=== PATIENT | female | born 1930 | race African-American/Black ===

== ENCOUNTER 2018-02-24 12:23 | Observation (INO) ==
--- NOTE | 2018-02-24 13:24 | ED ---
HPI General Chief Complaint: Recheck/Abnormal Lab/Rx Stated Complaint: Physent/Medical clearance Time Seen by Provider: 02/24/18 13:21 History of Present Illness HPI narrative: The patient is an 87-year-old female with a history of CKD stage IV, diabetes, and hypertension presenting to the emergency department for the evaluation of abnormal labs. The patient reports that for the past 2-3 months she has been feeling more fatigued than normal and has had somewhat of a decreased appetite. She denies losing any blood in her stool or any dark and tarry stools. The patient reports that her PCP did some lab work and cause her to tell her that her hemoglobin was in the 6-7 range and her calcium was elevated in the 11 range. The patient reports that she otherwise feels fine with no nausea, vomiting, diarrhea, fever, chills, chest pain, shortness of breath, or increased peripheral edema. Related Data Home Medications Medication Instructions Recorded Confirmed amlodipine 10 mg PO DAILY 02/24/18 02/24/18 clonidine HCl 0.1 mg PO BID 02/24/18 02/24/18 glimepiride 1 mg PO QAM 02/24/18 02/24/18 hydralazine 25 mg PO BID 02/24/18 02/24/18 levothyroxine 150 mcg PO DAILY 02/24/18 02/24/18 potassium chloride 20 meq PO DAILY 02/24/18 02/24/18 Allergies Allergy/AdvReac Type Severity Reaction Status Date / Time hydrochlorothiazide Allergy Anxiety Verified 02/24/18 13:11 naproxen [From Naprosyn] Allergy Anemia Verified 02/24/18 13:11 rivaroxaban [From Xarelto] Allergy Anxiety Verified 02/24/18 13:11 [facility] Medical History Medical History Anemia (Acute) Breast cancer, right breast (Acute) Diabetes (Acute) Hypercalcemia (Acute) Hyperlipemia (Acute) Hypertension (Acute) Hypokalemia (Acute) Hypothyroidism (Acute) PVD (peripheral vascular disease) (Acute) Stage 4 chronic kidney disease (Acute) Social History Social History Substance History: No History of Abuse Second Hand Smoke Exposure: No Smoking Status: Light tobacco smoker Tobacco Type: Smokeless Tobacco How Often Do You Have a Drink Containing Alcohol: Monthly or less Recent Travel in [facility] within the Last 8 Weeks: No Recent Out of Country Travel within the Last 8 Weeks: No Immunization History Tetanus Immunization: <5 Years Hx Influenza Vaccine This Season: Yes Course Initial Documented Vital Signs Temperature 98.4 F 02/24/18 12:38 Pulse Rate 77 02/24/18 12:38 Respiratory Rate 18 02/24/18 12:38 Blood Pressure 183/79 H 02/24/18 12:38 Pulse Oximetry 98 02/24/18 12:38 Last Documented Vital Signs Temperature 98.4 F 02/24/18 12:38 Pulse Rate 66 02/24/18 16:02 Respiratory Rate 17 02/24/18 14:29 Blood Pressure 171/75 H 02/24/18 16:02 Pulse Oximetry 96 02/24/18 14:29 Medical Decision Making MDM Narrative Medical decision making narrative: Patient is an 87-year-old female sent in by her primary doctor for evaluation of abnormal labs. Patient is well-appearing, she is hypertensive on arrival. Patient did not take her blood pressure medications prior to coming to the emergency department. She has no physical complaints at this time. Labs imaging ordered and pending. Labs reviewed hemoglobin 7.8/23.2, cysts lower than prior values that we have from 2014. BUN and creatinine elevated at 32/2.65, this is new renal insufficiency again when compared to prior results of 2014. Calcium level is elevated as well. Patient will be admitted for these reasons. Patient is agreeable to stay. Patient's blood pressure has trended down after medication. Family at bedside. Admit orders placed. Patient was discussed with my attending physician prior to admission. Lab Data Lab results reviewed: Yes I reviewed the patient's lab results. Result diagrams: 02/24/18 13:37 02/24/18 13:37 Lab Results 02/24/18 02/24/18 02/24/18 Range/Units 13:37 13:37 13:37 WBC 4.3 (4.0-11.0) th/mm3 RBC 2.50 L (4.00-5.30) mil/mm3 Hgb 7.8 L (11.6-15.3) gm/dL Hct 23.2 L (35.0-46.0) % MCV 92.5 (80.0-100.0) fL MCH 31.1 (27.0-34.0) pg MCHC 33.6 (32.0-36.0) % RDW 16.8 (11.6-17.2) % Plt Count 278 (150-450) th/mm3 MPV 7.5 (7.0-11.0) fL Neut % (Auto) 63.9 (16.0-70.0) % Lymph % (Auto) 22.0 (9.0-44.0) % [place] % (Auto) 12.6 H (0.0-8.0) % Eos % (Auto) 0.7 (0.0-4.0) % Baso % (Auto) 0.8 (0.0-2.0) % Neut # (Auto) 2.7 (1.8-7.7) th/mm3 Lymph # (Auto) 0.9 L (1.0-4.8) th/mm3 [place] # (Auto) 0.5 (0.0-0.9) th/mm3 Eos # (Auto) 0.0 (0.0-0.4) th/mm3 Baso # (Auto) 0.0 (0.0-0.2) th/mm3 WBC Differential . Differential Comment Auto diff final PT (9.8-11.6) sec INR Ratio APTT (24.3-30.1) sec Sodium 142 (136-145) meq/L Potassium 3.9 (3.5-5.1) meq/L Chloride 107 (98-107) meq/L Carbon Dioxide 28.2 (21.0-32.0) meq/L Anion Gap 7 (5-15) meq/L BUN 32 H (7-18) mg/dL Creatinine 2.65 H (0.50-1.00) mg/dL Estimated GFR 21 L (>89) mL/min Random Glucose 79 (74-106) mg/dL Calcium 11.1 H (8.5-10.1) mg/dL Magnesium 2.1 (1.5-2.5) mg/dL Total Bilirubin 0.2 (0.2-1.0) mg/dL AST 24 (15-37) U/L ALT 22 (10-53) U/L Alkaline Phosphatase 109 (45-117) U/L Total Protein 8.0 (6.4-8.2) g/dL Albumin 3.8 (3.4-5.0) g/dL Blood Type O Positive Antibody Screen Negative 02/24/18 Range/Units 13:37 WBC (4.0-11.0) th/mm3 RBC (4.00-5.30) mil/mm3 Hgb (11.6-15.3) gm/dL Hct (35.0-46.0) % MCV (80.0-100.0) fL MCH (27.0-34.0) pg MCHC (32.0-36.0) % RDW (11.6-17.2) % Plt Count (150-450) th/mm3 MPV (7.0-11.0) fL Neut % (Auto) (16.0-70.0) % Lymph % (Auto) (9.0-44.0) % [place] % (Auto) (0.0-8.0) % Eos % (Auto) (0.0-4.0) % Baso % (Auto) (0.0-2.0) % Neut # (Auto) (1.8-7.7) th/mm3 Lymph # (Auto) (1.0-4.8) th/mm3 [place] # (Auto) (0.0-0.9) th/mm3 Eos # (Auto) (0.0-0.4) th/mm3 Baso # (Auto) (0.0-0.2) th/mm3 WBC Differential Differential Comment PT 10.4 (9.8-11.6) sec INR 1.0 Ratio APTT 23.7 L (24.3-30.1) sec Sodium (136-145) meq/L Potassium (3.5-5.1) meq/L Chloride (98-107) meq/L Carbon Dioxide (21.0-32.0) meq/L Anion Gap (5-15) meq/L BUN (7-18) mg/dL Creatinine (0.50-1.00) mg/dL Estimated GFR (>89) mL/min Random Glucose (74-106) mg/dL Calcium (8.5-10.1) mg/dL Magnesium (1.5-2.5) mg/dL Total Bilirubin (0.2-1.0) mg/dL AST (15-37) U/L ALT (10-53) U/L Alkaline Phosphatase (45-117) U/L Total Protein (6.4-8.2) g/dL Albumin (3.4-5.0) g/dL Blood Type Antibody Screen Imaging Data Radiologist's impression: Chest X-Ray 02/24/18 13:30 CONCLUSION: No acute intrathoracic disease. Reviewed radiology report Discharge Plan Discharge Disposition Patient Disposition: 30 Still Patient Discharge Condition Condition: Stable Discharge Details Diagnosis: Acute renal failure (ARF), Hypertension, Hypercalcemia Physicians Team ED Provider: Hayden Hernandez ED Midlevel Provider: Sheryl Garay Primary Care Provider: Negro Gonzalez Attending Provider: Amos Odom Rxs /Orders / Referrals /Forms Prescriptions: No Action clonidine HCl 0.1 mg Tablet 0.1 mg PO BID RF: 0 hydralazine 25 mg Tablet 25 mg PO BID RF: 0 glimepiride 1 mg Tablet 1 mg PO QAM RF: 0 amlodipine 10 mg Tablet 10 mg PO DAILY RF: 0 levothyroxine 150 mcg Tablet 150 mcg PO DAILY RF: 0 potassium chloride 20 mEq Tablet Extended Release 20 meq PO DAILY RF: 0 Discharge Interventions Interventions: Vital Signs Last Done: 02/24/18 16:02 Status ED Status: Admitted Observation Patient
[2018-02-24 14:03] LABS: Baso % (Auto) 0.8 % (0.0-2.0); Eos % (Auto) 0.7 % (0.0-4.0); Hematocrit 23.2 % (35.0-46.0); Hemoglobin 7.8 gm/dL (11.6-15.3); Lymph # (Auto) 0.9 th/mm3 (1.0-4.8); Mean Corpuscular HGB Conc 33.6 % (32.0-36.0); Mean Corpuscular Hemoglobin 31.1 pg (27.0-34.0); Mean Corpuscular Volume 92.5 fL (80.0-100.0); Mean Platelet Volume 7.5 fL (7.0-11.0); Mono # (Auto) 0.5 th/mm3 (0.0-0.9); Mono % (Auto) 12.6 % (0.0-8.0); Neut # (Auto) 2.7 th/mm3 (1.8-7.7); Neut % (Auto) 63.9 % (16.0-70.0); Platelet Count 278 th/mm3 (150-450); Red Cell Distribution Width 16.8 % (11.6-17.2); White Blood Count 4.3 th/mm3 (4.0-11.0)
--- NOTE | 2018-02-24 14:09 | XR ---
EXAM DATE: 02/24/2018 2:07 PM EDT AGE/SEX: 87 years / Female INDICATIONS: Shortness of breath. CLINICAL DATA: This is the patient's initial encounter. Patient reports that signs and symptoms have been present for 1 day and indicates a pain score of 0/10. MEDICAL/SURGICAL HISTORY: None. None. COMPARISON: No prior exams available for comparison. FINDINGS: A single AP view of the chest demonstrates the lungs to be symmetrically aerated without evidence of mass, infiltrate or effusion. The heart size is mildly enlarged.. Osseous structures are intact. T here are surgical clips in the right axilla. CONCLUSION: No acute intrathoracic disease. Electronically signed by: Jerome Sutton MD 02/24/2018 2:08 PM EDT
[2018-02-24 14:13] LABS: Activated Partial Thrombo Time 23.7 sec (24.3-30.1); Prothrombin Time 10.4 sec (9.8-11.6)
[2018-02-24 14:35] LABS: Alanine Aminotransferase 22 U/L (10-53); Albumin 3.8 g/dL (3.4-5.0); Anion Gap 7 meq/L (5-15); Aspartate Aminotransferase 24 U/L (15-37); Blood Urea Nitrogen 32 mg/dL (7-18); Calcium 11.1 mg/dL (8.5-10.1); Carbon Dioxide 28.2 meq/L (21.0-32.0); Chloride 107 meq/L (98-107); Glomerular Filtration Rate 21 mL/min (>89); Glucose,Random 79 mg/dL (74-106); Magnesium 2.1 mg/dL (1.5-2.5); Potassium 3.9 meq/L (3.5-5.1); Sodium 142 meq/L (136-145)
[2018-02-24 14:37] LABS: Alkaline Phosphatase 109 U/L (45-117)
[2018-02-24] MEDS ORDERED: hydrALAZINE HCl Inj 20 MG/ML Vial IV.PUSH ONE (15:20)
[2018-02-24] MEDS: amLODIPine 10 MG Tablet PO ONE ×2 (15:58→15:59)
[2018-02-24] MEDS ORDERED: Acetaminophen 325 MG Tablet PO PRN (15:59)
[2018-02-24] MEDS ORDERED: Bisacodyl 10 MG Supp RECTAL PRN (15:59)
[2018-02-24] MEDS ORDERED: Morphine Inj 4 MG/ML Vial IV.PUSH PRN ×2 (16:05)
[2018-02-24] MEDS ORDERED: Naloxone Inj 0.4 MG/ML Vial IV.PUSH PRN (16:05)
[2018-02-24] MEDS ORDERED: Dextrose 50% in Water 50 ML Vial IV.PUSH PRN (16:58)
[2018-02-24] MEDS: Insulin NovoLOG Aspart Correctional Sugar Inj SQ SCH (17:28)
--- NOTE | 2018-02-24 17:53 | P.HPIM ---
History of Present Illness Service: [facility] Primary Care Physician: Negro CAZARES MD Chief Complaint: ABNORMAL LABS History of Present Illness: Patient is an 87-year-old -[place] female with a known history of chronic kidney disease stage IV, as well as diabetes and hypertension who presents to the emergency department after being seen in her primary care's office and referred here for abnormal labs. Patient reports that over the past couple months she has been having more fatigue than normal. Has had somewhat decreased appetite. She also denies any blood loss of any type in her stool denies any dark stool denies any tarry stool. Patient states that her primary care physician Dr. Shiva Yates did blood work and told her to come to the hospital because her hemoglobin was in the 6-7 range. Patient denies any real other issues other than fatigue. She denies any nausea she denies any diarrhea she denies any fever she denies any chills she denies any chest pain she denies any shortness of breath or any increased chest pain patient does have chronic bilateral lower extremity edema. Review of Systems All other systems reviewed negative except as stated in HPI PMFSH - History History Provided By: Patient - Medical History Medical History: Medical History (Last Reviewed 02/24/18 @ 17:18 by Christin Washington RN) Anemia Breast cancer, right breast Diabetes Hypercalcemia Hyperlipemia Hypertension Hypokalemia Hypothyroidism PVD (peripheral vascular disease) Stage 4 chronic kidney disease - Family History Family History: Family History (Last Updated 02/24/18 @ 17:45 by Amos Odom DO) Other Hypertension - Tobacco History Second Hand Smoke Exposure: No Tobacco Use In Past 30 Days: Yes Smoking Status: Light tobacco smoker Tobacco Type: Smokeless Tobacco - Alcohol History How Often Do You Have a Drink Containing Alcohol: Monthly or less - Substance Use History Substance History: No History of Abuse - Travel History History of Recent Travel: No Recent Travel in the [place] Within the Last 8 Weeks: No Recent Travel Out of the Country Within the Last 8 Weeks: No - Immunization History Tetanus Immunization: <5 Years Hx Influenza Vaccine This Season: Yes Medications and Allergies Active Medications: Active Medications Acetaminophen (Tylenol) 650 mg PO Q4H PRN PRN Reason: Temp > 100.4 Hydrocodone Bitart/Acetaminophen ([place] 5/325) 1 tab PO Q4H PRN PRN Reason: PAIN SCALE 3 TO 5 Hydrocodone Bitart/Acetaminophen ([place] 7.5/325) 1 tab PO Q4H PRN PRN Reason: PAIN SCALE 6 TO 10 Al Hydroxide/Mg Hydroxide (Milk Of Magnesia Liq) 30 ml PO Q12H PRN PRN Reason: Mild Constipation Amlodipine Besylate (Norvasc) 10 mg PO DAILY [facility] Bisacodyl (Dulcolax Supp) 10 mg RECTAL DAILY PRN PRN Reason: SEVERE CONSITIPATION Clonidine HCl (Catapres) 0.1 mg PO BID [facility] Dextrose (D50w Vial) 50 ml IV.PUSH UNSCH PRN PRN Reason: PER HYPOGLYCEMIA PROTOCOL Glucagon (Glucagon Inj) 1 mg OTHER PRN PRN PRN Reason: for Hypoglycemia Protocol Hydralazine HCl (Apresoline) 25 mg PO BID [facility] Insulin Aspart (Novolog Insulin Correctional Sugar Inj) 0 unit SQ ACHS [facility]; Protocol Last Admin: 02/24/18 17:28 Dose: Not Given Lactulose (Lactulose Liq) 30 ml PO DAILY PRN PRN Reason: SEVERE CONSITIPATION Levothyroxine Sodium (Synthroid) 150 mcg PO DAILY@0600 [facility] Morphine Sulfate (Morphine Inj) 2 mg IV.PUSH Q3H PRN PRN Reason: PAIN 3-5; IF UABLE TO TAKE PO Morphine Sulfate (Morphine Inj) 4 mg IV.PUSH Q3H PRN PRN Reason: PAIN 6-10;IF UNABLE TO TAKE PO Naloxone HCl (Narcan Inj) 0.4 mg IV.PUSH UNSCH PRN PRN Reason: SEE LABEL COMMENTS Ondansetron HCl (Zofran Inj) 4 mg IV.PUSH Q6H PRN PRN Reason: NAUSEA OR VOMITING Potassium Chloride (K-Dur) 20 meq PO DAILY [facility] Senna/Docusate Sodium (Anne-Colace) 1 tab PO BID [facility] Sennosides (Senokot) 17.2 mg PO Q12H PRN PRN Reason: Moderate Constipation Allergies Allergy/AdvReac Type Severity Reaction Status Date / Time hydrochlorothiazide Allergy Anxiety Verified 02/24/18 13:11 naproxen [From Naprosyn] Allergy Anemia Verified 02/24/18 13:11 rivaroxaban [From Xarelto] Allergy Anxiety Verified 02/24/18 13:11 Home Medications Medication Instructions Recorded Confirmed Type amlodipine 10 mg PO DAILY 02/24/18 02/24/18 History clonidine HCl 0.1 mg PO BID 02/24/18 02/24/18 History glimepiride 1 mg PO QAM 02/24/18 02/24/18 History hydralazine 25 mg PO BID 02/24/18 02/24/18 History levothyroxine 150 mcg PO DAILY 02/24/18 02/24/18 History potassium chloride 20 meq PO DAILY 02/24/18 02/24/18 History Exam Vital signs: Vital Signs 02/24/18 12:38 02/24/18 13:18 02/24/18 14:29 Temperature 98.4 F Pulse Rate 77 75 74 Respiratory Rate 18 14 17 Blood Pressure 183/79 H 201/98 H 214/94 H Pulse Oximetry 98 95 96 02/24/18 16:02 02/24/18 17:26 Temperature Pulse Rate 66 78 Respiratory Rate 16 Blood Pressure 171/75 H 157/74 H Pulse Oximetry 97 Intake & Output 02/23/18 02/24/18 02/24/18 18:59 06:59 18:59 Weight 71.214 kg Narrative: GENERAL: Awake alert and oriented 3 talkative and cooperative appears younger than stated age SKIN: Warm and dry. HEAD: Atraumatic. Normocephalic. EYES: Pupils equal and round. No scleral icterus. No injection or drainage. EOMI ENT: No nasal bleeding or discharge. Mucous membranes pink and moist. Tongue is midline NECK: Trachea midline. No JVD. Supple CARDIOVASCULAR: Regular rate and rhythm. S1-S2 no S3 or S4 RESPIRATORY: No accessory muscle use. Clear to auscultation. Breath sounds equal bilaterally. GASTROINTESTINAL: Abdomen soft, non-tender, nondistended. Hepatic and splenic margins not palpable. MUSCULOSKELETAL: Extremities without clubbing, cyanosis, +2-3 bilateral lower extremity chronic edema. No obvious deformities. NEUROLOGICAL: Awake and alert. No obvious cranial nerve deficits. Motor grossly within normal limits. Five out of 5 muscle strength in the arms and legs. Normal speech. PSYCHIATRIC: Appropriate mood and affect; insight and judgment normal. Results - Labs CBC & Chem 7: 02/24/18 13:37 02/24/18 13:37 Labs: Short CBC 02/24/18 Range/Units 13:37 WBC 4.3 (4.0-11.0) th/mm3 Hgb 7.8 L (11.6-15.3) gm/dL Hct 23.2 L (35.0-46.0) % Plt Count 278 (150-450) th/mm3 BMP 02/24/18 13:37 Sodium 142 Potassium 3.9 Chloride 107 Carbon Dioxide 28.2 BUN 32 H Creatinine 2.65 H Calcium 11.1 H Liver Function 02/24/18 Range/Units 13:37 Total Bilirubin 0.2 (0.2-1.0) mg/dL AST 24 (15-37) U/L ALT 22 (10-53) U/L Alkaline Phosphatase 109 (45-117) U/L Albumin 3.8 (3.4-5.0) g/dL - Imaging Impressions Chest X-Ray 02/24/18 13:30 CONCLUSION: No acute intrathoracic disease. Caprini VTE Risk Assessment Caprini VTE Risk Assessment: No/Low Risk (score <= 1) Caprini Risk Assessment Model: Point Value = 1 Point Value = 2 Point Value = 3 Point Value = 5 Age 41-60 Minor surgery BMI > 25 kg/m2 Swollen legs Varicose veins or History of unexplained or recurrent spontaneous Oral contraceptives or hormone replacement Sepsis (< 1 month) Serious lung disease, including pneumonia (< 1 month) Abnormal pulmonary function Acute myocardial infarction Congestive heart failure (< 1 month) History of inflammatory bowel disease Medical patient at bed rest Age 61-74 Arthroscopic surgery Major open surgery (> 45 min) Laparoscopic surgery (> 45 min) Malignancy Confined to bed (> 72 hours) Immobilizing plaster cast Central venous access Age >= 75 History of VTE Family history of VTE Factor V Leiden Prothrombin [id number] Lupus anticoagulant Anticardiolipin antibodies Elevated serum homocysteine Heparin-induced thrombocytopenia Other congenital or acquired thrombophilia Stroke (< 1 month) Elective arthroplasty Hip, pelvis, or leg fracture Acute spinal cord injury (< 1 month) Prophylaxis Regimen: Total Risk Factor Score Risk Level Prophylaxis Regimen 0-1 Low Early ambulation 2 Moderate Order ONE of the following: *Sequential Compression Device (SCD) *Heparin 5000 units SQ BID 3-4 Higher Order ONE of the following medications: *Heparin 5000 units SQ TID *Enoxaparin/Lovenox 40 mg SQ daily (WT < 150 kg, CrCl > 30 mL/min) *Enoxaparin/Lovenox 30 mg SQ daily (WT < 150 kg, CrCl > 10-29 mL/min) *Enoxaparin/Lovenox 30 mg SQ BID (WT < 150 kg, CrCl > 30 mL/min) AND/OR *Sequential Compression Device (SCD) 5 or more Highest Order ONE of the following medications: *Heparin 5000 units SQ TID (Preferred with Epidurals) *Enoxaparin/Lovenox 40 mg SQ daily (WT < 150 kg, CrCl > 30 mL/min) *Enoxaparin/Lovenox 30 mg SQ daily (WT < 150 kg, CrCl > 10-29 mL/min) *Enoxaparin/Lovenox 30 mg SQ BID (WT < 150 kg, CrCl > 30 mL/min) AND *Sequential Compression Device (SCD) Assessment and Plan - Plan Anemia chronic currently only 7.8 we will recheck labs in the morning if hemoglobin is less than 7.0 may consider transfusion Hyperlipidemia. Currently not on any medications for elevated cholesterol Hypothyroidism resume her levothyroxine 150 MCG's p.o. daily Hypertensive heart disease resume clonidine and amlodipine Chronic kidney disease monitor labs Hyperparathyroidism With elevated calcium will monitor. 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 We will get a.m. labs We will monitor her and hopefully can be discharged tomorrow or transfuse tomorrow and discharged if labs are stable Code Status: Full code Discussed Condition With: RN and patient and emergency room and family Discharge Planning: We will monitor overnight we will get a.m. labs and depending on what labs are she may be transfused and discharged or just discharged to home
--- NOTE | 2018-02-24 18:10 | US ---
EXAM DATE: 02/24/2018 5:56 PM EDT AGE/SEX: 87 years / Female INDICATIONS: Elevated labs. CLINICAL DATA: This is the patient's initial encounter. Patient reports that signs and symptoms have been present for 1 day and indicates a pain score of 0/10. MEDICAL/SURGICAL HISTORY: Anemia. Hypertension. Hypothyroidism. Breast cancer. Hyperlipidemi a. Hypokalemia. PVD. Stage 4 chronic kidney disease. . COMPARISON: No prior exams available for comparison. MEASUREMENTS: Right Kidney:__10.5 x 4.9 x 4.4 cm Left Kidney:__10.7 x 4.4 x 4.3 cm FINDINGS: Right Kidney: Increased echotexture. No mass or hydronephrosis. Left Kidney: Increased echotexture. No mass or hydronephrosis. Bladder: Within normal limits given the degree of distension. Other: None. CONCLUSION: 1. Echogenic kidneys characteristic of medical renal disease. No hydronephrosis. Electronically signed by: Tanvir Corbett MD 02/24/2018 6:09 PM EDT
[2018-02-24 18:47] LABS: Bilirubin,Urine Negative (Negative); Clarity,Urine Clear (Clear); Color,Urine Straw (Yellw/Straw); Glucose,Urine (UA) Negative (Negative); Leukocyte Esterase,Urine Negative (Negative); Nitrite,Urine Negative (Negative); Specific Gravity,Urine 1.005 (1.002-1.035); Squamous Epithelial Cell,Urine 1 /hpf (0-5)
[2018-02-25] MEDS: hydrALAZINE 25 MG Tablet PO SCH ×2 (01:18→09:14)
[2018-02-25] MEDS: Insulin NovoLOG Aspart Correctional Sugar Inj SQ SCH ×3 (01:18→13:43)
[2018-02-25] MEDS: Senna/Docusate Sodium 8.6/50 MG Tablet PO SCH ×2 (01:19→09:14)
[2018-02-25 05:01] LABS: Baso % (Auto) 1.1 % (0.0-2.0); Eos % (Auto) 0.8 % (0.0-4.0); Hematocrit 22.6 % (35.0-46.0); Hemoglobin 7.6 gm/dL (11.6-15.3); Lymph % (Auto) 27.8 % (9.0-44.0); Mean Corpuscular HGB Conc 33.5 % (32.0-36.0); Mean Corpuscular Hemoglobin 30.8 pg (27.0-34.0); Mean Corpuscular Volume 91.9 fL (80.0-100.0); Mean Platelet Volume 7.2 fL (7.0-11.0); Mono # (Auto) 0.4 th/mm3 (0.0-0.9); Mono % (Auto) 11.3 % (0.0-8.0); Neut # (Auto) 2.2 th/mm3 (1.8-7.7); Platelet Count 269 th/mm3 (150-450); Red Blood Count 2.46 mil/mm3 (4.00-5.30); White Blood Count 3.7 th/mm3 (4.0-11.0)
[2018-02-25 05:26] LABS: INR 1.1 Ratio; Prothrombin Time 10.7 sec (9.8-11.6)
[2018-02-25 05:27] LABS: Albumin 3.3 g/dL (3.4-5.0); Anion Gap 7 meq/L (5-15); Aspartate Aminotransferase 17 U/L (15-37); Blood Urea Nitrogen 30 mg/dL (7-18); Calcium 10.6 mg/dL (8.5-10.1); Carbon Dioxide 28.6 meq/L (21.0-32.0); Chloride 107 meq/L (98-107); Glomerular Filtration Rate 22 mL/min (>89); Glucose,Random 105 mg/dL (74-106); Potassium 3.6 meq/L (3.5-5.1); Sodium 143 meq/L (136-145)
[2018-02-25 05:29] LABS: Alanine Aminotransferase 19 U/L (10-53)
[2018-02-25 05:31] LABS: Alkaline Phosphatase 114 U/L (45-117); Total Protein 7.4 g/dL (6.4-8.2)
[2018-02-25] MEDS ORDERED: Levothyroxine 150 MCG Tablet PO SCH (06:00)
[2018-02-25 07:50] VITALS: RESP 16
--- NOTE | 2018-02-25 08:50 | ECG ---
Date Performed: 02/24/2018 Time Performed: 15:58:08 PTAGE: 87 years EKG: Sinus rhythm WITH FREQUENT SUPRAVENTRICULAR PREMATURE COMPLEXES LEFT AXIS DEVIATION SEPTAL MYOCARDIAL INFARCTION ABNORMAL ECG NO PREVIOUS TRACING DOCTOR: Tripp Oleary Interpretating Date/Time 02/25/2018 08:49:01
[2018-02-25] MEDS ORDERED: amLODIPine 10 MG Tablet PO SCH (09:00)
[2018-02-25 11:03] LABS: % Iron Saturation 18.2 % (20-50); Iron 42 mcg/dL (50-170); Total Iron Binding Capacity 231 mcg/dL (250-450)
--- NOTE | 2018-02-25 11:12 | P.PN ---
Subjective Interval history: Follow-up visit CKD, DM, HTN. Patient seen and examined today. Daughter Noemy at the bedside. Patient says she is doing well. States she was ambulating in the hallway without any dizziness, headaches, chest pain, palpitations. States she was not short of breath. Denies pain and discomfort. Denies fevers, chills , n/v/d. Denies hematuria, dysuria. Denies hematochezia, hematemesis. Physical Exam Vital signs: Vital Signs 02/24/18 12:38 02/24/18 13:18 02/24/18 14:29 Temperature 98.4 F Pulse Rate 77 75 74 Respiratory Rate 18 14 17 Blood Pressure 183/79 H 201/98 H 214/94 H Pulse Oximetry 98 95 96 02/24/18 16:02 02/24/18 17:26 02/24/18 18:19 Temperature 98.2 F Pulse Rate 66 78 83 Respiratory Rate 16 14 Blood Pressure 171/75 H 157/74 H 176/78 H Pulse Oximetry 97 97 02/24/18 20:00 02/24/18 23:50 02/25/18 01:54 Temperature 97.7 F 98.2 F Pulse Rate 56 L 66 Respiratory Rate 18 16 14 Blood Pressure 155/70 H 134/65 Pulse Oximetry 98 95 02/25/18 03:45 02/25/18 07:48 02/25/18 08:48 Temperature 98.9 F 98.9 F Pulse Rate 69 62 Respiratory Rate 18 16 Blood Pressure 136/63 134/77 Pulse Oximetry 95 97 96 Intake & Output 02/24/18 02/25/18 02/25/18 18:59 06:59 18:59 Weight 71.214 kg Narrative: GENERAL: This is a well-nourished, well-developed patient, in no apparent distress. SKIN: Warm and dry. HEENT: Normocephalic. Pupils equal round and reactive. Nose without bleeding. Airway patent. NECK: Trachea midline. Supple. CARDIOVASCULAR: Regular rate and rhythm without murmurs, gallops, or rubs. RESPIRATORY: Clear to auscultation. Breath sounds equal bilaterally. No wheezes , rales, or rhonchi. GASTROINTESTINAL: Abdomen soft, non-tender, nondistended. Bowel Sounds normoactive x4. MUSCULOSKELETAL: Extremities without clubbing, cyanosis. Bilateral lower extremity edema +1. NEUROLOGICAL: Awake and alert. Oriented to time, place, person. No focal neuro deficit. Moves all extremities. Normal speech. Results - Labs CBC & Chem 7: 02/25/18 03:46 02/25/18 03:46 Laboratory Results - last 24 hr 02/24/18 02/24/18 02/24/18 13:37 13:37 13:37 WBC 4.3 RBC 2.50 L Hgb 7.8 L Hct 23.2 L MCV 92.5 MCH 31.1 MCHC 33.6 RDW 16.8 Plt Count 278 MPV 7.5 Neut % (Auto) 63.9 Lymph % (Auto) 22.0 Delta % (Auto) 12.6 H Eos % (Auto) 0.7 Baso % (Auto) 0.8 Neut # (Auto) 2.7 Lymph # (Auto) 0.9 L Delta # (Auto) 0.5 Eos # (Auto) 0.0 Baso # (Auto) 0.0 WBC Differential . Differential Comment Auto diff final PT INR APTT Sodium 142 Potassium 3.9 Chloride 107 Carbon Dioxide 28.2 Anion Gap 7 BUN 32 H Creatinine 2.65 H Estimated GFR 21 L POC Glucose Random Glucose 79 Calcium 11.1 H Magnesium 2.1 Iron TIBC % Saturation Total Bilirubin 0.2 AST 24 ALT 22 Alkaline Phosphatase 109 Total Protein 8.0 Albumin 3.8 Urine Color Urine Clarity Urine pH Ur Specific Willard Urine Protein Urine Glucose (UA) Urine Ketones Urine Occult Blood Urine Nitrate Urine Bilirubin Urine Urobilinogen Ur Leukocyte Esterase Urine RBC Urine WBC Ur Squamous Epith Cells Micro UA Comment Urine Culture Comments Blood Type O Positive Antibody Screen Negative 02/24/18 02/24/18 02/24/18 13:37 17:19 18:30 WBC RBC Hgb Hct MCV MCH MCHC RDW Plt Count MPV Neut % (Auto) Lymph % (Auto) Delta % (Auto) Eos % (Auto) Baso % (Auto) Neut # (Auto) Lymph # (Auto) Delta # (Auto) Eos # (Auto) Baso # (Auto) WBC Differential Differential Comment PT 10.4 INR 1.0 APTT 23.7 L Sodium Potassium Chloride Carbon Dioxide Anion Gap BUN Creatinine Estimated GFR POC Glucose 75 Random Glucose Calcium Magnesium Iron TIBC % Saturation Total Bilirubin AST ALT Alkaline Phosphatase Total Protein Albumin Urine Color Straw Urine Clarity Clear Urine pH 7.0 Ur Specific Willard 1.005 Urine Protein 30 H Urine Glucose (UA) Negative Urine Ketones Negative Urine Occult Blood Negative Urine Nitrate Negative Urine Bilirubin Negative Urine Urobilinogen Less than 2 Ur Leukocyte Esterase Negative Urine RBC Less than 1 Urine WBC 2 Ur Squamous Epith Cells 1 Micro UA Comment Culture not ind Urine Culture Comments Culture not ind Blood Type Antibody Screen 02/24/18 02/25/18 02/25/18 22:33 03:46 03:46 WBC 3.7 L RBC 2.46 L Hgb 7.6 L Hct 22.6 L MCV 91.9 MCH 30.8 MCHC 33.5 RDW 17.0 Plt Count 269 MPV 7.2 Neut % (Auto) 59.0 Lymph % (Auto) 27.8 Delta % (Auto) 11.3 H Eos % (Auto) 0.8 Baso % (Auto) 1.1 Neut # (Auto) 2.2 Lymph # (Auto) 1.0 Delta # (Auto) 0.4 Eos # (Auto) 0.0 Baso # (Auto) 0.0 WBC Differential . Differential Comment Auto diff final PT 10.7 INR 1.1 APTT Sodium Potassium Chloride Carbon Dioxide Anion Gap BUN Creatinine Estimated GFR POC Glucose 127 H Random Glucose Calcium Magnesium Iron TIBC % Saturation Total Bilirubin AST ALT Alkaline Phosphatase Total Protein Albumin Urine Color Urine Clarity Urine pH Ur Specific Willard Urine Protein Urine Glucose (UA) Urine Ketones Urine Occult Blood Urine Nitrate Urine Bilirubin Urine Urobilinogen Ur Leukocyte Esterase Urine RBC Urine WBC Ur Squamous Epith Cells Micro UA Comment Urine Culture Comments Blood Type Antibody Screen 02/25/18 02/25/18 02/25/18 03:46 07:27 10:28 WBC RBC Hgb Hct MCV MCH MCHC RDW Plt Count MPV Neut % (Auto) Lymph % (Auto) Delta % (Auto) Eos % (Auto) Baso % (Auto) Neut # (Auto) Lymph # (Auto) Delta # (Auto) Eos # (Auto) Baso # (Auto) WBC Differential Differential Comment PT INR APTT Sodium 143 Potassium 3.6 Chloride 107 Carbon Dioxide 28.6 Anion Gap 7 BUN 30 H Creatinine 2.54 H Estimated GFR 22 L POC Glucose 89 Random Glucose 105 Calcium 10.6 H Magnesium Iron 42 L TIBC 231 L % Saturation 18.2 L Total Bilirubin 0.2 AST 17 ALT 19 Alkaline Phosphatase 114 Total Protein 7.4 D Albumin 3.3 L Urine Color Urine Clarity Urine pH Ur Specific Willard Urine Protein Urine Glucose (UA) Urine Ketones Urine Occult Blood Urine Nitrate Urine Bilirubin Urine Urobilinogen Ur Leukocyte Esterase Urine RBC Urine WBC Ur Squamous Epith Cells Micro UA Comment Urine Culture Comments Blood Type Antibody Screen - Imaging Impressions Abdomen/Bladder Ultrasound 02/24/18 00:00 CONCLUSION: 1. Echogenic kidneys characteristic of medical renal disease. No hydronephrosis. Chest X-Ray 02/24/18 13:30 CONCLUSION: No acute intrathoracic disease. Assessment and Plan - Assessment (1) Acute renal failure (ARF) Code(s): N17.9 - Acute kidney failure, unspecified Status: Acute (2) Hypertension Code(s): I10 - Essential (primary) hypertension Status: Acute (3) Hypercalcemia Code(s): E83.52 - Hypercalcemia Status: Acute (4) Anemia Code(s): D64.9 - Anemia, unspecified Status: Acute - Plan Patient is an 87-year-old -Greek female with a known history of chronic kidney disease stage IV, as well as diabetes and hypertension who presents to the emergency department after being seen in her primary care's office and referred here for abnormal labs. Anemia, possibly of chronic disease -On admission 7.8 --> 7. 6, possibly hemodilution -Check iron panel, ferritin, B12, folate -Low iron panel, start iron supplementation -Continue to monitor and outpatient. Patient is asymptomatic. Hold off on blood transfusion for now -Denies hematochezia, hematemesis, hematuria Acute kidney injury, on chronic kidney disease stage IV -Ultrasound of the kidneys and bladder showed echogenic kidneys characteristic of medical renal disease. No hydronephrosis. -Nephrology consulted appreciate recommendation. Patient is not being followed by nephrology and outpatient. Continue to avoid nephrotoxins for now. -Avoid NSAIDs, aminoglycosides, IV contrast. -Nephrology okay to [place] home follow-up and outpatient within 2 weeks. HTN HLD -Resume home medications DM 2, with nephropathy -Continue home medications for now. Not on insulin. Hyperparathyroidism -Elevated calcium initially 11.1 -->10.6 DVT prop early ambulation Discharge patient to home Condition on discharge: Improved Diabetic Diet as tolerated Ad Chio activity Rx written: As per [place] Plan Follow-up with primary care physician, Dr. Rodriguez Code Status: Full Code Discussed Condition With: Patient, daughter, Dr. Boone. Discharge Planning: Plan to [place] home today. (1) Acute renal failure (ARF) Qualifiers: Acute renal failure type: unspecified Qualified Code(s): N17.9 - Acute kidney failure, unspecified (2) Hypertension Qualifiers: Hypertension type: unspecified Qualified Code(s): I10 - Essential (primary) hypertension
[2018-02-25 11:29] LABS: Ferritin 288 ng/mL (8-252); Vitamin B12 1994 pg/mL (193-986)
[2018-02-25] MEDS ORDERED: Iron Sucrose Inj 100 MG in Sodium Chlor 0.9% Inj 100 ML IV.SIG SCH (13:24)
--- NOTE | 2018-02-25 13:28 | P.CONNP ---
<Cat Donahue - Last Filed: 02/25/18 15:23> History of Present Illness Service: Nephrology Consult date: 02/25/18 Requesting Physician: Amos Odom Reason for Consult: Acute kidney injury Primary Care Provider: Negro Gonzalez Chief Complaint: ABNORMAL LABS History of Present Illness: Patient is an 87-year-old female with a history of CKD, diabetes, and hypertension for over 40 years. Presented to the emergency department for the evaluation of abnormal labs per primary care provider. Hemoglobin was found to be 7.8 and today at 7.6. Iron study done showing iron deficiency. Calcium also elevated at 11.1 and today improved at 10.6. Reports that she has been told about her hypercalcemia for over a year and primary care provider has changed her medication. She has had fatigue, weakness, and poor appetite over past month. Nausea and vomiting over last couple of days. Denies any blood or dark tarry stools. Nephrology is consulted for acute kidney injury with a creatinine of 2.65 on day of consult which has improved today to 2.54. Patient is not followed by [facility] [employer] outpatient and does not know her baseline kidney function. Renal ultrasound with echogenic kidneys characteristic of medical renal disease. No hydronephrosis. PMFSH - History History Provided By: Patient - Medical History Medical History: Medical History (Last Reviewed 02/25/18 @ 08:43 by Mandi Paez) Anemia Breast cancer, right breast Diabetes Hypercalcemia Hyperlipemia Hypertension Hypokalemia Hypothyroidism PVD (peripheral vascular disease) Stage 4 chronic kidney disease - Family History Family History: Family History (Last Updated 02/24/18 @ 17:45 by Amos Odom DO) Other Hypertension - Tobacco History Second Hand Smoke Exposure: No Tobacco Use In Past 30 Days: Yes Smoking Status: Light tobacco smoker Tobacco Type: Smokeless Tobacco - Alcohol History How Often Do You Have a Drink Containing Alcohol: Monthly or less - Substance Use History Substance History: No History of Abuse - Travel History History of Recent Travel: No Recent Travel in the [place] Within the Last 8 Weeks: No Recent Travel Out of the Country Within the Last 8 Weeks: No - Immunization History Tetanus Immunization: <5 Years Hx Influenza Vaccine This Season: Yes Medications and Allergies Allergies Allergy/AdvReac Type Severity Reaction Status Date / Time hydrochlorothiazide Allergy Anxiety Verified 02/24/18 13:11 naproxen [From Naprosyn] Allergy Anemia Verified 02/24/18 13:11 rivaroxaban [From Xarelto] Allergy Anxiety Verified 02/24/18 13:11 Home Medications Medication Instructions Recorded Confirmed Type amlodipine 10 mg PO DAILY 02/24/18 02/24/18 History clonidine HCl 0.1 mg PO BID 02/24/18 02/24/18 History glimepiride 1 mg PO QAM 02/24/18 02/24/18 History hydralazine 25 mg PO BID 02/24/18 02/24/18 History levothyroxine 150 mcg PO DAILY 02/24/18 02/24/18 History potassium chloride 20 meq PO DAILY 02/24/18 02/24/18 History Active Medications: Active Medications Acetaminophen (Tylenol) 650 mg PO Q4H PRN PRN Reason: Temp > 100.4 Hydrocodone Bitart/Acetaminophen (Leroy 5/325) 1 tab PO Q4H PRN PRN Reason: PAIN SCALE 3 TO 5 Hydrocodone Bitart/Acetaminophen (Leroy 7.5/325) 1 tab PO Q4H PRN PRN Reason: PAIN SCALE 6 TO 10 Al Hydroxide/Mg Hydroxide (Milk Of Magnesia Liq) 30 ml PO Q12H PRN PRN Reason: Mild Constipation Amlodipine Besylate (Norvasc) 10 mg PO DAILY [facility] Last Admin: 02/25/18 09:14 Dose: 10 mg Bisacodyl (Dulcolax Supp) 10 mg RECTAL DAILY PRN PRN Reason: SEVERE CONSITIPATION Clonidine HCl (Catapres) 0.1 mg PO BID [facility] Last Admin: 02/25/18 09:15 Dose: 0.1 mg Clonidine HCl (Catapres) 0.1 mg PO Q6H PRN PRN Reason: SEE LABEL COMMENTS Dextrose (D50w Vial) 50 ml IV.PUSH UNSCH PRN PRN Reason: PER HYPOGLYCEMIA PROTOCOL Glucagon (Glucagon Inj) 1 mg OTHER PRN PRN PRN Reason: for Hypoglycemia Protocol Hydralazine HCl (Apresoline) 25 mg PO BID [facility] Last Admin: 02/25/18 09:14 Dose: 25 mg Insulin Aspart (Novolog Insulin [employer]al Sugar Inj) 0 unit SQ ACHS [facility]; Protocol Last Admin: 02/25/18 09:16 Dose: Not Given Lactulose (Lactulose Liq) 30 ml PO DAILY PRN PRN Reason: SEVERE CONSITIPATION Levothyroxine Sodium (Synthroid) 150 mcg PO DAILY@0600 [facility] Last Admin: 02/25/18 06:19 Dose: 150 mcg Morphine Sulfate (Morphine Inj) 2 mg IV.PUSH Q3H PRN PRN Reason: PAIN 3-5; IF UABLE TO TAKE PO Morphine Sulfate (Morphine Inj) 4 mg IV.PUSH Q3H PRN PRN Reason: PAIN 6-10;IF UNABLE TO TAKE PO Naloxone HCl (Narcan Inj) 0.4 mg IV.PUSH UNSCH PRN PRN Reason: SEE LABEL COMMENTS Ondansetron HCl (Zofran Inj) 4 mg IV.PUSH Q6H PRN PRN Reason: NAUSEA OR VOMITING Potassium Chloride (K-Dur) 20 meq PO DAILY [facility] Last Admin: 02/25/18 09:14 Dose: 20 meq Senna/Docusate Sodium (Anne-Colace) 1 tab PO BID [facility] Last Admin: 02/25/18 09:14 Dose: 1 tab Sennosides (Senokot) 17.2 mg PO Q12H PRN PRN Reason: Moderate Constipation Exam Vital signs: Vital Signs 02/24/18 13:18 02/24/18 14:29 02/24/18 16:02 Temperature Pulse Rate 75 74 66 Respiratory Rate 14 17 Blood Pressure 201/98 H 214/94 H 171/75 H Pulse Oximetry 95 96 02/24/18 17:26 02/24/18 18:19 02/24/18 20:00 Temperature 98.2 F 97.7 F Pulse Rate 78 83 56 L Respiratory Rate 16 14 18 Blood Pressure 157/74 H 176/78 H 155/70 H Pulse Oximetry 97 97 98 02/24/18 23:50 02/25/18 01:54 02/25/18 03:45 Temperature 98.2 F 98.9 F Pulse Rate 66 69 Respiratory Rate 16 14 18 Blood Pressure 134/65 136/63 Pulse Oximetry 95 95 02/25/18 07:48 02/25/18 08:48 02/25/18 11:58 Temperature 98.9 F 97.8 F Pulse Rate 62 59 L Respiratory Rate 16 16 Blood Pressure 134/77 128/59 L Pulse Oximetry 97 96 97 Intake & Output 02/24/18 02/25/18 02/25/18 18:59 06:59 18:59 Weight 71.214 kg Results - Lab Results 02/25/18 03:46 02/25/18 03:46 Most recent lab results Calcium 10.6 mg/dL (8.5-10.1) H 02/25/18 03:46 Magnesium 2.1 mg/dL (1.5-2.5) 02/24/18 13:37 - Image Kidney/bladder ultrasound: report reviewed Assessment and Plan - Assessment (1) Acute renal failure (ARF) Code(s): N17.9 - Acute kidney failure, unspecified Status: Acute Plan: Acute kidney injury with a creatinine of 2.65 on day of consult which has improved today to 2.54. Unsure of patient baseline creatinine. Possible prerenal vs ATN from poor intake and intravascular volume depletion. Renal ultrasound with echogenic kidneys characteristic of medical renal disease. No hydronephrosis. Urine with mild proteinuria. Monitor I+O Fluids are encouraged. Avoid nephrotoxins including NSAIDS, aminoglycosides, and IV contrast Will monitor urinary output and BMP Creatinine is improving and from a nephrology stand point can be discharged but will need to be follow up outpatient within 2 weeks. (2) Hypertension Code(s): I10 - Essential (primary) hypertension Status: Acute Plan: Blood pressure is well controlled (3) Hypercalcemia Code(s): E83.52 - Hypercalcemia Status: Acute Plan: Calcium level elevated at 11.1 and decreased to 10.6 Will order PTH and Vitamin d level in AM. Low calcium diet. (4) Anemia Code(s): D64.9 - Anemia, unspecified Status: Acute Plan: HGB at 7.3, iron sat at 18.2 with ferritin of 288, Venofer ordered. <Nallely Rodriguez - Last Filed: 02/26/18 09:19> History of Present Illness Primary Care Provider: Negro Gonzalez [facility] - Medical History Medical History: Medical History (Last Reviewed 02/25/18 @ 08:43 by Mandi Paez) Anemia Breast cancer, right breast Diabetes Hypercalcemia Hyperlipemia Hypertension Hypokalemia Hypothyroidism PVD (peripheral vascular disease) Stage 4 chronic kidney disease - Family History Family History: Family History (Last Updated 02/24/18 @ 17:45 by Amos Odom DO) Other Hypertension Exam Vital signs: Vital Signs 02/25/18 11:58 02/25/18 16:00 Temperature 97.8 F 98.0 F Pulse Rate 59 L 79 Respiratory Rate 16 16 Blood Pressure 128/59 L 180/73 H Pulse Oximetry 97 98 Intake & Output 02/25/18 02/26/18 02/26/18 18:59 06:59 18:59 Intake Total 480 / 480 Output Total 200 / 200 Balance 280 / 280 Intake: Oral 480 / 480 Output: Urine 200 / 200 Other: # Voids 2 Results - Lab Results 02/25/18 03:46 02/25/18 03:46 Most recent lab results Calcium 10.6 mg/dL (8.5-10.1) H 02/25/18 03:46 Magnesium 2.1 mg/dL (1.5-2.5) 02/24/18 13:37 Assessment and Plan - Assessment (1) Acute renal failure (ARF) Code(s): N17.9 - Acute kidney failure, unspecified Status: Acute (2) Hypertension Code(s): I10 - Essential (primary) hypertension Status: Acute (3) Hypercalcemia Code(s): E83.52 - Hypercalcemia Status: Acute (4) Anemia Code(s): D64.9 - Anemia, unspecified Status: Acute - Attending Attestation Patient seen and examined, agree with above. Has echogenic kidneys and mild proteinuria. Creatinine is stable. Most likely has advance chronic stage 4 kidney disease. For D/C, I can follow as out patient in 2 weeks. <Cat Donahue - Last Filed: 02/25/18 15:23> (1) Acute renal failure (ARF) Qualifiers: Acute renal failure type: unspecified Qualified Code(s): N17.9 - Acute kidney failure, unspecified (2) Hypertension Qualifiers: Hypertension type: unspecified Qualified Code(s): I10 - Essential (primary) hypertension <Nallely Rodriguez - Last Filed: 02/26/18 09:19> (1) Acute renal failure (ARF) Qualifiers: Acute renal failure type: unspecified Qualified Code(s): N17.9 - Acute kidney failure, unspecified (2) Hypertension Qualifiers: Hypertension type: unspecified Qualified Code(s): I10 - Essential (primary) hypertension
[2018-02-25 15:41] LABS: Creatinine,Urine Random 135 mg/dL (27-300)
[2018-02-25] MEDS ORDERED: Ferrous Sulfate 325 MG Tablet PO SCH (16:15)
[2018-03-01 18:01] VITALS: BP 180/73; PULSE 79; TEMP 98; O2SAT 98
== END 2018-02-25 17:27 | disposition home or self-care (01) ==
LOC: NEDA 12:23 → NEPC 12:23 → NEPHCDU 12:23
PROVIDERS: ADMIT Hospitalist; ATTEND Hospitalist

== ENCOUNTER 2018-05-17 12:40 | Observation (INO) ==
--- NOTE | 2018-05-17 14:22 | ED ---
HPI General Chief complaint: Recheck/Abnormal Lab/Rx Stated complaint: Blood Transfusion/Doctor Sent Time Seen by Provider: 05/17/18 14:08 History of Present Illness HPI narrative: This is an 87-year-old female with history of chronic kidney disease, diabetes, hypertension, anemia of chronic disease who presents after being sent by her senior design engineer Dr. Rodriguez for evaluation of abnormal lab work. The patient had lab work performed last week which revealed a hemoglobin of 6.5. She saw him yesterday and was told to come to the ER for transfusion. She reports that she has had chronic fatigue for months. She denies any acute symptomology. She denies any chest pain, shortness of breath, abdominal pain, nausea or vomiting. She denies any black or tarry stools or hematochezia. She is not on any blood thinning medications. Symptoms are moderate, duration months, no alleviating factors. She has no other complaints at this time. Related Data Home Medications Medication Instructions Recorded Confirmed amlodipine 10 mg PO DAILY 02/24/18 02/24/18 clonidine HCl 0.1 mg PO BID 02/24/18 02/24/18 glimepiride 1 mg PO QAM 02/24/18 02/24/18 hydralazine 25 mg PO BID 02/24/18 02/24/18 levothyroxine 150 mcg PO DAILY 02/24/18 02/24/18 potassium chloride 20 meq PO DAILY 02/24/18 02/24/18 Previous Rx's Medication Instructions Recorded ferrous sulfate [FeroSul] 325 mg PO DAILY #30 tab 02/25/18 Allergies Allergy/AdvReac Type Severity Reaction Status Date / Time hydrochlorothiazide Allergy Anxiety Verified 05/17/18 13:44 naproxen [From Naprosyn] Allergy Anemia Verified 05/17/18 13:44 rivaroxaban [From Xarelto] Allergy Anxiety Verified 05/17/18 13:44 Review of Systems ROS: all other systems reviewed are negative [facility] Medical History Medical History Anemia (Acute) Breast cancer, right breast (Acute) Diabetes (Acute) H/O: hysterectomy (Acute) Hypercalcemia (Acute) Hyperlipemia (Acute) Hypertension (Acute) Hypokalemia (Acute) Hypothyroidism (Acute) PVD (peripheral vascular disease) (Acute) Stage 4 chronic kidney disease (Acute) Family History Family History Other Hypertension Social History Social History Substance History: No History of Abuse Second Hand Smoke Exposure: No Smoking Status: Never smoker Tobacco Type: Smokeless Tobacco How Often Do You Have a Drink Containing Alcohol: Never Hx Recent Travel: No Recent Travel in [facility] within the Last 8 Weeks: No Recent Out of Country Travel within the Last 8 Weeks: No Immunization History Tetanus Immunization: Unsure Exam Narrative Exam Narrative: GENERAL: Pleasant well-developed well-nourished female no acute distress SKIN: Warm and dry. HEAD: Atraumatic. Normocephalic. EYES: Pupils equal and round. No scleral icterus. No injection or drainage. ENT: No nasal bleeding or discharge. Mucous membranes pink and moist. NECK: Trachea midline. No JVD. CARDIOVASCULAR: Regular rate and rhythm. No murmur appreciated. RESPIRATORY: No accessory muscle use. Clear to auscultation. Breath sounds equal bilaterally. GASTROINTESTINAL: Abdomen soft, non-tender, nondistended. Hepatic and splenic margins not palpable. Rectal examination reveals brown heme-negative stool. MUSCULOSKELETAL: No obvious deformities. No clubbing. No cyanosis. No edema. NEUROLOGICAL: Awake and alert. No obvious cranial nerve deficits. Motor grossly within normal limits. Normal speech. Procedures Hemaprompt Stool Procedural Steps Taken: specimen placed in appropriate test area, developer placed on specimen and control areas and controls appropriately positive and negative Hemaprompt Stool Result: negative Course Initial Documented Vital Signs Temperature 97.8 F 05/17/18 13:41 Pulse Rate 61 05/17/18 13:41 Respiratory Rate 15 05/17/18 13:41 Blood Pressure 138/60 05/17/18 13:41 Pulse Oximetry 100 05/17/18 13:41 Last Documented Vital Signs Temperature 97.8 F 05/17/18 13:41 Pulse Rate 71 05/17/18 16:28 Respiratory Rate 20 05/17/18 16:28 Blood Pressure 175/79 H 05/17/18 16:28 Pulse Oximetry 99 05/17/18 16:28 Medical Decision Making [facility] Narrative Medical decision making narrative: 87-year-old female who was sent here by her senior design engineer for evaluation of low hemoglobin. Her hemoglobin today is 6.7. She has a history of chronic anemia, this appears to be worsening. She has no evidence of GI bleed on examination. She has no acute symptoms, she does report chronic fatigue. 2 units packed red blood cells have been ordered. The patient will be admitted for observation. Discussed with Dr. Jones who is agreeable. Medical Screen Exam Complete: Yes Emergency Medical Condition: Yes Differential Diagnosis Differential Diagnosis: Anemia of chronic disease, acute anemia, GI bleed Lab Data Result diagrams: 05/17/18 15:15 05/17/18 15:15 Lab Results 05/17/18 05/17/18 05/17/18 Range/Units 15:15 15:15 15:15 WBC 4.3 (4.0-11.0) th/mm3 RBC 2.00 L (4.00-5.30) mil/mm3 Hgb 6.7 L* (11.6-15.3) gm/dL Hct 18.6 L* (35.0-46.0) % MCV 93.1 (80.0-100.0) fL MCH 33.4 (27.0-34.0) pg MCHC 35.9 (32.0-36.0) % RDW 14.8 (11.6-17.2) % Plt Count 259 (150-450) th/mm3 MPV 6.9 L (7.0-11.0) fL Neut % (Auto) 70.5 H (16.0-70.0) % Lymph % (Auto) 18.1 (9.0-44.0) % [place] % (Auto) 10.5 H (0.0-8.0) % Eos % (Auto) 0.4 (0.0-4.0) % Baso % (Auto) 0.5 (0.0-2.0) % Neut # (Auto) 3.1 (1.8-7.7) th/mm3 Lymph # (Auto) 0.8 L (1.0-4.8) th/mm3 [place] # (Auto) 0.5 (0.0-0.9) th/mm3 Eos # (Auto) 0.0 (0.0-0.4) th/mm3 Baso # (Auto) 0.0 (0.0-0.2) th/mm3 WBC Differential . Differential Comment Auto diff final PT 10.7 (9.8-11.6) sec INR 1.1 Ratio APTT 24.3 (24.3-30.1) sec Blood Type O Positive MTS Gel Crossmatch 05/17/18 Range/Units 15:15 WBC (4.0-11.0) th/mm3 RBC (4.00-5.30) mil/mm3 Hgb (11.6-15.3) gm/dL Hct (35.0-46.0) % MCV (80.0-100.0) fL MCH (27.0-34.0) pg MCHC (32.0-36.0) % RDW (11.6-17.2) % Plt Count (150-450) th/mm3 MPV (7.0-11.0) fL Neut % (Auto) (16.0-70.0) % Lymph % (Auto) (9.0-44.0) % [place] % (Auto) (0.0-8.0) % Eos % (Auto) (0.0-4.0) % Baso % (Auto) (0.0-2.0) % Neut # (Auto) (1.8-7.7) th/mm3 Lymph # (Auto) (1.0-4.8) th/mm3 [place] # (Auto) (0.0-0.9) th/mm3 Eos # (Auto) (0.0-0.4) th/mm3 Baso # (Auto) (0.0-0.2) th/mm3 WBC Differential Differential Comment PT (9.8-11.6) sec INR Ratio APTT (24.3-30.1) sec Blood Type MTS Gel Crossmatch See Detail Discharge Plan Discharge Disposition Patient Disposition: 30 Still Patient Discharge Condition Condition: Stable Discharge Details Diagnosis: Anemia Physicians Team ED Provider: Vonda Angel ED Midlevel Provider: Josias Briones Primary Care Provider: UNKNOWN, Rxs /Orders / Referrals /Forms Prescriptions: No Action clonidine HCl 0.1 mg Tablet 0.1 mg PO BID RF: 0 hydralazine 25 mg Tablet 25 mg PO BID RF: 0 glimepiride 1 mg Tablet 1 mg PO QAM RF: 0 amlodipine 10 mg Tablet 10 mg PO DAILY RF: 0 levothyroxine 150 mcg Tablet 150 mcg PO DAILY RF: 0 potassium chloride 20 mEq Tablet Extended Release 20 meq PO DAILY RF: 0 ferrous sulfate [FeroSul] 325 mg (65 mg iron) Tablet 325 mg PO DAILY Qty: 30 RF: 0 Status ED Status: With Doctor
[2018-05-17 15:37] LABS: Baso % (Auto) 0.5 % (0.0-2.0); Eos % (Auto) 0.4 % (0.0-4.0); Lymph # (Auto) 0.8 th/mm3 (1.0-4.8); Lymph % (Auto) 18.1 % (9.0-44.0); Mean Corpuscular HGB Conc 35.9 % (32.0-36.0); Mean Corpuscular Hemoglobin 33.4 pg (27.0-34.0); Mean Corpuscular Volume 93.1 fL (80.0-100.0); Mean Platelet Volume 6.9 fL (7.0-11.0); Mono # (Auto) 0.5 th/mm3 (0.0-0.9); Mono % (Auto) 10.5 % (0.0-8.0); Neut # (Auto) 3.1 th/mm3 (1.8-7.7); Neut % (Auto) 70.5 % (16.0-70.0); Platelet Count 259 th/mm3 (150-450); Red Cell Distribution Width 14.8 % (11.6-17.2); White Blood Count 4.3 th/mm3 (4.0-11.0)
[2018-05-17 15:44] LABS: Hematocrit 18.6 % (35.0-46.0); Hemoglobin 6.7 gm/dL (11.6-15.3)
[2018-05-17 15:47] LABS: Activated Partial Thrombo Time 24.3 sec (24.3-30.1); INR 1.1 Ratio; Prothrombin Time 10.7 sec (9.8-11.6)
[2018-05-17 16:05] LABS: Alanine Aminotransferase 15 U/L (10-53); Albumin 3.7 g/dL (3.4-5.0); Alkaline Phosphatase 100 U/L (45-117); Anion Gap 10 meq/L (5-15); Aspartate Aminotransferase 18 U/L (15-37); Blood Urea Nitrogen 41 mg/dL (7-18); Calcium 11.1 mg/dL (8.5-10.1); Carbon Dioxide 28.2 meq/L (21.0-32.0); Chloride 96 meq/L (98-107); Glomerular Filtration Rate 18 mL/min (>89); Glucose,Random 71 mg/dL (74-106); Magnesium 1.9 mg/dL (1.5-2.5); Sodium 134 meq/L (136-145); Total Protein 7.7 g/dL (6.4-8.2)
[2018-05-17] MEDS ORDERED: Sodium Chlor 0.9% Inj 250 ML IV.SIG SCH (17:00)
[2018-05-17 17:02] LABS: Potassium 2.9 meq/L (3.5-5.1)
--- NOTE | 2018-05-17 18:27 | P.HPIM ---
History of Present Illness Primary Care Physician: UNKNOWN History of Present Illness: Ms. Schilling is an 87-year-old female. She has a past history of chronic disease including history of breast cancer and chronic kidney disease. She has had blood transfusions in the past related to anemia of chronic disease. As an outpatient she visited her physician and was told she has a hemoglobin between 6 and 7. She comes in the hospital today and her hemoglobin level 6.7. Testing of stool was negative for blood. Etiology for this is chronic and no GI workup is needed. Additional findings tonight are hypokalemia (this would contradict lysis as a cause) and uncontrolled hypertension. No complaints of chest pain. No complaints of pain. - Diagnosis (1) Anemia Review of Systems Constitutional: No fevers, no chills no night sweats, fatigue, weakness Eyes: No eye pain, no blurry vision, no loss of vision ENT: No sore throat, no ear pain, no rhinorrhea Cardiovascular: No chest pain, no tachycardia, no palpitations, no shortness of breath, no syncope Respiratory: No wheezing, no cough, no shortness of breath Gastrointestinal: No abdominal pain, no black tarry stools, no bright red blood per rectum, no vomiting, no diarrhea Musculoskeletal: No joint pain, no muscle cramps, no stiffness Integumentary: No rash, no ulcers, no drainage Neurologic: No sensory loss, no loss of motor function, no dizziness Psychiatric: No behavioral changes, no hallucinations, no suicidal ideations PMF - History History Provided By: Patient, Family Member - Medical History Medical History: Medical History (Last Updated 05/17/18 @ 14:11 by Crow Chase RN) Anemia Breast cancer, right breast Diabetes H/O: hysterectomy Hypercalcemia Hyperlipemia Hypertension Hypokalemia Hypothyroidism PVD (peripheral vascular disease) Stage 4 chronic kidney disease - Family History Family History: Family History (Last Updated 02/24/18 @ 17:45 by Amos Odom DO) Other Hypertension - Tobacco History Second Hand Smoke Exposure: No Smoking Status: Never smoker Tobacco Type: Smokeless Tobacco - Alcohol History How Often Do You Have a Drink Containing Alcohol: Never - Substance Use History Substance History: No History of Abuse - Travel History History of Recent Travel: No Recent Travel in the [place] Within the Last 8 Weeks: No Recent Travel Out of the Country Within the Last 8 Weeks: No - Immunization History Tetanus Immunization: Unsure Medications and Allergies Active Medications: Active Medications Al Hydroxide/Mg Hydroxide (Milk Of Selene Clark) 30 ml PO Q12H PRN PRN Reason: Mild Constipation Sodium Chloride (Ns Inj) 250 mls @ 15 mls/hr IV.SIG ONCE SPARKLE Stop: 05/18/18 09:39 Ondansetron HCl (Zofran Inj) 4 mg IV.PUSH Q6H PRN PRN Reason: NAUSEA OR VOMITING Sodium Chloride (Ns Flush) 2 ml IV.FLUSH PRN PRN PRN Reason: FLUSH AFTER USING IV ACCESS Allergies Allergy/AdvReac Type Severity Reaction Status Date / Time hydrochlorothiazide Allergy Anxiety Verified 05/17/18 13:44 naproxen [From Naprosyn] Allergy Anemia Verified 05/17/18 13:44 rivaroxaban [From Xarelto] Allergy Anxiety Verified 05/17/18 13:44 Home Medications Medication Instructions Recorded Confirmed Type amlodipine 10 mg PO DAILY 02/24/18 05/17/18 History clonidine HCl 0.1 mg PO BID 02/24/18 05/17/18 History glimepiride 1 mg PO QAM 02/24/18 05/17/18 History hydralazine 25 mg PO BID 02/24/18 05/17/18 History levothyroxine 150 mcg PO DAILY 02/24/18 05/17/18 History potassium chloride 20 meq PO DAILY 02/24/18 05/17/18 History Exam Vital signs: Vital Signs 05/17/18 13:41 05/17/18 14:13 05/17/18 16:28 Temperature 97.8 F Pulse Rate 61 70 71 Respiratory Rate 15 20 20 Blood Pressure 138/60 188/79 H 175/79 H Pulse Oximetry 100 100 99 05/17/18 17:37 Temperature Pulse Rate 75 Respiratory Rate 20 Blood Pressure 183/83 H Pulse Oximetry 99 Intake & Output 05/16/18 05/17/18 05/17/18 18:59 06:59 18:59 Weight 68.946 kg Narrative: GENERAL: NAD, A&Ox3 HEAD: Normocephalic. NECK: Supple, trachea midline. No lymphadenopathy. EYES: No scleral icterus. No injection or drainage. CARDIOVASCULAR: Regular rate and rhythm without murmurs, gallops, or rubs. RESPIRATORY: Breath sounds equal bilaterally. No accessory muscle use. GASTROINTESTINAL: Abdomen soft, non-tender, nondistended. MUSCULOSKELETAL: No cyanosis, or edema. SKIN: Warm and dry. NEURO: No focal neurological deficits. Results - Labs CBC & Chem 7: 05/17/18 15:15 05/17/18 15:15 Labs: Short CBC 05/17/18 Range/Units 15:15 WBC 4.3 (4.0-11.0) th/mm3 Hgb 6.7 L* (11.6-15.3) gm/dL Hct 18.6 L* (35.0-46.0) % Plt Count 259 (150-450) th/mm3 BMP 05/17/18 15:15 Sodium 134 L Potassium 2.9 L* Chloride 96 L Carbon Dioxide 28.2 BUN 41 H Creatinine 3.03 H Calcium 11.1 H Liver Function 05/17/18 Range/Units 15:15 Total Bilirubin 0.3 (0.2-1.0) mg/dL AST 18 (15-37) U/L ALT 15 (10-53) U/L Alkaline Phosphatase 100 (45-117) U/L Albumin 3.7 (3.4-5.0) g/dL Caprini VTE Risk Assessment Caprini VTE Risk Assessment: No/Low Risk (score <= 1) Caprini Risk Assessment Model: Point Value = 1 Point Value = 2 Point Value = 3 Point Value = 5 Age 41-60 Minor surgery BMI > 25 kg/m2 Swollen legs Varicose veins or History of unexplained or recurrent spontaneous Oral contraceptives or hormone replacement Sepsis (< 1 month) Serious lung disease, including pneumonia (< 1 month) Abnormal pulmonary function Acute myocardial infarction Congestive heart failure (< 1 month) History of inflammatory bowel disease Medical patient at bed rest Age 61-74 Arthroscopic surgery Major open surgery (> 45 min) Laparoscopic surgery (> 45 min) Malignancy Confined to bed (> 72 hours) Immobilizing plaster cast Central venous access Age >= 75 History of VTE Family history of VTE Factor V Leiden Prothrombin [id number] Lupus anticoagulant Anticardiolipin antibodies Elevated serum homocysteine Heparin-induced thrombocytopenia Other congenital or acquired thrombophilia Stroke (< 1 month) Elective arthroplasty Hip, pelvis, or leg fracture Acute spinal cord injury (< 1 month) Prophylaxis Regimen: Total Risk Factor Score Risk Level Prophylaxis Regimen 0-1 Low Early ambulation 2 Moderate Order ONE of the following: *Sequential Compression Device (SCD) *Heparin 5000 units SQ BID 3-4 Higher Order ONE of the following medications: *Heparin 5000 units SQ TID *Enoxaparin/Lovenox 40 mg SQ daily (WT < 150 kg, CrCl > 30 mL/min) *Enoxaparin/Lovenox 30 mg SQ daily (WT < 150 kg, CrCl > 10-29 mL/min) *Enoxaparin/Lovenox 30 mg SQ BID (WT < 150 kg, CrCl > 30 mL/min) AND/OR *Sequential Compression Device (SCD) 5 or more Highest Order ONE of the following medications: *Heparin 5000 units SQ TID (Preferred with Epidurals) *Enoxaparin/Lovenox 40 mg SQ daily (WT < 150 kg, CrCl > 30 mL/min) *Enoxaparin/Lovenox 30 mg SQ daily (WT < 150 kg, CrCl > 10-29 mL/min) *Enoxaparin/Lovenox 30 mg SQ BID (WT < 150 kg, CrCl > 30 mL/min) AND *Sequential Compression Device (SCD) Assessment and Plan - Assessment (1) Anemia Code(s): D64.9 - Anemia, unspecified Status: Acute - Plan 87-year-old female admitted secondary to severe anemia Severe anemia Related to chronic disease Transfuse 2 units packed red blood cells Recheck hemoglobin in a.m. Hypokalemia Replace Monitor potassium levels Recheck in a.m. Uncontrolled hypertension Continue baseline treatments Add additional clonidine as needed Diabetes mellitus type 2 Follow blood sugars Insulin sliding scale Diabetic diet Hyperlipidemia Continue present treatment Follow as an outpatient Hypertension Continue baseline treatment Follow blood pressures Adjust treatments as needed History of breast cancer, right breast Hypothyroidism PVD (peripheral vascular disease) Stage 4 chronic kidney disease No change to baseline treatments DVT Prophylaxis SCDs Discharge Planning Possible DC in AM if Hgb improved, Potassium normalizes, and BP stabilized.
[2018-05-17] MEDS ORDERED: Dextrose 50% in Water 50 ML Vial IV.PUSH PRN (18:30)
[2018-05-17] MEDS: hydrALAZINE 25 MG Tablet PO SCH (20:26)
[2018-05-17] MEDS: Insulin NovoLOG Aspart Correctional Sugar Inj SQ SCH (23:19)
[2018-05-18] MEDS ORDERED: Levothyroxine 150 MCG Tablet PO SCH (06:00)
[2018-05-18 08:01] LABS: Baso % (Auto) 0.7 % (0.0-2.0); Eos % (Auto) 0.6 % (0.0-4.0); Hematocrit 25.8 % (35.0-46.0); Lymph # (Auto) 0.6 th/mm3 (1.0-4.8); Lymph % (Auto) 14.3 % (9.0-44.0); Mean Corpuscular HGB Conc 34.9 % (32.0-36.0); Mean Corpuscular Hemoglobin 30.7 pg (27.0-34.0); Mean Platelet Volume 7.1 fL (7.0-11.0); Mono # (Auto) 0.5 th/mm3 (0.0-0.9); Mono % (Auto) 10.6 % (0.0-8.0); Neut # (Auto) 3.3 th/mm3 (1.8-7.7); Neut % (Auto) 73.8 % (16.0-70.0); Platelet Count 265 th/mm3 (150-450); Red Blood Count 2.94 mil/mm3 (4.00-5.30); Red Cell Distribution Width 17.5 % (11.6-17.2); White Blood Count 4.5 th/mm3 (4.0-11.0)
[2018-05-18 08:25] LABS: Albumin 3.2 g/dL (3.4-5.0); Anion Gap 9 meq/L (5-15); Aspartate Aminotransferase 17 U/L (15-37); Blood Urea Nitrogen 38 mg/dL (7-18); Calcium 11.2 mg/dL (8.5-10.1); Chloride 103 meq/L (98-107); Glomerular Filtration Rate 19 mL/min (>89); Glucose,Random 69 mg/dL (74-106); Potassium 3.4 meq/L (3.5-5.1); Sodium 139 meq/L (136-145)
[2018-05-18 08:26] LABS: Alanine Aminotransferase 13 U/L (10-53)
[2018-05-18 08:28] LABS: Alkaline Phosphatase 96 U/L (45-117); Total Protein 7.1 g/dL (6.4-8.2)
[2018-05-18] MEDS ORDERED: Ferrous Sulfate 325 MG Tablet PO SCH (09:00)
[2018-05-18] MEDS ORDERED: amLODIPine 10 MG Tablet PO SCH (09:00)
[2018-05-18] MEDS: Insulin NovoLOG Aspart Correctional Sugar Inj SQ SCH (09:15)
[2018-05-18] MEDS: hydrALAZINE 25 MG Tablet PO SCH (09:17)
--- NOTE | 2018-05-18 10:08 | P.PN ---
Subjective Interval history: no events overnight Asymptomatic HGB improved after transfusion. Physical Exam Vital signs: Vital Signs 05/17/18 13:41 05/17/18 14:13 05/17/18 16:28 Temperature 97.8 F Pulse Rate 61 70 71 Respiratory Rate 15 20 20 Blood Pressure 138/60 188/79 H 175/79 H Pulse Oximetry 100 100 99 05/17/18 17:37 05/17/18 18:56 05/17/18 19:19 Temperature 98.6 F 98.1 F Pulse Rate 75 79 83 Respiratory Rate 20 20 18 Blood Pressure 183/83 H 175/80 H 160/75 H Pulse Oximetry 99 97 96 05/17/18 20:00 05/17/18 23:31 05/17/18 23:48 Temperature 98.4 F 98.9 F 98.8 F Pulse Rate 90 86 74 Respiratory Rate 15 17 18 Blood Pressure 174/80 H 157/67 H 162/74 H Pulse Oximetry 96 96 100 05/18/18 00:00 05/18/18 04:00 05/18/18 08:07 Temperature 99.0 F 98.6 F 98.6 F Pulse Rate 71 75 75 Respiratory Rate 15 17 18 Blood Pressure 150/69 H 158/70 H 154/69 H Pulse Oximetry 98 96 97 Intake & Output 05/17/18 05/18/18 05/18/18 18:59 06:59 18:59 Intake Total 800 / 800 Balance 800 / 800 Weight 72.91 kg Intake: Intake (Blood Product) Amt 800 / 800 Rbc As-3 Leukoreduced Unit 400 / 400 [id number] Rbc As-3 Leukoreduced Unit 400 / 400 [id number] Other: # Voids 6 Weight On Admission 160 kg Narrative: GENERAL: Elderly female, appears in NAD. CARDIOVASCULAR: Regular rate and rhythm without murmurs, gallops, or rubs. RESPIRATORY: Breath sounds equal bilaterally. No accessory muscle use. GASTROINTESTINAL: Abdomen soft, non-tender, nondistended. MUSCULOSKELETAL: No cyanosis, or edema. NEURO: No focal neurological deficits. Results - Labs CBC & Chem 7: 05/18/18 06:30 05/18/18 06:30 Laboratory Results - last 24 hr 05/17/18 05/17/18 05/17/18 15:15 15:15 15:15 WBC 4.3 RBC 2.00 L Hgb 6.7 L* Hct 18.6 L* MCV 93.1 MCH 33.4 MCHC 35.9 RDW 14.8 Plt Count 259 MPV 6.9 L Neut % (Auto) 70.5 H Lymph % (Auto) 18.1 [place] % (Auto) 10.5 H Eos % (Auto) 0.4 Baso % (Auto) 0.5 Neut # (Auto) 3.1 Lymph # (Auto) 0.8 L [place] # (Auto) 0.5 Eos # (Auto) 0.0 Baso # (Auto) 0.0 WBC Differential . Differential Comment Auto diff final PT 10.7 INR 1.1 APTT 24.3 Sodium Potassium Chloride Carbon Dioxide Anion Gap BUN Creatinine Estimated GFR POC Glucose Random Glucose Calcium Magnesium Total Bilirubin AST ALT Alkaline Phosphatase Total Protein Albumin Blood Type O Positive Antibody Screen Negative MTS Gel Crossmatch 05/17/18 05/17/18 05/17/18 15:15 15:15 18:50 WBC RBC Hgb Hct MCV MCH MCHC RDW Plt Count MPV Neut % (Auto) Lymph % (Auto) [place] % (Auto) Eos % (Auto) Baso % (Auto) Neut # (Auto) Lymph # (Auto) [place] # (Auto) Eos # (Auto) Baso # (Auto) WBC Differential Differential Comment PT INR APTT Sodium 134 L Potassium 2.9 L* Chloride 96 L Carbon Dioxide 28.2 Anion Gap 10 BUN 41 H Creatinine 3.03 H Estimated GFR 18 L POC Glucose 91 Random Glucose 71 L Calcium 11.1 H Magnesium 1.9 Total Bilirubin 0.3 AST 18 ALT 15 Alkaline Phosphatase 100 Total Protein 7.7 Albumin 3.7 Blood Type Antibody Screen MTS Gel Crossmatch See Detail 05/17/18 05/18/18 05/18/18 22:50 06:30 06:30 WBC 4.5 RBC 2.94 L Hgb 9.0 L D Hct 25.8 L MCV 88.0 D MCH 30.7 MCHC 34.9 RDW 17.5 H D Plt Count 265 MPV 7.1 Neut % (Auto) 73.8 H Lymph % (Auto) 14.3 [place] % (Auto) 10.6 H Eos % (Auto) 0.6 Baso % (Auto) 0.7 Neut # (Auto) 3.3 Lymph # (Auto) 0.6 L [place] # (Auto) 0.5 Eos # (Auto) 0.0 Baso # (Auto) 0.0 WBC Differential . Differential Comment Auto diff final PT INR APTT Sodium 139 Potassium 3.4 L Chloride 103 Carbon Dioxide 27.0 Anion Gap 9 BUN 38 H Creatinine 2.81 H Estimated GFR 19 L POC Glucose 131 H Random Glucose 69 L Calcium 11.2 H Magnesium Total Bilirubin 0.8 AST 17 ALT 13 Alkaline Phosphatase 96 Total Protein 7.1 D Albumin 3.2 L Blood Type Antibody Screen MTS Gel Crossmatch 05/18/18 05/18/18 09:11 09:26 WBC RBC Hgb Hct MCV MCH MCHC RDW Plt Count MPV Neut % (Auto) Lymph % (Auto) [place] % (Auto) Eos % (Auto) Baso % (Auto) Neut # (Auto) Lymph # (Auto) [place] # (Auto) Eos # (Auto) Baso # (Auto) WBC Differential Differential Comment PT INR APTT Sodium Potassium Chloride Carbon Dioxide Anion Gap BUN Creatinine Estimated GFR POC Glucose 67 L 70 Random Glucose Calcium Magnesium Total Bilirubin AST ALT Alkaline Phosphatase Total Protein Albumin Blood Type Antibody Screen MTS Gel Crossmatch Assessment and Plan - Assessment (1) Anemia Code(s): D64.9 - Anemia, unspecified Status: Acute - Plan 87-year-old female admitted secondary to severe anemia Severe anemia Related to chronic disease Transfuse 2 units packed red blood cells Monitor hemoglobin and transfuse if HGB < 7 or if patient is symptomatic Hypokalemia Replace Monitor potassium levels Recheck in a.m. Uncontrolled hypertension Continue baseline treatments Add additional clonidine as needed Diabetes mellitus type 2 Follow blood sugars Insulin sliding scale Diabetic diet Hyperlipidemia Continue present treatment Follow as an outpatient Hypertension Continue baseline treatment Follow blood pressures Adjust treatments as needed History of breast cancer, right breast Hypothyroidism PVD (peripheral vascular disease) Stage 4 chronic kidney disease No change to baseline treatments DVT Prophylaxis SCDs Discharge Planning HGB improved and stable DC home in stable condition to follow up as OP with PCP and consultants Activity ad james as kimmy Meds per med reconciliations Diet healthy heart and diabetic diet
--- NOTE | 2018-05-18 10:14 | P.DCO ---
- Diagnosis (1) Acute renal failure (ARF) Status: Acute (2) Hypertension Status: Acute (3) Hypercalcemia Status: Acute (4) Anemia Status: Acute - Physical Therapy Order: Evaluate and treat - Home Health Nursing Order: Medical education, Signs/symptoms of disease process, Diabetic education , Nursing assessment with vital signs - Case Management Consult Yes - Certification I have seen patient Yeimy Schilling on 05/18/18. My clinical findings support the need for the requested home health care services because: Limited mobility due to disease progression, Patient has SOB, Deconditioned with increased weakness I certify that my clinical findings support that this patient is homebound because: Post-op weakness, Impaired cognitive ability/safety (1) Acute renal failure (ARF) Qualifiers: Acute renal failure type: unspecified Qualified Code(s): N17.9 - Acute kidney failure, unspecified (2) Hypertension Qualifiers: Hypertension type: unspecified Qualified Code(s): I10 - Essential (primary) hypertension
== END 2018-05-18 13:13 | disposition home health service (06) ==
LOC: NEPE 12:40 → NEDA 12:40 → NEPFCDU 18:19
PROVIDERS: ADMIT Hospitalist; ATTEND Hospitalist
DX: E78.5 Hyperlipidemia, unspecified; Z85.3 Personal history of malignant neoplasm of breast; C50.911 Malignant neoplasm of unspecified site of right female breast; Z88.6 Allergy status to analgesic agent; E11.22 Type 2 diabetes mellitus with diabetic chronic kidney disease; N17.9 Acute kidney failure, unspecified; F41.9 Anxiety disorder, unspecified; Z82.49 Family history of ischemic heart disease and other diseases of the circulatory system; E83.52 Hypercalcemia; Z90.710 Acquired absence of both cervix and uterus; I12.9 Hypertensive chronic kidney disease with stage 1 through stage 4 chronic kidney disease, or unspecified chronic kidney disease; E03.9 Hypothyroidism, unspecified; E87.6 Hypokalemia; N18.4 Chronic kidney disease, stage 4 (severe)

== ENCOUNTER 2018-05-28 03:28 | Observation (INO) ==
[2018-05-28] MEDS ORDERED: Morphine Inj 4 MG/ML Vial IV.PUSH ONE (05:08)
--- NOTE | 2018-05-28 06:48 | CT ---
EXAM DATE: 05/28/2018 6:39 AM EDT AGE/SEX: 87 years / Female INDICATIONS: Left sided abdominal pain, left flank pain. CLINICAL DATA: This is the patient's initial encounter. Patient reports that signs and symptoms have been present for 1 day and indicates a pain score of 10/10. MEDICAL/SURGICAL HISTORY: Carcinoma, breast. Diabetes. Hypertension. Stage 4 kidney disease. Hysterectomy. RADIATION DOSE: 6.64 CTDI (mGy) COMPARISON: [facility], CT ABDOMEN AND PELVIS W AND W/O CONTRAST, 06/19/2014. . TECHNIQUE: Multiple contiguous axial images were obtained through the abdomen. Images were obtained using multiple row detector helical technique. Using automated exposure control and adjustment of the mA and/or kV according to patient size, radiation dose was kept as low as reasonably achievable to o btain optimal diagnostic quality images. DICOM format image data is available electronically for rev iew and comparison. FINDINGS: Lower Lungs: The visualized lower lungs are clear. Cardiac enlargement. Mild pericardial effusion. Liver: The liver has a homogeneous density without space-occupying lesion. There is no dilation of th e biliary tree. Spleen: Homogeneous density without enlargement. Pancreas: Unremarkable without mass or calcification. Kidneys: Normal in size and shape. No evidence of mass or hydronephrosis. Adrenal Glands: Prominence of the right adrenal gland worrisome for underlying mass. Aorta: Atherosclerotic changes and dense intimal calcification involving aorta and branch vessels. No evidence of aneurysm. IVC filter in good position. Bowel/Mesentery: Colonic diverticulosis. Mild inflammatory change adjacent to portions of the descen ding colon likely reflecting diverticulitis. No evidence of extraluminal gas or fluid. No abnormal di latation of bowel. Abdominal Wall: Small fat-containing upper abdominal midline hernias. Retroperitoneum: No evidence of adenopathy in the retrocrural, para-aortic, or deep pelvic regions. Bladder: Contours are smooth. Reproductive Organs: Uterus surgically absent. No evidence of pelvic mass or free fluid. Inguinal: The inguinal region is unremarkable without evidence of adenopathy. Bony Structures: Permeative lytic changes involving multiple bony elements, primarily of the spine c onsistent with metastatic disease or myeloma CONCLUSION: 1. Mild descending colon diverticulitis. 2. Bony neoplastic disease 3. Right adrenal mass. Electronically signed by: Binu Barnes MD 05/28/2018 6:47 AM EDT
[2018-05-28 07:05] LABS: Baso % (Auto) 0.5 % (0.0-2.0); Eos % (Auto) 0.1 % (0.0-4.0); Hematocrit 26.7 % (35.0-46.0); Hemoglobin 9.1 gm/dL (11.6-15.3); Lymph # (Auto) 0.6 th/mm3 (1.0-4.8); Lymph % (Auto) 12.1 % (9.0-44.0); Mean Corpuscular HGB Conc 34.2 % (32.0-36.0); Mean Corpuscular Hemoglobin 31.3 pg (27.0-34.0); Mean Corpuscular Volume 91.7 fL (80.0-100.0); Mean Platelet Volume 6.5 fL (7.0-11.0); Mono # (Auto) 0.4 th/mm3 (0.0-0.9); Mono % (Auto) 7.9 % (0.0-8.0); Neut % (Auto) 79.4 % (16.0-70.0); Platelet Count 249 th/mm3 (150-450); Red Blood Count 2.91 mil/mm3 (4.00-5.30); Red Cell Distribution Width 16.4 % (11.6-17.2); White Blood Count 5.1 th/mm3 (4.0-11.0)
--- NOTE | 2018-05-28 07:05 | ED ---
HPI General Chief Complaint: Back Pain/Injury Stated Complaint: Back Pain Time Seen by Provider: 05/28/18 04:58 Source: patient and family Mode of arrival: EMS Limitations: no limitations History of Present Illness HPI Narrative: 87-year-old female came to the emergency room with history of severe back pain that started when she is tried to get up from a chair. Her daughter is here who is giving further history. As per her the patient has been having back pain for 1 week. She did go to see her primary care who put her on Flexeril. Patient has been taking the Flexeril for past 2 days without much relief. Patient says that usually she can ambulate without much help in her apartment. When she goes outside she takes a walker with her. However lately she has been having difficulty doing much ambulation. Since last night she has not been able to move much at all. No history of fall. Patient has history of breast cancer in the past. She does not recall her oncologist name. When the pain initially started it was on the left SI joint area but currently the pain has traveled all along her spine and going down her legs as well. MD Complaint: Reports back pain Onset (ago): day(s) Duration: Reports progressively worsening Location: Reports thoracic spine and sacrum Severity: severe Relieving factors: immobilization Exacerbating factors: movement Related Data Home Medications Medication Instructions Recorded Confirmed amlodipine 10 mg PO DAILY 02/24/18 05/28/18 clonidine HCl 0.1 mg PO BID 02/24/18 05/28/18 glimepiride 1 mg PO QAM 02/24/18 05/28/18 hydralazine 25 mg PO BID 02/24/18 05/28/18 levothyroxine 150 mcg PO DAILY 02/24/18 05/28/18 potassium chloride 20 meq PO DAILY 02/24/18 05/28/18 Previous Rx's Medication Instructions Recorded ferrous sulfate [FeroSul] 325 mg PO DAILY #30 tab 02/25/18 Allergies Allergy/AdvReac Type Severity Reaction Status Date / Time hydrochlorothiazide Allergy Anxiety Verified 05/28/18 09:57 naproxen [From Naprosyn] Allergy Anemia Verified 05/28/18 09:57 rivaroxaban [From Xarelto] Allergy Anxiety Verified 05/28/18 09:57 Review of Systems ROS: all other systems reviewed are negative [facility] Medical History Medical History Anemia (Acute) Breast cancer, right breast (Acute) Diabetes (Acute) H/O: hysterectomy (Acute) Hypercalcemia (Acute) Hyperlipemia (Acute) Hypertension (Acute) Hypokalemia (Acute) Hypothyroidism (Acute) PVD (peripheral vascular disease) (Acute) Stage 4 chronic kidney disease (Acute) Family History Family History Other Hypertension Social History Social History Substance History: No History of Abuse Second Hand Smoke Exposure: No Smoking Status: Never smoker Tobacco Type: Smokeless Tobacco How Often Do You Have a Drink Containing Alcohol: Never Hx Recent Travel: No Immunization History Tetanus Immunization: >5 Years Exam Narrative Exam Narrative: GENERAL: Awake, alert, elderly, moderate distress SKIN: Focused skin assessment warm/dry. HEAD: Atraumatic. Normocephalic. EYES: Pupils equal and round. No scleral icterus. No injection or drainage. ENT: No nasal bleeding or discharge. Mucous membranes pink and moist. NECK: Trachea midline. No JVD. CARDIOVASCULAR: Regular rate and rhythm. No murmur appreciated. RESPIRATORY: No accessory muscle use. Clear to auscultation. Breath sounds equal bilaterally. GASTROINTESTINAL: Abdomen soft, non-tender, nondistended. Hepatic and splenic margins not palpable. MUSCULOSKELETAL: No obvious deformities. No clubbing. No cyanosis. No edema. Decreased range of motion at the hip joint secondary to the pain left worse than right NEUROLOGICAL: Awake and alert. No obvious cranial nerve deficits. Motor grossly within normal limits. Normal speech. PSYCHIATRIC: Appropriate mood and affect; insight and judgment normal. Course Initial Documented Vital Signs Pulse Rate 84 05/28/18 03:31 Respiratory Rate 18 05/28/18 03:31 Blood Pressure 181/84 H 05/28/18 03:31 Pulse Oximetry 98 05/28/18 03:31 Last Documented Vital Signs Temperature 99.9 F H 05/30/18 04:08 Pulse Rate 70 05/30/18 04:08 Respiratory Rate 18 05/30/18 04:08 Blood Pressure 135/59 L 05/30/18 04:08 Pulse Oximetry 94 L 05/30/18 04:08 Medical Decision Making MDM Narrative Medical decision making narrative: 7:24 AM patient was medicated with morphine for her pain. CT abdomen and pelvis was ordered to see the extent of the disease. Given her history of breast cancer my suspicion was high for metastatic bony disease. The radiologist read shows multiple bony metastases. Awaiting blood test result. Case has been signed over to the oncoming ER physician. Case is signed out to me at 7:30 AM, please see previous history from Dr. Figueroa for further information. CAT scan is showing obvious metastases to multiple spots including adrenal glands, spine, and there is some mild diverticulitis. Her renal function tests are elevated. At this point, this appears to be a new issue and my plan would be to admit her for further evaluation. Case is discussed with Dr. Kitchen for admission. Medical Screen Exam Complete: Yes Emergency Medical Condition: Yes Lab Data Result diagrams: 05/28/18 06:58 05/29/18 06:56 Lab Results 05/28/18 05/28/18 05/28/18 Range/Units 06:58 06:58 11:20 WBC 5.1 (4.0-11.0) th/mm3 RBC 2.91 L (4.00-5.30) mil/mm3 Hgb 9.1 L (11.6-15.3) gm/dL Hct 26.7 L (35.0-46.0) % MCV 91.7 (80.0-100.0) fL MCH 31.3 (27.0-34.0) pg MCHC 34.2 (32.0-36.0) % RDW 16.4 (11.6-17.2) % Plt Count 249 (150-450) th/mm3 MPV 6.5 L (7.0-11.0) fL Neut % (Auto) 79.4 H (16.0-70.0) % Lymph % (Auto) 12.1 (9.0-44.0) % Bent % (Auto) 7.9 (0.0-8.0) % Eos % (Auto) 0.1 (0.0-4.0) % Baso % (Auto) 0.5 (0.0-2.0) % Neut # (Auto) 4.0 (1.8-7.7) th/mm3 Lymph # (Auto) 0.6 L (1.0-4.8) th/mm3 Bent # (Auto) 0.4 (0.0-0.9) th/mm3 Eos # (Auto) 0.0 (0.0-0.4) th/mm3 Baso # (Auto) 0.0 (0.0-0.2) th/mm3 WBC Differential . Differential Comment Auto diff final PT (9.8-11.6) sec INR Ratio APTT (23.4-31.7) sec Sodium 134 L (136-145) meq/L Potassium 3.9 (3.5-5.1) meq/L Chloride 100 (98-107) meq/L Carbon Dioxide 24.1 (21.0-32.0) meq/L Anion Gap 10 (5-15) meq/L BUN 43 H (7-18) mg/dL Creatinine 3.87 H (0.50-1.00) mg/dL Estimated GFR 13 L (>89) mL/min POC Glucose 81 (68-110) mg/dl Random Glucose 89 (74-106) mg/dL Calcium 11.6 H* (8.5-10.1) mg/dL Prot Corrected Calcium 11.2 H (8.5-10.1) mg/dL Total Bilirubin 0.4 (0.2-1.0) mg/dL AST 18 (15-37) U/L ALT 15 (10-53) U/L Alkaline Phosphatase 109 (45-117) U/L Lactate Dehydrogenase (84-246) U/L Total Protein 7.8 (6.4-8.2) g/dL Total Protein (PEP) (6.4-8.2) gm/dL Albumin 3.6 (3.4-5.0) g/dL Urine Color (Yellw/Straw) Urine Clarity (Clear) Urine pH (5.0-8.5) Ur Specific Banner (1.002-1.035) Urine Protein (Neg-Trace) mg/dL Urine Glucose (UA) (Negative) mg/dL Urine Ketones (Negative) mg/dL Urine Occult Blood (Negative) Urine Nitrate (Negative) Urine Bilirubin (Negative) Urine Urobilinogen (Less than 2) mg/dL Ur Leukocyte Esterase (Negative) Urine WBC (0-5) /hpf Ur Squamous Epith Cells (0-5) /hpf Urine Mucus (Occasional) /lpf Micro UA Comment Ur Microscopic Review Urine Culture Comments IgG (650-1610) mg/dL IgA (96-532) mg/dL IgM (39-238) mg/dL Marty/Lambda Ratio (1.57-3.93) Marty Light Chain Anal (170-370) mg/dL Lambda Light Chain Anal (90-210) mg/dL 05/28/18 05/28/18 05/29/18 Range/Units 16:42 20:39 04:47 WBC (4.0-11.0) th/mm3 RBC (4.00-5.30) mil/mm3 Hgb (11.6-15.3) gm/dL Hct (35.0-46.0) % MCV (80.0-100.0) fL MCH (27.0-34.0) pg MCHC (32.0-36.0) % RDW (11.6-17.2) % Plt Count (150-450) th/mm3 MPV (7.0-11.0) fL Neut % (Auto) (16.0-70.0) % Lymph % (Auto) (9.0-44.0) % Bent % (Auto) (0.0-8.0) % Eos % (Auto) (0.0-4.0) % Baso % (Auto) (0.0-2.0) % Neut # (Auto) (1.8-7.7) th/mm3 Lymph # (Auto) (1.0-4.8) th/mm3 Bent # (Auto) (0.0-0.9) th/mm3 Eos # (Auto) (0.0-0.4) th/mm3 Baso # (Auto) (0.0-0.2) th/mm3 WBC Differential Differential Comment PT (9.8-11.6) sec INR Ratio APTT (23.4-31.7) sec Sodium (136-145) meq/L Potassium (3.5-5.1) meq/L Chloride (98-107) meq/L Carbon Dioxide (21.0-32.0) meq/L Anion Gap (5-15) meq/L BUN (7-18) mg/dL Creatinine (0.50-1.00) mg/dL Estimated GFR (>89) mL/min POC Glucose 76 81 85 (68-110) mg/dl Random Glucose (74-106) mg/dL Calcium (8.5-10.1) mg/dL Prot Corrected Calcium (8.5-10.1) mg/dL Total Bilirubin (0.2-1.0) mg/dL AST (15-37) U/L ALT (10-53) U/L Alkaline Phosphatase (45-117) U/L Lactate Dehydrogenase (84-246) U/L Total Protein (6.4-8.2) g/dL Total Protein (PEP) (6.4-8.2) gm/dL Albumin (3.4-5.0) g/dL Urine Color (Yellw/Straw) Urine Clarity (Clear) Urine pH (5.0-8.5) Ur Specific Banner (1.002-1.035) Urine Protein (Neg-Trace) mg/dL Urine Glucose (UA) (Negative) mg/dL Urine Ketones (Negative) mg/dL Urine Occult Blood (Negative) Urine Nitrate (Negative) Urine Bilirubin (Negative) Urine Urobilinogen (Less than 2) mg/dL Ur Leukocyte Esterase (Negative) Urine WBC (0-5) /hpf Ur Squamous Epith Cells (0-5) /hpf Urine Mucus (Occasional) /lpf Micro UA Comment Ur Microscopic Review Urine Culture Comments IgG (650-1610) mg/dL IgA (96-532) mg/dL IgM (39-238) mg/dL Marty/Lambda Ratio (1.57-3.93) Marty Light Chain Anal (170-370) mg/dL Lambda Light Chain Anal (90-210) mg/dL 05/29/18 05/29/18 05/29/18 Range/Units 06:56 07:06 07:59 WBC (4.0-11.0) th/mm3 RBC (4.00-5.30) mil/mm3 Hgb (11.6-15.3) gm/dL Hct (35.0-46.0) % MCV (80.0-100.0) fL MCH (27.0-34.0) pg MCHC (32.0-36.0) % RDW (11.6-17.2) % Plt Count (150-450) th/mm3 MPV (7.0-11.0) fL Neut % (Auto) (16.0-70.0) % Lymph % (Auto) (9.0-44.0) % Bent % (Auto) (0.0-8.0) % Eos % (Auto) (0.0-4.0) % Baso % (Auto) (0.0-2.0) % Neut # (Auto) (1.8-7.7) th/mm3 Lymph # (Auto) (1.0-4.8) th/mm3 Bent # (Auto) (0.0-0.9) th/mm3 Eos # (Auto) (0.0-0.4) th/mm3 Baso # (Auto) (0.0-0.2) th/mm3 WBC Differential Differential Comment PT 10.7 (9.8-11.6) sec INR 1.1 Ratio APTT 26.1 (23.4-31.7) sec Sodium 138 (136-145) meq/L Potassium 4.5 (3.5-5.1) meq/L Chloride 103 (98-107) meq/L Carbon Dioxide 27.0 (21.0-32.0) meq/L Anion Gap 8 (5-15) meq/L BUN 40 H (7-18) mg/dL Creatinine 3.71 H (0.50-1.00) mg/dL Estimated GFR 14 L (>89) mL/min POC Glucose 76 (68-110) mg/dl Random Glucose 68 L (74-106) mg/dL Calcium 11.0 H (8.5-10.1) mg/dL Prot Corrected Calcium (8.5-10.1) mg/dL Total Bilirubin 0.2 (0.2-1.0) mg/dL AST 15 (15-37) U/L ALT 10 (10-53) U/L Alkaline Phosphatase 87 (45-117) U/L Lactate Dehydrogenase 161 (84-246) U/L Total Protein 6.7 D (6.4-8.2) g/dL Total Protein (PEP) 6.7 (6.4-8.2) gm/dL Albumin 3.0 L D (3.4-5.0) g/dL Urine Color (Yellw/Straw) Urine Clarity (Clear) Urine pH (5.0-8.5) Ur Specific Banner (1.002-1.035) Urine Protein (Neg-Trace) mg/dL Urine Glucose (UA) (Negative) mg/dL Urine Ketones (Negative) mg/dL Urine Occult Blood (Negative) Urine Nitrate (Negative) Urine Bilirubin (Negative) Urine Urobilinogen (Less than 2) mg/dL Ur Leukocyte Esterase (Negative) Urine WBC (0-5) /hpf Ur Squamous Epith Cells (0-5) /hpf Urine Mucus (Occasional) /lpf Micro UA Comment Ur Microscopic Review Urine Culture Comments IgG 906 (650-1610) mg/dL IgA 90 L (96-532) mg/dL IgM Less than 8 L (39-238) mg/dL Marty/Lambda Ratio 6.92 H (1.57-3.93) Marty Light Chain Anal 498 H (170-370) mg/dL Lambda Light Chain Anal 72 L (90-210) mg/dL 05/29/18 05/29/18 05/29/18 Range/Units 11:05 11:30 16:59 WBC (4.0-11.0) th/mm3 RBC (4.00-5.30) mil/mm3 Hgb (11.6-15.3) gm/dL Hct (35.0-46.0) % MCV (80.0-100.0) fL MCH (27.0-34.0) pg MCHC (32.0-36.0) % RDW (11.6-17.2) % Plt Count (150-450) th/mm3 MPV (7.0-11.0) fL Neut % (Auto) (16.0-70.0) % Lymph % (Auto) (9.0-44.0) % Bent % (Auto) (0.0-8.0) % Eos % (Auto) (0.0-4.0) % Baso % (Auto) (0.0-2.0) % Neut # (Auto) (1.8-7.7) th/mm3 Lymph # (Auto) (1.0-4.8) th/mm3 Bent # (Auto) (0.0-0.9) th/mm3 Eos # (Auto) (0.0-0.4) th/mm3 Baso # (Auto) (0.0-0.2) th/mm3 WBC Differential Differential Comment PT (9.8-11.6) sec INR Ratio APTT (23.4-31.7) sec Sodium (136-145) meq/L Potassium (3.5-5.1) meq/L Chloride (98-107) meq/L Carbon Dioxide (21.0-32.0) meq/L Anion Gap (5-15) meq/L BUN (7-18) mg/dL Creatinine (0.50-1.00) mg/dL Estimated GFR (>89) mL/min POC Glucose 93 86 (68-110) mg/dl Random Glucose (74-106) mg/dL Calcium (8.5-10.1) mg/dL Prot Corrected Calcium (8.5-10.1) mg/dL Total Bilirubin (0.2-1.0) mg/dL AST (15-37) U/L ALT (10-53) U/L Alkaline Phosphatase (45-117) U/L Lactate Dehydrogenase (84-246) U/L Total Protein (6.4-8.2) g/dL Total Protein (PEP) (6.4-8.2) gm/dL Albumin (3.4-5.0) g/dL Urine Color Straw (Yellw/Straw) Urine Clarity Clear (Clear) Urine pH 6.0 (5.0-8.5) Ur Specific Banner 1.009 (1.002-1.035) Urine Protein 30 H (Neg-Trace) mg/dL Urine Glucose (UA) Negative (Negative) mg/dL Urine Ketones Negative (Negative) mg/dL Urine Occult Blood Negative (Negative) Urine Nitrate Negative (Negative) Urine Bilirubin Negative (Negative) Urine Urobilinogen Less than 2 (Less than 2) mg/dL Ur Leukocyte Esterase Negative (Negative) Urine WBC 2 (0-5) /hpf Ur Squamous Epith Cells 1 (0-5) /hpf Urine Mucus Few H (Occasional) /lpf Micro UA Comment Culture not ind Ur Microscopic Review Not Reportable Urine Culture Comments Culture not ind IgG (650-1610) mg/dL IgA (96-532) mg/dL IgM (39-238) mg/dL Marty/Lambda Ratio (1.57-3.93) Marty Light Chain Anal (170-370) mg/dL Lambda Light Chain Anal (90-210) mg/dL 05/29/18 05/30/18 Range/Units 22:31 04:13 WBC (4.0-11.0) th/mm3 RBC (4.00-5.30) mil/mm3 Hgb (11.6-15.3) gm/dL Hct (35.0-46.0) % MCV (80.0-100.0) fL MCH (27.0-34.0) pg MCHC (32.0-36.0) % RDW (11.6-17.2) % Plt Count (150-450) th/mm3 MPV (7.0-11.0) fL Neut % (Auto) (16.0-70.0) % Lymph % (Auto) (9.0-44.0) % Bent % (Auto) (0.0-8.0) % Eos % (Auto) (0.0-4.0) % Baso % (Auto) (0.0-2.0) % Neut # (Auto) (1.8-7.7) th/mm3 Lymph # (Auto) (1.0-4.8) th/mm3 Bent # (Auto) (0.0-0.9) th/mm3 Eos # (Auto) (0.0-0.4) th/mm3 Baso # (Auto) (0.0-0.2) th/mm3 WBC Differential Differential Comment PT (9.8-11.6) sec INR Ratio APTT (23.4-31.7) sec Sodium (136-145) meq/L Potassium (3.5-5.1) meq/L Chloride (98-107) meq/L Carbon Dioxide (21.0-32.0) meq/L Anion Gap (5-15) meq/L BUN (7-18) mg/dL Creatinine (0.50-1.00) mg/dL Estimated GFR (>89) mL/min POC Glucose 90 70 (68-110) mg/dl Random Glucose (74-106) mg/dL Calcium (8.5-10.1) mg/dL Prot Corrected Calcium (8.5-10.1) mg/dL Total Bilirubin (0.2-1.0) mg/dL AST (15-37) U/L ALT (10-53) U/L Alkaline Phosphatase (45-117) U/L Lactate Dehydrogenase (84-246) U/L Total Protein (6.4-8.2) g/dL Total Protein (PEP) (6.4-8.2) gm/dL Albumin (3.4-5.0) g/dL Urine Color (Yellw/Straw) Urine Clarity (Clear) Urine pH (5.0-8.5) Ur Specific Banner (1.002-1.035) Urine Protein (Neg-Trace) mg/dL Urine Glucose (UA) (Negative) mg/dL Urine Ketones (Negative) mg/dL Urine Occult Blood (Negative) Urine Nitrate (Negative) Urine Bilirubin (Negative) Urine Urobilinogen (Less than 2) mg/dL Ur Leukocyte Esterase (Negative) Urine WBC (0-5) /hpf Ur Squamous Epith Cells (0-5) /hpf Urine Mucus (Occasional) /lpf Micro UA Comment Ur Microscopic Review Urine Culture Comments IgG (650-1610) mg/dL IgA (96-532) mg/dL IgM (39-238) mg/dL Marty/Lambda Ratio (1.57-3.93) Marty Light Chain Anal (170-370) mg/dL Lambda Light Chain Anal (90-210) mg/dL Imaging Data Radiologist's impression: Abdomen/Pelvis CT 05/28/18 05:08 CONCLUSION: 1. Mild descending colon diverticulitis. 2. Bony neoplastic disease 3. Right adrenal mass. Chest X-Ray 05/29/18 00:00 CONCLUSION: Cardiomegaly and symmetric bilateral pleural-parenchymal opacities Discharge Plan Discharge Disposition Patient Disposition: 30 Still Patient Discharge Condition Condition: Stable Discharge Details Anticipated Discharge Date: 05/28/18 Diagnosis: Metastatic cancer to spine Physicians Team ED Provider: Cedrick Figueroa Primary Care Provider: UNKNOWN, Attending Provider: Ethel Bran Other Providers: Brianna Rm ; Viral Stratton ; Nallely Rodriguez Status ED Status: Left Department Discharge Information Discharge Date/Time: 05/28/18 09:50
[2018-05-28 07:22] LABS: Albumin 3.6 g/dL (3.4-5.0); Calcium 11.6 mg/dL (8.5-10.1); Carbon Dioxide 24.1 meq/L (21.0-32.0); Potassium 3.9 meq/L (3.5-5.1); Total Protein 7.8 g/dL (6.4-8.2)
[2018-05-28] MEDS ORDERED: Bisacodyl 10 MG Supp RECTAL PRN ×2 (08:14→08:15)
--- NOTE | 2018-05-28 08:14 | P.HP ---
History of Present Illness Primary Care Physician: UNKNOWN Chief Complaint: Low back pain History of Present Illness: This is a pleasant 87 y/o Female recently discharged from this facility, this readmission secondary to Low back pain 'probable secondary to Lumbar metastatic disease, she has chronic disease including history of breast cancer and chronic kidney disease. She has had blood transfusions in the past related to anemia of chronic disease. recent Hemoglobin 6.7, she has also Hypertension, she came to Emergency room with history of severe back pain that started when she tried to get up from a chair. Her daughter is here who is giving further history. As per her the patient has been having back pain for 1 week. She did go to see her primary care who put her on Flexeril. Patient has been taking the Flexeril for past 2 days without much relief. Patient says that usually she can ambulate without much help in her apartment. When she goes outside she takes a walker with her. the pain has traveled all along her spine and going down her legs as well. has Diabetes Mellitus II, Hypothyroidism, Hyperlipidemia, PAD, CKD IV, Hypokalemia and Hypercalcemia. CT abdomen and pelvis was ordered to see the extent of the disease. Given her history of breast cancer my suspicion was high for metastatic bony disease. The radiologist read shows multiple bony metastases. also has Adrenal gland and spine metastatic disease. Hemoglobin 9.1, Creatinine 3.87, Calcium 11.6. She is been evaluated in ER her daughter Miss Noemy Hayden. Inpatient Certification: I certify that the inpatient services were ordered in accordance with Medicare regulations governing the order. This includes certification that hospital inpatient services are reasonable and necessary and in the case of services not specified as inpatient-only under 42 CFR 419.22(n), that they are appropriately provided as inpatient services in accordance to with the 2-midnight benchmark under 43 CFR 412.3(e) Review of Systems All other systems reviewed negative except as stated in HPI PMFSH - History History Provided By: Patient - Medical History Medical History: Medical History (Last Reviewed 05/28/18 @ 07:23 by Cedrick Figueroa MD) Anemia Breast cancer, right breast Diabetes H/O: hysterectomy Hypercalcemia Hyperlipemia Hypertension Hypokalemia Hypothyroidism PVD (peripheral vascular disease) Stage 4 chronic kidney disease - Family History Family History: Family History (Last Reviewed 05/28/18 @ 07:23 by Cedrick Figueroa MD) Other Hypertension - Tobacco History Second Hand Smoke Exposure: No Tobacco Use In Past 30 Days: No Smoking Status: Never smoker Tobacco Type: Smokeless Tobacco - Alcohol History How Often Do You Have a Drink Containing Alcohol: Never - Substance Use History Substance History: No History of Abuse - Travel History History of Recent Travel: No - Immunization History Tetanus Immunization: >5 Years Medications and Allergies Allergies Allergy/AdvReac Type Severity Reaction Status Date / Time hydrochlorothiazide Allergy Anxiety Verified 05/28/18 09:57 naproxen [From Naprosyn] Allergy Anemia Verified 05/28/18 09:57 rivaroxaban [From Xarelto] Allergy Anxiety Verified 05/28/18 09:57 Home Medications Medication Instructions Recorded Confirmed Type amlodipine 10 mg PO DAILY 02/24/18 05/28/18 History clonidine HCl 0.1 mg PO BID 02/24/18 05/28/18 History glimepiride 1 mg PO QAM 02/24/18 05/28/18 History hydralazine 25 mg PO BID 02/24/18 05/28/18 History levothyroxine 150 mcg PO DAILY 02/24/18 05/28/18 History potassium chloride 20 meq PO DAILY 02/24/18 05/28/18 History Exam Vital signs: Vital Signs 05/28/18 03:31 05/28/18 03:42 05/28/18 06:37 Pulse Rate 84 87 Respiratory Rate 18 20 20 Blood Pressure 181/84 H 181/87 H Pulse Oximetry 98 98 Intake & Output 05/27/18 05/28/18 05/28/18 18:59 06:59 18:59 Weight 72.121 kg Narrative: GENERAL: Awake, alert, elderly, moderate distress SKIN: Focused skin assessment warm/dry. HEAD: Atraumatic. Normocephalic. EYES: Pupils equal and round. No scleral icterus. No injection or drainage. ENT: No nasal bleeding or discharge. Mucous membranes pink and moist. NECK: Trachea midline. No JVD. CARDIOVASCULAR: Regular rate and rhythm. No murmur appreciated. RESPIRATORY: No accessory muscle use. Clear to auscultation. Breath sounds equal bilaterally. GASTROINTESTINAL: Abdomen soft, non-tender, nondistended. Hepatic and splenic margins not palpable. MUSCULOSKELETAL: No obvious deformities. No clubbing. No cyanosis. No edema. Decreased range of motion at the hip joint secondary to the pain left worse than right NEUROLOGICAL: Awake and alert. No obvious cranial nerve deficits. Motor grossly within normal limits. Normal speech. PSYCHIATRIC: Appropriate mood and affect; insight and judgment normal. Results - Labs CBC & Chem 7: 05/28/18 06:58 05/28/18 06:58 Labs: Laboratory Results - last 24 hr 05/28/18 05/28/18 06:58 06:58 WBC 5.1 RBC 2.91 L Hgb 9.1 L Hct 26.7 L MCV 91.7 MCH 31.3 MCHC 34.2 RDW 16.4 Plt Count 249 MPV 6.5 L Neut % (Auto) 79.4 H Lymph % (Auto) 12.1 Kerr % (Auto) 7.9 Eos % (Auto) 0.1 Baso % (Auto) 0.5 Neut # (Auto) 4.0 Lymph # (Auto) 0.6 L Kerr # (Auto) 0.4 Eos # (Auto) 0.0 Baso # (Auto) 0.0 WBC Differential . Differential Comment Auto diff final Sodium 134 L Potassium 3.9 Chloride 100 Carbon Dioxide 24.1 Anion Gap 10 BUN 43 H Creatinine 3.87 H Estimated GFR 13 L Random Glucose 89 Calcium 11.6 H* Prot Corrected Calcium 11.2 H Total Bilirubin 0.4 AST 18 ALT 15 Alkaline Phosphatase 109 Total Protein 7.8 Albumin 3.6 - Imaging Abdomen/Pelvis CT 05/28/18 05:08 CONCLUSION: 1. Mild descending colon diverticulitis. 2. Bony neoplastic disease 3. Right adrenal mass. Caprini VTE Risk Assessment Caprini VTE Risk Assessment: Moderate/High Risk (score >= 2) Caprini Risk Assessment Model: Point Value = 1 Point Value = 2 Point Value = 3 Point Value = 5 Age 41-60 Minor surgery BMI > 25 kg/m2 Swollen legs Varicose veins or History of unexplained or recurrent spontaneous Oral contraceptives or hormone replacement Sepsis (< 1 month) Serious lung disease, including pneumonia (< 1 month) Abnormal pulmonary function Acute myocardial infarction Congestive heart failure (< 1 month) History of inflammatory bowel disease Medical patient at bed rest Age 61-74 Arthroscopic surgery Major open surgery (> 45 min) Laparoscopic surgery (> 45 min) Malignancy Confined to bed (> 72 hours) Immobilizing plaster cast Central venous access Age >= 75 History of VTE Family history of VTE Factor V Leiden Prothrombin [id number] Lupus anticoagulant Anticardiolipin antibodies Elevated serum homocysteine Heparin-induced thrombocytopenia Other congenital or acquired thrombophilia Stroke (< 1 month) Elective arthroplasty Hip, pelvis, or leg fracture Acute spinal cord injury (< 1 month) Prophylaxis Regimen: Total Risk Factor Score Risk Level Prophylaxis Regimen 0-1 Low Early ambulation 2 Moderate Order ONE of the following: *Sequential Compression Device (SCD) *Heparin 5000 units SQ BID 3-4 Higher Order ONE of the following medications: *Heparin 5000 units SQ TID *Enoxaparin/Lovenox 40 mg SQ daily (WT < 150 kg, CrCl > 30 mL/min) *Enoxaparin/Lovenox 30 mg SQ daily (WT < 150 kg, CrCl > 10-29 mL/min) *Enoxaparin/Lovenox 30 mg SQ BID (WT < 150 kg, CrCl > 30 mL/min) AND/OR *Sequential Compression Device (SCD) 5 or more Highest Order ONE of the following medications: *Heparin 5000 units SQ TID (Preferred with Epidurals) *Enoxaparin/Lovenox 40 mg SQ daily (WT < 150 kg, CrCl > 30 mL/min) *Enoxaparin/Lovenox 30 mg SQ daily (WT < 150 kg, CrCl > 10-29 mL/min) *Enoxaparin/Lovenox 30 mg SQ BID (WT < 150 kg, CrCl > 30 mL/min) AND *Sequential Compression Device (SCD) Assessment and Plan - Plan 87-year-old female admitted secondary to severe anemia 1. Intractable Low back pain in a patient with history of breast cancer, status post CT abdomen and Pelvis, suspected bony metastatic disease, asked for digital publishing specialist for evaluation. Doctor Cory Spaulding saw the patient this year, has also Right Adrenal Mass. at this time no low back pain, giving Flexeril, Diazepam , and continue NSAIDs not able to be given due to CKD IV. will give low dose Narcotics with Acetaminophen 2. Mild descending Colon Diverticulitis will give management with antibiotics. 3. Anemia with recent admission and blood transfusion 4. Hypokalemia continue Potassium by mouth 5. Hypertension uncontrolled re started Home medicines 6. Dm II on hold home medicines and continue sliding scale 7. CKD IV avoid nephrotoxics. 8. Hypothyroidism continue Hormonal replacement 9. PAD by history DVT Prophylaxis SCDs Code Status: Full code. Discussed Condition With: Patient and her Daughter in the room . ER physician Discharge Planning: Once cleared by specialist.
[2018-05-28] MEDS ORDERED: Acetaminophen 325 MG Tablet PO PRN (08:15)
[2018-05-28] MEDS: Levothyroxine 150 MCG Tablet PO SCH (11:23)
[2018-05-28] MEDS: diazePAM 5 MG Tablet PO SCH (11:23)
[2018-05-28] MEDS: Ferrous Sulfate 325 MG Tablet PO SCH (11:24)
[2018-05-28] MEDS: hydrALAZINE 25 MG Tablet PO SCH ×2 (11:24→20:46)
[2018-05-28] MEDS: amLODIPine 10 MG Tablet PO SCH (11:24)
[2018-05-28] MEDS: Insulin NovoLOG Aspart Correctional Sugar Inj SQ SCH ×3 (15:03→20:41)
--- NOTE | 2018-05-28 20:30 | MB ---
cc: Brianna Rm MD, Guillermo MD DATE: 05/28/2018 REFERRING PHYSICIAN: Raymond Kitchen MD CHIEF COMPLAINT: Dr. Kitchen requests a consultation for Ms. Schilling with hypercalcemia and history of metastatic breast cancer with new concerning lesion in the right adrenal gland and bony metastatic disease. HISTORY OF PRESENT ILLNESS: Ms. Schilling is an 87-year-old woman with multiple medical problems. She has a history of hyperlipidemia, hypertension, diabetes, hypothyroidism, peripheral vascular disease. She has a history of breast cancer diagnosed in the . She has had definitive surgery, adjuvant systemic chemotherapy. She remembers very little since the breast cancer was a long ago. She was following up with her oncologist once yearly. It appears that she was followed at [facility] with Dr. Taylor and Irma CAI. She has had no evidence of recurrence from her breast cancer. She has stage IV chronic kidney disease under the care of Dr. Rodriguez. She is uncertain about discussion for dialysis. It seems most likely etiology of her kidney failure is from her hypertension and diabetes. She came into the emergency room, brought in by her daughter for severe back pain. She was trying to get up and had worsening back pain. She finds it difficult to even transfer to a commode at the side of the bed. She denies any falls or local trauma. She denies any significant relief from muscle relaxant. Imaging study in the emergency room include CT scan of the abdomen and pelvis that showed a mild descending colon diverticulitis, bony metastatic disease with multiple bony lesions, and a right adrenal gland mass. Hematology/Oncology is consulted for history of breast cancer and the concerning findings on CT scan. Additional labs shows a BUN of 43, creatinine 3.87, calcium is 11.6, hemoglobin is 9.1. Ms. Schilling finds it difficult to remember things. She cannot remember events. She was quite sleepy, but arousable and cooperative at the time of the consultation. PAST MEDICAL HISTORY: Right breast cancer, diabetes, hyperlipidemia, anemia, chronic renal insufficiency, hypothyroidism, peripheral vascular disease. PAST SURGICAL HISTORY: Hysterectomy, right breast lumpectomy. FAMILY HISTORY: Significant for family history of hypertension. SOCIAL HISTORY: She is a never smoker. Denies any alcohol or illicit drug use. ALLERGIES: 1. HYDROCHLOROTHIAZIDE. 2. NAPROXEN. 3. RIVAROXABAN. CURRENT MEDICATIONS: 1. Tylenol. 2. Milk of magnesia. 3. Norvasc. 4. Dulcolax. 5. Catapres. 6. Flexeril. 7. Valium. 8. Ferrous sulfate. 9. Hydralazine. 10. Lactated Ringer's 11. Synthroid. 12. Zofran. 13. Percocet. 14. K-Dur. 15. Senokot. PHYSICAL EXAMINATION: VITAL SIGNS: Temperature 97.8, heart rate 65, respiratory rate 16, blood pressure 153/71, saturation 93%. GENERAL: Ms. Schilling is a well-developed, elderly woman. She has dark circles beneath both eyes. Her pupils are round, reactive to light and accommodation. Oropharynx is dry. NECK: Supple. LUNGS: Clear to auscultation. CARDIOVASCULAR: Reveals normal rate and rhythm. ABDOMEN: Soft and nontender. EXTREMITIES: Lower extremity with edema bilaterally. LABORATORY DATA: As described above. ASSESSMENT AND PLAN: Ms. Schilling is an 87-year-old woman with multiple medical problems. She presents with back pain and was found to have bony metastatic disease and possible diverticular disease and a right adrenal gland mass. She has a history of breast cancer from . It seems unlikely to be metastatic disease from that. More concerning is her anemia and associated renal insufficiency and hypercalcemia. We discussed laboratory evaluation. She is agreeable to a workup to determine etiology of the above. In the differential include multiple myeloma. We will obtain a serum protein electrophoresis, quantitative immunoglobulin. She will ultimately need a biopsy. May be easiest to do bone marrow biopsy to evaluate for multiple myeloma. Carcinoma is considered in light of the adrenal gland mass. I have no records from her previous history of breast cancer or records from Dr. Rodriguez's evaluation as the etiology of her renal failure. I agree with IV fluid hydration support. I anticipate that the calcium would decrease with hydration. We can try a small dose of bisphosphonate to treat the hypercalcemia. Further recommendation depending on the results of pathology. Her questions were answered to her satisfaction. Pain regimen will be optimized to treat acute symptoms that brought her into the hospital. MD JUICE Torres/carolina/ava , 06:35 PM , 06:48 PM ENRIQUETA
[2018-05-29] MEDS: diazePAM 5 MG Tablet PO SCH ×3 (00:38→22:24)
[2018-05-29] MEDS: Insulin NovoLOG Aspart Correctional Sugar Inj SQ SCH ×5 (04:57→22:32)
[2018-05-29] MEDS: Levothyroxine 150 MCG Tablet PO SCH (05:00)
[2018-05-29] MEDS: hydrALAZINE 25 MG Tablet PO SCH (08:07)
[2018-05-29] MEDS: amLODIPine 10 MG Tablet PO SCH (08:07)
[2018-05-29] MEDS: Ferrous Sulfate 325 MG Tablet PO SCH (08:08)
[2018-05-29 09:28] LABS: Activated Partial Thrombo Time 26.1 sec (23.4-31.7); INR 1.1 Ratio; Prothrombin Time 10.7 sec (9.8-11.6)
[2018-05-29 09:48] LABS: Alanine Aminotransferase 10 U/L (10-53); Alkaline Phosphatase 87 U/L (45-117); Anion Gap 8 meq/L (5-15); Aspartate Aminotransferase 15 U/L (15-37); Blood Urea Nitrogen 40 mg/dL (7-18); Chloride 103 meq/L (98-107); Glomerular Filtration Rate 14 mL/min (>89); Glucose,Random 68 mg/dL (74-106); Lactate Dehydrogenase 161 U/L (84-246); Potassium 4.5 meq/L (3.5-5.1); Sodium 138 meq/L (136-145); Total Protein 6.7 g/dL (6.4-8.2)
[2018-05-29 11:01] LABS: Immunoglobulin A 90 mg/dL (96-532); Immunoglobulin G 906 mg/dL (650-1610); Kappa Lambda Ratio 6.92 (1.57-3.93); Lambda Light Chain 72 mg/dL (90-210)
[2018-05-29 12:00] LABS: Bilirubin,Urine Negative (Negative); Clarity,Urine Clear (Clear); Color,Urine Straw (Yellw/Straw); Glucose,Urine (UA) Negative (Negative); Leukocyte Esterase,Urine Negative (Negative); Mucus,Urine Few /lpf (Occasional); Nitrite,Urine Negative (Negative); Specific Gravity,Urine 1.009 (1.002-1.035); Squamous Epithelial Cell,Urine 1 /hpf (0-5)
--- NOTE | 2018-05-29 12:16 | P.PNONC ---
Subjective Interval history: Afebrile Patient resting in bed asleep Daughter at bedside Reports her back pain is "okay right now" No acute complaints Objective Vital Signs/Intake & Output: Vital Signs 05/28/18 14:33 05/28/18 16:35 05/28/18 20:00 Temperature 97.8 F 98.3 F Pulse Rate 65 70 Respiratory Rate 16 16 16 Blood Pressure 153/71 H 165/71 H Pulse Oximetry 93 L 93 L 05/29/18 00:00 05/29/18 04:00 05/29/18 08:00 Temperature 97.8 F 98 F 98.5 F Pulse Rate 50 L 55 L 56 L Respiratory Rate 14 16 16 Blood Pressure 151/70 H 152/74 H 155/74 H Pulse Oximetry 93 L 95 92 L 05/29/18 11:19 05/29/18 12:03 Temperature 98.3 F Pulse Rate 54 L 55 L Respiratory Rate 16 Blood Pressure 162/71 H Pulse Oximetry 94 L Intake & Output 05/28/18 05/29/18 05/29/18 19:59 06:59 18:59 Intake Total Balance Weight Intake: IV LR 1000 mL Inj 1,000 ML @ 100 mls/hr IV.CONT .Q10H SPARKLE Rx#: [id number] Oral Other: # Voids Date of Last Bowel Movement Result Diagrams: 05/28/18 06:58 05/29/18 06:56 Laboratory Results: Laboratory Results - last 24 hr 05/28/18 05/28/18 05/29/18 16:42 20:39 04:47 PT INR APTT Sodium Potassium Chloride Carbon Dioxide Anion Gap BUN Creatinine Estimated GFR POC Glucose 76 81 85 Random Glucose Calcium Total Bilirubin AST ALT Alkaline Phosphatase Lactate Dehydrogenase Total Protein Total Protein (PEP) Albumin Urine Color Urine Clarity Urine pH Ur Specific [place] Urine Protein Urine Glucose (UA) Urine Ketones Urine Occult Blood Urine Nitrate Urine Bilirubin Urine Urobilinogen Ur Leukocyte Esterase Urine WBC Ur Squamous Epith Cells Urine Mucus Micro UA Comment Ur Microscopic Review Urine Culture Comments IgG IgA IgM [place]/Lambda Ratio [place] Light Chain Anal Lambda Light Chain Anal 05/29/18 05/29/18 05/29/18 06:56 07:06 07:59 PT 10.7 INR 1.1 APTT 26.1 Sodium 138 Potassium 4.5 Chloride 103 Carbon Dioxide 27.0 Anion Gap 8 BUN 40 H Creatinine 3.71 H Estimated GFR 14 L POC Glucose 76 Random Glucose 68 L Calcium 11.0 H Total Bilirubin 0.2 AST 15 ALT 10 Alkaline Phosphatase 87 Lactate Dehydrogenase 161 Total Protein 6.7 D Total Protein (PEP) 6.7 Albumin 3.0 L D Urine Color Urine Clarity Urine pH Ur Specific [place] Urine Protein Urine Glucose (UA) Urine Ketones Urine Occult Blood Urine Nitrate Urine Bilirubin Urine Urobilinogen Ur Leukocyte Esterase Urine WBC Ur Squamous Epith Cells Urine Mucus Micro UA Comment Ur Microscopic Review Urine Culture Comments IgG 906 IgA 90 L IgM Less than 8 L [place]/Lambda Ratio 6.92 H [place] Light Chain Anal 498 H Lambda Light Chain Anal 72 L 05/29/18 05/29/18 11:05 11:30 PT INR APTT Sodium Potassium Chloride Carbon Dioxide Anion Gap BUN Creatinine Estimated GFR POC Glucose 93 Random Glucose Calcium Total Bilirubin AST ALT Alkaline Phosphatase Lactate Dehydrogenase Total Protein Total Protein (PEP) Albumin Urine Color Straw Urine Clarity Clear Urine pH 6.0 Ur Specific [place] 1.009 Urine Protein 30 H Urine Glucose (UA) Negative Urine Ketones Negative Urine Occult Blood Negative Urine Nitrate Negative Urine Bilirubin Negative Urine Urobilinogen Less than 2 Ur Leukocyte Esterase Negative Urine WBC 2 Ur Squamous Epith Cells 1 Urine Mucus Few H Micro UA Comment Culture not ind Ur Microscopic Review Not Reportable Urine Culture Comments Culture not ind IgG IgA IgM [place]/Lambda Ratio [place] Light Chain Anal Lambda Light Chain Anal Medications: Active Medications Generic Name Dose Route Start Last Admin Trade Name Spq PRN Reason Stop Dose Admin Amlodipine Besylate 10 mg 05/28/18 10:00 05/29/18 08:07 Norvasc PO 10 mg DAILY SPARKLE Administration Clonidine HCl 0.1 mg 05/28/18 10:00 05/29/18 08:07 Catapres PO 0.1 mg BID SPARKLE Administration Cyclobenzaprine HCl 5 mg 05/28/18 14:00 05/29/18 05:00 Flexeril PO 5 mg Q8HR SPARKLE Administration Diazepam 5 mg 05/28/18 10:00 05/29/18 08:07 Valium PO 5 mg Q12HR SPARKLE Administration Ferrous Sulfate 325 mg 05/28/18 10:00 05/29/18 08:08 Ferosul PO 325 mg DAILY SPARKLE Administration Hydralazine HCl 25 mg 05/28/18 10:00 05/29/18 08:07 Apresoline PO 25 mg BID SPARKLE Administration Lactated Ringer's 1,000 mls @ 100 mls/hr 05/28/18 08:30 05/29/18 05:04 Lr 1000 Ml Inj IV.CONT 100 mls/hr .Q10H SPARKLE Administration Insulin Aspart 0 unit 05/28/18 12:00 05/29/18 11:09 Novolog Insulin Correctional Sugar Inj SQ Not Given 08,12,17,21,03 [facility] Protocol Levothyroxine Sodium 150 mcg 05/28/18 09:00 05/29/18 05:00 Synthroid PO 150 mcg DAILY@0600 SPARKLE Administration Oxycodone/Acetaminophen 1 tab 05/28/18 11:00 05/29/18 11:10 Percocet 5/325 Mg PO 1 tab Q4H PRN Administration PAIN SCALE 1 TO 5 Potassium Chloride 20 meq 05/28/18 10:00 05/29/18 08:07 K-Dur PO 20 meq DAILY SPARKLE Administration Objective Remarks: GENERAL: Elderly female resting in bed asleep on approach. She wakens easily to verbal stimuli. SKIN: Warm and dry. HEAD: Normocephalic. EYES: No scleral icterus. No injection or drainage. NECK: Supple, trachea midline. CARDIOVASCULAR: Regular rate and rhythm without murmurs. RESPIRATORY: Clear anteriorly. GASTROINTESTINAL: Abdomen soft, non-tender, nondistended. EXTREMITIES: No cyanosis MUSCULOSKELETAL: Adequate muscle tone. NEUROLOGICAL: Sleepy but awakens to voice. Follows commands. Assessment/Plan - Plan 87-year-old female with a remote history of breast cancer diagnosed in the . She had definitive surgery, adjuvant systemic chemotherapy. She has had no evidence of recurrence since that time. She presented to the emergency room with complaints of severe back pain that she has had for [address] shows permeative lytic changes involving multiple bony elements, primarily of the spine consistent with metastatic disease or myeloma. She also has other indicators of possible myeloma including hypercalcemia, renal dysfunction and anemia. 1. Unlikely that patient is having a recurrence of her breast cancer. She has the typical CRAB characteristics of myeloma. Bone marrow biopsy will be completed in the morning. 2. Continue supportive care for back pain. 3. Continue IV fluids for hypercalcemia. No need for biphosphonate therapy at present. - Attending Statement The exam, history, and the medical decision-making described in the above note were completed with the assistance of the mid-level provider. I reviewed and agree with the findings presented. I attest that I had a [id number] encounter with the patient on the same day, and personally performed and documented my assessment and findings in the medical record. Lengthy discussion with daughter and from the patient regarding diagnosis contemplated. In summary she is found to have anemia, renal insufficiency, hypercalcemia with bone lesions. Her presentation is pain. We discussed the bone marrow biopsy evaluation to rule out a plasma cell disorder. We also are in hope of determining a diagnosis if not related to a plasma cell disorder. If negative a directed biopsy would be necessary. Serum protein electrophoresis and quantitative immunoglobulin and light chain analysis have been requested. Recommend continued support. Hydration continue. Hypercalcemia improving. Defer bisphosphonate therapy since renal function have not improved. Further recommendations depending on the results of the biopsy. Pain medication is offered for pain.
--- NOTE | 2018-05-29 14:31 | P.DIET ---
Nutritional Evaluation Type of nutrition evaluation: initial Nutrition screening: Weight Loss > 10 lbs Subjective Subjective Comments: Poor appetite reported. Ate 25% of breakfast and 50% of lunch today. Objective - Diagnosis Multiple metastasis, severe back pain - Objective Body Mass Index: 23.4 % IBW: 109 (IBW = 145#) Body Weight Used for Calculations: Actual (72 kg) Energy Needs - Lower Range (kCal/kg): 28 Energy Needs - Upper Range (kCal/kg): 32 Lower Limit kCal/kg (kCals): 2,016 Upper Limit kCal/kg (kCals): 2,304 Lower Limit Protein Factor (Grams per Kg): 1.0 Upper Limit Protein Factor (Grams per Kg): 1.5 Lower Protein Needs (Protein): 72 Upper Protein Needs (Protein): 108 Fluid Factor (ml/kg): 32 Estimated Fluid Needs (ml): 2,304 Dietitian Reviewed in Medical Record: Current diet, Curent medications, Intake & Output, Labs, Medical history Diet Order: Regular Objective Comments: Hx includes metastatic breast CA Assessment Assessment: Pt is at high nutrition risk 2' to dx, weight loss, poor po intake and poor appetite. Will send Ensure Enlive on trays and monitor acceptance. Each 8 oz serving provides 350 kcals and [address] following. Recommendations: 1. Continue regular diet 2. Ensure Enlive tid Dietitian to Monitor: Lab values, Supplement acceptance, Intake & Output, Diet tolerance, Weight change, PO Intake, Medical course
[2018-05-29] MEDS ORDERED: hydrALAZINE 25 MG Tablet PO SCH (20:36)
--- NOTE | 2018-05-29 20:47 | P.PNIM ---
Subjective Interval history: Patient complains of lower back pain and bilateral hip pain. She says that she tries to stay still to avoid the pain. Physical Exam Vital signs: Vital Signs 05/29/18 00:00 05/29/18 04:00 05/29/18 08:00 Temperature 97.8 F 98 F 98.5 F Pulse Rate 50 L 55 L 56 L Respiratory Rate 14 16 16 Blood Pressure 151/70 H 152/74 H 155/74 H Pulse Oximetry 93 L 95 92 L 05/29/18 11:19 05/29/18 12:03 05/29/18 16:00 Temperature 98.3 F 98.2 F Pulse Rate 54 L 55 L 56 L Respiratory Rate 16 16 Blood Pressure 162/71 H 131/67 Pulse Oximetry 94 L 90 L 05/29/18 16:02 05/29/18 19:20 05/29/18 19:40 Temperature 99.5 F Pulse Rate 62 73 Respiratory Rate 18 Blood Pressure 176/71 H 184/83 H Pulse Oximetry 88 L 92 L Intake & Output 05/29/18 05/29/18 05/30/18 06:59 18:59 06:59 Intake Total 1720 / 1720 Output Total 100 / 100 Balance 1620 / 1620 Weight Intake: IV 1000 / 1000 LR 1000 mL Inj 1,000 ML @ 100 1000 / 1000 mls/hr IV.CONT .Q10H [facility] Rx#: [id number] Oral 720 / 720 Output: Urine 100 / 100 Other: # Voids 1 Date of Last Bowel Movement 05/27/18 05/27/18 Narrative: General patient complains of lower back pain and bilateral hip pain. She says when she stays still the pain is better tolerated. HEENT extraocular movements are intact, clear oropharyngeal mucosa, no JVD Cardiovascular S1-S2 audible, RRR, no murmurs rubs or gallops Respiratory clear to auscultation bilaterally Abdomen soft, nontender, nondistended, normal bowel sounds Extremities no edema, 2+ distal pulses Neuro patient can move all 4 extremities and sensation is intact bilaterally. Results - Labs CBC & Chem 7: 05/28/18 06:58 05/29/18 06:56 Laboratory Results - last 24 hr 05/29/18 05/29/18 05/29/18 04:47 06:56 07:06 PT 10.7 INR 1.1 APTT 26.1 Sodium 138 Potassium 4.5 Chloride 103 Carbon Dioxide 27.0 Anion Gap 8 BUN 40 H Creatinine 3.71 H Estimated GFR 14 L POC Glucose 85 Random Glucose 68 L Calcium 11.0 H Total Bilirubin 0.2 AST 15 ALT 10 Alkaline Phosphatase 87 Lactate Dehydrogenase 161 Total Protein 6.7 D Total Protein (PEP) 6.7 Albumin 3.0 L D Urine Color Urine Clarity Urine pH Ur Specific [place] Urine Protein Urine Glucose (UA) Urine Ketones Urine Occult Blood Urine Nitrate Urine Bilirubin Urine Urobilinogen Ur Leukocyte Esterase Urine WBC Ur Squamous Epith Cells Urine Mucus Micro UA Comment Ur Microscopic Review Urine Culture Comments IgG 906 IgA 90 L IgM Less than 8 L [place]/Lambda Ratio 6.92 H [place] Light Chain Anal 498 H Lambda Light Chain Anal 72 L 05/29/18 05/29/18 05/29/18 07:59 11:05 11:30 PT INR APTT Sodium Potassium Chloride Carbon Dioxide Anion Gap BUN Creatinine Estimated GFR POC Glucose 76 93 Random Glucose Calcium Total Bilirubin AST ALT Alkaline Phosphatase Lactate Dehydrogenase Total Protein Total Protein (PEP) Albumin Urine Color Straw Urine Clarity Clear Urine pH 6.0 Ur Specific [place] 1.009 Urine Protein 30 H Urine Glucose (UA) Negative Urine Ketones Negative Urine Occult Blood Negative Urine Nitrate Negative Urine Bilirubin Negative Urine Urobilinogen Less than 2 Ur Leukocyte Esterase Negative Urine WBC 2 Ur Squamous Epith Cells 1 Urine Mucus Few H Micro UA Comment Culture not ind Ur Microscopic Review Not Reportable Urine Culture Comments Culture not ind IgG IgA IgM [place]/Lambda Ratio [place] Light Chain Anal Lambda Light Chain Anal 05/29/18 16:59 PT INR APTT Sodium Potassium Chloride Carbon Dioxide Anion Gap BUN Creatinine Estimated GFR POC Glucose 86 Random Glucose Calcium Total Bilirubin AST ALT Alkaline Phosphatase Lactate Dehydrogenase Total Protein Total Protein (PEP) Albumin Urine Color Urine Clarity Urine pH Ur Specific [place] Urine Protein Urine Glucose (UA) Urine Ketones Urine Occult Blood Urine Nitrate Urine Bilirubin Urine Urobilinogen Ur Leukocyte Esterase Urine WBC Ur Squamous Epith Cells Urine Mucus Micro UA Comment Ur Microscopic Review Urine Culture Comments IgG IgA IgM [place]/Lambda Ratio [place] Light Chain Anal Lambda Light Chain Anal Assessment and Plan - Plan This patient is an 87-year-old female with a diagnosis of hypertension, hypothyroidism, peripheral vascular disease, stage IV chronic kidney disease, history of right-sided breast cancer, diabetes mellitus type 2, dyslipidemia. The patient presented to our emergency department with complaints of severe back pain. 1. Intractable lower back pain likely metastatic disease from breast cancer. Patient CT scan of the abdomen pelvis shows a right adrenal mass as well as bony neoplastic disease possibly metastatic disease. Heme oncology is following the patient and thinks that this is unlikely metastatic disease from breast cancer that the patient had in the . Multiple myeloma workup was started given the patient's anemia, hypercalcemia, and kidney disease. Patient will likely need a bone marrow biopsy. We will follow with recommendations from heme oncology. 2. TIFFANY on CKD stage IV. In February of this year the patient's serum creatinine was around 2.6. Currently 3.7 as of today. Patient started on normal saline. We will follow-up a.m. labs. Nephrology consulted, I would appreciate their recommendations. 3. Hypertension Patient is hypertensive. Continue amlodipine. Hydralazine dose will be increased to 50 mg p.o. 3 times daily. We will continue monitor the patient blood pressure and adjust her blood pressure medications as needed. 4. Diabetes mellitus type 2 No significant elevation the patient's blood sugars. We will continue monitor her blood sugars and adjust her medications as needed. 5. Hypothyroidism Continue Synthroid. Heparin started for DVT prophylaxis.
[2018-05-29] MEDS ORDERED: Morphine Sulfate Inj 2 MG/ML Vial IV.PUSH PRN (20:58)
[2018-05-29] MEDS: Sod Chloride 0.9% Inj 1,000 ML IV.CONT SCH (21:06)
[2018-05-29] MEDS ORDERED: Morphine Inj 4 MG/ML Vial IV.PUSH PRN (21:15)
[2018-05-29] MEDS: hydrALAZINE 50 MG Tablet PO SCH (22:24)
[2018-05-29] MEDS: Heparin - SQ 10,000 UNITS/ML Vial SQ SCH (22:24)
--- NOTE | 2018-05-30 00:02 | XR ---
EXAM DATE: 05/29/2018 11:58 PM EST AGE/SEX: 87 years / Female INDICATIONS: Fever. CLINICAL DATA: This is the patient's subsequent encounter. Patient reports that signs and symptoms h ave been present for 2 days and indicates a pain score of 0/10. MEDICAL/SURGICAL HISTORY: Hypertension. Diabetes mellitus type II. Carcinoma, breast. Anemia . Stage IV kidney disease. Hysterectomy. COMPARISON: [facility] [place] 1V SINGLE AP, 02/24/2018. . FINDINGS: Cardiac silhouette is enlarged. There is vascular congestion and diffuse pleural-parenchymal opacity present bilaterally most suggestive of edema. CONCLUSION: Cardiomegaly and symmetric bilateral pleural-parenchymal opacities Electronically signed by: Binu Barnes MD 05/30/2018 12:01 AM EST
[2018-05-30] MEDS: Piperacil/Tazo 2.25 GM Premix 50 ML IV.SIG SCH ×5 (00:15→23:29)
[2018-05-30] MEDS: Insulin NovoLOG Aspart Correctional Sugar Inj SQ SCH ×5 (04:19→22:28)
[2018-05-30] MEDS: Levothyroxine 150 MCG Tablet PO SCH (05:56)
[2018-05-30] MEDS: Sod Chloride 0.9% Inj 1,000 ML IV.CONT SCH ×2 (06:00→21:43)
[2018-05-30] MEDS: Heparin - SQ 10,000 UNITS/ML Vial SQ SCH ×2 (08:00→21:46)
[2018-05-30] MEDS ORDERED: Dextrose 5%/NaCl 0.9% Inj 1,000 ML IV.CONT SCH (08:45)
[2018-05-30] MEDS: amLODIPine 10 MG Tablet PO SCH (08:50)
[2018-05-30 09:34] LABS: Baso % (Auto) 0.6 % (0.0-2.0); Hematocrit 25.1 % (35.0-46.0); Hemoglobin 8.7 gm/dL (11.6-15.3); Lymph # (Auto) 0.5 th/mm3 (1.0-4.8); Lymph % (Auto) 11.1 % (9.0-44.0); Mean Corpuscular HGB Conc 34.6 % (32.0-36.0); Mean Corpuscular Hemoglobin 31.8 pg (27.0-34.0); Mean Platelet Volume 6.7 fL (7.0-11.0); Mono # (Auto) 0.3 th/mm3 (0.0-0.9); Mono % (Auto) 7.5 % (0.0-8.0); Neut # (Auto) 3.6 th/mm3 (1.8-7.7); Neut % (Auto) 79.8 % (16.0-70.0); Platelet Count 214 th/mm3 (150-450); Red Blood Count 2.73 mil/mm3 (4.00-5.30); Red Cell Distribution Width 16.3 % (11.6-17.2); White Blood Count 4.5 th/mm3 (4.0-11.0)
[2018-05-30 09:54] LABS: Calcium 10.6 mg/dL (8.5-10.1); Carbon Dioxide 27.3 meq/L (21.0-32.0); Magnesium 2.1 mg/dL (1.5-2.5); Potassium 4.6 meq/L (3.5-5.1)
[2018-05-30] MEDS ORDERED: Dextrose 50% in Water 50 ML Vial IV.PUSH PRN (10:00)
[2018-05-30] MEDS ORDERED: fentaNYL Citrate Inj 250 MCG/5 ML Ampul ONE (10:09)
--- NOTE | 2018-05-30 10:16 | P.CONNP ---
<ShylacholoCat terry - Last Filed: 05/30/18 15:16> History of Present Illness Service: Nephrology Consult date: 05/30/18 Requesting Physician: Ethel Bran Reason for Consult: Acute kidney injury on chronic kidney disease. Primary Care Provider: UNKNOWN Chief Complaint: Low back pain History of Present Illness: Patient is a 87 year old female with past medical history of diabetes, hypertension, arthritis, hypothyroidism, Hx of breast cancer, hyperlipidemia, chronic anemia, and chronic kidney disease. Presented to the emergency room with severe back pain. Has had recent admission for anemia with HGB of 6.7 and received blood transfusions. CT abdomen and pelvis showed, bony neoplastic disease, and right adrenal mass. Hematology has been consulted and bone marrow biopsy today. Nephrology is consulted for acute on chronic kidney disease. Creatinine 3.71 which has improved since admission of 3.87, and potassium level of 4.6, calcium level of 10.6 from 11.7 on admission. Patient is sleepy this morning and with plans for biopsy. Denies any shortness of breath, chest pain, nausea, or vomiting. Has had poor appetite. PMFSH - History History Provided By: Patient - Medical History Medical History: Medical History (Last Reviewed 05/28/18 @ 15:09 by Prakash Llamas) Anemia Breast cancer, right breast Diabetes H/O: hysterectomy Hypercalcemia Hyperlipemia Hypertension Hypokalemia Hypothyroidism PVD (peripheral vascular disease) Stage 4 chronic kidney disease - Family History Family History: Family History (Last Reviewed 05/28/18 @ 07:23 by Cedrick Figueroa MD) Other Hypertension - Tobacco History Second Hand Smoke Exposure: No Tobacco Use In Past 30 Days: No Smoking Status: Never smoker Tobacco Type: Smokeless Tobacco - Alcohol History How Often Do You Have a Drink Containing Alcohol: Never - Substance Use History Substance History: No History of Abuse - Travel History History of Recent Travel: No - Immunization History Tetanus Immunization: >5 Years Hx Influenza Vaccine This Season: No Medications and Allergies Allergies Allergy/AdvReac Type Severity Reaction Status Date / Time hydrochlorothiazide Allergy Anxiety Verified 05/28/18 09:57 naproxen [From Naprosyn] Allergy Anemia Verified 05/28/18 09:57 rivaroxaban [From Xarelto] Allergy Anxiety Verified 05/28/18 09:57 Home Medications Medication Instructions Recorded Confirmed Type amlodipine 10 mg PO DAILY 02/24/18 05/28/18 History clonidine HCl 0.1 mg PO BID 02/24/18 05/28/18 History glimepiride 1 mg PO QAM 02/24/18 05/28/18 History hydralazine 25 mg PO BID 02/24/18 05/28/18 History levothyroxine 150 mcg PO DAILY 02/24/18 05/28/18 History potassium chloride 20 meq PO DAILY 02/24/18 05/28/18 History Active Medications: Active Medications Acetaminophen (Tylenol) 650 mg PO Q4H PRN PRN Reason: Temp > 100.4 Last Admin: 05/29/18 22:42 Dose: 650 mg Al Hydroxide/Mg Hydroxide (Milk Of Magnesia Liq) 30 ml PO Q12H PRN PRN Reason: Mild Constipation Last Admin: 05/29/18 19:47 Dose: 30 ml Amlodipine Besylate (Norvasc) 10 mg PO DAILY [facility] Last Admin: 05/30/18 08:50 Dose: 10 mg Bisacodyl (Dulcolax Supp) 10 mg RECTAL DAILY PRN PRN Reason: SEVERE CONSITIPATION Clonidine HCl (Catapres) 0.1 mg PO BID [facility] Last Admin: 05/30/18 08:50 Dose: 0.1 mg Cyclobenzaprine HCl (Flexeril) 5 mg PO Q8HR [facility] Last Admin: 05/30/18 05:56 Dose: 5 mg Dextrose (D50w Vial) 50 ml IV.PUSH UNSCH PRN PRN Reason: PER HYPOGLYCEMIA PROTOCOL Diazepam (Valium) 5 mg PO Q12HR [facility] Last Admin: 05/29/18 22:24 Dose: Not Given Ferrous Sulfate (Ferosul) 325 mg PO DAILY [facility] Last Admin: 05/29/18 08:08 Dose: 325 mg Glucagon (Glucagon Inj) 1 mg OTHER UNSCH PRN PRN Reason: SEE LABEL COMMENTS Heparin Sodium (Porcine) (Heparin Inj) 5,000 units SQ Q12HR [facility] Last Admin: 05/30/18 08:00 Dose: Not Given Hydralazine HCl (Apresoline) 50 mg PO TID [facility] Last Admin: 05/29/18 22:24 Dose: 50 mg Sodium Chloride (Ns Inj) 1,000 mls @ 100 mls/hr IV.CONT .Q10H [facility] Last Admin: 05/30/18 06:00 Dose: 100 mls/hr Piperacillin/Tazobactam/Dextrose (Zosyn 2.25 Gm Premix) 50 mls @ 100 mls/hr IV.SIG Q6H [facility] Last Infusion: 05/30/18 07:28 Dose: Infused Dextrose/Sodium Chloride (D5w/Normal Saline Inj) 1,000 mls @ 84 mls/hr IV.CONT .[id number] [facility] Stop: 05/30/18 18:00 Last Admin: 05/30/18 08:50 Dose: 84 mls/hr Insulin Aspart (Novolog Insulin Correctional Sugar Inj) 0 unit SQ 08,12,17,21, 03 [facility]; Protocol Last Admin: 05/30/18 08:43 Dose: Not Given Lactulose (Lactulose Liq) 30 ml PO DAILY PRN PRN Reason: SEVERE CONSITIPATION Levothyroxine Sodium (Synthroid) 150 mcg PO DAILY@0600 [facility] Last Admin: 05/30/18 05:56 Dose: 150 mcg Miscellaneous (Pill Splitter) 1 each OTHER UNSCH PRN PRN Reason: SEE LABEL COMMENTS Morphine Sulfate (Morphine Inj) 2 mg IV.PUSH Q4H PRN PRN Reason: BREAKTHROUGH PAIN Last Admin: 05/29/18 22:39 Dose: 2 mg Ondansetron HCl (Zofran Inj) 4 mg IV.PUSH Q6H PRN PRN Reason: NAUSEA OR VOMITING Oxycodone/Acetaminophen (Percocet 5/325 Mg) 1 tab PO Q4H PRN PRN Reason: PAIN SCALE 1 TO 10 Last Admin: 05/29/18 19:47 Dose: 1 tab Potassium Chloride (K-Dur) 20 meq PO DAILY [facility] Last Admin: 05/29/18 08:07 Dose: 20 meq Sennosides (Senokot) 17.2 mg PO Q12H PRN PRN Reason: Moderate Constipation Exam Vital signs: Vital Signs 05/29/18 11:19 05/29/18 12:03 05/29/18 16:00 Temperature 98.3 F 98.2 F Pulse Rate 54 L 55 L 56 L Respiratory Rate 16 16 Blood Pressure 162/71 H 131/67 Pulse Oximetry 94 L 90 L 05/29/18 16:02 05/29/18 19:20 05/29/18 19:40 Temperature 99.5 F Pulse Rate 62 73 Respiratory Rate 18 Blood Pressure 176/71 H 184/83 H Pulse Oximetry 88 L 92 L 05/29/18 20:03 05/29/18 22:17 05/29/18 23:36 Temperature 101 F H Pulse Rate 77 57 L 64 Respiratory Rate 16 Blood Pressure 135/59 L Pulse Oximetry 95 05/30/18 00:00 05/30/18 04:08 05/30/18 04:09 Temperature 100.7 F H 99.9 F H Pulse Rate 63 70 62 Respiratory Rate 16 18 Blood Pressure 135/59 L Pulse Oximetry 92 L 94 L Intake & Output 05/29/18 05/30/18 05/30/18 18:59 06:59 18:59 Intake Total 1720 / 1720 2054 / 2054 55 / 55 Output Total 100 / 100 600 / 600 Balance 1620 / 1620 1455 / 1455 55 / 55 Weight 70 kg Intake: IV 1000 / 1000 2054 55 / 55 LR 1000 mL Inj 1,000 ML @ 100 1000 / 1000 1000 / 1000 mls/hr IV.CONT .Q10H [facility] Rx#: [id number] NS Inj 1,000 ML @ 100 mls/hr IV 1000 / 1000 .CONT .Q10H [facility] Rx#:[id number] Zosyn 2.25 GM Premix 50 ML @ 55 / 55 55 / 55 100 mls/hr IV.SIG Q6H [facility] Rx#: [id number] Oral 720 / 720 Output: Urine 100 / 100 600 / 600 Other: # Voids 1 Date of Last Bowel Movement 05/27/18 05/27/18 Narrative: GENERAL: Sleepy, responds to questions appropriately. Generalized weakness. SKIN: Warm and dry. NECK: Supple, trachea midline. No JVD or lymphadenopathy. CARDIOVASCULAR: Regular rate and rhythm without murmurs, gallops, or rubs. RESPIRATORY: Breath sounds equal bilaterally. No accessory muscle use. GASTROINTESTINAL: Abdomen soft, non-tender, nondistended. MUSCULOSKELETAL: No cyanosis, or edema. Results - Lab Results 05/30/18 09:08 05/30/18 09:08 Most recent lab results Calcium 10.6 mg/dL (8.5-10.1) H 05/30/18 09:08 Magnesium 2.1 mg/dL (1.5-2.5) 05/30/18 09:08 Assessment and Plan - Assessment (1) Acute renal failure (ARF) Code(s): N17.9 - Acute kidney failure, unspecified Status: Acute Plan: Acute kidney injury with a Creatinine 3.71 which has improved since admission of 3.87 on admission. Seen in office on 05/16 creatinine was on 3.13, calcium 11.8, and HGB at 6.5. Patient was sent to emergency room. Some acute worsening could be related to poor intake but also from multiple myeloma. Has chronic kidney disease with baseline creatinine of 2.5, GFR of 22 ml/min SPEP done on on 05/11 normal except faint band in gamma region, serum immunofixation ordered but not completed. Recommend to continue IVF's Maintain strict I+O, avoid nephrotoxins SPEP pending Bone marrow biopsy done today Will follow urinary output and BMP (2) Hypertension Code(s): I10 - Essential (primary) hypertension Status: Acute Plan: Well controlled, on amlodipine. (3) Hypercalcemia Code(s): E83.52 - Hypercalcemia Status: Acute Plan: Calcium level improving with IV fluids. (4) Anemia Code(s): D64.9 - Anemia, unspecified Status: Acute Plan: HGB at 8.7., will monitor. On iron replacement. (5) Multiple myeloma and immunoproliferative neoplasms Code(s): C90.00 - Multiple myeloma not having achieved remission; C88.9 - Malignant immunoproliferative disease, unspecified Status: Acute Plan: Possible myeloma, bone marrow biopsy today. <Nallely Rodriguez - Last Filed: 06/02/18 21:41> History of Present Illness Primary Care Provider: UNKNOWN [facility] - Medical History Medical History: Medical History (Last Reviewed 05/28/18 @ 15:09 by Prakash Llamas) Anemia Breast cancer, right breast Diabetes H/O: hysterectomy Hypercalcemia Hyperlipemia Hypertension Hypokalemia Hypothyroidism PVD (peripheral vascular disease) Stage 4 chronic kidney disease - Family History Family History: Family History (Last Reviewed 05/28/18 @ 07:23 by Cedrick Figueroa MD) Other Hypertension Medications and Allergies Active Medications: Active Medications Acetaminophen (Tylenol) 650 mg PO Q4H PRN PRN Reason: Temp > 100.4 Last Admin: 05/29/18 22:42 Dose: 650 mg Al Hydroxide/Mg Hydroxide (Milk Of Magnesia Liq) 30 ml PO Q12H PRN PRN Reason: Mild Constipation Last Admin: 05/29/18 19:47 Dose: 30 ml Amlodipine Besylate (Norvasc) 10 mg PO DAILY [facility] Last Admin: 06/02/18 10:27 Dose: Not Given Bisacodyl (Dulcolax Supp) 10 mg RECTAL DAILY PRN PRN Reason: SEVERE CONSITIPATION Clonidine HCl (Catapres) 0.1 mg PO BID [facility] Last Admin: 06/02/18 21:28 Dose: 0.1 mg Cyclobenzaprine HCl (Flexeril) 5 mg PO Q8HR [facility] Last Admin: 06/02/18 21:28 Dose: 5 mg Dexamethasone Sodium Phosphate (Decadron Inj) 20 mg IV.PUSH DAILY [facility] Stop: 06/04/18 09:01 Last Admin: 06/02/18 07:59 Dose: 20 mg Dextrose (D50w Vial) 50 ml IV.PUSH UNSCH PRN PRN Reason: PER HYPOGLYCEMIA PROTOCOL Last Admin: 05/30/18 10:59 Dose: 50 ml Diazepam (Valium) 5 mg PO Q12HR PRN PRN Reason: ANXIETY Ferrous Sulfate (Ferosul) 325 mg PO DAILY [facility] Last Admin: 06/02/18 08:00 Dose: 325 mg Glucagon (Glucagon Inj) 1 mg OTHER UNSCH PRN PRN Reason: SEE LABEL COMMENTS Heparin Sodium (Porcine) (Heparin Inj) 5,000 units SQ Q12HR [facility] Last Admin: 06/02/18 21:29 Dose: 5,000 units Hydralazine HCl (Apresoline) 75 mg PO TID [facility] Last Admin: 06/02/18 17:12 Dose: 75 mg Sodium Chloride (Ns Inj) 1,000 mls @ 200 mls/hr IV.CONT .Q5H [facility] Last Admin: 06/02/18 15:43 Dose: 125 mls/hr Insulin Aspart (Novolog Insulin Correctional Sugar Inj) 0 unit SQ 08,12,17,21, 03 [facility]; Protocol Last Admin: 06/02/18 21:30 Dose: Not Given Lactulose (Lactulose Liq) 30 ml PO DAILY PRN PRN Reason: SEVERE CONSITIPATION Last Admin: 05/30/18 22:39 Dose: 30 ml Levothyroxine Sodium (Synthroid) 150 mcg PO DAILY@0600 [facility] Last Admin: 06/02/18 05:34 Dose: 150 mcg Miscellaneous (Pill Splitter) 1 each OTHER UNSCH PRN PRN Reason: SEE LABEL COMMENTS Ondansetron HCl (Zofran Inj) 4 mg IV.PUSH Q6H PRN PRN Reason: NAUSEA OR VOMITING Oxycodone/Acetaminophen (Percocet 5/325 Mg) 1 tab PO Q4H PRN PRN Reason: PAIN SCALE 1 TO 10 Last Admin: 05/29/18 19:47 Dose: 1 tab Pantoprazole Sodium (Protonix Inj) 40 mg IV.PUSH Q24H [facility] Last Admin: 06/02/18 07:59 Dose: 40 mg Potassium Chloride (K-Dur) 20 meq PO DAILY [facility] Last Admin: 06/02/18 08:00 Dose: 20 meq Sennosides (Senokot) 17.2 mg PO Q12H PRN PRN Reason: Moderate Constipation Exam Vital signs: Vital Signs 06/02/18 00:03 06/02/18 00:34 06/02/18 05:33 Temperature 97.6 F 98.3 F Pulse Rate 49 L 84 77 Respiratory Rate 15 18 Blood Pressure 147/76 H 159/72 H Pulse Oximetry 99 96 06/02/18 07:55 06/02/18 11:00 06/02/18 15:00 Temperature 97.3 F L 97.7 F 97.7 F Pulse Rate 59 L 56 L 68 Respiratory Rate 16 14 16 Blood Pressure 152/65 H 161/72 H 161/87 H Pulse Oximetry 97 97 93 L Intake & Output 06/02/18 06/02/18 06/03/18 06:59 18:59 06:59 Intake Total 2570 / 2570 2840 / 2840 Output Total 600 / 600 500 / 500 Balance 1970 / 1969 2340 / 2340 Weight 70 kg Intake: IV 2570 / 2570 2100 / 2100 NS Inj 1,000 ML @ 200 mls/hr IV 1000 / 1000 1999 / 1999 .CONT .Q5H [facility] Rx#:[id number] Aredia Inj 60 MG In NS Inj 500 520 / 520 ML @ 100 mls/hr IV.SIG ONCE ONE Rx#:[id number] Zosyn 2.25 GM Premix 50 ML @ 50 / 50 100 / 100 100 mls/hr IV.SIG Q6H [facility] Rx#: [id number] Oral 740 / 740 Output: Urine 600 / 600 500 / 500 Other: # Voids 1 Date of Last Bowel Movement 06/01/18 06/02/18 # Bowel Movements 1 Results - Lab Results 06/01/18 04:45 06/02/18 06:52 Most recent lab results Calcium 11.8 mg/dL (8.5-10.1) H* 06/02/18 06:52 Phosphorus 3.9 mg/dL (2.5-4.9) 05/31/18 07:24 Magnesium 2.3 mg/dL (1.5-2.5) 06/02/18 06:52 Assessment and Plan - Assessment (1) Acute renal failure (ARF) Code(s): N17.9 - Acute kidney failure, unspecified Status: Acute Plan: Patient seen and examined, agree with above. Patient with chronic kidney disease and develop now TIFFANY. CT abd. noted, check urine Na. Continue gentle hydration. (2) Hypertension Code(s): I10 - Essential (primary) hypertension Status: Acute (3) Hypercalcemia Code(s): E83.52 - Hypercalcemia Status: Acute (4) Anemia Code(s): D64.9 - Anemia, unspecified Status: Acute (5) Multiple myeloma and immunoproliferative neoplasms Code(s): C90.00 - Multiple myeloma not having achieved remission; C88.9 - Malignant immunoproliferative disease, unspecified Status: Acute <Cat Donahue - Last Filed: 05/30/18 15:16> (1) Acute renal failure (ARF) Qualifiers: Acute renal failure type: unspecified Qualified Code(s): N17.9 - Acute kidney failure, unspecified (2) Hypertension Qualifiers: Hypertension type: unspecified Qualified Code(s): I10 - Essential (primary) hypertension <Nallely Rodriguez - Last Filed: 06/02/18 21:41> (1) Acute renal failure (ARF) Qualifiers: Acute renal failure type: unspecified Qualified Code(s): N17.9 - Acute kidney failure, unspecified (2) Hypertension Qualifiers: Hypertension type: unspecified Qualified Code(s): I10 - Essential (primary) hypertension
--- NOTE | 2018-05-30 11:31 | P.RAD ---
Post Procedure Progress Note - Pre Procedure Diagnosis (1) Multiple myeloma and immunoproliferative neoplasms - Post Procedure Diagnosis (1) Multiple myeloma and immunoproliferative neoplasms - Procedure Information Procedure Date: 05/30/18 Supervising Radiologist: Tariq Greco MD Estimated blood loss (mL): 0 Anesthesia: Local, Conscious Sedation - Plan of Activity Patient to Unit: [facility] Patient Condition: Poor Additional Comments: Bone marrow biopsy of the let iliac wing completed. Samples sent to pathology. Full report to follow. See PACS Report for procedural detail/treatment.
[2018-05-30] MEDS: hydrALAZINE 50 MG Tablet PO SCH ×3 (12:01→18:57)
[2018-05-30] MEDS: diazePAM 5 MG Tablet PO SCH ×2 (12:02→21:43)
[2018-05-30 13:53] LABS: Iron Stain Bone Marrow Done
--- NOTE | 2018-05-30 14:13 | CT ---
EXAM DATE: 05/30/2018 11:43 AM EST AGE/SEX: 87 years / Female INDICATIONS: Neoplasm. CLINICAL DATA: This is the patient's initial encounter. Patient reports that signs and symptoms have been present for 1 day and indicates a pain score of 0/10. MEDICAL/SURGICAL HISTORY: Carcinoma, breast. Anemia. Diabetes. Hysterectomy. COMPARISON: No prior exams available for comparison. BIOPSY SITE: Left bone marrow MEDICATION(S): 2mg midazolam (Versed) IV 100mcg fentanyl (Sublimaze) IV DEVICE(S): 11 gauge Bone marrow biopsy needle One core specimen(s) sent to the laboratory for pathologic evaluation. . . PROCEDURE: CT guided Left bone marrow biopsy Conscious sedation with continuous EKG and oximetry monitoring. EKG and oximetry remained stable throughout the procedure. Prior to the procedure informed consent was obtained. Any appropriate prior imaging studies were rev iewed. Using automated exposure control and adjustment of the mA and/or kV according to patient size , radiation dose was kept as low as reasonably achievable to obtain optimal diagnostic quality images . DICOM format image data is available electronically for review and comparison. The site was prepped in a sterile fashion. Full sterile technique was used, including cap, mask, juan rile gloves and gown and a large sterile sheet. Hand hygiene and 2% chlorhexidine and/or betadine/al cohol prep was utilized per protocol for cutaneous antisepsis. The skin and subcutaneous tissues wer e infiltrated with local anesthetic solution. With CT guidance the previously identified target was localized. Biopsy was performed using the presc ribed needle as above. Following biopsy marrow aspiration was performed with repeat puncture. [place]qua te hemostasis was obtained with compression at the puncture site. Follow-up CT scan reveals no hemorrhage. Conscious sedation was performed with the prescribed dosages and duration as above in the presence of an independent trained radiology nurse to assist in the monitoring of the patient. EKG and oximetry remained stable throughout the procedure. The patient tolerated the procedure well and there were no complications. The patient was sent to Radiology Outpatient Unit in stable condition. CONCLUSION: 1. Uncomplicated CT guided bone marrow aspirate. 2. Uncomplicated CT guided bone marrow biopsy. Electronically signed by: Tariq Greco MD 05/30/2018 2:12 PM EST
--- NOTE | 2018-05-30 17:11 | P.PNIM ---
Subjective Interval history: Patient complains of lower back pain. Says she feels weak and is trying to stay still. Physical Exam Vital signs: Vital Signs 05/29/18 19:20 05/29/18 19:40 05/29/18 20:03 Temperature 99.5 F Pulse Rate 73 77 Respiratory Rate 18 Blood Pressure 176/71 H 184/83 H Pulse Oximetry 88 L 92 L 05/29/18 22:17 05/29/18 23:36 05/30/18 00:00 Temperature 101 F H 100.7 F H Pulse Rate 57 L 64 63 Respiratory Rate 16 16 Blood Pressure 135/59 L Pulse Oximetry 95 92 L 05/30/18 04:08 05/30/18 04:09 05/30/18 08:00 Temperature 99.9 F H Pulse Rate 70 62 62 Respiratory Rate 18 Blood Pressure 135/59 L Pulse Oximetry 94 L 05/30/18 08:16 05/30/18 11:50 05/30/18 12:05 Temperature 98.7 F 98.0 F Pulse Rate 61 95 H 84 Respiratory Rate 16 18 18 Blood Pressure 140/69 166/81 H 164/71 H Pulse Oximetry 93 L 92 L 05/30/18 12:35 05/30/18 12:43 05/30/18 16:00 Temperature 98.5 F Pulse Rate 78 63 66 Respiratory Rate 20 16 Blood Pressure 124/59 L 152/73 H Pulse Oximetry 96 90 L Intake & Output 05/29/18 05/30/18 05/30/18 18:59 06:59 18:59 Intake Total 1720 / 1720 2054 55 / 55 Output Total 100 / 100 600 / 600 Balance 1620 / 1620 1455 / 1455 55 / 55 Weight 70 kg Intake: IV 1000 / 1000 2054 55 / 55 LR 1000 mL Inj 1,000 ML @ 100 1000 / 1000 1000 / 1000 mls/hr IV.CONT .Q10H [facility] Rx#: [id number] NS Inj 1,000 ML @ 100 mls/hr IV 1000 / 1000 .CONT .Q10H [facility] Rx#:[id number] Zosyn 2.25 GM Premix 50 ML @ 55 / 55 55 / 55 100 mls/hr IV.SIG Q6H [facility] Rx#: [id number] Oral 720 / 720 Output: Urine 100 / 100 600 / 600 Other: # Voids 1 Date of Last Bowel Movement 05/27/18 05/27/18 Narrative: General patient complains of lower back pain and bilateral hip pain. She says the pain medication is helping. HEENT extraocular movements are intact, clear oropharyngeal mucosa, no JVD Cardiovascular S1-S2 audible, RRR, no murmurs rubs or gallops Respiratory clear to auscultation bilaterally Abdomen soft, nontender, nondistended, normal bowel sounds Extremities no edema, 2+ distal pulses Neuro patient can move all 4 extremities and sensation is intact bilaterally. Results - Labs CBC & Chem 7: 05/30/18 09:08 05/30/18 09:08 Laboratory Results - last 24 hr 05/29/18 05/30/18 05/30/18 22:31 04:13 08:24 WBC RBC Hgb Hct MCV MCH MCHC RDW Plt Count MPV Neut % (Auto) Lymph % (Auto) [place] % (Auto) Eos % (Auto) Baso % (Auto) Neut # (Auto) Lymph # (Auto) [place] # (Auto) Eos # (Auto) Baso # (Auto) WBC Differential Differential Comment Sodium Potassium Chloride Carbon Dioxide Anion Gap BUN Creatinine Estimated GFR POC Glucose 90 70 63 L Random Glucose Calcium Magnesium 05/30/18 05/30/18 05/30/18 09:08 09:08 10:04 WBC 4.5 RBC 2.73 L Hgb 8.7 L Hct 25.1 L MCV 92.0 MCH 31.8 MCHC 34.6 RDW 16.3 Plt Count 214 MPV 6.7 L Neut % (Auto) 79.8 H Lymph % (Auto) 11.1 [place] % (Auto) 7.5 Eos % (Auto) 1.0 Baso % (Auto) 0.6 Neut # (Auto) 3.6 Lymph # (Auto) 0.5 L [place] # (Auto) 0.3 Eos # (Auto) 0.0 Baso # (Auto) 0.0 WBC Differential . Differential Comment Auto diff final Sodium 137 Potassium 4.6 Chloride 103 Carbon Dioxide 27.3 Anion Gap 7 BUN 37 H Creatinine 3.70 H Estimated GFR 14 L POC Glucose 76 Random Glucose 62 L Calcium 10.6 H Magnesium 2.1 05/30/18 05/30/18 05/30/18 10:36 11:27 12:38 WBC RBC Hgb Hct MCV MCH MCHC RDW Plt Count MPV Neut % (Auto) Lymph % (Auto) [place] % (Auto) Eos % (Auto) Baso % (Auto) Neut # (Auto) Lymph # (Auto) [place] # (Auto) Eos # (Auto) Baso # (Auto) WBC Differential Differential Comment Sodium Potassium Chloride Carbon Dioxide Anion Gap BUN Creatinine Estimated GFR POC Glucose 68 150 H 117 H Random Glucose Calcium Magnesium - Imaging Impressions Chest X-Ray 05/29/18 00:00 CONCLUSION: Cardiomegaly and symmetric bilateral pleural-parenchymal opacities Bone Marrow Biopsy w/ CT 05/30/18 08:00 CONCLUSION: 1. Uncomplicated CT guided bone marrow aspirate. 2. Uncomplicated CT guided bone marrow biopsy. Assessment and Plan - Plan This patient is an 87-year-old female with a diagnosis of hypertension, hypothyroidism, peripheral vascular disease, stage IV chronic kidney disease, history of right-sided breast cancer, diabetes mellitus type 2, dyslipidemia. The patient presented to our emergency department with complaints of severe back pain. 1. Intractable lower back pain likely metastatic disease from breast cancer. Patient CT scan of the abdomen pelvis shows a right adrenal mass as well as bony neoplastic disease possibly metastatic disease. Heme oncology following Multiple myeloma workup was started given the patient's anemia, hypercalcemia, and kidney disease. Patient underwent bone marrow biopsy today. Results will be followed up. We will follow with recommendations from heme oncology. 2. TIFFANY on CKD stage IV. In February of this year the patient's serum creatinine was around 2.6. Still around 3.7 today no significant change from yesterday. Patient started on normal saline, nephrology following and recommends continuing IV fluids for now. We will follow-up a.m. labs. 3. Hypertension Patient is hypertensive. Continue amlodipine. Hydralazine dose was increased to 50 mg p.o. 3 times daily. If needed we will continue to increase her blood pressure medication. 4. Diabetes mellitus type 2 No significant elevation the patient's blood sugars. We will continue monitor her blood sugars and adjust her medications as needed. 5. Hypothyroidism Continue Synthroid. Heparin started for DVT prophylaxis.
[2018-05-30] MEDS: Ferrous Sulfate 325 MG Tablet PO SCH (17:37)
[2018-05-30 22:58] LABS: Sodium,Urine Random 109 meq/L
[2018-05-30 23:06] LABS: Creatinine,Urine Random 34 mg/dL (27-300)
[2018-05-31] MEDS: Sod Chloride 0.9% Inj 1,000 ML IV.CONT SCH ×2 (04:13→13:28)
[2018-05-31] MEDS: Insulin NovoLOG Aspart Correctional Sugar Inj SQ SCH ×5 (04:13→21:43)
[2018-05-31] MEDS: Piperacil/Tazo 2.25 GM Premix 50 ML IV.SIG SCH ×4 (05:41→23:51)
[2018-05-31] MEDS: Levothyroxine 150 MCG Tablet PO SCH (05:43)
[2018-05-31] MEDS: Ferrous Sulfate 325 MG Tablet PO SCH (08:37)
[2018-05-31] MEDS: Heparin - SQ 10,000 UNITS/ML Vial SQ SCH ×2 (08:37→21:43)
[2018-05-31] MEDS: amLODIPine 10 MG Tablet PO SCH (08:37)
[2018-05-31] MEDS: diazePAM 5 MG Tablet PO SCH ×2 (08:37→21:43)
[2018-05-31] MEDS: hydrALAZINE 50 MG Tablet PO SCH ×3 (08:37→17:11)
[2018-05-31 09:02] LABS: Baso % (Auto) 0.5 % (0.0-2.0); Eos % (Auto) 0.8 % (0.0-4.0); Hematocrit 24.2 % (35.0-46.0); Hemoglobin 8.2 gm/dL (11.6-15.3); Lymph # (Auto) 0.5 th/mm3 (1.0-4.8); Lymph % (Auto) 12.7 % (9.0-44.0); Mean Corpuscular HGB Conc 33.9 % (32.0-36.0); Mean Corpuscular Hemoglobin 31.6 pg (27.0-34.0); Mean Corpuscular Volume 93.2 fL (80.0-100.0); Mean Platelet Volume 6.9 fL (7.0-11.0); Mono # (Auto) 0.4 th/mm3 (0.0-0.9); Mono % (Auto) 9.6 % (0.0-8.0); Neut # (Auto) 2.9 th/mm3 (1.8-7.7); Neut % (Auto) 76.4 % (16.0-70.0); Platelet Count 199 th/mm3 (150-450); Red Cell Distribution Width 16.3 % (11.6-17.2); White Blood Count 3.8 th/mm3 (4.0-11.0)
[2018-05-31 09:30] LABS: Albumin 2.5 g/dL (3.4-5.0); Calcium 10.9 mg/dL (8.5-10.1); Carbon Dioxide 25.3 meq/L (21.0-32.0); Phosphorus 3.9 mg/dL (2.5-4.9); Potassium 4.7 meq/L (3.5-5.1)
--- NOTE | 2018-05-31 09:34 | P.PNNP ---
Subjective Interval history: Resting with family at bedside. Reports some mild shortness of breath, no nausea, vomiting, or diarrhea. <Cat Donahue - Last Filed: 05/31/18 09:35> Physical Exam Vital signs: Vital Signs 05/30/18 11:50 05/30/18 12:05 05/30/18 12:35 Temperature 98.0 F Pulse Rate 95 H 84 78 Respiratory Rate 18 18 20 Blood Pressure 166/81 H 164/71 H 124/59 L Pulse Oximetry 92 L 96 05/30/18 12:43 05/30/18 16:00 05/30/18 17:35 Temperature 98.5 F 98.1 F Pulse Rate 63 66 65 Respiratory Rate 16 16 Blood Pressure 152/73 H 160/76 H Pulse Oximetry 90 L 97 05/30/18 19:41 05/30/18 20:04 05/30/18 23:26 Temperature 98.7 F 98.8 F Pulse Rate 57 L 60 83 Respiratory Rate 18 18 Blood Pressure 153/66 H 157/72 H Pulse Oximetry 97 97 05/31/18 00:00 05/31/18 03:20 05/31/18 04:00 Temperature 98 F Pulse Rate 69 75 72 Respiratory Rate 18 16 Blood Pressure 159/75 H Pulse Oximetry 96 05/31/18 07:00 05/31/18 07:36 Temperature 97.7 F Pulse Rate 64 65 Respiratory Rate 18 Blood Pressure 145/71 H Pulse Oximetry 96 Intake & Output 05/30/18 05/31/18 05/31/18 18:59 06:59 18:59 Intake Total 550 / 550 1210 / 1210 1000 / 1000 Output Total 500 / 500 1450 / 1450 Balance 50 / 50 -240 / -240 1000 / 1000 Weight 70.3 kg Intake: IV 430 / 430 1010 / 1010 1000 / 1000 D5W/Normal Saline Inj 1,000 ML 900 / 900 @ 84 mls/hr IV.CONT .[id number] [facility] Rx#:[id number] NS Inj 1,000 ML @ 100 mls/hr IV 275 / 275 1000 / 1000 .CONT .Q10H [facility] Rx#:[id number] Zosyn 2.25 GM Premix 50 ML @ 155 / 155 110 / 110 100 mls/hr IV.SIG Q6H [facility] Rx#: [id number] Oral 120 / 120 200 / 200 Output: Urine 500 / 500 1450 / 1450 Other: # Urine Diapers 1 Date of Last Bowel Movement 05/27/18 05/27/18 05/31/18 # Bowel Movements 0 Narrative: GENERAL: Sleepy, responds to questions appropriately. Generalized weakness. SKIN: Warm and dry. NECK: Supple, trachea midline. No JVD or lymphadenopathy. CARDIOVASCULAR: Regular rate and rhythm without murmurs, gallops, or rubs. RESPIRATORY: Breath sounds diminished bilaterally. No accessory muscle use. GASTROINTESTINAL: Abdomen soft, non-tender, nondistended. MUSCULOSKELETAL: No cyanosis, or edema. <Cat Donahue - Last Filed: 05/31/18 09:35> Vital signs: Vital Signs 06/02/18 00:03 06/02/18 00:34 06/02/18 05:33 Temperature 97.6 F 98.3 F Pulse Rate 49 L 84 77 Respiratory Rate 15 18 Blood Pressure 147/76 H 159/72 H Pulse Oximetry 99 96 06/02/18 07:55 06/02/18 11:00 06/02/18 15:00 Temperature 97.3 F L 97.7 F 97.7 F Pulse Rate 59 L 56 L 68 Respiratory Rate 16 14 16 Blood Pressure 152/65 H 161/72 H 161/87 H Pulse Oximetry 97 97 93 L Intake & Output 06/02/18 06/02/18 06/03/18 06:59 18:59 06:59 Intake Total 2570 / 2570 2840 / 2840 Output Total 600 / 600 500 / 500 Balance 1969 / 1969 2340 / 2340 Weight 70 kg Intake: IV 2570 / 2570 2100 / 2100 NS Inj 1,000 ML @ 200 mls/hr IV 1000 / 1000 1999 / 1999 .CONT .Q5H [facility] Rx#:[id number] Aredia Inj 60 MG In NS Inj 500 520 / 520 ML @ 100 mls/hr IV.SIG ONCE ONE Rx#:[id number] Zosyn 2.25 GM Premix 50 ML @ 50 / 50 100 / 100 100 mls/hr IV.SIG Q6H [facility] Rx#: [id number] Oral 740 / 740 Output: Urine 600 / 600 500 / 500 Other: # Voids 1 Date of Last Bowel Movement 06/01/18 06/02/18 # Bowel Movements 1 <Cory Rodriguez Q - Last Filed: 06/02/18 21:43> Assessment and Plan - Assessment (1) Acute renal failure (ARF) Code(s): N17.9 - Acute kidney failure, unspecified Status: Acute Qualifiers: Acute renal failure type: unspecified Qualified Code(s): N17.9 - Acute kidney failure, unspecified Plan: Acute kidney injury with a Creatinine 3.71 which has improved since admission of 3.87 on admission. Seen in office on 05/16 creatinine was on 3.13, calcium 11.8, and HGB at 6.5. Patient was sent to emergency room. Some acute worsening could be related to poor intake but also from multiple myeloma. Has chronic kidney disease with baseline creatinine of 2.5, GFR of 22 ml/min Creatinine at 3.7 with good urinary output Recommend to continue IVF's, rate decreased as patient is feeling mild shortness of breath. Oral fluids encouraged. Maintain strict I+O and avoid nephrotoxins. Will follow urinary output and BMP. bone marrow biopsy results are pending. (2) Hypertension Code(s): I10 - Essential (primary) hypertension Status: Acute Qualifiers: Hypertension type: unspecified Qualified Code(s): I10 - Essential (primary ) hypertension Plan: SBP in 150's, on amlodipine. Continue to monitor (3) Hypercalcemia Code(s): E83.52 - Hypercalcemia Status: Acute Plan: Continue IVF's (4) Anemia Code(s): D64.9 - Anemia, unspecified Status: Acute Plan: HGB at 8.2, will monitor. On iron replacement. (5) Multiple myeloma and immunoproliferative neoplasms Code(s): C90.00 - Multiple myeloma not having achieved remission; C88.9 - Malignant immunoproliferative disease, unspecified Status: Acute Plan: Possible myeloma, bone marrow biopsy results pending. <Cat Donahue - Last Filed: 05/31/18 09:35> - Assessment (1) Acute renal failure (ARF) Code(s): N17.9 - Acute kidney failure, unspecified Status: Acute Qualifiers: Acute renal failure type: unspecified Qualified Code(s): N17.9 - Acute kidney failure, unspecified Plan: Patient seen and examined, agree with above. Patient with chronic kidney disease and develop TIFFANY. Urine Na. is high, possibly has ATN. Creatinine increase slightly. Continue gentle hydration, non oliguric. Follow the urine out put and BMP. (2) Hypertension Code(s): I10 - Essential (primary) hypertension Status: Acute Qualifiers: Hypertension type: unspecified Qualified Code(s): I10 - Essential (primary ) hypertension (3) Hypercalcemia Code(s): E83.52 - Hypercalcemia Status: Acute (4) Anemia Code(s): D64.9 - Anemia, unspecified Status: Acute (5) Multiple myeloma and immunoproliferative neoplasms Code(s): C90.00 - Multiple myeloma not having achieved remission; C88.9 - Malignant immunoproliferative disease, unspecified Status: Acute <Nallely Rodriguez - Last Filed: 06/02/18 21:43>
--- NOTE | 2018-05-31 10:05 | P.PNONC ---
Subjective Interval history: Patient sleeping on approach, awakens to verbal stimuli. Her daughters at the bedside, she reports she ate her breakfast this a.m. She reports that the patient has pain with movement, relieved with pain medications. Objective Vital Signs/Intake & Output: Vital Signs 05/30/18 11:50 05/30/18 12:05 05/30/18 12:35 Temperature 98.0 F Pulse Rate 95 H 84 78 Respiratory Rate 18 18 20 Blood Pressure 166/81 H 164/71 H 124/59 L Pulse Oximetry 92 L 96 05/30/18 12:43 05/30/18 16:00 05/30/18 17:35 Temperature 98.5 F 98.1 F Pulse Rate 63 66 65 Respiratory Rate 16 16 Blood Pressure 152/73 H 160/76 H Pulse Oximetry 90 L 97 05/30/18 19:41 05/30/18 20:04 05/30/18 23:26 Temperature 98.7 F 98.8 F Pulse Rate 57 L 60 83 Respiratory Rate 18 18 Blood Pressure 153/66 H 157/72 H Pulse Oximetry 97 97 05/31/18 00:00 05/31/18 03:20 05/31/18 04:00 Temperature 98 F Pulse Rate 69 75 72 Respiratory Rate 18 16 Blood Pressure 159/75 H Pulse Oximetry 96 05/31/18 07:00 05/31/18 07:36 Temperature 97.7 F Pulse Rate 64 65 Respiratory Rate 18 Blood Pressure 145/71 H Pulse Oximetry 96 Intake & Output 05/30/18 05/31/18 05/31/18 18:59 06:59 18:59 Intake Total 550 / 550 1210 / 1210 1000 / 1000 Output Total 500 / 500 1450 / 1450 Balance 50 / 50 -240 / -240 1000 / 1000 Weight 70.3 kg Intake: IV 430 / 430 1010 / 1010 1000 / 1000 D5W/Normal Saline Inj 1,000 ML 900 / 900 @ 84 mls/hr IV.CONT .[id number] [facility] Rx#:[id number] NS Inj 1,000 ML @ 100 mls/hr IV 275 / 275 1000 / 1000 .CONT .Q10H [facility] Rx#:[id number] Zosyn 2.25 GM Premix 50 ML @ 155 / 155 110 / 110 100 mls/hr IV.SIG Q6H [facility] Rx#: [id number] Oral 120 / 120 200 / 200 Output: Urine 500 / 500 1450 / 1450 Other: # Urine Diapers 1 Date of Last Bowel Movement 05/27/18 05/27/18 05/31/18 # Bowel Movements 0 Result Diagrams: 05/31/18 07:24 05/31/18 07:24 Laboratory Results: Laboratory Results - last 24 hr 05/30/18 05/30/18 05/30/18 10:04 10:36 11:27 WBC RBC Hgb Hct MCV MCH MCHC RDW Plt Count MPV Neut % (Auto) Lymph % (Auto) [place] % (Auto) Eos % (Auto) Baso % (Auto) Neut # (Auto) Lymph # (Auto) [place] # (Auto) Eos # (Auto) Baso # (Auto) WBC Differential Differential Comment Sodium Potassium Chloride Carbon Dioxide Anion Gap BUN Creatinine Estimated GFR POC Glucose 76 68 150 H Random Glucose Calcium Phosphorus Magnesium Albumin Urine Osmolality Ur Random Creatinine Ur Random Sodium 05/30/18 05/30/18 05/30/18 12:38 17:27 21:55 WBC RBC Hgb Hct MCV MCH MCHC RDW Plt Count MPV Neut % (Auto) Lymph % (Auto) [place] % (Auto) Eos % (Auto) Baso % (Auto) Neut # (Auto) Lymph # (Auto) [place] # (Auto) Eos # (Auto) Baso # (Auto) WBC Differential Differential Comment Sodium Potassium Chloride Carbon Dioxide Anion Gap BUN Creatinine Estimated GFR POC Glucose 117 H 114 H Random Glucose Calcium Phosphorus Magnesium Albumin Urine Osmolality Ur Random Creatinine 34 Ur Random Sodium 109 05/30/18 05/30/18 05/31/18 21:55 22:05 03:27 WBC RBC Hgb Hct MCV MCH MCHC RDW Plt Count MPV Neut % (Auto) Lymph % (Auto) [place] % (Auto) Eos % (Auto) Baso % (Auto) Neut # (Auto) Lymph # (Auto) [place] # (Auto) Eos # (Auto) Baso # (Auto) WBC Differential Differential Comment Sodium Potassium Chloride Carbon Dioxide Anion Gap BUN Creatinine Estimated GFR POC Glucose 105 77 Random Glucose Calcium Phosphorus Magnesium Albumin Urine Osmolality 330 Ur Random Creatinine Ur Random Sodium 05/31/18 05/31/18 05/31/18 07:24 07:24 07:39 WBC 3.8 L RBC 2.60 L Hgb 8.2 L Hct 24.2 L MCV 93.2 MCH 31.6 MCHC 33.9 RDW 16.3 Plt Count 199 MPV 6.9 L Neut % (Auto) 76.4 H Lymph % (Auto) 12.7 [place] % (Auto) 9.6 H Eos % (Auto) 0.8 Baso % (Auto) 0.5 Neut # (Auto) 2.9 Lymph # (Auto) 0.5 L [place] # (Auto) 0.4 Eos # (Auto) 0.0 Baso # (Auto) 0.0 WBC Differential . Differential Comment Auto diff final Sodium 140 Potassium 4.7 Chloride 105 Carbon Dioxide 25.3 Anion Gap 10 BUN 38 H Creatinine 3.79 H Estimated GFR 14 L POC Glucose 77 Random Glucose 68 L Calcium 10.9 H Phosphorus 3.9 Magnesium 2.0 Albumin 2.5 L Urine Osmolality Ur Random Creatinine Ur Random Sodium Imaging Studies: Impressions Bone Marrow Biopsy w/ CT 05/30/18 08:00 CONCLUSION: 1. Uncomplicated CT guided bone marrow aspirate. 2. Uncomplicated CT guided bone marrow biopsy. Medications: Active Medications Generic Name Dose Route Start Last Admin Trade Name Freq PRN Reason Stop Dose Admin Acetaminophen 650 mg 05/28/18 08:15 05/29/18 22:42 Tylenol PO 650 mg Q4H PRN Administration Temp > 100.4 Al Hydroxide/Mg Hydroxide 30 ml 05/28/18 08:14 05/29/18 19:47 Milk Of Magnesia Liq PO 30 ml Q12H PRN Administration Mild Constipation Amlodipine Besylate 10 mg 05/28/18 10:00 05/31/18 08:37 Norvasc PO 10 mg DAILY [facility] Administration Clonidine HCl 0.1 mg 05/28/18 10:00 05/31/18 08:37 Catapres PO 0.1 mg BID [facility] Administration Cyclobenzaprine HCl 5 mg 05/28/18 14:00 05/31/18 05:43 Flexeril PO 5 mg Q8HR [facility] Administration Dextrose 50 ml 05/30/18 10:00 05/30/18 10:59 D50w Vial IV.PUSH 50 ml UNSCH PRN Administration PER HYPOGLYCEMIA PROTOCOL Diazepam 5 mg 05/28/18 10:00 05/31/18 08:37 Valium PO 5 mg Q12HR [facility] Administration Ferrous Sulfate 325 mg 05/28/18 10:00 05/31/18 08:37 Ferosul PO 325 mg DAILY [facility] Administration Heparin Sodium (Porcine) 5,000 units 05/29/18 21:00 05/31/18 08:37 Heparin Inj SQ 5,000 units Q12HR [facility] Administration Hydralazine HCl 50 mg 05/29/18 21:00 05/31/18 08:37 Apresoline PO 50 mg TID [facility] Administration Sodium Chloride 1,000 mls @ 50 mls/hr 05/29/18 21:00 05/31/18 09:15 Ns Inj IV.CONT Infused .Q20H [facility] Infusion Piperacillin/Tazobactam/Dextrose 50 mls @ 100 mls/hr 05/30/18 00:00 05/31/18 06:28 Zosyn 2.25 Gm Premix IV.SIG Infused Q6H [facility] Infusion Insulin Aspart 0 unit 05/28/18 12:00 05/31/18 08:13 Novolog Insulin Correctional Sugar Inj SQ Not Given ,,,, [facility] Protocol Lactulose 30 ml 05/28/18 08:14 05/30/18 22:39 Lactulose Liq PO 30 ml DAILY PRN Administration SEVERE CONSITIPATION Levothyroxine Sodium 150 mcg 05/28/18 09:00 05/31/18 05:43 Synthroid PO 150 mcg DAILY@0600 [facility] Administration Morphine Sulfate 2 mg 05/29/18 21:15 05/29/18 22:39 Morphine Inj IV.PUSH 2 mg Q4H PRN Administration BREAKTHROUGH PAIN Oxycodone/Acetaminophen 1 tab 05/28/18 11:00 05/29/18 19:47 Percocet 5/325 Mg PO 1 tab Q4H PRN Administration PAIN SCALE 1 TO 10 Potassium Chloride 20 meq 05/28/18 10:00 05/31/18 08:37 K-Dur PO 20 meq DAILY [facility] Administration Objective Remarks: GENERAL: Elderly female patient, appears to be sleeping. She wakens easily to verbal stimuli. SKIN: Warm and dry. HEAD: Normocephalic. EYES: No scleral icterus. No injection or drainage. NECK: Supple, trachea midline. CARDIOVASCULAR: Regular rate and rhythm without murmurs. RESPIRATORY: Clear anteriorly, equal bilaterally. Nonlabored at rest. GASTROINTESTINAL: Abdomen soft, non-tender, nondistended. EXTREMITIES: No cyanosis or edema. MUSCULOSKELETAL: Adequate muscle tone. NEUROLOGICAL: Sleepy but awakens to voice. Assessment/Plan - Plan 87-year-old female with a remote history of breast cancer diagnosed in the . She had definitive surgery, adjuvant systemic chemotherapy. She has had no evidence of recurrence since that time. She presented to the emergency room with complaints of severe back pain that she has had for [address] shows permeative lytic changes involving multiple bony elements, primarily of the spine consistent with metastatic disease or myeloma. She also has other indicators of possible myeloma including hypercalcemia, renal dysfunction and anemia. 1. Bone marrow biopsy pending, findings to date concerning for multiple myeloma. 2. Continue supportive care for back pain. 3. Continue IV fluids for hypercalcemia. No need for biphosphonate therapy at present. - Attending Statement The exam, history, and the medical decision-making described in the above note were completed with the assistance of the mid-level provider. I reviewed and agree with the findings presented. I attest that I had a [id number] encounter with the patient on the same day, and personally performed and documented my assessment and findings in the medical record. Still in pain. Taking as needed pain medication but has some side effects including confusion. Bone marrow biopsy results are not available yet. Serum protein electrophoresis still pending. Review of previous electronic medical records show that she transferred her care to Dr. Cory Spaulding. She was being followed once yearly in oncology clinic after her mammogram. Case was discussed with Dr. Spaulding. I will follow her from here on with new diagnosis. Answered daughter and patient's questions.
--- NOTE | 2018-05-31 18:39 | P.PNIM ---
Subjective Interval history: Patient still has complaints of lower back pain. She does feel much better than her first day of admission. Pain is well tolerated with pain medications. Patient appears more alert and awake today. Physical Exam Vital signs: Vital Signs 05/30/18 19:41 05/30/18 20:04 05/30/18 23:26 Temperature 98.7 F 98.8 F Pulse Rate 57 L 60 83 Respiratory Rate 18 18 Blood Pressure 153/66 H 157/72 H Pulse Oximetry 97 97 05/31/18 00:00 05/31/18 03:20 05/31/18 04:00 Temperature 98 F Pulse Rate 69 75 72 Respiratory Rate 18 16 Blood Pressure 159/75 H Pulse Oximetry 96 05/31/18 07:00 05/31/18 07:36 05/31/18 11:00 Temperature 97.7 F Pulse Rate 64 65 61 Respiratory Rate 18 Blood Pressure 145/71 H Pulse Oximetry 96 05/31/18 12:04 05/31/18 15:00 05/31/18 15:30 Temperature 97.5 F L 97.7 F Pulse Rate 57 L 55 L 79 Respiratory Rate 20 Blood Pressure 139/59 L 141/65 H Pulse Oximetry 99 94 L Intake & Output 05/30/18 05/31/18 05/31/18 18:59 06:59 18:59 Intake Total 550 / 550 1210 / 1210 1100 / 1100 Output Total 500 / 500 1450 / 1450 200 / 200 Balance 50 / 50 -240 / -240 900 / 900 Weight 70.3 kg Intake: IV 430 / 430 1010 / 1010 1100 / 1100 D5W/Normal Saline Inj 1,000 ML 900 / 900 @ 84 mls/hr IV.CONT .[id number] [facility] Rx#:[id number] NS Inj 1,000 ML @ 100 mls/hr IV 275 / 275 1000 / 1000 .CONT .Q10H [facility] Rx#:[id number] Zosyn 2.25 GM Premix 50 ML @ 155 / 155 110 / 110 100 / 100 100 mls/hr IV.SIG Q6H [facility] Rx#: [id number] Oral 120 / 120 200 / 200 Output: Urine 500 / 500 1450 / 1450 200 / 200 Other: # Urine Diapers 1 Date of Last Bowel Movement 05/27/18 05/27/18 05/31/18 # Bowel Movements 0 Narrative: General patient complains of lower back pain and bilateral hip pain. Pain medication makes the pain tolerable. HEENT extraocular movements are intact, clear oropharyngeal mucosa, no JVD Cardiovascular S1-S2 audible, RRR, no murmurs rubs or gallops Respiratory clear to auscultation bilaterally Abdomen soft, nontender, nondistended, normal bowel sounds Extremities no edema, 2+ distal pulses Neuro patient can move all 4 extremities and sensation is intact bilaterally. Results - Labs CBC & Chem 7: 05/31/18 07:24 05/31/18 07:24 Laboratory Results - last 24 hr 05/30/18 05/30/18 05/30/18 21:55 21:55 22:05 WBC RBC Hgb Hct MCV MCH MCHC RDW Plt Count MPV Neut % (Auto) Lymph % (Auto) [place] % (Auto) Eos % (Auto) Baso % (Auto) Neut # (Auto) Lymph # (Auto) [place] # (Auto) Eos # (Auto) Baso # (Auto) WBC Differential Differential Comment Sodium Potassium Chloride Carbon Dioxide Anion Gap BUN Creatinine Estimated GFR POC Glucose 105 Random Glucose Calcium Phosphorus Magnesium Albumin Urine Osmolality 330 Ur Random Creatinine 34 Ur Random Sodium 109 05/31/18 05/31/18 05/31/18 03:27 07:24 07:24 WBC 3.8 L RBC 2.60 L Hgb 8.2 L Hct 24.2 L MCV 93.2 MCH 31.6 MCHC 33.9 RDW 16.3 Plt Count 199 MPV 6.9 L Neut % (Auto) 76.4 H Lymph % (Auto) 12.7 [place] % (Auto) 9.6 H Eos % (Auto) 0.8 Baso % (Auto) 0.5 Neut # (Auto) 2.9 Lymph # (Auto) 0.5 L [place] # (Auto) 0.4 Eos # (Auto) 0.0 Baso # (Auto) 0.0 WBC Differential . Differential Comment Auto diff final Sodium 140 Potassium 4.7 Chloride 105 Carbon Dioxide 25.3 Anion Gap 10 BUN 38 H Creatinine 3.79 H Estimated GFR 14 L POC Glucose 77 Random Glucose 68 L Calcium 10.9 H Phosphorus 3.9 Magnesium 2.0 Albumin 2.5 L Urine Osmolality Ur Random Creatinine Ur Random Sodium 05/31/18 05/31/18 05/31/18 07:39 12:06 16:38 WBC RBC Hgb Hct MCV MCH MCHC RDW Plt Count MPV Neut % (Auto) Lymph % (Auto) [place] % (Auto) Eos % (Auto) Baso % (Auto) Neut # (Auto) Lymph # (Auto) [place] # (Auto) Eos # (Auto) Baso # (Auto) WBC Differential Differential Comment Sodium Potassium Chloride Carbon Dioxide Anion Gap BUN Creatinine Estimated GFR POC Glucose 77 93 83 Random Glucose Calcium Phosphorus Magnesium Albumin Urine Osmolality Ur Random Creatinine Ur Random Sodium Microbiology 05/29/18 23:55 Blood - Peripheral Aerobic Blood Culture - Preliminary No growth in 1 day 05/29/18 23:55 Blood - Peripheral Anaerobic Blood Culture - Preliminary No growth in 1 day 05/29/18 23:50 Blood - Peripheral Aerobic Blood Culture - Preliminary No growth in 1 day 05/29/18 23:50 Blood - Peripheral Anaerobic Blood Culture - Preliminary No growth in 1 day Assessment and Plan - Plan This patient is an 87-year-old female with a diagnosis of hypertension, hypothyroidism, peripheral vascular disease, stage IV chronic kidney disease, history of right-sided breast cancer, diabetes mellitus type 2, dyslipidemia. The patient presented to our emergency department with complaints of severe back pain. 1. Intractable lower back pain likely metastatic disease from breast cancer. Patient CT scan of the abdomen pelvis shows a right adrenal mass as well as bony neoplastic disease possibly metastatic disease. Heme oncology following Multiple myeloma workup was started given the patient's anemia, hypercalcemia, and kidney disease. Patient underwent bone marrow biopsy yesterday. Results are pending. Continuing with workup for multiple myeloma as well. Will follow with heme oncology for the recommendations. 2. TIFFANY on CKD stage IV. No significant change in the patient's serum creatinine. Previously in February 2016 her serum creatinine was around 2.6. Continue IV fluids. We will follow-up a.m. labs. 3. Hypertension Patient is hypertensive. Continue amlodipine. Hydralazine dose was increased to 50 mg p.o. 3 times daily. Currently blood pressure is in the high 130s. We will continue to monitor and adjust the medications as needed. 4. Diabetes mellitus type 2 No significant elevation the patient's blood sugars. We will continue monitor her blood sugars and adjust her medications as needed. 5. Hypothyroidism Continue Synthroid. Heparin started for DVT prophylaxis.
[2018-06-01] MEDS: Insulin NovoLOG Aspart Correctional Sugar Inj SQ SCH ×5 (04:05→21:45)
[2018-06-01] MEDS: Piperacil/Tazo 2.25 GM Premix 50 ML IV.SIG SCH ×3 (05:05→18:25)
[2018-06-01] MEDS: Levothyroxine 150 MCG Tablet PO SCH (05:06)
[2018-06-01 05:09] LABS: Baso % (Auto) 0.9 % (0.0-2.0); Eos # (Auto) 0.1 th/mm3 (0.0-0.4); Eos % (Auto) 1.5 % (0.0-4.0); Hematocrit 26.5 % (35.0-46.0); Hemoglobin 8.9 gm/dL (11.6-15.3); Lymph # (Auto) 0.5 th/mm3 (1.0-4.8); Lymph % (Auto) 12.9 % (9.0-44.0); Mean Corpuscular HGB Conc 33.7 % (32.0-36.0); Mean Corpuscular Hemoglobin 31.1 pg (27.0-34.0); Mean Corpuscular Volume 92.2 fL (80.0-100.0); Mean Platelet Volume 6.9 fL (7.0-11.0); Mono # (Auto) 0.3 th/mm3 (0.0-0.9); Mono % (Auto) 8.8 % (0.0-8.0); Neut # (Auto) 2.9 th/mm3 (1.8-7.7); Neut % (Auto) 75.9 % (16.0-70.0); Platelet Count 215 th/mm3 (150-450); Red Blood Count 2.87 mil/mm3 (4.00-5.30); Red Cell Distribution Width 16.7 % (11.6-17.2); White Blood Count 3.8 th/mm3 (4.0-11.0)
[2018-06-01] MEDS: Sod Chloride 0.9% Inj 1,000 ML IV.CONT SCH ×3 (05:10→21:46)
[2018-06-01 05:38] LABS: Calcium 11.3 mg/dL (8.5-10.1); Carbon Dioxide 24.9 meq/L (21.0-32.0); Magnesium 2.1 mg/dL (1.5-2.5); Potassium 4.7 meq/L (3.5-5.1)
[2018-06-01] MEDS ORDERED: diazePAM 5 MG Tablet PO PRN (08:16)
--- NOTE | 2018-06-01 08:39 | P.PNONC ---
Subjective Interval history: Complains that she is too sleepy. She feels all right this morning. She has not been on Valium before. It may be contributing to her sleepiness in addition to the pain medicine. We discussed the plasma cell neoplasm diagnosed in the bone marrow. Objective Vital Signs/Intake & Output: Vital Signs 05/31/18 11:00 05/31/18 12:04 05/31/18 15:00 Temperature 97.5 F L Pulse Rate 61 57 L 55 L Respiratory Rate 20 Blood Pressure 139/59 L Pulse Oximetry 99 05/31/18 15:30 05/31/18 19:59 05/31/18 20:05 Temperature 97.7 F 97.9 F Pulse Rate 79 87 70 Respiratory Rate 16 Blood Pressure 141/65 H 166/77 H Pulse Oximetry 94 L 97 05/31/18 23:52 06/01/18 00:27 06/01/18 04:04 Temperature 97.9 F Pulse Rate 59 L 50 L 53 L Respiratory Rate 16 Blood Pressure 153/72 H Pulse Oximetry 100 06/01/18 04:50 Temperature 97.7 F Pulse Rate 57 L Respiratory Rate 16 Blood Pressure 143/73 H Pulse Oximetry 97 Intake & Output 05/31/18 06/01/18 06/01/18 18:59 06:59 18:59 Intake Total 2700 / 2700 510 / 510 Output Total 700 / 700 550 / 550 Balance 1999 / 1999 -40 / -40 Weight 70 kg Intake: IV 1700 / 1700 510 / 510 NS Inj 1,000 ML @ 50 mls/hr IV. 1600 / 1600 400 / 400 CONT .Q20H [facility] Rx#:[id number] Zosyn 2.25 GM Premix 50 ML @ 100 / 100 110 / 110 100 mls/hr IV.SIG Q6H [facility] Rx#: [id number] Oral 1000 / 1000 Output: Urine 700 / 700 550 / 550 Other: # Voids 1 # Incontinent Voids 2 Date of Last Bowel Movement 05/31/18 05/31/18 # Bowel Movements 2 Result Diagrams: 06/01/18 04:45 06/01/18 04:45 Laboratory Results: Laboratory Results - last 24 hr 05/30/18 05/31/18 05/31/18 11:15 07:24 07:24 WBC 3.8 L RBC 2.60 L Hgb 8.2 L Hct 24.2 L MCV 93.2 MCH 31.6 MCHC 33.9 RDW 16.3 Plt Count 199 MPV 6.9 L Neut % (Auto) 76.4 H Lymph % (Auto) 12.7 [place] % (Auto) 9.6 H Eos % (Auto) 0.8 Baso % (Auto) 0.5 Neut # (Auto) 2.9 Lymph # (Auto) 0.5 L [place] # (Auto) 0.4 Eos # (Auto) 0.0 Baso # (Auto) 0.0 WBC Differential . Differential Comment Auto diff final Sodium 140 Potassium 4.7 Chloride 105 Carbon Dioxide 25.3 Anion Gap 10 BUN 38 H Creatinine 3.79 H Estimated GFR 14 L POC Glucose Random Glucose 68 L Calcium 10.9 H Phosphorus 3.9 Magnesium 2.0 Albumin 2.5 L Marrow Immunophenotype 05/31/18 05/31/18 05/31/18 12:06 16:38 21:39 WBC RBC Hgb Hct MCV MCH MCHC RDW Plt Count MPV Neut % (Auto) Lymph % (Auto) [place] % (Auto) Eos % (Auto) Baso % (Auto) Neut # (Auto) Lymph # (Auto) [place] # (Auto) Eos # (Auto) Baso # (Auto) WBC Differential Differential Comment Sodium Potassium Chloride Carbon Dioxide Anion Gap BUN Creatinine Estimated GFR POC Glucose 93 83 87 Random Glucose Calcium Phosphorus Magnesium Albumin Marrow Immunophenotype 06/01/18 06/01/18 06/01/18 03:59 04:45 04:45 WBC 3.8 L RBC 2.87 L Hgb 8.9 L Hct 26.5 L MCV 92.2 MCH 31.1 MCHC 33.7 RDW 16.7 Plt Count 215 MPV 6.9 L Neut % (Auto) 75.9 H Lymph % (Auto) 12.9 [place] % (Auto) 8.8 H Eos % (Auto) 1.5 Baso % (Auto) 0.9 Neut # (Auto) 2.9 Lymph # (Auto) 0.5 L [place] # (Auto) 0.3 Eos # (Auto) 0.1 Baso # (Auto) 0.0 WBC Differential . Differential Comment Auto diff final Sodium 140 Potassium 4.7 Chloride 106 Carbon Dioxide 24.9 Anion Gap 9 BUN 36 H Creatinine 4.11 H Estimated GFR 12 L POC Glucose 70 Random Glucose 63 L Calcium 11.3 H Phosphorus Magnesium 2.1 Albumin Marrow Immunophenotype Culture Results: Microbiology 05/29/18 23:55 Aerobic Blood Culture - Preliminary Blood - Peripheral No growth in 1 day Anaerobic Blood Culture - Preliminary No growth in 1 day 05/29/18 23:50 Aerobic Blood Culture - Preliminary Blood - Peripheral No growth in 1 day Anaerobic Blood Culture - Preliminary No growth in 1 day Medications: Active Medications Generic Name Dose Route Start Last Admin Trade Name Freq PRN Reason Stop Dose Admin Acetaminophen 650 mg 05/28/18 08:15 05/29/18 22:42 Tylenol PO 650 mg Q4H PRN Administration Temp > 100.4 Al Hydroxide/Mg Hydroxide 30 ml 05/28/18 08:14 05/29/18 19:47 Milk Of Magnesia Liq PO 30 ml Q12H PRN Administration Mild Constipation Amlodipine Besylate 10 mg 05/28/18 10:00 05/31/18 08:37 Norvasc PO 10 mg DAILY [facility] Administration Clonidine HCl 0.1 mg 05/28/18 10:00 05/31/18 21:42 Catapres PO 0.1 mg BID [facility] Administration Cyclobenzaprine HCl 5 mg 05/28/18 14:00 06/01/18 05:06 Flexeril PO 5 mg Q8HR [facility] Administration Dextrose 50 ml 05/30/18 10:00 05/30/18 10:59 D50w Vial IV.PUSH 50 ml UNSCH PRN Administration PER HYPOGLYCEMIA PROTOCOL Ferrous Sulfate 325 mg 05/28/18 10:00 05/31/18 08:37 Ferosul PO 325 mg DAILY [facility] Administration Heparin Sodium (Porcine) 5,000 units 05/29/18 21:00 05/31/18 21:43 Heparin Inj SQ 5,000 units Q12HR [facility] Administration Hydralazine HCl 50 mg 05/29/18 21:00 05/31/18 17:11 Apresoline PO 50 mg TID [facility] Administration Piperacillin/Tazobactam/Dextrose 50 mls @ 100 mls/hr 05/30/18 00:00 06/01/18 05:53 Zosyn 2.25 Gm Premix IV.SIG Infused Q6H [facility] Infusion Insulin Aspart 0 unit 05/28/18 12:00 06/01/18 04:05 Novolog Insulin Correctional Sugar Inj SQ Not Given ,,,,03 [facility] Protocol Lactulose 30 ml 05/28/18 08:14 05/30/18 22:39 Lactulose Liq PO 30 ml DAILY PRN Administration SEVERE CONSITIPATION Levothyroxine Sodium 150 mcg 05/28/18 09:00 06/01/18 05:06 Synthroid PO 150 mcg DAILY@0600 [facility] Administration Morphine Sulfate 2 mg 05/29/18 21:15 05/29/18 22:39 Morphine Inj IV.PUSH 2 mg Q4H PRN Administration BREAKTHROUGH PAIN Oxycodone/Acetaminophen 1 tab 05/28/18 11:00 05/29/18 19:47 Percocet 5/325 Mg PO 1 tab Q4H PRN Administration PAIN SCALE 1 TO 10 Potassium Chloride 20 meq 05/28/18 10:00 05/31/18 08:37 K-Dur PO 20 meq DAILY [facility] Administration Objective Remarks: GENERAL: Elderly woman, arousable but sleepy well-developed patient. SKIN: Warm and dry. HEAD: Normocephalic. EYES: No scleral icterus. No injection or drainage. NECK: Supple, trachea midline. No JVD or lymphadenopathy. LYMPHATIC: No adenopathy. CARDIOVASCULAR: Regular rate and rhythm without murmurs. RESPIRATORY: Breath sounds equal bilaterally. No accessory muscle use. GASTROINTESTINAL: Abdomen soft, non-tender, nondistended. EXTREMITIES: No cyanosis, or edema. MUSCULOSKELETAL: Decreased muscle tone. NEUROLOGICAL: No obvious focal deficit. Awake, alert, and oriented x3. PSYCHIATRIC: Appropriate mood and affect; insight and judgment normal. Assessment/Plan - Plan 87-year-old female with a remote history of breast cancer diagnosed in the . She had definitive surgery, adjuvant systemic chemotherapy. She has had no evidence of recurrence since that time. She presented to the emergency room with complaints of severe back pain that she has had for [address] shows permeative lytic changes involving multiple bony elements, primarily of the spine consistent with metastatic disease or myeloma. She also has other indicators of possible myeloma including hypercalcemia, renal dysfunction and anemia. 1. Bone marrow biopsy pending, show plasma cell neoplasm. This is consistent with multiple myeloma. Discussed the findings with patient and the family member nearby. Daughter is not at bedside. Plan to start dexamethasone pulse 20 mg IV daily x4. Plan to discuss with the family their goals of therapy in light of the new diagnosis of a plasma cell dyscrasia. [facility] treatment for multiple myeloma is triple combination therapy with Revlimid, dexamethasone, Velcade. Furthermore she needs to complete staging evaluation which would be a CT PET scan on an outpatient basis. For palliation of symptoms Decadron is started now. 2. Continue supportive care for back pain. Continue pain medication. Hold the Valium as she is extremely sleepy. Cyclobenzaprine is available for as needed muscle spasm. 3. Increase IV fluids for hypercalcemia. Noted increasing creatinine with fluids at 50 mL's per hour. Temporarily increase the IV fluid hydration 200 cc/ h the next 12 hours. Anticipate starting pamidronate after hydration. This is an effort to preserve the kidney and treat the hypercalcemia. 4. Physical therapy assessment. Patient is deconditioned over the last several days dealing with her pain. She may be appropriate for rehab.
[2018-06-01] MEDS: Heparin - SQ 10,000 UNITS/ML Vial SQ SCH ×2 (09:18→21:25)
[2018-06-01] MEDS: hydrALAZINE 50 MG Tablet PO SCH ×4 (09:18→18:24)
[2018-06-01] MEDS: Ferrous Sulfate 325 MG Tablet PO SCH (09:18)
[2018-06-01] MEDS: amLODIPine 10 MG Tablet PO SCH (09:18)
[2018-06-01] MEDS: Pantoprazole Inj 40 MG Vial IV.PUSH SCH (09:31)
[2018-06-01] MEDS: Dexamethasone Inj 20 MG/5 ML Vial IV.PUSH SCH (09:31)
--- NOTE | 2018-06-01 10:17 | P.PNNP ---
Subjective Interval history: Reports some mild shortness of breath. No nausea, vomiting, or diarrhea. Creatinine has increased to 4.11 today. Continues to have good urinary output. <Cat Donahue - Last Filed: 06/01/18 10:08> Physical Exam Vital signs: Vital Signs 05/31/18 11:00 05/31/18 12:04 05/31/18 15:00 Temperature 97.5 F L Pulse Rate 61 57 L 55 L Respiratory Rate 20 Blood Pressure 139/59 L Pulse Oximetry 99 05/31/18 15:30 05/31/18 19:59 05/31/18 20:05 Temperature 97.7 F 97.9 F Pulse Rate 79 87 70 Respiratory Rate 16 Blood Pressure 141/65 H 166/77 H Pulse Oximetry 94 L 97 05/31/18 23:52 06/01/18 00:27 06/01/18 04:04 Temperature 97.9 F Pulse Rate 59 L 50 L 53 L Respiratory Rate 16 Blood Pressure 153/72 H Pulse Oximetry 100 06/01/18 04:50 Temperature 97.7 F Pulse Rate 57 L Respiratory Rate 16 Blood Pressure 143/73 H Pulse Oximetry 97 Intake & Output 05/31/18 06/01/18 06/01/18 18:59 06:59 18:59 Intake Total 2700 / 2700 510 / 510 Output Total 700 / 700 550 / 550 Balance 1999 / 1999 -40 / -40 Weight 70 kg Intake: IV 1700 / 1700 510 / 510 NS Inj 1,000 ML @ 50 mls/hr IV. 1600 / 1600 400 / 400 CONT .Q20H [facility] Rx#:[id number] Zosyn 2.25 GM Premix 50 ML @ 100 / 100 110 / 110 100 mls/hr IV.SIG Q6H [facility] Rx#: [id number] Oral 1000 / 1000 Output: Urine 700 / 700 550 / 550 Other: # Voids 1 # Incontinent Voids 2 Date of Last Bowel Movement 05/31/18 05/31/18 # Bowel Movements 2 Narrative: GENERAL: Alert and oriented. Generalized weakness. SKIN: Warm and dry. NECK: Supple, trachea midline. No JVD or lymphadenopathy. CARDIOVASCULAR: Regular rate and rhythm without murmurs, gallops, or rubs. RESPIRATORY: Breath sounds diminished bilaterally. No accessory muscle use. GASTROINTESTINAL: Abdomen soft, non-tender, nondistended. MUSCULOSKELETAL: No cyanosis, or edema. <Cat Donahue - Last Filed: 06/01/18 10:08> Vital signs: Vital Signs 06/02/18 00:03 06/02/18 00:34 06/02/18 05:33 Temperature 97.6 F 98.3 F Pulse Rate 49 L 84 77 Respiratory Rate 15 18 Blood Pressure 147/76 H 159/72 H Pulse Oximetry 99 96 06/02/18 07:55 06/02/18 11:00 06/02/18 15:00 Temperature 97.3 F L 97.7 F 97.7 F Pulse Rate 59 L 56 L 68 Respiratory Rate 16 14 16 Blood Pressure 152/65 H 161/72 H 161/87 H Pulse Oximetry 97 97 93 L Intake & Output 06/02/18 06/02/18 06/03/18 06:59 18:59 06:59 Intake Total 2570 / 2570 2840 / 2840 Output Total 600 / 600 500 / 500 Balance 1969 / 1969 2340 / 2340 Weight 70 kg Intake: IV 2570 / 2570 2100 / 2100 NS Inj 1,000 ML @ 200 mls/hr IV 1000 / 1000 1999 / 1999 .CONT .Q5H [facility] Rx#:[id number] Aredia Inj 60 MG In NS Inj 500 520 / 520 ML @ 100 mls/hr IV.SIG ONCE ONE Rx#:[id number] Zosyn 2.25 GM Premix 50 ML @ 50 / 50 100 / 100 100 mls/hr IV.SIG Q6H [facility] Rx#: [id number] Oral 740 / 740 Output: Urine 600 / 600 500 / 500 Other: # Voids 1 Date of Last Bowel Movement 06/01/18 06/02/18 # Bowel Movements 1 <Nallely Rodriguez - Last Filed: 06/02/18 21:59> Assessment and Plan - Assessment (1) Acute renal failure (ARF) Code(s): N17.9 - Acute kidney failure, unspecified Status: Acute Qualifiers: Acute renal failure type: unspecified Qualified Code(s): N17.9 - Acute kidney failure, unspecified Plan: Acute kidney injury with a Creatinine 3.71 which has improved since admission of 3.87 on admission on day of consult Seen in office on 05/16 creatinine was on 3.13, calcium 11.8, and HGB at 6.5. Patient was sent to emergency room. Some acute worsening could be related to multiple myeloma. Has chronic kidney disease with baseline creatinine of 2.5, GFR of 22 ml/min Creatinine increased at 4.11, continues to have adequate urinary output. Recommend to continue IVF's, increased rate. Oral fluids encouraged. Maintain strict I+O and avoid nephrotoxins. Will follow urinary output and BMP. Per hematology, Bone marrow biopsy show plasma cell neoplasm. This is consistent with multiple myeloma. Pamidronate given for hypercalcemia. Started on dexamethasone. (2) Hypertension Code(s): I10 - Essential (primary) hypertension Status: Acute Qualifiers: Hypertension type: unspecified Qualified Code(s): I10 - Essential (primary ) hypertension Plan: SBP in 150's, on amlodipine. Continue to monitor (3) Hypercalcemia Code(s): E83.52 - Hypercalcemia Status: Acute Plan: Continue IVF's (4) Anemia Code(s): D64.9 - Anemia, unspecified Status: Acute Plan: HGB at 8.9, will monitor. On iron replacement. (5) Multiple myeloma and immunoproliferative neoplasms Code(s): C90.00 - Multiple myeloma not having achieved remission; C88.9 - Malignant immunoproliferative disease, unspecified Status: Acute Plan: Possible myeloma, bone marrow biopsy results pending. <Cat Donahue - Last Filed: 06/01/18 10:08> - Assessment (1) Acute renal failure (ARF) Code(s): N17.9 - Acute kidney failure, unspecified Status: Acute Qualifiers: Acute renal failure type: unspecified Qualified Code(s): N17.9 - Acute kidney failure, unspecified Plan: Patient seen and examined, agree with above. Creatinine increase to 4.1. Non oliguric, Calcium increase , continue gentle hydration. (2) Hypertension Code(s): I10 - Essential (primary) hypertension Status: Acute Qualifiers: Hypertension type: unspecified Qualified Code(s): I10 - Essential (primary ) hypertension (3) Hypercalcemia Code(s): E83.52 - Hypercalcemia Status: Acute (4) Anemia Code(s): D64.9 - Anemia, unspecified Status: Acute (5) Multiple myeloma and immunoproliferative neoplasms Code(s): C90.00 - Multiple myeloma not having achieved remission; C88.9 - Malignant immunoproliferative disease, unspecified Status: Acute <Nallely Rodriguez - Last Filed: 06/02/18 21:59>
--- NOTE | 2018-06-01 13:22 | P.PNIM ---
Subjective Interval history: Patient complains of some lower back pain that is tolerable with pain medications. She does not have other complaints today. Physical Exam Vital signs: Vital Signs 05/31/18 15:00 05/31/18 15:30 05/31/18 19:59 Temperature 97.7 F Pulse Rate 55 L 79 87 Respiratory Rate Blood Pressure 141/65 H Pulse Oximetry 94 L 05/31/18 20:05 05/31/18 23:52 06/01/18 00:27 Temperature 97.9 F 97.9 F Pulse Rate 70 59 L 50 L Respiratory Rate 16 16 Blood Pressure 166/77 H 153/72 H Pulse Oximetry 97 100 06/01/18 04:04 06/01/18 04:50 06/01/18 08:00 Temperature 97.7 F 98.2 F Pulse Rate 53 L 57 L 59 L Respiratory Rate 16 18 Blood Pressure 143/73 H 154/71 H Pulse Oximetry 97 97 Intake & Output 05/31/18 06/01/18 06/01/18 18:59 06:59 18:59 Intake Total 2700 / 2700 510 / 510 Output Total 700 / 700 550 / 550 Balance 1999 / 1999 -40 / -40 Weight 70 kg Intake: IV 1700 / 1700 510 / 510 NS Inj 1,000 ML @ 50 mls/hr IV. 1600 / 1600 400 / 400 CONT .Q20H [facility] Rx#:[id number] Zosyn 2.25 GM Premix 50 ML @ 100 / 100 110 / 110 100 mls/hr IV.SIG Q6H [facility] Rx#: [id number] Oral 1000 / 1000 Output: Urine 700 / 700 550 / 550 Other: # Voids 1 # Incontinent Voids 2 Date of Last Bowel Movement 05/31/18 05/31/18 06/01/18 # Bowel Movements 2 Narrative: General patient complains of lower back pain and bilateral hip pain. HEENT extraocular movements are intact, clear oropharyngeal mucosa, no JVD Cardiovascular S1-S2 audible, RRR, no murmurs rubs or gallops Respiratory clear to auscultation bilaterally Abdomen soft, nontender, nondistended, normal bowel sounds Extremities no edema, 2+ distal pulses Neuro patient can move all 4 extremities and sensation is intact bilaterally. Results - Labs CBC & Chem 7: 06/01/18 04:45 06/01/18 04:45 Laboratory Results - last 24 hr 05/30/18 05/31/18 05/31/18 11:15 16:38 21:39 WBC RBC Hgb Hct MCV MCH MCHC RDW Plt Count MPV Neut % (Auto) Lymph % (Auto) [place] % (Auto) Eos % (Auto) Baso % (Auto) Neut # (Auto) Lymph # (Auto) [place] # (Auto) Eos # (Auto) Baso # (Auto) WBC Differential Differential Comment Sodium Potassium Chloride Carbon Dioxide Anion Gap BUN Creatinine Estimated GFR POC Glucose 83 87 Random Glucose Calcium Magnesium Marrow Immunophenotype 06/01/18 06/01/18 06/01/18 03:59 04:45 04:45 WBC 3.8 L RBC 2.87 L Hgb 8.9 L Hct 26.5 L MCV 92.2 MCH 31.1 MCHC 33.7 RDW 16.7 Plt Count 215 MPV 6.9 L Neut % (Auto) 75.9 H Lymph % (Auto) 12.9 [place] % (Auto) 8.8 H Eos % (Auto) 1.5 Baso % (Auto) 0.9 Neut # (Auto) 2.9 Lymph # (Auto) 0.5 L [place] # (Auto) 0.3 Eos # (Auto) 0.1 Baso # (Auto) 0.0 WBC Differential . Differential Comment Auto diff final Sodium 140 Potassium 4.7 Chloride 106 Carbon Dioxide 24.9 Anion Gap 9 BUN 36 H Creatinine 4.11 H Estimated GFR 12 L POC Glucose 70 Random Glucose 63 L Calcium 11.3 H Magnesium 2.1 Marrow Immunophenotype 06/01/18 06/01/18 06/01/18 09:06 09:28 11:48 WBC RBC Hgb Hct MCV MCH MCHC RDW Plt Count MPV Neut % (Auto) Lymph % (Auto) [place] % (Auto) Eos % (Auto) Baso % (Auto) Neut # (Auto) Lymph # (Auto) [place] # (Auto) Eos # (Auto) Baso # (Auto) WBC Differential Differential Comment Sodium Potassium Chloride Carbon Dioxide Anion Gap BUN Creatinine Estimated GFR POC Glucose 65 L 77 91 Random Glucose Calcium Magnesium Marrow Immunophenotype Microbiology 05/29/18 23:55 Blood - Peripheral Aerobic Blood Culture - Preliminary No growth in 2 days 05/29/18 23:55 Blood - Peripheral Anaerobic Blood Culture - Preliminary No growth in 2 days 05/29/18 23:50 Blood - Peripheral Aerobic Blood Culture - Preliminary No growth in 2 days 05/29/18 23:50 Blood - Peripheral Anaerobic Blood Culture - Preliminary No growth in 2 days Assessment and Plan - Plan This patient is an 87-year-old female with a diagnosis of hypertension, hypothyroidism, peripheral vascular disease, stage IV chronic kidney disease, history of right-sided breast cancer, diabetes mellitus type 2, dyslipidemia. The patient presented to our emergency department with complaints of severe back pain. 1. 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 Hypercalcemia Patient had a bone marrow biopsy, findings are consistent with multiple myeloma. Started on dexamethasone. Discussion about the treatment was discussed with the patient's family by heme oncology. I appreciate the recommendations from heme oncology. Continue IV fluid hydration for hypercalcemia. 2. TIFFANY on CKD stage IV. Patient serum creatinine did increase to 4.1 today. Continue IV fluids, IV fluid rate increased. Follow-up a.m. labs. 3. Hypertension Patient is hypertensive. Continue amlodipine. Hydralazine dose was increased to 75 mg p.o. 3 times daily. Currently systolic blood pressure is in the 150s. We will continue to monitor and adjust the medications as needed. 4. Diabetes mellitus type 2 No significant elevation the patient's blood sugars. We will continue monitor her blood sugars and adjust her medications as needed. Monitor for hypoglycemia. 5. Hypothyroidism Continue Synthroid. Heparin started for DVT prophylaxis.
[2018-06-01] MEDS ORDERED: Pamidronate Inj 60 MG in Sodium Chlor 0.9% Inj 500 ML IV.SIG ONE (18:00)
[2018-06-02] MEDS: Piperacil/Tazo 2.25 GM Premix 50 ML IV.SIG SCH ×3 (00:32→12:18)
[2018-06-02] MEDS: Levothyroxine 150 MCG Tablet PO SCH (05:34)
[2018-06-02] MEDS: Insulin NovoLOG Aspart Correctional Sugar Inj SQ SCH ×5 (05:44→21:30)
[2018-06-02] MEDS: Sod Chloride 0.9% Inj 1,000 ML IV.CONT SCH ×5 (05:45→23:45)
[2018-06-02] MEDS: Dexamethasone Inj 20 MG/5 ML Vial IV.PUSH SCH (07:59)
[2018-06-02] MEDS: Pantoprazole Inj 40 MG Vial IV.PUSH SCH (07:59)
[2018-06-02] MEDS: Heparin - SQ 10,000 UNITS/ML Vial SQ SCH ×2 (07:59→21:29)
[2018-06-02] MEDS: Ferrous Sulfate 325 MG Tablet PO SCH (08:00)
[2018-06-02] MEDS: hydrALAZINE 50 MG Tablet PO SCH ×3 (08:01→17:12)
[2018-06-02 08:13] LABS: Calcium 11.8 mg/dL (8.5-10.1); Carbon Dioxide 21.9 meq/L (21.0-32.0); Magnesium 2.3 mg/dL (1.5-2.5); Potassium 4.5 meq/L (3.5-5.1)
[2018-06-02 08:41] LABS: Total Protein 6.4 g/dL (6.4-8.2)
[2018-06-02 08:55] LABS: Calcium-Albumin Corrected 12.4 mg/dL (8.5-10.1)
[2018-06-02] MEDS: amLODIPine 10 MG Tablet PO SCH (10:27)
--- NOTE | 2018-06-02 10:56 | P.PNONC ---
Subjective Interval history: Patient sleeping on approach, her daughter is at the bedside. Patient awakens momentarily to voice. Her daughter reports she has been sleeping a lot, she is relating it to the pain medication. She reports that physical therapy came yesterday however the patient had too much pain to participate. She is hopeful the steroids will help with the pain so that she will not have to take the narcotic pain medication. She reports she ate some breakfast this a.m. Objective Vital Signs/Intake & Output: Vital Signs 06/01/18 12:00 06/01/18 15:20 06/01/18 18:45 Temperature 98.1 F 97.6 F Pulse Rate 59 L 84 88 Respiratory Rate 16 19 Blood Pressure 158/71 H 156/82 H Pulse Oximetry 96 97 06/01/18 20:06 06/01/18 21:21 06/02/18 00:03 Temperature 97.7 F Pulse Rate 92 H 70 49 L Respiratory Rate Blood Pressure 145/87 H Pulse Oximetry 99 06/02/18 00:34 06/02/18 05:33 06/02/18 07:55 Temperature 97.6 F 98.3 F 97.3 F L Pulse Rate 84 77 59 L Respiratory Rate 15 18 16 Blood Pressure 147/76 H 159/72 H 152/65 H Pulse Oximetry 99 96 97 Intake & Output 06/01/18 06/02/18 06/02/18 18:59 06:59 18:59 Intake Total 1200 / 1200 2570 / 2570 1050 / 1050 Output Total 1100 / 1100 600 / 600 Balance 100 / 100 1969 / 1969 1050 / 1050 Weight 70 kg Intake: IV 100 / 100 2570 / 2570 1050 / 1050 NS Inj 1,000 ML @ 200 mls/hr IV 1000 / 1000 1000 / 1000 .CONT .Q5H [facility] Rx#:[id number] Aredia Inj 60 MG In NS Inj 500 520 / 520 ML @ 100 mls/hr IV.SIG ONCE ONE Rx#:[id number] Zosyn 2.25 GM Premix 50 ML @ 100 / 100 50 / 50 50 / 50 100 mls/hr IV.SIG Q6H [facility] Rx#: [id number] Oral 1100 / 1100 Output: Urine 1100 / 1100 600 / 600 Other: # Voids 1 1 Date of Last Bowel Movement 06/01/18 06/01/18 # Bowel Movements 1 1 Result Diagrams: 06/01/18 04:45 06/02/18 06:52 Laboratory Results: Laboratory Results - last 24 hr 05/29/18 06/01/18 06/01/18 06:56 11:48 18:36 Sodium Potassium Chloride Carbon Dioxide Anion Gap BUN Creatinine Estimated GFR POC Glucose 91 165 H Random Glucose Calcium Prot Corrected Calcium Magnesium Total Protein Albumin (PEP) 3.60 Albumin/Globulin Ratio 1.16 L Jxgwn-0-Zwszrswzi 0.30 H Gczzn-5-Qgzgtpdgn 1.01 H Beta Globulins 0.94 Gamma Globulins 0.84 JAROD Interpretation 06/01/18 06/02/18 06/02/18 21:32 05:42 06:52 Sodium 139 Potassium 4.5 Chloride 106 Carbon Dioxide 21.9 Anion Gap 11 BUN 43 H Creatinine 4.10 H Estimated GFR 13 L POC Glucose 172 H 133 H Random Glucose 122 H Calcium 11.8 H* Prot Corrected Calcium 12.4 H* Magnesium 2.3 Total Protein 6.4 Albumin (PEP) Albumin/Globulin Ratio Mrbgf-4-Qpmjjagrc Iwloa-1-Ylsgrqljp Beta Globulins Gamma Globulins JAROD Interpretation Culture Results: Microbiology 05/29/18 23:55 Aerobic Blood Culture - Preliminary Blood - Peripheral No growth in 2 days Anaerobic Blood Culture - Preliminary No growth in 2 days 05/29/18 23:50 Aerobic Blood Culture - Preliminary Blood - Peripheral No growth in 2 days Anaerobic Blood Culture - Preliminary No growth in 2 days Medications: Active Medications Generic Name Dose Route Start Last Admin Trade Name Freq PRN Reason Stop Dose Admin Acetaminophen 650 mg 05/28/18 08:15 05/29/18 22:42 Tylenol PO 650 mg Q4H PRN Administration Temp > 100.4 Al Hydroxide/Mg Hydroxide 30 ml 05/28/18 08:14 05/29/18 19:47 Milk Of Magnesia Liq PO 30 ml Q12H PRN Administration Mild Constipation Amlodipine Besylate 10 mg 05/28/18 10:00 06/02/18 10:27 Norvasc PO Not Given DAILY [facility] Clonidine HCl 0.1 mg 05/28/18 10:00 06/02/18 08:02 Catapres PO 0.1 mg BID [facility] Administration Cyclobenzaprine HCl 5 mg 05/28/18 14:00 06/02/18 05:34 Flexeril PO 5 mg Q8HR [facility] Administration Dexamethasone Sodium Phosphate 20 mg 06/01/18 09:00 06/02/18 07:59 Decadron Inj IV.PUSH 06/04/18 09:01 20 mg DAILY [facility] Administration Dextrose 50 ml 05/30/18 10:00 05/30/18 10:59 D50w Vial IV.PUSH 50 ml UNSCH PRN Administration PER HYPOGLYCEMIA PROTOCOL Ferrous Sulfate 325 mg 05/28/18 10:00 06/02/18 08:00 Ferosul PO 325 mg DAILY [facility] Administration Heparin Sodium (Porcine) 5,000 units 05/29/18 21:00 06/02/18 07:59 Heparin Inj SQ 5,000 units Q12HR [facility] Administration Hydralazine HCl 75 mg 06/01/18 14:00 06/02/18 08:01 Apresoline PO 75 mg TID [facility] Administration Piperacillin/Tazobactam/Dextrose 50 mls @ 100 mls/hr 05/30/18 00:00 06/02/18 10:27 Zosyn 2.25 Gm Premix IV.SIG Infused Q6H [facility] Infusion Sodium Chloride 1,000 mls @ 200 mls/hr 06/01/18 13:15 06/02/18 08:18 Ns Inj IV.CONT 125 mls/hr .Q5H [facility] Administration Insulin Aspart 0 unit 05/28/18 12:00 06/02/18 10:25 Novolog Insulin Correctional Sugar Inj SQ Not Given ,,, [facility] Protocol Lactulose 30 ml 05/28/18 08:14 05/30/18 22:39 Lactulose Liq PO 30 ml DAILY PRN Administration SEVERE [employer]IPATION Levothyroxine Sodium 150 mcg 05/28/18 09:00 06/02/18 05:34 Synthroid PO 150 mcg DAILY@0600 [facility] Administration Morphine Sulfate 2 mg 05/29/18 21:15 05/29/18 22:39 Morphine Inj IV.PUSH 2 mg Q4H PRN Administration BREAKTHROUGH PAIN Oxycodone/Acetaminophen 1 tab 05/28/18 11:00 05/29/18 19:47 Percocet 5/325 Mg PO 1 tab Q4H PRN Administration PAIN SCALE 1 TO 10 Pantoprazole Sodium 40 mg 06/01/18 09:00 06/02/18 07:59 Protonix Inj IV.PUSH 40 mg Q24H [facility] Administration Potassium Chloride 20 meq 05/28/18 10:00 06/02/18 08:00 K-Dur PO 20 meq DAILY [facility] Administration Objective Remarks: GENERAL: Elderly female patient, appears to be sleeping comfortably. She awakens for a brief moment. SKIN: Warm and dry. HEAD: Normocephalic. EYES: No scleral icterus. No injection or drainage. NECK: Supple, trachea midline. CARDIOVASCULAR: Regular rate and rhythm without murmurs. RESPIRATORY: Clear anteriorly, equal bilaterally. Nonlabored at rest. GASTROINTESTINAL: Abdomen soft, non-tender, nondistended. EXTREMITIES: No cyanosis or edema. MUSCULOSKELETAL: Decreased muscle tone. NEUROLOGICAL: Lethargic, awakens briefly. Assessment/Plan - Plan 87-year-old female with a remote history of breast cancer diagnosed in the . She had definitive surgery, adjuvant systemic chemotherapy. She has had no evidence of recurrence since that time. She presented to the emergency room with complaints of severe back pain that she has had for [address] shows permeative lytic changes involving multiple bony elements, primarily of the spine consistent with metastatic disease or myeloma. She also has other indicators of possible myeloma including hypercalcemia, renal dysfunction and anemia. 1. Multiple myeloma, continue dexamethasone pulse 20mg IV x's 4. Mason treatment for multiple myeloma is triple combination therapy with Revlimid, dexamethasone, Velcade. Furthermore she needs to complete staging evaluation which would be a CT PET scan on an outpatient basis. For palliation of symptoms Decadron is started now. 2. Back pain, continue supportive care. Monitor closely for oversedation. Ideally the steroids will decrease bone pain and she will not need sedated of pain medications. 3. Hypercalcemia, continue IV fluids for hydration. Patient received pamidronate last night after IV hydration. This is an effort to preserve the kidney and treat the hypercalcemia. 4. Patient will need physical therapy and likely rehab upon discharge. - Attending Statement The exam, history, and the medical decision-making described in the above note were completed with the assistance of the mid-level provider. I reviewed and agree with the findings presented. I attest that I had a [id number] encounter with the patient on the same day, and personally performed and documented my assessment and findings in the medical record. Wide awake and alert in AM, participating in discussion about her care, eating breakfast. Discussed risk and benefits of dexamethasone. Continue IVF hydration, so far no change in creatinine, pamidronate tolerated well. Refer to CM to discuss options for SNF vs Rehab. Physical therapy consulted. More awake after holding Valium. Continue pain meds prn.
--- NOTE | 2018-06-02 11:27 | P.PNNP ---
Subjective Interval history: Patient sleeping, awakens but falls back to sleep. Reports that pain is improving. Mild shortness of breath and poor appetite. <RowanCat - Last Filed: 06/02/18 11:16> Physical Exam Vital signs: Vital Signs 06/01/18 12:00 06/01/18 15:20 06/01/18 18:45 Temperature 98.1 F 97.6 F Pulse Rate 59 L 84 88 Respiratory Rate 16 19 Blood Pressure 158/71 H 156/82 H Pulse Oximetry 96 97 06/01/18 20:06 06/01/18 21:21 06/02/18 00:03 Temperature 97.7 F Pulse Rate 92 H 70 49 L Respiratory Rate Blood Pressure 145/87 H Pulse Oximetry 99 06/02/18 00:34 06/02/18 05:33 06/02/18 07:55 Temperature 97.6 F 98.3 F 97.3 F L Pulse Rate 84 77 59 L Respiratory Rate 15 18 16 Blood Pressure 147/76 H 159/72 H 152/65 H Pulse Oximetry 99 96 97 Intake & Output 06/01/18 06/02/18 06/02/18 18:59 06:59 18:59 Intake Total 1200 / 1200 2570 / 2570 1050 / 1050 Output Total 1100 / 1100 600 / 600 Balance 100 / 100 1969 / 1969 1050 / 1050 Weight 70 kg Intake: IV 100 / 100 2570 / 2570 1050 / 1050 NS Inj 1,000 ML @ 200 mls/hr IV 1000 / 1000 1000 / 1000 .CONT .Q5H [facility] Rx#:[id number] Aredia Inj 60 MG In NS Inj 500 520 / 520 ML @ 100 mls/hr IV.SIG ONCE ONE Rx#:[id number] Zosyn 2.25 GM Premix 50 ML @ 100 / 100 50 / 50 50 / 50 100 mls/hr IV.SIG Q6H [facility] Rx#: [id number] Oral 1100 / 1100 Output: Urine 1100 / 1100 600 / 600 Other: # Voids 1 1 Date of Last Bowel Movement 06/01/18 06/01/18 # Bowel Movements 1 1 Narrative: GENERAL: Lethargic. Generalized weakness. SKIN: Warm and dry. NECK: Supple, trachea midline. No JVD. CARDIOVASCULAR: Regular rate and rhythm without murmurs, gallops, or rubs. RESPIRATORY: Breath sounds diminished bilaterally. No accessory muscle use. GASTROINTESTINAL: Abdomen soft, non-tender, nondistended. MUSCULOSKELETAL: No cyanosis, mild lower extremity edema. <Cat Donahue - Last Filed: 06/02/18 11:16> Vital signs: Vital Signs 06/02/18 19:00 06/02/18 20:00 06/03/18 00:00 Temperature 97.6 F 98.4 F Pulse Rate 71 63 46 L Respiratory Rate 18 16 Blood Pressure 161/68 H 155/74 H Pulse Oximetry 97 98 06/03/18 04:00 06/03/18 07:33 06/03/18 08:00 Temperature 98 F 98.8 F Pulse Rate 72 61 53 L Respiratory Rate 16 14 Blood Pressure 152/72 H 152/73 H Pulse Oximetry 96 94 L 06/03/18 12:00 Temperature 98.8 F Pulse Rate 64 Respiratory Rate 18 Blood Pressure 160/70 H Pulse Oximetry 97 Intake & Output 06/02/18 06/03/18 06/03/18 18:59 06:59 18:59 Intake Total 2840 / 2840 2869 / 2869 1371 / 1371 Output Total 500 / 500 1500 / 1500 Balance 2340 / 2340 1369 / 1369 1371 / 1371 Weight 70.1 kg Intake: IV 2100 / 2100 2629 / 2629 1371 / 1371 NS Inj 1,000 ML @ 200 mls/hr IV 1999 / 1999 2629 / 2629 1371 / 1371 .CONT .Q5H [facility] Rx#:[id number] Zosyn 2.25 GM Premix 50 ML @ 100 / 100 100 mls/hr IV.SIG Q6H [facility] Rx#: [id number] Oral 740 / 740 240 / 240 Output: Urine 500 / 500 1500 / 1500 Other: Date of Last Bowel Movement 06/02/18 06/02/18 06/01/18 # Bowel Movements 0 <Nallely Rodriguez - Last Filed: 06/03/18 16:48> Assessment and Plan - Assessment (1) Acute renal failure (ARF) Code(s): N17.9 - Acute kidney failure, unspecified Status: Acute Qualifiers: Acute renal failure type: unspecified Qualified Code(s): N17.9 - Acute kidney failure, unspecified Plan: Acute kidney injury Seen in office on 05/16 creatinine was on 3.13, calcium 11.8, and HGB at 6.5. Patient was sent to emergency room. Some acute worsening related to multiple myeloma. Has chronic kidney disease with baseline creatinine of 2.5, GFR of 22 ml/min Per hematology, Bone marrow biopsy show plasma cell neoplasm. This is consistent with multiple myeloma Creatinine at 4.1, potassium level at 4.5, continues to have adequate urinary output 1.7L/24 hours. Recommend to continue IVF's. Oral fluids encouraged. Maintain strict I+O and avoid nephrotoxins. Hypercalcemia, on IVF and pamidronate given yesterday. Will follow urinary output and BMP. Dr. Rodriguez has discussed the possible need for hemodialysis in future with patient and daughter. (2) Hypertension Code(s): I10 - Essential (primary) hypertension Status: Acute Qualifiers: Hypertension type: unspecified Qualified Code(s): I10 - Essential (primary ) hypertension Plan: SBP in 150's, on amlodipine and clonidine BID. Continue to monitor (3) Hypercalcemia Code(s): E83.52 - Hypercalcemia Status: Acute Plan: Continue IVF's pamidronate given yesterday. (4) Anemia Code(s): D64.9 - Anemia, unspecified Status: Acute Plan: HGB stable On iron replacement. (5) Multiple myeloma and immunoproliferative neoplasms Code(s): C90.00 - Multiple myeloma not having achieved remission; C88.9 - Malignant immunoproliferative disease, unspecified Status: Acute Plan: Multiple myeloma, on dexamethasone. <Cat Donahue - Last Filed: 06/02/18 11:16> - Assessment (1) Acute renal failure (ARF) Code(s): N17.9 - Acute kidney failure, unspecified Status: Acute Qualifiers: Acute renal failure type: unspecified Qualified Code(s): N17.9 - Acute kidney failure, unspecified Plan: Patient seen and examine, agree with above. Creatinine increasing, non oliguric. Given Dexamethasone and Pamidronate for hypercalcemia. No urgent need for HD. D/W the daughter about possible HD if continue to get worse. (2) Hypertension Code(s): I10 - Essential (primary) hypertension Status: Acute Qualifiers: Hypertension type: unspecified Qualified Code(s): I10 - Essential (primary ) hypertension (3) Hypercalcemia Code(s): E83.52 - Hypercalcemia Status: Acute (4) Anemia Code(s): D64.9 - Anemia, unspecified Status: Acute (5) Multiple myeloma and immunoproliferative neoplasms Code(s): C90.00 - Multiple myeloma not having achieved remission; C88.9 - Malignant immunoproliferative disease, unspecified Status: Acute <Nallely Rodriguez - Last Filed: 06/03/18 16:48>
--- NOTE | 2018-06-02 13:13 | P.PN ---
Subjective Interval history: Nursing denies denies any acute deteriorations overnight. No reports of any worsening low back pain. Patient herself is sleeping, easily woken. Says her back pain is much improved since admission. Daughters at the bedside. Patient says she is making a good amount of urine. Physical Exam Vital signs: Vital Signs 06/01/18 15:20 06/01/18 18:45 06/01/18 20:06 Temperature 97.6 F Pulse Rate 84 88 92 H Respiratory Rate 19 Blood Pressure 156/82 H Pulse Oximetry 97 06/01/18 21:21 06/02/18 00:03 06/02/18 00:34 Temperature 97.7 F 97.6 F Pulse Rate 70 49 L 84 Respiratory Rate 15 Blood Pressure 145/87 H 147/76 H Pulse Oximetry 99 99 06/02/18 05:33 06/02/18 07:55 06/02/18 11:00 Temperature 98.3 F 97.3 F L 97.7 F Pulse Rate 77 59 L 56 L Respiratory Rate 18 16 14 Blood Pressure 159/72 H 152/65 H 161/72 H Pulse Oximetry 96 97 97 Intake & Output 06/01/18 06/02/18 06/02/18 18:59 06:59 18:59 Intake Total 1200 / 1200 2570 / 2570 1100 / 1100 Output Total 1100 / 1100 600 / 600 Balance 100 / 100 1970 / 1970 1100 / 1100 Weight 70 kg Intake: IV 100 / 100 2570 / 2570 1100 / 1100 NS Inj 1,000 ML @ 200 mls/hr IV 1000 / 1000 1000 / 1000 .CONT .Q5H [facility] Rx#:[id number] Aredia Inj 60 MG In NS Inj 500 520 / 520 ML @ 100 mls/hr IV.SIG ONCE ONE Rx#:[id number] Zosyn 2.25 GM Premix 50 ML @ 100 / 100 50 / 50 100 / 100 100 mls/hr IV.SIG Q6H [facility] Rx#: [id number] Oral 1100 / 1100 Output: Urine 1100 / 1100 600 / 600 Other: # Voids 1 1 Date of Last Bowel Movement 06/01/18 06/01/18 # Bowel Movements 1 1 Narrative: Sleeping, easily awoken Heart sounds regular rate and rhythm, no murmurs Clear lungs bilaterally, unlabored breathing No lower extremity edema Results - Labs CBC & Chem 7: 06/01/18 04:45 06/02/18 06:52 Laboratory Results - last 24 hr 05/29/18 06/01/18 06/01/18 06:56 18:36 21:32 Sodium Potassium Chloride Carbon Dioxide Anion Gap BUN Creatinine Estimated GFR POC Glucose 165 H 172 H Random Glucose Calcium Prot Corrected Calcium Magnesium Total Protein Albumin (PEP) 3.60 Albumin/Globulin Ratio 1.16 L Jszff-8-Ujahyncbp 0.30 H Dspjo-4-Fizyproqo 1.01 H Beta Globulins 0.94 Gamma Globulins 0.84 JAROD Interpretation 06/02/18 06/02/18 06/02/18 05:42 06:52 12:15 Sodium 139 Potassium 4.5 Chloride 106 Carbon Dioxide 21.9 Anion Gap 11 BUN 43 H Creatinine 4.10 H Estimated GFR 13 L POC Glucose 133 H 127 H Random Glucose 122 H Calcium 11.8 H* Prot Corrected Calcium 12.4 H* Magnesium 2.3 Total Protein 6.4 Albumin (PEP) Albumin/Globulin Ratio Yixbp-8-Wixesrryo Ptjij-1-Tiuocxcbs Beta Globulins Gamma Globulins JAROD Interpretation Microbiology 05/29/18 23:55 Blood - Peripheral Aerobic Blood Culture - Preliminary No growth in 3 days 05/29/18 23:55 Blood - Peripheral Anaerobic Blood Culture - Preliminary No growth in 3 days 05/29/18 23:50 Blood - Peripheral Aerobic Blood Culture - Preliminary No growth in 3 days 05/29/18 23:50 Blood - Peripheral Anaerobic Blood Culture - Preliminary No growth in 3 days Assessment and Plan - Plan This patient is an 87-year-old female with a diagnosis of hypertension, hypothyroidism, peripheral vascular disease, stage IV chronic kidney disease, history of right-sided breast cancer, diabetes mellitus type 2, dyslipidemia. The patient presented to our emergency department with complaints of severe back pain. Plasma cell neoplasm likely multiple myeloma hypercalcemia -Bone marrow biopsy confirming multiple myeloma Continue dexamethasone per oncology Continue IV hydration with bisphosphonate TIFFANY on CKD stage IV. -Worsening renal function, could be secondary to hypercalcemia/multiple myeloma -Nephrology following, may need dialysis, trend renal function Hypertension -Continue amlodipine, hydralazine, clonidine Diabetes mellitus type 2 -Accu-Cheks sliding scale insulin Hypothyroidism -Continue Synthroid. Heparin
[2018-06-03] MEDS: Sod Chloride 0.9% Inj 1,000 ML IV.CONT SCH ×5 (04:49→23:24)
[2018-06-03] MEDS: Insulin NovoLOG Aspart Correctional Sugar Inj SQ SCH ×5 (04:49→22:02)
[2018-06-03] MEDS: Levothyroxine 150 MCG Tablet PO SCH (06:19)
[2018-06-03] MEDS: Heparin - SQ 10,000 UNITS/ML Vial SQ SCH ×2 (07:59→21:55)
[2018-06-03] MEDS: Dexamethasone Inj 20 MG/5 ML Vial IV.PUSH SCH (07:59)
[2018-06-03] MEDS: Ferrous Sulfate 325 MG Tablet PO SCH (08:00)
[2018-06-03] MEDS: Pantoprazole Inj 40 MG Vial IV.PUSH SCH (08:00)
[2018-06-03] MEDS: amLODIPine 10 MG Tablet PO SCH (08:00)
[2018-06-03] MEDS: hydrALAZINE 50 MG Tablet PO SCH ×3 (08:00→17:16)
--- NOTE | 2018-06-03 10:46 | P.PNNP ---
Subjective Interval history: Resting, with family at bedside. Reports that she had and good night and that her appetite is improving. <Cat Donahue - Last Filed: 06/03/18 10:42> Physical Exam Vital signs: Vital Signs 06/02/18 11:00 06/02/18 15:00 06/02/18 19:00 Temperature 97.7 F 97.7 F 97.6 F Pulse Rate 56 L 68 71 Respiratory Rate 14 16 18 Blood Pressure 161/72 H 161/87 H 161/68 H Pulse Oximetry 97 93 L 97 06/02/18 20:00 06/03/18 00:00 06/03/18 04:00 Temperature 98.4 F 98 F Pulse Rate 63 46 L 72 Respiratory Rate 16 16 Blood Pressure 155/74 H 152/72 H Pulse Oximetry 98 96 06/03/18 07:33 Temperature 98.8 F Pulse Rate 61 Respiratory Rate 14 Blood Pressure 152/73 H Pulse Oximetry 94 L Intake & Output 06/02/18 06/03/18 06/03/18 18:59 06:59 18:59 Intake Total 2840 / 2840 2869 / 2869 371 / 371 Output Total 500 / 500 1500 / 1500 Balance 2340 / 2340 1369 / 1369 371 / 371 Weight 70.1 kg Intake: IV 2099 / 2100 2629 / 2629 371 / 371 NS Inj 1,000 ML @ 200 mls/hr IV 1999 / 1999 2629 / 2629 371 / 371 .CONT .Q5H [facility] Rx#:[id number] Zosyn 2.25 GM Premix 50 ML @ 100 / 100 100 mls/hr IV.SIG Q6H [facility] Rx#: [id number] Oral 740 / 740 240 / 240 Output: Urine 500 / 500 1500 / 1500 Other: Date of Last Bowel Movement 06/02/18 06/02/18 # Bowel Movements 0 Narrative: GENERAL: Sleeping but arouses easily. Generalized weakness. SKIN: Warm and dry. NECK: Supple, trachea midline. No JVD. CARDIOVASCULAR: Regular rate and rhythm without murmurs, gallops, or rubs. RESPIRATORY: Breath sounds diminished bilaterally. No accessory muscle use. GASTROINTESTINAL: Abdomen soft, non-tender, nondistended. MUSCULOSKELETAL: No cyanosis, no edema. <Cat Donahue - Last Filed: 06/03/18 10:42> Vital signs: Vital Signs 06/07/18 11:00 06/07/18 14:00 06/07/18 15:00 Temperature 98.7 F Pulse Rate 88 80 77 Respiratory Rate 16 Blood Pressure 145/68 H Pulse Oximetry 96 06/07/18 19:01 06/07/18 19:24 06/07/18 23:02 Temperature 98.5 F Pulse Rate 92 H 84 84 Respiratory Rate 17 Blood Pressure 145/72 H Pulse Oximetry 96 06/08/18 00:10 06/08/18 03:15 06/08/18 04:00 Temperature 98.1 F Pulse Rate 91 H 86 Respiratory Rate 16 18 Blood Pressure 145/78 H Pulse Oximetry 95 06/08/18 04:20 Temperature 98.1 F Pulse Rate 82 Respiratory Rate 18 Blood Pressure 147/72 H Pulse Oximetry 93 L Intake & Output 06/07/18 06/08/18 06/08/18 18:59 06:59 18:59 Intake Total 1495 / 1495 Output Total 1500 / 1500 1400 / 1400 Balance -5 / -5 -1400 / -1400 Weight 72.3 kg Intake: IV 775 / 775 Sodium Bicarbonate 8.4% Inj 75 775 / 775 MEQ In 1/2 Normal Saline Inj 1, 000 ML @ 75 mls/hr IV.CONT . [id number] [facility] Rx#:[id number] Oral 720 / 720 Output: Urine 1500 / 1500 1400 / 1400 Other: # Voids 2 Date of Last Bowel Movement 06/07/18 06/07/18 # Bowel Movements 1 <Cory Rodriguez Q - Last Filed: 06/08/18 10:33> Assessment and Plan - Assessment (1) Acute renal failure (ARF) Code(s): N17.9 - Acute kidney failure, unspecified Status: Acute Qualifiers: Acute renal failure type: unspecified Qualified Code(s): N17.9 - Acute kidney failure, unspecified Plan: Acute kidney injury Seen in office on 05/16 creatinine was on 3.13, calcium 11.8, and HGB at 6.5. Patient was sent to emergency room. Some acute worsening related to multiple myeloma. Has chronic kidney disease with baseline creatinine of 2.5, GFR of 22 ml/min Per hematology, Bone marrow biopsy show plasma cell neoplasm. This is consistent with multiple myeloma Recommend to continue IVF's. Oral fluids encouraged. Maintain strict I+O and avoid nephrotoxins. Will follow urinary output and BMP. Dr. Rodriguez has discussed the possible need for hemodialysis in future with patient and daughter. Labs pending today. Continues to have good urinary output. (2) Hypertension Code(s): I10 - Essential (primary) hypertension Status: Acute Qualifiers: Hypertension type: unspecified Qualified Code(s): I10 - Essential (primary ) hypertension Plan: SBP in 150's, on amlodipine, hydralazine, and clonidine BID. Continue to monitor (3) Hypercalcemia Code(s): E83.52 - Hypercalcemia Status: Acute Plan: Continue IVF's labs pending today (4) Anemia Code(s): D64.9 - Anemia, unspecified Status: Acute Plan: HGB stable On iron replacement. (5) Multiple myeloma and immunoproliferative neoplasms Code(s): C90.00 - Multiple myeloma not having achieved remission; C88.9 - Malignant immunoproliferative disease, unspecified Status: Acute Plan: Multiple myeloma, on dexamethasone. <Cat Donahue - Last Filed: 06/03/18 10:42> - Assessment (1) Acute renal failure (ARF) Code(s): N17.9 - Acute kidney failure, unspecified Status: Acute Qualifiers: Acute renal failure type: unspecified Qualified Code(s): N17.9 - Acute kidney failure, unspecified Plan: Patient seen and examined, agree with above. Patient is non oliguric, Creatinine still elevated, may need HD. D/W the daughter. (2) Hypertension Code(s): I10 - Essential (primary) hypertension Status: Acute Qualifiers: Hypertension type: unspecified Qualified Code(s): I10 - Essential (primary ) hypertension (3) Hypercalcemia Code(s): E83.52 - Hypercalcemia Status: Acute (4) Anemia Code(s): D64.9 - Anemia, unspecified Status: Acute (5) Multiple myeloma and immunoproliferative neoplasms Code(s): C90.00 - Multiple myeloma not having achieved remission; C88.9 - Malignant immunoproliferative disease, unspecified Status: Acute <Nallely Rodriguez - Last Filed: 06/08/18 10:33>
[2018-06-03 11:33] LABS: Eos % (Auto) 0.1 % (0.0-4.0); Hematocrit 24.6 % (35.0-46.0); Hemoglobin 8.3 gm/dL (11.6-15.3); Lymph # (Auto) 0.2 th/mm3 (1.0-4.8); Lymph % (Auto) 3.3 % (9.0-44.0); Mean Corpuscular HGB Conc 33.6 % (32.0-36.0); Mean Corpuscular Hemoglobin 31.2 pg (27.0-34.0); Mean Corpuscular Volume 92.9 fL (80.0-100.0); Mean Platelet Volume 6.8 fL (7.0-11.0); Mono # (Auto) 0.1 th/mm3 (0.0-0.9); Mono % (Auto) 2.3 % (0.0-8.0); Neut # (Auto) 6.2 th/mm3 (1.8-7.7); Neut % (Auto) 94.3 % (16.0-70.0); Platelet Count 217 th/mm3 (150-450); Red Blood Count 2.65 mil/mm3 (4.00-5.30); Red Cell Distribution Width 16.5 % (11.6-17.2); White Blood Count 6.6 th/mm3 (4.0-11.0)
[2018-06-03 12:07] LABS: Alanine Aminotransferase 36 U/L (10-53); Albumin 2.5 g/dL (3.4-5.0); Alkaline Phosphatase 73 U/L (45-117); Anion Gap 10 meq/L (5-15); Aspartate Aminotransferase 53 U/L (15-37); Blood Urea Nitrogen 51 mg/dL (7-18); Calcium 10.3 mg/dL (8.5-10.1); Carbon Dioxide 21.4 meq/L (21.0-32.0); Chloride 110 meq/L (98-107); Glomerular Filtration Rate 12 mL/min (>89); Glucose,Random 127 mg/dL (74-106); Potassium 4.2 meq/L (3.5-5.1); Sodium 141 meq/L (136-145); Total Protein 6.3 g/dL (6.4-8.2)
[2018-06-03 12:13] LABS: Phosphorus 4.1 mg/dL (2.5-4.9)
--- NOTE | 2018-06-03 16:33 | P.PN ---
Subjective Interval history: Nursing denies any acute deteriorations overnight. Patient says she still has back pain. Physical Exam Vital signs: Vital Signs 06/02/18 19:00 06/02/18 20:00 06/03/18 00:00 Temperature 97.6 F 98.4 F Pulse Rate 71 63 46 L Respiratory Rate 18 16 Blood Pressure 161/68 H 155/74 H Pulse Oximetry 97 98 06/03/18 04:00 06/03/18 07:33 Temperature 98 F 98.8 F Pulse Rate 72 61 Respiratory Rate 16 14 Blood Pressure 152/72 H 152/73 H Pulse Oximetry 96 94 L Intake & Output 06/02/18 06/03/18 06/03/18 18:59 06:59 18:59 Intake Total 2840 / 2840 2869 / 2869 1371 / 1371 Output Total 500 / 500 1500 / 1500 Balance 2340 / 2340 1369 / 1369 1371 / 1371 Weight 70.1 kg Intake: IV 2099 / 2099 2629 / 2629 1371 / 1371 NS Inj 1,000 ML @ 200 mls/hr IV 1999 / 1999 2629 / 2629 1371 / 1371 .CONT .Q5H [facility] Rx#:[id number] Zosyn 2.25 GM Premix 50 ML @ 100 / 100 100 mls/hr IV.SIG Q6H [facility] Rx#: [id number] Oral 740 / 740 240 / 240 Output: Urine 500 / 500 1500 / 1500 Other: Date of Last Bowel Movement 06/02/18 06/02/18 06/01/18 # Bowel Movements 0 Narrative: Heart sounds regular rate and rhythm, no murmurs Clear lungs bilaterally, unlabored breathing Resting in bed comfortably, sleeping, easily awoken, no acute distress Results - Labs CBC & Chem 7: 06/03/18 11:04 06/03/18 11:04 Laboratory Results - last 24 hr 06/02/18 06/02/18 06/03/18 16:44 20:49 03:54 WBC RBC Hgb Hct MCV MCH MCHC RDW Plt Count MPV Neut % (Auto) Lymph % (Auto) Long % (Auto) Eos % (Auto) Baso % (Auto) Neut # (Auto) Lymph # (Auto) Long # (Auto) Eos # (Auto) Baso # (Auto) WBC Differential Differential Comment Sodium Potassium Chloride Carbon Dioxide Anion Gap BUN Creatinine Estimated GFR POC Glucose 176 H 158 H 120 H Random Glucose Calcium Phosphorus Total Bilirubin AST ALT Alkaline Phosphatase Total Protein Albumin 06/03/18 06/03/18 06/03/18 11:04 11:04 11:04 WBC 6.6 RBC 2.65 L Hgb 8.3 L Hct 24.6 L MCV 92.9 MCH 31.2 MCHC 33.6 RDW 16.5 Plt Count 217 MPV 6.8 L Neut % (Auto) 94.3 H Lymph % (Auto) 3.3 L Long % (Auto) 2.3 Eos % (Auto) 0.1 Baso % (Auto) 0.0 Neut # (Auto) 6.2 Lymph # (Auto) 0.2 L Long # (Auto) 0.1 Eos # (Auto) 0.0 Baso # (Auto) 0.0 WBC Differential . Differential Comment Auto diff final Sodium 141 Cancelled Potassium 4.2 Cancelled Chloride 110 H Cancelled Carbon Dioxide 21.4 Cancelled Anion Gap 10 Cancelled BUN 51 H Cancelled Creatinine 4.14 H Cancelled Estimated GFR 12 L Cancelled POC Glucose Random Glucose 127 H Cancelled Calcium 10.3 H D Cancelled Phosphorus 4.1 Cancelled Total Bilirubin 0.2 AST 53 H ALT 36 Alkaline Phosphatase 73 Total Protein 6.3 L Albumin 2.5 L Cancelled 06/03/18 15:43 WBC RBC Hgb Hct MCV MCH MCHC RDW Plt Count MPV Neut % (Auto) Lymph % (Auto) Long % (Auto) Eos % (Auto) Baso % (Auto) Neut # (Auto) Lymph # (Auto) Long # (Auto) Eos # (Auto) Baso # (Auto) WBC Differential Differential Comment Sodium Potassium Chloride Carbon Dioxide Anion Gap BUN Creatinine Estimated GFR POC Glucose 185 H Random Glucose Calcium Phosphorus Total Bilirubin AST ALT Alkaline Phosphatase Total Protein Albumin Microbiology 05/29/18 23:55 Blood - Peripheral Aerobic Blood Culture - Preliminary No growth in 4 days 05/29/18 23:55 Blood - Peripheral Anaerobic Blood Culture - Preliminary No growth in 4 days 05/29/18 23:50 Blood - Peripheral Aerobic Blood Culture - Preliminary No growth in 4 days 05/29/18 23:50 Blood - Peripheral Anaerobic Blood Culture - Preliminary No growth in 4 days Assessment and Plan - Plan This patient is an 87-year-old female with a diagnosis of hypertension, hypothyroidism, peripheral vascular disease, stage IV chronic kidney disease, history of right-sided breast cancer, diabetes mellitus type 2, dyslipidemia. The patient presented to our emergency department with complaints of severe back pain. Plasma cell neoplasm likely multiple myeloma hypercalcemia -Bone marrow biopsy confirming multiple myeloma Continue dexamethasone per oncology Continue IV hydration with bisphosphonate TIFFANY on CKD stage IV. -Still worsening renal function, could be secondary to hypercalcemia/multiple myeloma -Nephrology following, may need dialysis, trend renal function Hypertension -Continue amlodipine, hydralazine, clonidine Diabetes mellitus type 2 -Accu-Cheks sliding scale insulin Hypothyroidism -Continue Synthroid. Heparin
--- NOTE | 2018-06-03 16:42 | P.DIET ---
Nutritional Evaluation Type of nutrition evaluation: initial Nutrition screening: Weight Loss > 10 lbs Subjective Subjective Comments: Poor appetite reported. Pt ate around 50-75% avrg for most meals. Objective - Diagnosis Multiple metastasis, severe back pain - Objective % IBW: 109 (IBW = 145#) Body Weight Used for Calculations: Actual (72 kg) Energy Needs - Lower Range (kCal/kg): 28 Energy Needs - Upper Range (kCal/kg): 32 Lower Limit kCal/kg (kCals): 2,016 Upper Limit kCal/kg (kCals): 2,304 Lower Limit Protein Factor (Grams per Kg): 1.0 Upper Limit Protein Factor (Grams per Kg): 1.5 Lower Protein Needs (Protein): 72 Upper Protein Needs (Protein): 108 Fluid Factor (ml/kg): 32 Estimated Fluid Needs (ml): 2,304 Dietitian Reviewed in Medical Record: Current diet, Curent medications, Intake & Output, Labs, Medical history Diet Order: Regular Objective Comments: Hx includes metastatic breast CA Assessment Assessment: Pt is at high nutrition risk 2' to dx, weight loss, poor po intake and poor appetite. Pt currently eating an avrg of 50-75% of most meals. Pt is consuming around 1/4 her Ensures. Encourage and monitor PO intake. RD following. Recommendations: 1. Continue regular diet 2. Ensure Enlive tid 3. Encourage and monitor PO intake Dietitian to Monitor: Lab values, Supplement acceptance, Intake & Output, Diet tolerance, Weight change, PO Intake, Medical course
--- NOTE | 2018-06-03 17:51 | P.PNONC ---
Subjective Interval history: Better appetite. Eating dinner with friend at bedside. Her speech is improved. She has some insight into her condition. She understands that multiple myeloma is bad. She gives praise to God for his goodness. Denies any pain at rest. Pain comes on quite severe when she tries to move. She is still unable to stand on her legs. Objective Vital Signs/Intake & Output: Vital Signs 06/02/18 19:00 06/02/18 20:00 06/03/18 00:00 Temperature 97.6 F 98.4 F Pulse Rate 71 63 46 L Respiratory Rate 18 16 Blood Pressure 161/68 H 155/74 H Pulse Oximetry 97 98 06/03/18 04:00 06/03/18 07:33 06/03/18 08:00 Temperature 98 F 98.8 F Pulse Rate 72 61 53 L Respiratory Rate 16 14 Blood Pressure 152/72 H 152/73 H Pulse Oximetry 96 94 L 06/03/18 12:00 06/03/18 16:00 Temperature 98.8 F Pulse Rate 64 70 Respiratory Rate 18 18 Blood Pressure 160/70 H 161/79 H Pulse Oximetry 97 99 Intake & Output 06/02/18 06/03/18 06/03/18 18:59 06:59 18:59 Intake Total 2840 / 2840 2869 / 2869 2231 / 2231 Output Total 500 / 500 1500 / 1500 300 / 300 Balance 2340 / 2340 1369 / 1369 1931 / 1931 Weight 70.1 kg Intake: IV 2099 / 2099 2629 / 2629 1371 / 1371 NS Inj 1,000 ML @ 200 mls/hr IV 1999 / 1999 262 / 2629 1371 / 1371 .CONT .Q5H [facility] Rx#:[id number] Zosyn 2.25 GM Premix 50 ML @ 100 / 100 100 mls/hr IV.SIG Q6H [facility] Rx#: [id number] Oral 740 / 740 240 / 240 860 / 860 Output: Urine 500 / 500 1500 / 1500 300 / 300 Other: # Urine Diapers 2 Date of Last Bowel Movement 06/02/18 06/02/18 06/02/18 # Bowel Movements 0 Result Diagrams: 06/03/18 11:04 06/03/18 11:04 Laboratory Results: Laboratory Results - last 24 hr 06/02/18 06/03/18 06/03/18 20:49 03:54 11:04 WBC 6.6 RBC 2.65 L Hgb 8.3 L Hct 24.6 L MCV 92.9 MCH 31.2 MCHC 33.6 RDW 16.5 Plt Count 217 MPV 6.8 L Neut % (Auto) 94.3 H Lymph % (Auto) 3.3 L [place] % (Auto) 2.3 Eos % (Auto) 0.1 Baso % (Auto) 0.0 Neut # (Auto) 6.2 Lymph # (Auto) 0.2 L [place] # (Auto) 0.1 Eos # (Auto) 0.0 Baso # (Auto) 0.0 WBC Differential . Differential Comment Auto diff final Sodium Potassium Chloride Carbon Dioxide Anion Gap BUN Creatinine Estimated GFR POC Glucose 158 H 120 H Random Glucose Calcium Phosphorus Total Bilirubin AST ALT Alkaline Phosphatase Total Protein Albumin 06/03/18 06/03/18 06/03/18 11:04 11:04 15:43 WBC RBC Hgb Hct MCV MCH MCHC RDW Plt Count MPV Neut % (Auto) Lymph % (Auto) [place] % (Auto) Eos % (Auto) Baso % (Auto) Neut # (Auto) Lymph # (Auto) [place] # (Auto) Eos # (Auto) Baso # (Auto) WBC Differential Differential Comment Sodium 141 Cancelled Potassium 4.2 Cancelled Chloride 110 H Cancelled Carbon Dioxide 21.4 Cancelled Anion Gap 10 Cancelled BUN 51 H Cancelled Creatinine 4.14 H Cancelled Estimated GFR 12 L Cancelled POC Glucose 185 H Random Glucose 127 H Cancelled Calcium 10.3 H D Cancelled Phosphorus 4.1 Cancelled Total Bilirubin 0.2 AST 53 H ALT 36 Alkaline Phosphatase 73 Total Protein 6.3 L Albumin 2.5 L Cancelled Culture Results: Microbiology 05/29/18 23:55 Aerobic Blood Culture - Preliminary Blood - Peripheral No growth in 4 days Anaerobic Blood Culture - Preliminary No growth in 4 days 05/29/18 23:50 Aerobic Blood Culture - Preliminary Blood - Peripheral No growth in 4 days Anaerobic Blood Culture - Preliminary No growth in 4 days Medications: Active Medications Generic Name Dose Route Start Last Admin Trade Name Freq PRN Reason Stop Dose Admin Acetaminophen 650 mg 05/28/18 08:15 05/29/18 22:42 Tylenol PO 650 mg Q4H PRN Administration Temp > 100.4 Al Hydroxide/Mg Hydroxide 30 ml 05/28/18 08:14 05/29/18 19:47 Milk Of Magnesia Liq PO 30 ml Q12H PRN Administration Mild Constipation Amlodipine Besylate 10 mg 05/28/18 10:00 06/03/18 08:00 Norvasc PO 10 mg DAILY [facility] Administration Clonidine HCl 0.1 mg 05/28/18 10:00 06/03/18 08:00 Catapres PO 0.1 mg BID [facility] Administration Cyclobenzaprine HCl 5 mg 05/28/18 14:00 06/03/18 13:35 Flexeril PO 5 mg Q8HR [facility] Administration Dexamethasone Sodium Phosphate 20 mg 06/01/18 09:00 06/03/18 07:59 Decadron Inj IV.PUSH 06/04/18 09:01 20 mg DAILY [facility] Administration Dextrose 50 ml 05/30/18 10:00 05/30/18 10:59 D50w Vial IV.PUSH 50 ml UNSCH PRN Administration PER HYPOGLYCEMIA PROTOCOL Ferrous Sulfate 325 mg 05/28/18 10:00 06/03/18 08:00 Ferosul PO 325 mg DAILY [facility] Administration Heparin Sodium (Porcine) 5,000 units 05/29/18 21:00 06/03/18 07:59 Heparin Inj SQ 5,000 units Q12HR [facility] Administration Hydralazine HCl 75 mg 06/01/18 14:00 06/03/18 17:16 Apresoline PO 75 mg TID [facility] Administration Sodium Chloride 1,000 mls @ 200 mls/hr 06/01/18 13:15 06/03/18 17:16 Ns Inj IV.CONT Not Given .Q5H [facility] Insulin Aspart 0 unit 05/28/18 12:00 06/03/18 16:05 Novolog Insulin Correctional Sugar Inj SQ Not Given ,,,,03 [facility] Protocol Lactulose 30 ml 05/28/18 08:14 05/30/18 22:39 Lactulose Liq PO 30 ml DAILY PRN Administration [employer] Levothyroxine Sodium 150 mcg 05/28/18 09:00 06/03/18 06:19 Synthroid PO 150 mcg DAILY@0600 [facility] Administration Oxycodone/Acetaminophen 1 tab 05/28/18 11:00 05/29/18 19:47 Percocet 5/325 Mg PO 1 tab Q4H PRN Administration PAIN SCALE 1 TO 10 Pantoprazole Sodium 40 mg 06/01/18 09:00 06/03/18 08:00 Protonix Inj IV.PUSH 40 mg Q24H [facility] Administration Potassium Chloride 20 meq 05/28/18 10:00 06/03/18 08:00 K-Dur PO Not Given DAILY [facility] Objective Remarks: GENERAL: Elderly female patient, awake and alert speaking with a strong voice. SKIN: Warm and dry. No rash. HEAD: Normocephalic. EYES: No scleral icterus. No injection or drainage. NECK: Supple, trachea midline. CARDIOVASCULAR: Regular rate and rhythm without murmurs. RESPIRATORY: Clear anteriorly, equal bilaterally. Nonlabored at rest. GASTROINTESTINAL: Abdomen soft, non-tender, nondistended. EXTREMITIES: No cyanosis or edema. MUSCULOSKELETAL: Decreased muscle tone. Assessment/Plan - Plan 87-year-old female with a remote history of breast cancer diagnosed in the . She had definitive surgery, adjuvant systemic chemotherapy. She has had no evidence of recurrence since that time. She presented to the emergency room with complaints of severe back pain that she has had for [address] shows permeative lytic changes involving multiple bony elements, primarily of the spine consistent with metastatic disease or myeloma. She also has other indicators of possible myeloma including hypercalcemia, renal dysfunction and anemia. 1. Multiple myeloma, continue dexamethasone pulse 20mg IV x's 4. Patient tolerating Decadron well. Clinically she is responding. She is more alert, awake, appetite is good, eating. We discussed her plan to continue Decadron pulse dose while she is in the hospital ultimately switching to double/triple combination depending on her response, with a proteosome inhibitor and an Imid. She received 1 dose of pamidronate as adjunctive therapy for her multiple myeloma. Hemoglobin is stable. Serum protein electrophoresis shows an IgG kappa multiple myeloma. Bone marrow biopsy showed 30% plasma cell involvement consistent with multiple myeloma. Cytogenetics still pending. Staging CT PET scan to be scheduled on an outpatient basis. 2. Back pain, continue supportive care. Taking as needed medication. Valium was discontinued. Valium was giving too much sedation. We discussed the risk and benefit of small dose of long-acting pain medication such as methadone 2.5 mg once daily. This may assist with her chronic pain particularly when she tries to move. 3. Hypercalcemia, continue IV fluids for hydration. Hypercalcemia improving. Renal insufficiency is not improving. She has other factors contributing to renal insufficiency such as the diabetes and hypertension. Nephrology on board. They are discussing with patient and her daughter the possibility of dialysis in the future. IV fluid hydration and monitoring of renal function continue. 4. Pending rehab evaluation and physical therapy.
[2018-06-03 19:51] LABS: Free Kappa/Lambda Light Chain 318.63 (0.26-1.65); Kappa Light Chain, Free 5384.9 mg/L (3.3-19.4); Lambda Light Chain, Free 16.9 mg/L (5.7-26.3)
[2018-06-04] MEDS: Levothyroxine 150 MCG Tablet PO SCH (05:13)
[2018-06-04] MEDS: Insulin NovoLOG Aspart Correctional Sugar Inj SQ SCH ×5 (05:14→22:42)
[2018-06-04] MEDS: Sod Chloride 0.9% Inj 1,000 ML IV.CONT SCH ×4 (05:14→18:26)
[2018-06-04 06:24] LABS: Albumin 2.5 g/dL (3.4-5.0); Calcium 9.4 mg/dL (8.5-10.1); Carbon Dioxide 19.3 meq/L (21.0-32.0); Phosphorus 3.7 mg/dL (2.5-4.9)
[2018-06-04] MEDS: Heparin - SQ 10,000 UNITS/ML Vial SQ SCH ×2 (09:30→22:35)
[2018-06-04] MEDS: Pantoprazole Inj 40 MG Vial IV.PUSH SCH (09:30)
[2018-06-04] MEDS: Ferrous Sulfate 325 MG Tablet PO SCH (09:30)
[2018-06-04] MEDS: Dexamethasone Inj 20 MG/5 ML Vial IV.PUSH SCH (09:30)
[2018-06-04] MEDS: amLODIPine 10 MG Tablet PO SCH (09:30)
[2018-06-04] MEDS: hydrALAZINE 50 MG Tablet PO SCH ×3 (09:30→17:30)
--- NOTE | 2018-06-04 10:46 | P.PNONC ---
Subjective Interval history: Patient awake and alert on approach. She reports that her pain has improved tremendously. She has been able to eat Objective Vital Signs/Intake & Output: Vital Signs 06/03/18 12:00 06/03/18 16:00 06/03/18 20:00 Temperature 98.8 F 97.4 F L Pulse Rate 64 70 84 Respiratory Rate 18 18 18 Blood Pressure 160/70 H 161/79 H 151/79 H Pulse Oximetry 97 99 97 06/04/18 00:00 06/04/18 03:05 06/04/18 04:00 Temperature 98.6 F 98.6 F Pulse Rate 71 75 69 Respiratory Rate 18 16 Blood Pressure 161/71 H 150/68 H Pulse Oximetry 96 98 Intake & Output 06/03/18 06/04/18 06/04/18 18:59 06:59 18:59 Intake Total 2231 / 2231 1371 / 1371 Output Total 300 / 300 200 / 200 Balance 1931 / 1931 1171 / 1171 Weight 60.5 kg Intake: IV 1371 / 1371 1371 / 1371 NS Inj 1,000 ML @ 200 mls/hr IV 1371 / 1371 1371 / 1371 .CONT .Q5H [facility] Rx#:[id number] Oral 860 / 860 Output: Urine 300 / 300 200 / 200 Other: # Urine Diapers 2 Date of Last Bowel Movement 06/02/18 # Bowel Movements 1 Result Diagrams: 06/03/18 11:04 06/04/18 04:19 Laboratory Results: Laboratory Results - last 24 hr 05/29/18 06/03/18 06/03/18 06:56 11:04 11:04 WBC 6.6 RBC 2.65 L Hgb 8.3 L Hct 24.6 L MCV 92.9 MCH 31.2 MCHC 33.6 RDW 16.5 Plt Count 217 MPV 6.8 L Neut % (Auto) 94.3 H Lymph % (Auto) 3.3 L Foard % (Auto) 2.3 Eos % (Auto) 0.1 Baso % (Auto) 0.0 Neut # (Auto) 6.2 Lymph # (Auto) 0.2 L Foard # (Auto) 0.1 Eos # (Auto) 0.0 Baso # (Auto) 0.0 WBC Differential . Differential Comment Auto diff final Sodium 141 Potassium 4.2 Chloride 110 H Carbon Dioxide 21.4 Anion Gap 10 BUN 51 H Creatinine 4.14 H Estimated GFR 12 L POC Glucose Random Glucose 127 H Calcium 10.3 H D Phosphorus 4.1 Total Bilirubin 0.2 AST 53 H ALT 36 Alkaline Phosphatase 73 Total Protein 6.3 L Albumin 2.5 L Free Clever Light Chains 5384.90 H Free Lambda Light Chain 16.90 Free Clever/Lambda Ratio 318.63 H 06/03/18 06/03/18 06/03/18 11:04 15:43 22:00 WBC RBC Hgb Hct MCV MCH MCHC RDW Plt Count MPV Neut % (Auto) Lymph % (Auto) Foard % (Auto) Eos % (Auto) Baso % (Auto) Neut # (Auto) Lymph # (Auto) Foard # (Auto) Eos # (Auto) Baso # (Auto) WBC Differential Differential Comment Sodium Cancelled Potassium Cancelled Chloride Cancelled Carbon Dioxide Cancelled Anion Gap Cancelled BUN Cancelled Creatinine Cancelled Estimated GFR Cancelled POC Glucose 185 H 151 H Random Glucose Cancelled Calcium Cancelled Phosphorus Cancelled Total Bilirubin AST ALT Alkaline Phosphatase Total Protein Albumin Cancelled Free Clever Light Chains Free Lambda Light Chain Free Clever/Lambda Ratio 06/04/18 06/04/18 06/04/18 04:19 05:10 08:21 WBC RBC Hgb Hct MCV MCH MCHC RDW Plt Count MPV Neut % (Auto) Lymph % (Auto) Foard % (Auto) Eos % (Auto) Baso % (Auto) Neut # (Auto) Lymph # (Auto) Foard # (Auto) Eos # (Auto) Baso # (Auto) WBC Differential Differential Comment Sodium 143 Potassium 4.0 Chloride 111 H Carbon Dioxide 19.3 L Anion Gap 13 BUN 57 H Creatinine 3.87 H Estimated GFR 13 L POC Glucose 125 H 109 Random Glucose 111 H Calcium 9.4 D Phosphorus 3.7 Total Bilirubin AST ALT Alkaline Phosphatase Total Protein Albumin 2.5 L Free Clever Light Chains Free Lambda Light Chain Free Clever/Lambda Ratio Culture Results: Microbiology 05/29/18 23:55 Aerobic Blood Culture - Preliminary Blood - Peripheral No growth in 4 days Anaerobic Blood Culture - Preliminary No growth in 4 days 05/29/18 23:50 Aerobic Blood Culture - Preliminary Blood - Peripheral No growth in 4 days Anaerobic Blood Culture - Preliminary No growth in 4 days Medications: Active Medications Generic Name Dose Route Start Last Admin Trade Name Freq PRN Reason Stop Dose Admin Acetaminophen 650 mg 05/28/18 08:15 05/29/18 22:42 Tylenol PO 650 mg Q4H PRN Administration Temp > 100.4 Al Hydroxide/Mg Hydroxide 30 ml 05/28/18 08:14 05/29/18 19:47 Milk Of Magnesia Liq PO 30 ml Q12H PRN Administration Mild Constipation Amlodipine Besylate 10 mg 05/28/18 10:00 06/03/18 08:00 Norvasc PO 10 mg DAILY [facility] Administration Clonidine HCl 0.1 mg 05/28/18 10:00 06/03/18 21:55 Catapres PO 0.1 mg BID [facility] Administration Cyclobenzaprine HCl 5 mg 05/28/18 14:00 06/04/18 05:13 Flexeril PO 5 mg Q8HR [facility] Administration Dextrose 50 ml 05/30/18 10:00 05/30/18 10:59 D50w Vial IV.PUSH 50 ml UNSCH PRN Administration PER HYPOGLYCEMIA PROTOCOL Ferrous Sulfate 325 mg 05/28/18 10:00 06/03/18 08:00 Ferosul PO 325 mg DAILY [facility] Administration Heparin Sodium (Porcine) 5,000 units 05/29/18 21:00 06/03/18 21:55 Heparin Inj SQ 5,000 units Q12HR [facility] Administration Hydralazine HCl 75 mg 06/01/18 14:00 06/03/18 17:16 Apresoline PO 75 mg TID [facility] Administration Sodium Chloride 1,000 mls @ 200 mls/hr 06/01/18 13:15 06/04/18 05:14 Ns Inj IV.CONT 125 mls/hr .Q5H [facility] Administration Insulin Aspart 0 unit 05/28/18 12:00 06/04/18 08:22 Novolog Insulin Correctional Sugar Inj SQ Not Given ,,,,03 [facility] Protocol Lactulose 30 ml 05/28/18 08:14 05/30/18 22:39 Lactulose Liq PO 30 ml DAILY PRN Administration SEVERE CONSITIPATION Levothyroxine Sodium 150 mcg 05/28/18 09:00 06/04/18 05:13 Synthroid PO 150 mcg DAILY@0600 [facility] Administration Oxycodone/Acetaminophen 1 tab 05/28/18 11:00 05/29/18 19:47 Percocet 5/325 Mg PO 1 tab Q4H PRN Administration PAIN SCALE 1 TO 10 Pantoprazole Sodium 40 mg 06/01/18 09:00 06/03/18 08:00 Protonix Inj IV.PUSH 40 mg Q24H [facility] Administration Potassium Chloride 20 meq 05/28/18 10:00 06/03/18 08:00 K-Dur PO Not Given DAILY [facility] Objective Remarks: GENERAL: Elderly female patient, awake and alert in no acute distress. SKIN: Warm and dry. No rash. HEAD: Normocephalic. EYES: No scleral icterus. No injection or drainage. NECK: Supple, trachea midline. CARDIOVASCULAR: Regular rate and rhythm without murmurs. RESPIRATORY: Clear anteriorly, equal bilaterally. Nonlabored at rest. GASTROINTESTINAL: Abdomen soft, non-tender, nondistended. EXTREMITIES: No cyanosis or edema. MUSCULOSKELETAL: Decreased muscle tone. Assessment/Plan - Plan 87-year-old female with a remote history of breast cancer diagnosed in the . She had definitive surgery, adjuvant systemic chemotherapy. She has had no evidence of recurrence since that time. She presented to the emergency room with complaints of severe back pain that she has had for [address] shows permeative lytic changes involving multiple bony elements, primarily of the spine consistent with metastatic disease or myeloma. She also has other indicators of possible myeloma including hypercalcemia, renal dysfunction and anemia. Recommendations: 1. Multiple myeloma, continue dexamethasone pulse 20mg IV x's 4. Patient tolerating Decadron well. Clinically she is responding. Cytogenetics still pending. Staging CT PET scan to be scheduled on an outpatient basis. 2. Back pain, continue supportive care. Subjectively improved since being on steroids. 3. Hypercalcemia, continue IV fluids for hydration. Hypercalcemia improving, renal insufficiency continues. Nephrology is following. 4. Pending rehab evaluation and physical therapy. - Attending Statement The exam, history, and the medical decision-making described in the above note were completed with the assistance of the mid-level provider. I reviewed and agree with the findings presented. I attest that I had a [id number] encounter with the patient on the same day, and personally performed and documented my assessment and findings in the medical record. Patient states that her back pain is better On Decadron for newly diagnosed multiple myeloma Further workup as an outpatient Patient is stable
--- NOTE | 2018-06-04 12:07 | P.PN ---
Subjective Interval history: Follow-up for multiple myeloma and acute kidney injury. Nursing denies any acute changes overnight. Patient herself says she feels better today. Daughters at the bedside. Physical Exam Vital signs: Vital Signs 06/03/18 16:00 06/03/18 20:00 06/04/18 00:00 Temperature 97.4 F L 98.6 F Pulse Rate 70 84 71 Respiratory Rate 18 18 18 Blood Pressure 161/79 H 151/79 H 161/71 H Pulse Oximetry 99 97 96 06/04/18 03:05 06/04/18 04:00 Temperature 98.6 F Pulse Rate 75 69 Respiratory Rate 16 Blood Pressure 150/68 H Pulse Oximetry 98 Intake & Output 06/03/18 06/04/18 06/04/18 18:59 06:59 18:59 Intake Total 2231 / 2231 1371 / 1371 1000 / 1000 Output Total 300 / 300 200 / 200 Balance 193 / 1931 1171 / 1171 1000 / 1000 Weight 60.5 kg Intake: IV 1371 / 1371 1371 / 1371 1000 / 1000 NS Inj 1,000 ML @ 200 mls/hr IV 1371 / 1371 1371 / 1371 1000 / 1000 .CONT .Q5H [facility] Rx#:[id number] Oral 860 / 860 Output: Urine 300 / 300 200 / 200 Other: # Urine Diapers 2 Date of Last Bowel Movement 06/02/18 # Bowel Movements 1 Narrative: Heart sounds regular rate rhythm, no murmurs Clear lungs bilaterally, unlabored breathing Awake and alert Lying in bed Abdomen soft, nondistended nontender Results - Labs CBC & Chem 7: 06/03/18 11:04 06/04/18 04:19 Laboratory Results - last 24 hr 05/29/18 06/03/18 06/03/18 06:56 11:04 11:04 Sodium 141 Cancelled Potassium 4.2 Cancelled Chloride 110 H Cancelled Carbon Dioxide 21.4 Cancelled Anion Gap 10 Cancelled BUN 51 H Cancelled Creatinine 4.14 H Cancelled Estimated GFR 12 L Cancelled POC Glucose Random Glucose 127 H Cancelled Calcium 10.3 H D Cancelled Phosphorus 4.1 Cancelled Total Bilirubin 0.2 AST 53 H ALT 36 Alkaline Phosphatase 73 Total Protein 6.3 L Albumin 2.5 L Cancelled Free [place] Light Chains 5384.90 H Free Lambda Light Chain 16.90 Free [place]/Lambda Ratio 318.63 H 06/03/18 06/03/18 06/04/18 15:43 22:00 04:19 Sodium 143 Potassium 4.0 Chloride 111 H Carbon Dioxide 19.3 L Anion Gap 13 BUN 57 H Creatinine 3.87 H Estimated GFR 13 L POC Glucose 185 H 151 H Random Glucose 111 H Calcium 9.4 D Phosphorus 3.7 Total Bilirubin AST ALT Alkaline Phosphatase Total Protein Albumin 2.5 L Free [place] Light Chains Free Lambda Light Chain Free [place]/Lambda Ratio 06/04/18 06/04/18 05:10 08:21 Sodium Potassium Chloride Carbon Dioxide Anion Gap BUN Creatinine Estimated GFR POC Glucose 125 H 109 Random Glucose Calcium Phosphorus Total Bilirubin AST ALT Alkaline Phosphatase Total Protein Albumin Free [place] Light Chains Free Lambda Light Chain Free [place]/Lambda Ratio Microbiology 05/29/18 23:55 Blood - Peripheral Aerobic Blood Culture - Final No growth in 5 days 05/29/18 23:55 Blood - Peripheral Anaerobic Blood Culture - Final No growth in 5 days 05/29/18 23:50 Blood - Peripheral Aerobic Blood Culture - Final No growth in 5 days 05/29/18 23:50 Blood - Peripheral Anaerobic Blood Culture - Final No growth in 5 days Assessment and Plan - Plan This patient is an 87-year-old female with a diagnosis of hypertension, hypothyroidism, peripheral vascular disease, stage IV chronic kidney disease, history of right-sided breast cancer, diabetes mellitus type 2, dyslipidemia. The patient presented to our emergency department with complaints of severe back pain. 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 -Likely secondary to hypercalcemia multiple myeloma, finally improving today, continue IV fluids and treat underlying multiple myeloma -Nephrology following, may need dialysis, trend renal function Hypertension -Continue amlodipine, hydralazine, clonidine Diabetes mellitus type 2 -Accu-Cheks sliding scale insulin Hypothyroidism -Continue Synthroid. Heparin
--- NOTE | 2018-06-04 13:52 | P.PNNP ---
Subjective Interval history: ongoing pains Physical Exam Vital signs: Vital Signs 06/03/18 16:00 06/03/18 20:00 06/04/18 00:00 Temperature 97.4 F L 98.6 F Pulse Rate 70 84 71 Respiratory Rate 18 18 18 Blood Pressure 161/79 H 151/79 H 161/71 H Pulse Oximetry 99 97 96 06/04/18 03:05 06/04/18 04:00 06/04/18 07:00 Temperature 98.6 F Pulse Rate 75 69 71 Respiratory Rate 16 Blood Pressure 150/68 H Pulse Oximetry 98 06/04/18 08:00 06/04/18 12:00 Temperature 98.0 F 98.1 F Pulse Rate 70 74 Respiratory Rate 16 16 Blood Pressure 153/77 H 155/73 H Pulse Oximetry 96 97 Intake & Output 06/03/18 06/04/18 06/04/18 18:59 06:59 18:59 Intake Total 2231 / 2231 1371 / 1371 1000 / 1000 Output Total 300 / 300 200 / 200 Balance 1931 / 1931 1171 / 1171 1000 / 1000 Weight 60.5 kg Intake: IV 1371 / 1371 1371 / 1371 1000 / 1000 NS Inj 1,000 ML @ 200 mls/hr IV 1371 / 1371 1371 / 1371 1000 / 1000 .CONT .Q5H [facility] Rx#:[id number] Oral 860 / 860 Output: Urine 300 / 300 200 / 200 Other: # Urine Diapers 2 Date of Last Bowel Movement 06/02/18 06/03/18 # Bowel Movements 1 - Constitutional no acute distress - Routine HEENT Exam Head: Present: normocephalic Eye: Present: EOMI ENT: Present: mucous membranes moist - Routine Neck Exam Present: supple - Routine Respiratory Exam Present: CTA bilaterally - Routine Cardiovascular Exam Present: RRR - Routine Abdominal Exam Present: soft - Routine Extremities Exam Present: edema - Routine Skin Exam Present: intact - Routine Neurological Exam Present: alert, oriented X3 - Detailed Neurological Exam: Coma Scale Eye Opening: Spontaneous - Routine Psychiatric Exam Present: normal affect Assessment and Plan - Assessment (1) Acute renal failure (ARF) Code(s): N17.9 - Acute kidney failure, unspecified Status: Acute Qualifiers: Acute renal failure type: unspecified Qualified Code(s): N17.9 - Acute kidney failure, unspecified Plan: Creatinine 5.3 -> 5.4 500cc UOP/24 hours No need for HD at this point, continue supportive care. On NS @ 125cc/hour Given Dexamethasone and Pamidronate for hypercalcemia. Calcium stable a 9.4 - follow labs Hc03 19 - if worsening, can add NaHCO3 to IVFs tomorrow, will follow (2) Hypertension Code(s): I10 - Essential (primary) hypertension Status: Acute Qualifiers: Hypertension type: unspecified Qualified Code(s): I10 - Essential (primary ) hypertension Plan: SBP in 150's, on amlodipine, hydralazine, and clonidine BID. Continue to monitor (3) Hypercalcemia Code(s): E83.52 - Hypercalcemia Status: Acute Plan: Continue IVF's stable (4) Anemia Code(s): D64.9 - Anemia, unspecified Status: Acute Plan: HGB stable On iron replacement. (5) Multiple myeloma and immunoproliferative neoplasms Code(s): C90.00 - Multiple myeloma not having achieved remission; C88.9 - Malignant immunoproliferative disease, unspecified Status: Acute Plan: Multiple myeloma, on dexamethasone.
[2018-06-05] MEDS: Sod Chloride 0.9% Inj 1,000 ML IV.CONT SCH ×2 (02:17→10:22)
[2018-06-05] MEDS: Insulin NovoLOG Aspart Correctional Sugar Inj SQ SCH ×5 (03:31→21:24)
[2018-06-05] MEDS: Levothyroxine 150 MCG Tablet PO SCH (06:06)
[2018-06-05] MEDS: Ferrous Sulfate 325 MG Tablet PO SCH (09:05)
[2018-06-05] MEDS: amLODIPine 10 MG Tablet PO SCH (09:06)
[2018-06-05] MEDS: Heparin - SQ 10,000 UNITS/ML Vial SQ SCH ×2 (09:06→20:58)
[2018-06-05] MEDS: Pantoprazole Inj 40 MG Vial IV.PUSH SCH (09:06)
[2018-06-05] MEDS: hydrALAZINE 50 MG Tablet PO SCH ×3 (09:07→19:05)
--- NOTE | 2018-06-05 09:20 | P.PNNP ---
Subjective Interval history: No acute complaints Physical Exam Vital signs: Vital Signs 06/04/18 12:00 06/04/18 15:00 06/04/18 16:00 Temperature 98.1 F 97.6 F Pulse Rate 68 69 84 Respiratory Rate 16 16 Blood Pressure 155/73 H 158/85 H Pulse Oximetry 97 98 06/04/18 19:00 06/04/18 20:00 06/04/18 23:00 Temperature 97.6 F Pulse Rate 58 L 82 69 Respiratory Rate 20 Blood Pressure 167/80 H Pulse Oximetry 97 06/05/18 00:00 06/05/18 03:00 06/05/18 03:48 Temperature Pulse Rate 74 82 72 Respiratory Rate 16 18 Blood Pressure 158/73 H 157/74 H Pulse Oximetry 95 97 Intake & Output 06/04/18 06/05/18 06/05/18 18:59 06:59 18:59 Intake Total 2960 / 2960 1240 / 1240 Output Total 800 / 800 550 / 550 Balance 2160 / 2160 690 / 690 Weight 73.5 kg Intake: IV 1999 / 1999 1000 / 1000 NS Inj 1,000 ML @ 200 mls/hr IV 1999 / 1999 1000 / 1000 .CONT .Q5H [facility] Rx#:[id number] Oral 960 / 960 240 / 240 Output: Urine 800 / 800 550 / 550 Other: # Voids 1 Date of Last Bowel Movement 06/03/18 06/04/18 # Bowel Movements 1 - Constitutional no acute distress - Routine HEENT Exam Head: Present: normocephalic Eye: Present: EOMI ENT: Present: mucous membranes moist - Routine Neck Exam Present: supple - Routine Respiratory Exam Present: CTA bilaterally - Routine Cardiovascular Exam Present: RRR - Routine Abdominal Exam Present: soft - Routine Extremities Exam Present: edema - Routine Skin Exam Present: intact - Routine Neurological Exam Present: alert, oriented X3 - Detailed Neurological Exam: Coma Scale Eye Opening: Spontaneous - Routine Psychiatric Exam Present: normal affect Assessment and Plan - Assessment (1) Acute renal failure (ARF) Code(s): N17.9 - Acute kidney failure, unspecified Status: Acute Qualifiers: Acute renal failure type: unspecified Qualified Code(s): N17.9 - Acute kidney failure, unspecified Plan: Creatinine 3.8 -> 3.6 today 1.3L UOP/24 hours No need for HD at this point, continue supportive care. On NS @ 125cc/hour - will change to 1/2 NS + 75 meq NaHCO3 @125cc/hour Hc03 17 Given Dexamethasone and Pamidronate for hypercalcemia. Calcium stable at 8.9 - follow labs Continue to follow labs (2) Hypertension Code(s): I10 - Essential (primary) hypertension Status: Acute Qualifiers: Hypertension type: unspecified Qualified Code(s): I10 - Essential (primary ) hypertension Plan: SBP in 150's, on amlodipine, hydralazine, and clonidine BID. Continue to monitor (3) Hypercalcemia Code(s): E83.52 - Hypercalcemia Status: Acute Plan: Continue IVF's stable (4) Anemia Code(s): D64.9 - Anemia, unspecified Status: Acute Plan: HGB stable On iron replacement. (5) Multiple myeloma and immunoproliferative neoplasms Code(s): C90.00 - Multiple myeloma not having achieved remission; C88.9 - Malignant immunoproliferative disease, unspecified Status: Acute Plan: Multiple myeloma, on dexamethasone.
--- NOTE | 2018-06-05 09:36 | P.PNONC ---
Subjective Interval history: Patient sitting up in bed, eating breakfast. She states she is feeling well. Her pain is currently controlled. Objective Vital Signs/Intake & Output: Vital Signs 06/04/18 12:00 06/04/18 15:00 06/04/18 16:00 Temperature 98.1 F 97.6 F Pulse Rate 68 69 84 Respiratory Rate 16 16 Blood Pressure 155/73 H 158/85 H Pulse Oximetry 97 98 06/04/18 19:00 06/04/18 20:00 06/04/18 23:00 Temperature 97.6 F Pulse Rate 58 L 82 69 Respiratory Rate 20 Blood Pressure 167/80 H Pulse Oximetry 97 06/05/18 00:00 06/05/18 03:00 06/05/18 03:48 Temperature Pulse Rate 74 82 72 Respiratory Rate 16 18 Blood Pressure 158/73 H 157/74 H Pulse Oximetry 95 97 Intake & Output 06/04/18 06/05/18 06/05/18 18:59 06:59 18:59 Intake Total 2960 / 2960 1240 / 1240 Output Total 800 / 800 550 / 550 Balance 2160 / 2160 690 / 690 Weight 73.5 kg Intake: IV 1999 / 1999 1000 / 1000 NS Inj 1,000 ML @ 200 mls/hr IV 1999 / 1999 1000 / 1000 .CONT .Q5H [facility] Rx#:[id number] Oral 960 / 960 240 / 240 Output: Urine 800 / 800 550 / 550 Other: # Voids 1 Date of Last Bowel Movement 06/03/18 06/04/18 # Bowel Movements 1 Result Diagrams: 06/05/18 11:11 06/05/18 09:31 Laboratory Results: Laboratory Results - last 24 hr 06/04/18 06/04/18 06/04/18 12:54 17:24 22:30 POC Glucose 129 H 133 H 133 H 06/05/18 06/05/18 03:27 08:53 POC Glucose 113 H 119 H Culture Results: Microbiology 05/29/18 23:55 Aerobic Blood Culture - Final Blood - Peripheral No growth in 5 days Anaerobic Blood Culture - Final No growth in 5 days 05/29/18 23:50 Aerobic Blood Culture - Final Blood - Peripheral No growth in 5 days Anaerobic Blood Culture - Final No growth in 5 days Medications: Active Medications Generic Name Dose Route Start Last Admin Trade Name Freq PRN Reason Stop Dose Admin Acetaminophen 650 mg 05/28/18 08:15 05/29/18 22:42 Tylenol PO 650 mg Q4H PRN Administration Temp > 100.4 Al Hydroxide/Mg Hydroxide 30 ml 05/28/18 08:14 05/29/18 19:47 Milk Of Magnesia Liq PO 30 ml Q12H PRN Administration Mild Constipation Amlodipine Besylate 10 mg 05/28/18 10:00 06/05/18 09:06 Norvasc PO 10 mg DAILY [facility] Administration Clonidine HCl 0.1 mg 05/28/18 10:00 06/05/18 09:07 Catapres PO 0.1 mg BID [facility] Administration Cyclobenzaprine HCl 5 mg 05/28/18 14:00 06/05/18 06:07 Flexeril PO 5 mg Q8HR [facility] Administration Dextrose 50 ml 05/30/18 10:00 05/30/18 10:59 D50w Vial IV.PUSH 50 ml UNSCH PRN Administration PER HYPOGLYCEMIA PROTOCOL Ferrous Sulfate 325 mg 05/28/18 10:00 06/05/18 09:05 Ferosul PO 325 mg DAILY [facility] Administration Heparin Sodium (Porcine) 5,000 units 05/29/18 21:00 06/05/18 09:06 Heparin Inj SQ 5,000 units Q12HR [facility] Administration Hydralazine HCl 75 mg 06/01/18 14:00 06/05/18 09:07 Apresoline PO 75 mg TID [facility] Administration Sodium Chloride 1,000 mls @ 200 mls/hr 06/01/18 13:15 06/05/18 02:17 Ns Inj IV.CONT 125 mls/hr .Q5H [facility] Administration Insulin Aspart 0 unit 05/28/18 12:00 06/05/18 09:07 Novolog Insulin Correctional Sugar Inj SQ Not Given 08,12,17,,03 [facility] Protocol Lactulose 30 ml 05/28/18 08:14 05/30/18 22:39 Lactulose Liq PO 30 ml DAILY PRN Administration SEVERE CONSITIPATION Levothyroxine Sodium 150 mcg 05/28/18 09:00 06/05/18 06:06 Synthroid PO 150 mcg DAILY@0600 [facility] Administration Oxycodone/Acetaminophen 1 tab 05/28/18 11:00 05/29/18 19:47 Percocet 5/325 Mg PO 1 tab Q4H PRN Administration PAIN SCALE 1 TO 10 Pantoprazole Sodium 40 mg 06/01/18 09:00 06/05/18 09:06 Protonix Inj IV.PUSH 40 mg Q24H [facility] Administration Potassium Chloride 20 meq 05/28/18 10:00 06/05/18 09:05 K-Dur PO 20 meq DAILY [facility] Administration Objective Remarks: GENERAL: Elderly female patient, awake and alert in no acute distress. SKIN: Warm and dry. No rash. HEAD: Normocephalic. EYES: No scleral icterus. No injection or drainage. NECK: Supple, trachea midline. CARDIOVASCULAR: +S1/S2 without murmurs. RESPIRATORY: Clear anteriorly, equal bilaterally. Nonlabored at rest. GASTROINTESTINAL: Abdomen soft, non-tender, nondistended. EXTREMITIES: No cyanosis or edema. MUSCULOSKELETAL: Decreased muscle tone. Assessment/Plan - Plan 87-year-old female with a remote history of breast cancer diagnosed in the . She had definitive surgery, adjuvant systemic chemotherapy. She has had no evidence of recurrence since that time. She presented to the emergency room with complaints of severe back pain that she has had for [address] shows permeative lytic changes involving multiple bony elements, primarily of the spine consistent with metastatic disease or myeloma. She also has other indicators of possible myeloma including hypercalcemia, renal dysfunction and anemia. Recommendations: 1. Multiple myeloma, s/p dexamethasone pulse 20mg IV x's 3. Cytogenetics still pending. Staging CT PET scan to be scheduled on an outpatient basis. 2. Back pain, improved. 3. Hypercalcemia, continue IV fluids for hydration. Labs pending today. Nephrology is following. 4. Patient's pain is currently controlled and she is awake and alert, she will likely be able to participate in physical therapy now that her pain has improved. - Attending Statement The exam, history, and the medical decision-making described in the above note were completed with the assistance of the mid-level provider. I reviewed and agree with the findings presented. I attest that I had a [id number] encounter with the patient on the same day, and personally performed and documented my assessment and findings in the medical record. Patient's back pain has improved She is more awake and alert Had 3 days of pulse Decadron for multiple myeloma Hypercalcemia has resolved Creatinine still remains high but improving Cytogenetics are pending Patient will have staging workup with PET scan as an outpatient Most likely she will be treated with Velcade, Cytoxan and Decadron. Dr. Rm will see her tomorrow morning
[2018-06-05 10:14] LABS: Albumin 2.9 g/dL (3.4-5.0); Anion Gap 12 meq/L (5-15); Aspartate Aminotransferase 47 U/L (15-37); Blood Urea Nitrogen 59 mg/dL (7-18); Calcium 8.9 mg/dL (8.5-10.1); Carbon Dioxide 17.1 meq/L (21.0-32.0); Chloride 113 meq/L (98-107); Glomerular Filtration Rate 14 mL/min (>89); Glucose,Random 120 mg/dL (74-106); Sodium 142 meq/L (136-145)
[2018-06-05 10:15] LABS: Alanine Aminotransferase 46 U/L (10-53)
[2018-06-05 10:17] LABS: Alkaline Phosphatase 84 U/L (45-117); Phosphorus 3.3 mg/dL (2.5-4.9); Total Protein 6.8 g/dL (6.4-8.2)
--- NOTE | 2018-06-05 10:40 | P.PN ---
Subjective Interval history: Nursing denies any acute changes overnight. Daughter says that physical therapy did work with the patient previously. Patient says she feels better than yesterday. Physical Exam Vital signs: Vital Signs 06/04/18 12:00 06/04/18 15:00 06/04/18 16:00 Temperature 98.1 F 97.6 F Pulse Rate 68 69 84 Respiratory Rate 16 16 Blood Pressure 155/73 H 158/85 H Pulse Oximetry 97 98 06/04/18 19:00 06/04/18 20:00 06/04/18 23:00 Temperature 97.6 F Pulse Rate 58 L 82 69 Respiratory Rate 20 Blood Pressure 167/80 H Pulse Oximetry 97 06/05/18 00:00 06/05/18 03:00 06/05/18 03:48 Temperature Pulse Rate 74 82 72 Respiratory Rate 16 18 Blood Pressure 158/73 H 157/74 H Pulse Oximetry 95 97 Intake & Output 06/04/18 06/05/18 06/05/18 18:59 06:59 18:59 Intake Total 2960 / 2960 1240 / 1240 1000 / 1000 Output Total 800 / 800 550 / 550 Balance 2160 / 2160 690 / 690 1000 / 1000 Weight 73.5 kg Intake: IV 2000 / 1999 1000 / 1000 1000 / 1000 NS Inj 1,000 ML @ 200 mls/hr IV 2000 / 2000 1000 / 1000 1000 / 1000 .CONT .Q5H [facility] Rx#:[id number] Oral 960 / 960 240 / 240 Output: Urine 800 / 800 550 / 550 Other: # Voids 1 Date of Last Bowel Movement 06/03/18 06/04/18 # Bowel Movements 1 Narrative: Heart sounds regular rate rhythm, no murmurs Clear lungs bilaterally, unlabored breathing Abdomen soft lying in bed, no acute distress, awake, alert Results - Labs CBC & Chem 7: 06/03/18 11:04 06/05/18 09:31 Laboratory Results - last 24 hr 06/04/18 06/04/18 06/04/18 12:54 17:24 22:30 Sodium Potassium Chloride Carbon Dioxide Anion Gap BUN Creatinine Estimated GFR POC Glucose 129 H 133 H 133 H Random Glucose Calcium Phosphorus Total Bilirubin AST ALT Alkaline Phosphatase Total Protein Albumin 06/05/18 06/05/18 06/05/18 03:27 08:53 09:31 Sodium 142 Potassium 4.0 Chloride 113 H Carbon Dioxide 17.1 L Anion Gap 12 BUN 59 H Creatinine 3.66 H Estimated GFR 14 L POC Glucose 113 H 119 H Random Glucose 120 H Calcium 8.9 Phosphorus 3.3 Total Bilirubin 0.2 AST 47 H ALT 46 Alkaline Phosphatase 84 Total Protein 6.8 Albumin 2.9 L Microbiology 05/29/18 23:55 Blood - Peripheral Aerobic Blood Culture - Final No growth in 5 days 05/29/18 23:55 Blood - Peripheral Anaerobic Blood Culture - Final No growth in 5 days 05/29/18 23:50 Blood - Peripheral Aerobic Blood Culture - Final No growth in 5 days 05/29/18 23:50 Blood - Peripheral Anaerobic Blood Culture - Final No growth in 5 days Assessment and Plan - Plan This patient is an 87-year-old female with a diagnosis of hypertension, hypothyroidism, peripheral vascular disease, stage IV chronic kidney disease, history of right-sided breast cancer, diabetes mellitus type 2, dyslipidemia. The patient presented to our emergency department with complaints of severe back pain. 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 -Likely secondary to hypercalcemia + multiple myeloma, -Showing sustained improvement, treat underlying issue, trend renal function -Nephrology following Hypertension -Continue amlodipine, hydralazine, clonidine Diabetes mellitus type 2 -Accu-Cheks sliding scale insulin Hypothyroidism -Continue Synthroid. Heparin Discharge Planning: pending nephrology clearance, ? SNF
[2018-06-05 11:50] LABS: Baso % (Auto) 0.1 % (0.0-2.0); Hematocrit 23.4 % (35.0-46.0); Hemoglobin 8.5 gm/dL (11.6-15.3); Lymph # (Auto) 0.4 th/mm3 (1.0-4.8); Lymph % (Auto) 5.9 % (9.0-44.0); Mean Corpuscular Hemoglobin 33.4 pg (27.0-34.0); Mean Corpuscular Volume 92.2 fL (80.0-100.0); Mono # (Auto) 0.4 th/mm3 (0.0-0.9); Mono % (Auto) 5.8 % (0.0-8.0); Neut # (Auto) 5.5 th/mm3 (1.8-7.7); Neut % (Auto) 88.2 % (16.0-70.0); Platelet Count 230 th/mm3 (150-450); Red Blood Count 2.54 mil/mm3 (4.00-5.30); Red Cell Distribution Width 16.6 % (11.6-17.2); White Blood Count 6.2 th/mm3 (4.0-11.0)
[2018-06-05 12:06] LABS: Mean Corpuscular HGB Conc 36.2 % (32.0-36.0)
[2018-06-05 12:37] LABS: Acanthocytes Occ; Burr Cells 1+; Ovalocytes 1+
[2018-06-05 12:38] LABS: Platelet Estimate Normal (Normal); Platelet Morphology Normal (Normal)
[2018-06-05] MEDS: Sodium Bicarbonate 8.4% Inj 75 MEQ in Sodium Chloride 0.45 % Inj 1,000 ML IV.CONT SCH (19:05)
[2018-06-06] MEDS: Sodium Bicarbonate 8.4% Inj 75 MEQ in Sodium Chloride 0.45 % Inj 1,000 ML IV.CONT SCH ×3 (03:10→15:00)
[2018-06-06] MEDS: Insulin NovoLOG Aspart Correctional Sugar Inj SQ SCH ×5 (03:17→21:02)
[2018-06-06] MEDS: Levothyroxine 150 MCG Tablet PO SCH (05:04)
[2018-06-06 07:38] LABS: Hematocrit 23.4 % (35.0-46.0); Hemoglobin 8.2 gm/dL (11.6-15.3); Mean Corpuscular Hemoglobin 31.6 pg (27.0-34.0); Mean Corpuscular Volume 90.3 fL (80.0-100.0); Mean Platelet Volume 6.8 fL (7.0-11.0); Platelet Count 228 th/mm3 (150-450); Red Cell Distribution Width 16.8 % (11.6-17.2); White Blood Count 5.3 th/mm3 (4.0-11.0)
[2018-06-06 08:05] LABS: Alanine Aminotransferase 36 U/L (10-53); Albumin 2.4 g/dL (3.4-5.0); Alkaline Phosphatase 75 U/L (45-117); Anion Gap 9 meq/L (5-15); Aspartate Aminotransferase 34 U/L (15-37); Blood Urea Nitrogen 54 mg/dL (7-18); Calcium 8.1 mg/dL (8.5-10.1); Chloride 115 meq/L (98-107); Glomerular Filtration Rate 17 mL/min (>89); Glucose,Random 73 mg/dL (74-106); Magnesium 1.8 mg/dL (1.5-2.5); Phosphorus 2.7 mg/dL (2.5-4.9); Potassium 3.8 meq/L (3.5-5.1); Sodium 144 meq/L (136-145); Total Protein 5.7 g/dL (6.4-8.2)
--- NOTE | 2018-06-06 09:31 | P.PNNP ---
Subjective Interval history: Doing well this morning. No shortness of breath, nausea, or vomiting. Creatinine improving at 3.21. <Cat Donahue - Last Filed: 06/06/18 09:38> Physical Exam Vital signs: Vital Signs 06/05/18 12:00 06/05/18 16:00 06/05/18 17:15 Temperature 97.7 F 97.4 F L Pulse Rate 75 72 74 Respiratory Rate 16 16 16 Blood Pressure 152/74 H 151/71 H Pulse Oximetry 96 96 06/05/18 20:13 06/05/18 20:55 06/06/18 00:02 Temperature 98.0 F 97.9 F Pulse Rate 74 83 85 Respiratory Rate 16 16 Blood Pressure 157/80 H 152/81 H Pulse Oximetry 98 98 06/06/18 04:00 06/06/18 04:02 06/06/18 08:23 Temperature 97.8 F 98.7 F Pulse Rate 85 76 95 H Respiratory Rate 16 Blood Pressure 161/75 H 163/84 H Pulse Oximetry 97 97 Intake & Output 06/05/18 06/06/18 06/06/18 18:59 06:59 18:59 Intake Total 1740 / 1740 1195 / 1195 Output Total 800 / 800 300 / 300 Balance 940 / 940 895 / 895 Weight 72.8 kg Intake: IV 1000 / 1000 1075 / 1075 NS Inj 1,000 ML @ 200 mls/hr IV 1000 / 1000 .CONT .Q5H [facility] Rx#:[id number] Sodium Bicarbonate 8.4% Inj 75 1075 / 1075 MEQ In 1/2 Normal Saline Inj 1, 000 ML @ 125 mls/hr IV.CONT . [id number] [facility] Rx#:[id number] Oral 740 / 740 120 / 120 Output: Urine 800 / 800 300 / 300 Other: # Incontinent Voids 2 Date of Last Bowel Movement 06/05/18 06/05/18 Narrative: GENERAL: Alert and oriented. SKIN: Warm and dry. NECK: Supple, trachea midline. No JVD. CARDIOVASCULAR: Regular rate and rhythm without murmurs, gallops, or rubs. RESPIRATORY: Breath sounds diminished bilaterally. No accessory muscle use. GASTROINTESTINAL: Abdomen soft, non-tender, nondistended. MUSCULOSKELETAL: No cyanosis, mild lower extremity edema. <Cat Donahue - Last Filed: 06/06/18 09:38> Vital signs: Vital Signs 06/07/18 11:00 06/07/18 14:00 06/07/18 15:00 Temperature 98.7 F Pulse Rate 88 80 77 Respiratory Rate 16 Blood Pressure 145/68 H Pulse Oximetry 96 06/07/18 19:01 06/07/18 19:24 06/07/18 23:02 Temperature 98.5 F Pulse Rate 92 H 84 84 Respiratory Rate 17 Blood Pressure 145/72 H Pulse Oximetry 96 06/08/18 00:10 06/08/18 03:15 06/08/18 04:00 Temperature 98.1 F Pulse Rate 91 H 86 Respiratory Rate 16 18 Blood Pressure 145/78 H Pulse Oximetry 95 06/08/18 04:20 Temperature 98.1 F Pulse Rate 82 Respiratory Rate 18 Blood Pressure 147/72 H Pulse Oximetry 93 L Intake & Output 06/07/18 06/08/18 06/08/18 18:59 06:59 18:59 Intake Total 1495 / 1495 Output Total 1500 / 1500 1400 / 1400 Balance -5 / -5 -1400 / -1400 Weight 72.3 kg Intake: IV 775 / 775 Sodium Bicarbonate 8.4% Inj 75 775 / 775 MEQ In 1/2 Normal Saline Inj 1, 000 ML @ 75 mls/hr IV.CONT . [id number] [facility] Rx#:[id number] Oral 720 / 720 Output: Urine 1500 / 1500 1400 / 1400 Other: # Voids 2 Date of Last Bowel Movement 06/07/18 06/07/18 # Bowel Movements 1 <Cory Rodriguez Q - Last Filed: 06/08/18 10:48> Assessment and Plan - Assessment (1) Acute renal failure (ARF) Code(s): N17.9 - Acute kidney failure, unspecified Status: Acute Qualifiers: Acute renal failure type: unspecified Qualified Code(s): N17.9 - Acute kidney failure, unspecified Plan: Creatinine continues to improve 3.8 -> 3.6 ->3.2 1.1L UOP/24 hours Maintain strict I+O and avoid nephrotoxins. Will follow urinary output and BMP. On 07/27 NS + 75 meq NaHCO3 @125cc/hour, rate decreased HCO3 improving at 20. (2) Hypertension Code(s): I10 - Essential (primary) hypertension Status: Acute Qualifiers: Hypertension type: unspecified Qualified Code(s): I10 - Essential (primary ) hypertension Plan: Hypertensive, on amlodipine, hydralazine, and clonidine BID. Hydralazine increased. Continue to monitor (3) Hypercalcemia Code(s): E83.52 - Hypercalcemia Status: Acute Plan: Resolved On IVF's stable (4) Anemia Code(s): D64.9 - Anemia, unspecified Status: Acute Plan: HGB stable On iron replacement. (5) Multiple myeloma and immunoproliferative neoplasms Code(s): C90.00 - Multiple myeloma not having achieved remission; C88.9 - Malignant immunoproliferative disease, unspecified Status: Acute Plan: Multiple myeloma, on dexamethasone. CT PET scan outpatient <Cat Donahue - Last Filed: 06/06/18 09:38> - Assessment (1) Acute renal failure (ARF) Code(s): N17.9 - Acute kidney failure, unspecified Status: Acute Qualifiers: Acute renal failure type: unspecified Qualified Code(s): N17.9 - Acute kidney failure, unspecified Plan: Patient seen and examined, agree with above. Creatinine is improving, encourage oreal intake. Calcium is better. (2) Hypertension Code(s): I10 - Essential (primary) hypertension Status: Acute Qualifiers: Hypertension type: unspecified Qualified Code(s): I10 - Essential (primary ) hypertension (3) Hypercalcemia Code(s): E83.52 - Hypercalcemia Status: Acute (4) Anemia Code(s): D64.9 - Anemia, unspecified Status: Acute (5) Multiple myeloma and immunoproliferative neoplasms Code(s): C90.00 - Multiple myeloma not having achieved remission; C88.9 - Malignant immunoproliferative disease, unspecified Status: Acute <Nallely Rodriguez - Last Filed: 06/08/18 10:48>
[2018-06-06] MEDS: Pantoprazole Inj 40 MG Vial IV.PUSH SCH (09:58)
[2018-06-06] MEDS: Ferrous Sulfate 325 MG Tablet PO SCH (09:59)
[2018-06-06] MEDS: amLODIPine 10 MG Tablet PO SCH (09:59)
[2018-06-06] MEDS: Heparin - SQ 10,000 UNITS/ML Vial SQ SCH ×2 (10:37→21:02)
[2018-06-06] MEDS: Sod Chloride 0.9% Inj 1,000 ML IV.CONT SCH (10:54)
[2018-06-06] MEDS: hydrALAZINE 50 MG Tablet PO SCH (10:56)
--- NOTE | 2018-06-06 13:29 | P.PNIM ---
Subjective Interval history: The patient was resting in bed comfortably. She said she was catching up on her sleep. She said she has been urinating. She has been eating a little bit. Discussed with nursing. Physical Exam Vital signs: Vital Signs 06/05/18 16:00 06/05/18 17:15 06/05/18 20:13 Temperature 97.4 F L Pulse Rate 72 74 74 Respiratory Rate 16 16 Blood Pressure 151/71 H Pulse Oximetry 96 06/05/18 20:55 06/06/18 00:02 06/06/18 04:00 Temperature 98.0 F 97.9 F 97.8 F Pulse Rate 83 85 85 Respiratory Rate 16 16 16 Blood Pressure 157/80 H 152/81 H 161/75 H Pulse Oximetry 98 98 97 06/06/18 04:02 06/06/18 07:00 06/06/18 08:23 Temperature 98.7 F Pulse Rate 76 82 95 H Respiratory Rate Blood Pressure 163/84 H Pulse Oximetry 97 06/06/18 11:00 Temperature Pulse Rate 81 Respiratory Rate Blood Pressure Pulse Oximetry Intake & Output 06/05/18 06/06/18 06/06/18 18:59 06:59 18:59 Intake Total 1740 / 1740 1195 / 1195 2075 / 2075 Output Total 800 / 800 300 / 300 Balance 940 / 940 895 / 895 2074 / 207 Weight 72.8 kg Intake: IV 1000 / 1000 1075 / 1075 207 / 2075 NS Inj 1,000 ML @ 200 mls/hr IV 1000 / 1000 .CONT .Q5H [facility] Rx#:[id number] Sodium Bicarbonate 8.4% Inj 75 1075 / 1075 1075 / 1075 MEQ In 1/2 Normal Saline Inj 1, 000 ML @ 75 mls/hr IV.CONT . [id number] [facility] Rx#:[id number] Oral 740 / 740 120 / 120 Output: Urine 800 / 800 300 / 300 Other: # Incontinent Voids 2 Date of Last Bowel Movement 06/05/18 06/05/18 Narrative: GENERAL: No distress. SKIN: Warm and dry. NECK: Supple, trachea midline. No JVD. CARDIOVASCULAR: Regular rate and rhythm without murmurs, gallops, or rubs. RESPIRATORY: Breath sounds diminished bilaterally. No accessory muscle use. GASTROINTESTINAL: Abdomen soft, non-tender, nondistended. MUSCULOSKELETAL: No cyanosis, mild lower extremity edema. NEURO: No gross deficits. Results - Labs CBC & Chem 7: 06/06/18 07:08 06/06/18 07:08 Laboratory Results - last 24 hr 05/30/18 06/05/18 06/05/18 11:15 13:20 17:10 WBC RBC Hgb Hct MCV MCH MCHC RDW Plt Count MPV Sodium Potassium Chloride Carbon Dioxide Anion Gap BUN Creatinine Estimated GFR POC Glucose 100 88 Random Glucose Calcium Phosphorus Magnesium Total Bilirubin AST ALT Alkaline Phosphatase Total Protein Albumin Plaasma Cell Dyscrasia 06/05/18 06/06/18 06/06/18 21:22 03:15 07:08 WBC 5.3 RBC 2.60 L Hgb 8.2 L Hct 23.4 L MCV 90.3 MCH 31.6 MCHC 35.0 RDW 16.8 Plt Count 228 MPV 6.8 L Sodium Potassium Chloride Carbon Dioxide Anion Gap BUN Creatinine Estimated GFR POC Glucose 108 100 Random Glucose Calcium Phosphorus Magnesium Total Bilirubin AST ALT Alkaline Phosphatase Total Protein Albumin Plaasma Cell Dyscrasia 06/06/18 06/06/18 07:08 12:05 WBC RBC Hgb Hct MCV MCH MCHC RDW Plt Count MPV Sodium 144 Potassium 3.8 Chloride 115 H Carbon Dioxide 20.0 L Anion Gap 9 BUN 54 H Creatinine 3.21 H Estimated GFR 17 L POC Glucose 83 Random Glucose 73 L Calcium 8.1 L D Phosphorus 2.7 Magnesium 1.8 Total Bilirubin 0.2 AST 34 ALT 36 Alkaline Phosphatase 75 Total Protein 5.7 L D Albumin 2.4 L Plaasma Cell Dyscrasia Assessment and Plan - Plan This patient is an 87-year-old female with a diagnosis of hypertension, hypothyroidism, peripheral vascular disease, stage IV chronic kidney disease, history of right-sided breast cancer, diabetes mellitus type 2, dyslipidemia. The patient presented to our emergency department with complaints of severe back pain. Plasma cell neoplasm likely multiple myeloma hypercalcemia -Bone marrow biopsy confirmed multiple myeloma. Continue dexamethasone per oncology, responding in terms of pain level. Continue IV hydration with bisphosphonate. -physical therapy. TIFFANY on CKD stage IV. -Likely secondary to hypercalcemia + multiple myeloma, -Showing sustained improvement, treat underlying issue, trend renal function -Nephrology following, appreciate assistance. Hypertension Still elevated. -Continue amlodipine, hydralazine, clonidine. Adjust as needed. Diabetes mellitus type 2 Well controlled. -Accu-Cheks sliding scale insulin Hypothyroidism -Continue Synthroid. Heparin Discharge Planning: SNF when cleared by nephrology
--- NOTE | 2018-06-06 17:33 | P.PNONC ---
Subjective Interval history: Good appetite. She states she was walking with physical therapy but not necessarily on her own power. She has pain. Discussed risk and benefit of methadone to try. Objective Vital Signs/Intake & Output: Vital Signs 06/05/18 20:13 06/05/18 20:55 06/06/18 00:02 Temperature 98.0 F 97.9 F Pulse Rate 74 83 85 Respiratory Rate 16 16 Blood Pressure 157/80 H 152/81 H Pulse Oximetry 98 98 06/06/18 04:00 06/06/18 04:02 06/06/18 07:00 Temperature 97.8 F Pulse Rate 85 76 82 Respiratory Rate 16 Blood Pressure 161/75 H Pulse Oximetry 97 06/06/18 08:23 06/06/18 11:00 06/06/18 14:00 Temperature 98.7 F 98.5 F Pulse Rate 95 H 81 75 Respiratory Rate 18 Blood Pressure 163/84 H 130/88 Pulse Oximetry 97 94 L 06/06/18 15:31 Temperature Pulse Rate 94 H Respiratory Rate Blood Pressure Pulse Oximetry Intake & Output 06/05/18 06/06/18 06/06/18 18:59 06:59 18:59 Intake Total 1740 / 1740 1195 / 1195 2075 / 2075 Output Total 800 / 800 300 / 300 Balance 940 / 940 895 / 895 2074 / 2075 Weight 72.8 kg Intake: IV 1000 / 1000 1075 / 1075 2075 / 2075 NS Inj 1,000 ML @ 200 mls/hr IV 1000 / 1000 .CONT .Q5H [facility] Rx#:[id number] Sodium Bicarbonate 8.4% Inj 75 1075 / 1075 1075 / 1075 MEQ In 1/2 Normal Saline Inj 1, 000 ML @ 75 mls/hr IV.CONT . [id number] [facility] Rx#:[id number] Oral 740 / 740 120 / 120 Output: Urine 800 / 800 300 / 300 Other: # Incontinent Voids 2 Date of Last Bowel Movement 06/05/18 06/05/18 Result Diagrams: 06/06/18 07:08 06/06/18 07:08 Laboratory Results: Laboratory Results - last 24 hr 05/30/18 06/05/18 06/06/18 11:15 21:22 03:15 WBC RBC Hgb Hct MCV MCH MCHC RDW Plt Count MPV Sodium Potassium Chloride Carbon Dioxide Anion Gap BUN Creatinine Estimated GFR POC Glucose 108 100 Random Glucose Calcium Phosphorus Magnesium Total Bilirubin AST ALT Alkaline Phosphatase Total Protein Albumin Plaasma Cell Dyscrasia 06/06/18 06/06/18 06/06/18 07:08 07:08 12:05 WBC 5.3 RBC 2.60 L Hgb 8.2 L Hct 23.4 L MCV 90.3 MCH 31.6 MCHC 35.0 RDW 16.8 Plt Count 228 MPV 6.8 L Sodium 144 Potassium 3.8 Chloride 115 H Carbon Dioxide 20.0 L Anion Gap 9 BUN 54 H Creatinine 3.21 H Estimated GFR 17 L POC Glucose 83 Random Glucose 73 L Calcium 8.1 L D Phosphorus 2.7 Magnesium 1.8 Total Bilirubin 0.2 AST 34 ALT 36 Alkaline Phosphatase 75 Total Protein 5.7 L D Albumin 2.4 L Plaasma Cell Dyscrasia 06/06/18 17:10 WBC RBC Hgb Hct MCV MCH MCHC RDW Plt Count MPV Sodium Potassium Chloride Carbon Dioxide Anion Gap BUN Creatinine Estimated GFR POC Glucose 91 Random Glucose Calcium Phosphorus Magnesium Total Bilirubin AST ALT Alkaline Phosphatase Total Protein Albumin Plaasma Cell Dyscrasia Culture Results: Microbiology 05/29/18 23:55 Aerobic Blood Culture - Final Blood - Peripheral No growth in 5 days Anaerobic Blood Culture - Final No growth in 5 days 05/29/18 23:50 Aerobic Blood Culture - Final Blood - Peripheral No growth in 5 days Anaerobic Blood Culture - Final No growth in 5 days Medications: Active Medications Generic Name Dose Route Start Last Admin Trade Name Freq PRN Reason Stop Dose Admin Acetaminophen 650 mg 05/28/18 08:15 05/29/18 22:42 Tylenol PO 650 mg Q4H PRN Administration Temp > 100.4 Al Hydroxide/Mg Hydroxide 30 ml 05/28/18 08:14 05/29/18 19:47 Milk Of Magnesia Liq PO 30 ml Q12H PRN Administration Mild Constipation Amlodipine Besylate 10 mg 05/28/18 10:00 06/06/18 09:59 Norvasc PO 10 mg DAILY [facility] Administration Clonidine HCl 0.1 mg 05/28/18 10:00 06/06/18 09:59 Catapres PO 0.1 mg BID [facility] Administration Cyclobenzaprine HCl 5 mg 05/28/18 14:00 06/06/18 12:59 Flexeril PO 5 mg Q8HR [facility] Administration Dextrose 50 ml 05/30/18 10:00 05/30/18 10:59 D50w Vial IV.PUSH 50 ml UNSCH PRN Administration PER HYPOGLYCEMIA PROTOCOL Ferrous Sulfate 325 mg 05/28/18 10:00 06/06/18 09:59 Ferosul PO 325 mg DAILY [facility] Administration Heparin Sodium (Porcine) 5,000 units 05/29/18 21:00 06/06/18 10:37 Heparin Inj SQ 5,000 units Q12HR [facility] Administration Hydralazine HCl 100 mg 06/06/18 13:00 06/06/18 12:59 Apresoline PO 100 mg TID [facility] Administration Sodium Bicarbonate 75 meq/ 1,075 mls @ 75 mls/hr 06/05/18 13:00 06/06/18 10: 49 Sodium Chloride IV.CONT 75 mls/hr .[id number] [facility] Administration Insulin Aspart 0 unit 05/28/18 12:00 06/06/18 12:44 Novolog Insulin Correctional Sugar Inj SQ Not Given ,,, [facility] Protocol Lactulose 30 ml 05/28/18 08:14 05/30/18 22:39 Lactulose Liq PO 30 ml DAILY PRN Administration [employer] Levothyroxine Sodium 150 mcg 05/28/18 09:00 06/06/18 05:04 Synthroid PO 150 mcg DAILY@0600 [facility] Administration Oxycodone/Acetaminophen 1 tab 05/28/18 11:00 05/29/18 19:47 Percocet 5/325 Mg PO 1 tab Q4H PRN Administration PAIN SCALE 1 TO 10 Pantoprazole Sodium 40 mg 06/01/18 09:00 06/06/18 09:58 Protonix Inj IV.PUSH 40 mg Q24H [facility] Administration Potassium Chloride 20 meq 05/28/18 10:00 06/06/18 09:59 K-Dur PO 20 meq DAILY [facility] Administration Objective Remarks: GENERAL: Elderly female patient, awake and alert in no acute distress. SKIN: Warm and dry. No rash. HEAD: Normocephalic. EYES: No scleral icterus. No injection or drainage. NECK: Supple, trachea midline. CARDIOVASCULAR: +S1/S2 without murmurs. RESPIRATORY: Clear anteriorly, equal bilaterally. Nonlabored at rest. GASTROINTESTINAL: Abdomen soft, non-tender, nondistended. EXTREMITIES: No cyanosis or edema. MUSCULOSKELETAL: Decreased muscle tone. Assessment/Plan - Plan 87-year-old female with a remote history of breast cancer diagnosed in the . She had definitive surgery, adjuvant systemic chemotherapy. She has had no evidence of recurrence since that time. She presented to the emergency room with complaints of severe back pain that she has had for [address] shows permeative lytic changes involving multiple bony elements, primarily of the spine consistent with metastatic disease or myeloma. She also has other indicators of possible myeloma including hypercalcemia, renal dysfunction and anemia. Recommendations: 1. Multiple myeloma, s/p dexamethasone pulse 20mg IV x's 4, she is currently on her 4 days off. Next cycle of 4 days to start on 06/09/18. She should continue Decadron 20 mg p.o. daily for days on followed by 4 days off until her follow-up appointment in clinic. Clinically improving. Appetite good. Pain better. Renal function improving. Cytogenetics still pending. Staging CT PET scan to be scheduled on an outpatient basis. 2. Back pain, improved. Start on a small dose of methadone. Hold ondansetron. 3. Hypercalcemia, continue IV fluids for hydration. Labs pending today. Nephrology is following. 4. Okay for discharge to [facility] from hematology oncology standpoint. Please coordinate follow-up appointment in hematology oncology clinic. Continue pulse Decadron at the [facility]. Decadron 20 mg p.o. times 4 days on followed by 4 days off. GI prophylaxis with PPI on the days of Decadron.
[2018-06-06] MEDS: Methadone 10 MG Tablet PO SCH ×2 (18:03→18:48)
[2018-06-07] MEDS: Sodium Bicarbonate 8.4% Inj 75 MEQ in Sodium Chloride 0.45 % Inj 1,000 ML IV.CONT SCH (03:03)
[2018-06-07] MEDS: Insulin NovoLOG Aspart Correctional Sugar Inj SQ SCH ×5 (05:42→21:05)
[2018-06-07] MEDS: Levothyroxine 150 MCG Tablet PO SCH (05:43)
[2018-06-07 07:00] LABS: Hematocrit 25.3 % (35.0-46.0); Hemoglobin 8.6 gm/dL (11.6-15.3); Mean Corpuscular HGB Conc 33.9 % (32.0-36.0); Mean Corpuscular Hemoglobin 31.3 pg (27.0-34.0); Mean Corpuscular Volume 92.1 fL (80.0-100.0); Mean Platelet Volume 6.7 fL (7.0-11.0); Platelet Count 251 th/mm3 (150-450); Red Blood Count 2.75 mil/mm3 (4.00-5.30); Red Cell Distribution Width 16.8 % (11.6-17.2); White Blood Count 4.8 th/mm3 (4.0-11.0)
[2018-06-07 07:26] LABS: Albumin 2.4 g/dL (3.4-5.0); Anion Gap 10 meq/L (5-15); Aspartate Aminotransferase 28 U/L (15-37); Blood Urea Nitrogen 51 mg/dL (7-18); Calcium 8.3 mg/dL (8.5-10.1); Carbon Dioxide 22.9 meq/L (21.0-32.0); Chloride 111 meq/L (98-107); Glomerular Filtration Rate 17 mL/min (>89); Glucose,Random 91 mg/dL (74-106); Magnesium 1.8 mg/dL (1.5-2.5); Potassium 4.1 meq/L (3.5-5.1); Sodium 144 meq/L (136-145)
[2018-06-07 07:27] LABS: Alanine Aminotransferase 31 U/L (10-53); Phosphorus 2.3 mg/dL (2.5-4.9)
[2018-06-07 07:29] LABS: Alkaline Phosphatase 78 U/L (45-117)
[2018-06-07] MEDS: Ferrous Sulfate 325 MG Tablet PO SCH (08:12)
[2018-06-07] MEDS: Methadone 10 MG Tablet PO SCH (08:12)
[2018-06-07] MEDS: amLODIPine 10 MG Tablet PO SCH (08:13)
[2018-06-07] MEDS: Heparin - SQ 10,000 UNITS/ML Vial SQ SCH ×2 (08:14→20:55)
[2018-06-07] MEDS: Pantoprazole Inj 40 MG Vial IV.PUSH SCH (08:14)
--- NOTE | 2018-06-07 12:32 | P.PNIM ---
Subjective Interval history: The patient was resting comfortably in bed. She said she had no issues overnight. Her family was at the bedside and their questions were answered. Discussed with case management. Physical Exam Vital signs: Vital Signs 06/06/18 14:00 06/06/18 15:31 06/06/18 18:00 Temperature 98.5 F 97.9 F Pulse Rate 75 94 H 79 Respiratory Rate 18 16 Blood Pressure 130/88 153/74 H Pulse Oximetry 94 L 95 06/06/18 19:09 06/06/18 19:18 06/06/18 19:43 Temperature 97.9 F Pulse Rate 89 93 H Respiratory Rate 18 16 Blood Pressure 153/76 H Pulse Oximetry 95 06/06/18 23:15 06/07/18 00:00 06/07/18 00:16 Temperature 98.2 F Pulse Rate 113 H 86 Respiratory Rate 18 18 Blood Pressure 157/74 H Pulse Oximetry 96 06/07/18 03:06 06/07/18 04:06 06/07/18 07:00 Temperature 98.4 F Pulse Rate 95 H 85 102 H Respiratory Rate 18 Blood Pressure 152/72 H Pulse Oximetry 94 L 06/07/18 08:00 Temperature 98.1 F Pulse Rate 92 H Respiratory Rate 18 Blood Pressure 155/78 H Pulse Oximetry 95 Intake & Output 06/06/18 06/07/18 06/07/18 18:59 06:59 18:59 Intake Total 3630 / 3630 1075 / 1075 Output Total 1000 / 1000 1600 / 1600 Balance 2630 / 2630 -525 / -525 Weight 72.6 kg Intake: IV 3150 / 3150 1075 / 1075 Sodium Bicarbonate 8.4% Inj 75 2150 / 2150 1075 / 1075 MEQ In 1/2 Normal Saline Inj 1, 000 ML @ 75 mls/hr IV.CONT . [id number] [facility] Rx#:[id number] Oral 480 / 480 Output: Urine 1000 / 1000 1600 / 1600 Other: # Voids 1 # Incontinent Voids 2 Date of Last Bowel Movement 06/06/18 # Incontinent Bowel Movements 0 Narrative: GENERAL: No distress. SKIN: Warm and dry. NECK: Supple, trachea midline. No JVD. CARDIOVASCULAR: Regular rate and rhythm with systolic murmur noted. RESPIRATORY: Breath sounds diminished bilaterally. No accessory muscle use. GASTROINTESTINAL: Abdomen soft, non-tender, nondistended. MUSCULOSKELETAL: No cyanosis, mild lower extremity edema. NEURO: No gross deficits. Results - Labs CBC & Chem 7: 06/07/18 06:36 06/07/18 06:36 Laboratory Results - last 24 hr 05/30/18 06/06/18 06/06/18 11:15 17:10 21:01 WBC RBC Hgb Hct MCV MCH MCHC RDW Plt Count MPV Sodium Potassium Chloride Carbon Dioxide Anion Gap BUN Creatinine Estimated GFR POC Glucose 91 106 Random Glucose Calcium Phosphorus Magnesium Total Bilirubin AST ALT Alkaline Phosphatase Total Protein Albumin BM Chromosome Interp 06/07/18 06/07/18 06/07/18 05:42 06:36 06:36 WBC 4.8 RBC 2.75 L Hgb 8.6 L Hct 25.3 L MCV 92.1 MCH 31.3 MCHC 33.9 RDW 16.8 Plt Count 251 MPV 6.7 L Sodium 144 Potassium 4.1 Chloride 111 H Carbon Dioxide 22.9 Anion Gap 10 BUN 51 H Creatinine 3.13 H Estimated GFR 17 L POC Glucose 94 Random Glucose 91 Calcium 8.3 L Phosphorus 2.3 L Magnesium 1.8 Total Bilirubin 0.2 AST 28 ALT 31 Alkaline Phosphatase 78 Total Protein 6.0 L Albumin 2.4 L BM Chromosome Interp 06/07/18 08:08 WBC RBC Hgb Hct MCV MCH MCHC RDW Plt Count MPV Sodium Potassium Chloride Carbon Dioxide Anion Gap BUN Creatinine Estimated GFR POC Glucose 95 Random Glucose Calcium Phosphorus Magnesium Total Bilirubin AST ALT Alkaline Phosphatase Total Protein Albumin BM Chromosome Interp Assessment and Plan - Plan This patient is an 87-year-old female with a diagnosis of hypertension, hypothyroidism, peripheral vascular disease, stage IV chronic kidney disease, history of right-sided breast cancer, diabetes mellitus type 2, dyslipidemia. The patient presented to our emergency department with complaints of severe back pain. Plasma cell neoplasm likely multiple myeloma hypercalcemia -Bone marrow biopsy confirmed multiple myeloma. Continue dexamethasone per oncology, responding in terms of pain level. Will need to continue pulse Decadron 20 mg daily 4 days on, 4 days off starting . Continue IV hydration with bisphosphonate. -physical therapy. TIFFANY on CKD stage IV. -Likely secondary to hypercalcemia + multiple myeloma, -Showing improving, trend renal function -Nephrology following, appreciate assistance. Hypertension Still elevated. -Continue amlodipine, hydralazine, clonidine. Adjust as needed. Diabetes mellitus type 2 Well controlled. -Accu-Cheks sliding scale insulin. Hypothyroidism -Continue Synthroid. Heparin Discharge Planning: SNF when cleared by nephrology
--- NOTE | 2018-06-07 14:22 | P.PNNP ---
Subjective Interval history: Seen in AM. Resting with daughter at bedside. Creatinine continues to improve at 3.13 today. <Cat Donahue - Last Filed: 06/07/18 14:08> Physical Exam Vital signs: Vital Signs 06/06/18 15:31 06/06/18 18:00 06/06/18 19:09 Temperature 97.9 F Pulse Rate 94 H 79 89 Respiratory Rate 16 Blood Pressure 153/74 H Pulse Oximetry 95 06/06/18 19:18 06/06/18 19:43 06/06/18 23:15 Temperature 97.9 F Pulse Rate 93 H 113 H Respiratory Rate 18 16 Blood Pressure 153/76 H Pulse Oximetry 95 06/07/18 00:00 06/07/18 00:16 06/07/18 03:06 Temperature 98.2 F 98.4 F Pulse Rate 86 95 H Respiratory Rate 18 18 18 Blood Pressure 157/74 H 152/72 H Pulse Oximetry 96 94 L 06/07/18 04:06 06/07/18 07:00 06/07/18 08:00 Temperature 98.1 F Pulse Rate 85 102 H 92 H Respiratory Rate 18 Blood Pressure 155/78 H Pulse Oximetry 95 Intake & Output 06/06/18 06/07/18 06/07/18 18:59 06:59 18:59 Intake Total 3630 / 3630 1075 / 1075 Output Total 1000 / 1000 1600 / 1600 Balance 2630 / 2630 -525 / -525 Weight 72.6 kg Intake: IV 3150 / 3150 1075 / 1075 Sodium Bicarbonate 8.4% Inj 75 2150 / 2150 1075 / 1075 MEQ In 1/2 Normal Saline Inj 1, 000 ML @ 75 mls/hr IV.CONT . [id number] [facility] Rx#:[id number] Oral 480 / 480 Output: Urine 1000 / 1000 1600 / 1600 Other: # Voids 1 # Incontinent Voids 2 Date of Last Bowel Movement 06/06/18 # Incontinent Bowel Movements 0 Narrative: GENERAL: No distress. SKIN: Warm and dry. NECK: Supple, trachea midline. No JVD. CARDIOVASCULAR: Regular rate and rhythm with systolic murmur noted. RESPIRATORY: Breath sounds diminished bilaterally. No accessory muscle use. GASTROINTESTINAL: Abdomen soft, non-tender, nondistended. MUSCULOSKELETAL: No cyanosis, mild lower extremity edema. NEURO: No gross deficits. <Cat Donahue - Last Filed: 06/07/18 14:08> Vital signs: Vital Signs 06/08/18 12:00 06/08/18 15:00 06/08/18 16:00 Temperature 98.1 F 97.7 F Pulse Rate 85 71 95 H Respiratory Rate 16 16 Blood Pressure 142/77 H 147/80 H Pulse Oximetry 95 95 06/08/18 19:00 06/08/18 20:00 06/08/18 23:00 Temperature 98.3 F Pulse Rate 87 88 103 H Respiratory Rate 16 Blood Pressure 146/73 H Pulse Oximetry 97 06/09/18 00:00 06/09/18 00:35 06/09/18 03:00 Temperature 98.5 F Pulse Rate 101 H 79 84 Respiratory Rate 14 Blood Pressure 150/76 H Pulse Oximetry 97 06/09/18 04:00 06/09/18 07:00 06/09/18 09:08 Temperature 98.2 F 98.4 F Pulse Rate 91 H 85 81 Respiratory Rate 16 16 Blood Pressure 143/64 H 164/77 H Pulse Oximetry 97 97 Intake & Output 06/08/18 06/09/18 06/09/18 18:59 06:59 18:59 Intake Total 720 / 720 Output Total 500 / 500 700 / 700 Balance 220 / 220 -700 / -700 Weight 72 kg Intake: Oral 720 / 720 Output: Urine 500 / 500 700 / 700 Other: # Voids 2 Date of Last Bowel Movement 06/07/18 <Nallely Rodriguez - Last Filed: 06/09/18 11:12> Assessment and Plan - Assessment (1) Acute renal failure (ARF) Code(s): N17.9 - Acute kidney failure, unspecified Status: Acute Qualifiers: Acute renal failure type: unspecified Qualified Code(s): N17.9 - Acute kidney failure, unspecified Plan: Creatinine continues to improve 3.8 -> 3.6 ->3.2 ->3.1 2.6 L UOP/24 hours Creatinine continues to improve and calcium level normal. Will discontinue IVF acidosis resolved. Oral fluids encouraged discussed with daughter. Per nephrology patient is cleared for discharge will need close follow up with nephrology outpatient. (2) Hypertension Code(s): I10 - Essential (primary) hypertension Status: Acute Qualifiers: Hypertension type: unspecified Qualified Code(s): I10 - Essential (primary ) hypertension Plan: Improved. Continue to monitor (3) Hypercalcemia Code(s): E83.52 - Hypercalcemia Status: Acute Plan: Resolved stable (4) Anemia Code(s): D64.9 - Anemia, unspecified Status: Acute Plan: HGB stable On iron replacement. (5) Multiple myeloma and immunoproliferative neoplasms Code(s): C90.00 - Multiple myeloma not having achieved remission; C88.9 - Malignant immunoproliferative disease, unspecified Status: Acute Plan: Multiple myeloma, on dexamethasone. CT PET scan outpatient <Cat Donahue - Last Filed: 06/07/18 14:08> - Assessment (1) Acute renal failure (ARF) Code(s): N17.9 - Acute kidney failure, unspecified Status: Acute Qualifiers: Acute renal failure type: unspecified Qualified Code(s): N17.9 - Acute kidney failure, unspecified Plan: Patient seen and examined, agree with above. Patient with chronic kidney disease and develop mild TIFFANY. Has generalized anasarca, continue diuretics, try to keep in negative fluid balance. (2) Hypertension Code(s): I10 - Essential (primary) hypertension Status: Acute Qualifiers: Hypertension type: unspecified Qualified Code(s): I10 - Essential (primary ) hypertension (3) Hypercalcemia Code(s): E83.52 - Hypercalcemia Status: Acute (4) Anemia Code(s): D64.9 - Anemia, unspecified Status: Acute (5) Multiple myeloma and immunoproliferative neoplasms Code(s): C90.00 - Multiple myeloma not having achieved remission; C88.9 - Malignant immunoproliferative disease, unspecified Status: Acute <Nallely Rodriguez - Last Filed: 06/09/18 11:12>
[2018-06-08] MEDS: Insulin NovoLOG Aspart Correctional Sugar Inj SQ SCH ×4 (04:26→18:20)
[2018-06-08 06:26] LABS: Hematocrit 24.3 % (35.0-46.0); Hemoglobin 8.3 gm/dL (11.6-15.3); Mean Corpuscular HGB Conc 34.2 % (32.0-36.0); Mean Corpuscular Hemoglobin 31.5 pg (27.0-34.0); Mean Corpuscular Volume 92.1 fL (80.0-100.0); Mean Platelet Volume 6.6 fL (7.0-11.0); Platelet Count 261 th/mm3 (150-450); Red Blood Count 2.64 mil/mm3 (4.00-5.30); Red Cell Distribution Width 17.3 % (11.6-17.2); White Blood Count 5.1 th/mm3 (4.0-11.0)
[2018-06-08] MEDS: Levothyroxine 150 MCG Tablet PO SCH (06:33)
[2018-06-08 06:56] LABS: Albumin 2.4 g/dL (3.4-5.0); Anion Gap 10 meq/L (5-15); Aspartate Aminotransferase 27 U/L (15-37); Blood Urea Nitrogen 45 mg/dL (7-18); Calcium 8.2 mg/dL (8.5-10.1); Carbon Dioxide 22.8 meq/L (21.0-32.0); Chloride 112 meq/L (98-107); Glomerular Filtration Rate 18 mL/min (>89); Glucose,Random 94 mg/dL (74-106); Magnesium 1.8 mg/dL (1.5-2.5); Potassium 3.8 meq/L (3.5-5.1); Sodium 145 meq/L (136-145)
[2018-06-08 06:57] LABS: Alanine Aminotransferase 28 U/L (10-53); Phosphorus 2.3 mg/dL (2.5-4.9)
[2018-06-08 06:59] LABS: Alkaline Phosphatase 87 U/L (45-117); Total Protein 5.9 g/dL (6.4-8.2)
[2018-06-08] MEDS: Methadone 10 MG Tablet PO SCH (08:07)
[2018-06-08] MEDS: Pantoprazole Inj 40 MG Vial IV.PUSH SCH (08:07)
[2018-06-08] MEDS: Heparin - SQ 10,000 UNITS/ML Vial SQ SCH ×2 (08:07→21:40)
[2018-06-08] MEDS: Ferrous Sulfate 325 MG Tablet PO SCH (08:07)
[2018-06-08] MEDS: amLODIPine 10 MG Tablet PO SCH (08:08)
--- NOTE | 2018-06-08 10:59 | P.DS ---
Date of admission: 05/28/18 07:49 Primary care physician: UNKNOWN Anticipated date of discharge: 06/08/18 Brief History from admission: This is a pleasant 87 y/o Female recently discharged from this facility, this readmission secondary to Low back pain 'probable secondary to Lumbar metastatic disease, she has chronic disease including history of breast cancer and chronic kidney disease. She has had blood transfusions in the past related to anemia of chronic disease. recent Hemoglobin 6.7, she has also Hypertension, she came to Emergency room with history of severe back pain that started when she tried to get up from a chair. Her daughter is here who is giving further history. As per her the patient has been having back pain for 1 week. She did go to see her primary care who put her on Flexeril. Patient has been taking the Flexeril for past 2 days without much relief. Patient says that usually she can ambulate without much help in her apartment. When she goes outside she takes a walker with her. the pain has traveled all along her spine and going down her legs as well. has Diabetes Mellitus II, Hypothyroidism, Hyperlipidemia, PAD, CKD IV, Hypokalemia and Hypercalcemia. CT abdomen and pelvis was ordered to see the extent of the disease. Given her history of breast cancer my suspicion was high for metastatic bony disease. The radiologist read shows multiple bony metastases. also has Adrenal gland and spine metastatic disease. Hemoglobin 9.1, Creatinine 3.87, Calcium 11.6. She is been evaluated in ER her daughter Miss Noemy Hayden. Patient update on day of discharge: The patient remained in the hospital while waiting for insurance authorization. The patient reports no acute complaints. She says she feels a lot better than when she came in. No overnight events reported. 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 Oncology was consulted. Bone marrow biopsy confirmed multiple myeloma. The pt was continued on dexamethasone. She received IVFs with bisphosphonate. She will need to continue pulse Decadron 20 mg daily 4 days on, 4 days off starting 06/09. She will follow up with oncology as an outpt. She carlitos continue low dose methadone as well as Flexeril as needed for pain. She worked with physical therapy. Case management was consulted and assisted with disposition. Acute on chronic renal failure/HTN Nephrology was consulted. Creatinine improved. IVFs were discontinued as the acidosis resolved. Oral fluids were encouraged. The pt will follow with nephrology as an outpt. She will have a repeat BMP in three days. Her blood pressure medications were adjusted. - Time Spent with Patient Total time spent providing and/or coordinating discharge services: Greater than 30 minutes - Quality: VTE Deep Vein Thrombosis/Pulmonary Embolism Present on Admission: No Exam Vital signs: Vital Signs 06/07/18 11:00 06/07/18 14:00 06/07/18 15:00 Temperature 98.7 F Pulse Rate 88 80 77 Respiratory Rate 16 Blood Pressure 145/68 H Pulse Oximetry 96 06/07/18 19:01 06/07/18 19:24 06/07/18 23:02 Temperature 98.5 F Pulse Rate 92 H 84 84 Respiratory Rate 17 Blood Pressure 145/72 H Pulse Oximetry 96 06/08/18 00:10 06/08/18 03:15 06/08/18 04:00 Temperature 98.1 F Pulse Rate 91 H 86 Respiratory Rate 16 18 Blood Pressure 145/78 H Pulse Oximetry 95 06/08/18 04:20 Temperature 98.1 F Pulse Rate 82 Respiratory Rate 18 Blood Pressure 147/72 H Pulse Oximetry 93 L Intake & Output 06/07/18 06/08/18 06/08/18 18:59 06:59 18:59 Intake Total 1495 / 1495 Output Total 1500 / 1500 1400 / 1400 Balance -5 / -5 -1400 / -1400 Weight 72.3 kg Intake: IV 775 / 775 Sodium Bicarbonate 8.4% Inj 75 775 / 775 MEQ In 1/2 Normal Saline Inj 1, 000 ML @ 75 mls/hr IV.CONT . [id number] [facility] Rx#:[id number] Oral 720 / 720 Output: Urine 1500 / 1500 1400 / 1400 Other: # Voids 2 Date of Last Bowel Movement 06/07/18 06/07/18 # Bowel Movements 1 Narrative: GENERAL: No distress. SKIN: Warm and dry. NECK: Supple, trachea midline. No JVD. CARDIOVASCULAR: Regular rate and rhythm with systolic murmur noted. RESPIRATORY: Breath sounds diminished bilaterally. No accessory muscle use. GASTROINTESTINAL: Abdomen soft, non-tender, nondistended. MUSCULOSKELETAL: No cyanosis, mild lower extremity edema. NEURO: No gross deficits. Results Procedures completed during hospitalization: See hospital course Labs on day of discharge: Labs from last 24 hours 06/08/18 06/08/18 06/08/18 08:06 06:12 06:12 WBC 5.1 RBC 2.64 L Hgb 8.3 L Hct 24.3 L MCV 92.1 MCH 31.5 MCHC 34.2 RDW 17.3 H Plt Count 261 MPV 6.6 L Sodium 145 Potassium 3.8 Chloride 112 H Carbon Dioxide 22.8 Anion Gap 10 BUN 45 H Creatinine 3.03 H Estimated GFR 18 L POC Glucose 96 Random Glucose 94 Calcium 8.2 L Phosphorus 2.3 L Magnesium 1.8 Total Bilirubin 0.2 AST 27 ALT 28 Alkaline Phosphatase 87 Total Protein 5.9 L Albumin 2.4 L 06/08/18 06/07/18 06/07/18 04:25 21:01 17:25 WBC RBC Hgb Hct MCV MCH MCHC RDW Plt Count MPV Sodium Potassium Chloride Carbon Dioxide Anion Gap BUN Creatinine Estimated GFR POC Glucose 113 H 114 H 123 H Random Glucose Calcium Phosphorus Magnesium Total Bilirubin AST ALT Alkaline Phosphatase Total Protein Albumin 06/07/18 14:50 WBC RBC Hgb Hct MCV MCH MCHC RDW Plt Count MPV Sodium Potassium Chloride Carbon Dioxide Anion Gap BUN Creatinine Estimated GFR POC Glucose 161 H Random Glucose Calcium Phosphorus Magnesium Total Bilirubin AST ALT Alkaline Phosphatase Total Protein Albumin - Impressions ITS Impressions Abdomen/Pelvis CT 05/28/18 05:08 CONCLUSION: 1. Mild descending colon diverticulitis. 2. Bony neoplastic disease 3. Right adrenal mass. Chest X-Ray 05/29/18 00:00 CONCLUSION: Cardiomegaly and symmetric bilateral pleural-parenchymal opacities Bone Marrow Biopsy w/ CT 05/30/18 08:00 CONCLUSION: 1. Uncomplicated CT guided bone marrow aspirate. 2. Uncomplicated CT guided bone marrow biopsy. Discharge Plan - Discharge Disposition Patient Disposition: 03 Discharge to SNF - Discharge Condition Condition: Stable - Discharge Order Discharge Orders: Discharge Order (Routine); Ordered 06/08/18 Ordered By: Lauri Haynes - Discharge Details Anticipated Discharge Date: 06/09/18 - Physicians Team Primary Care Provider: UNKNOWN, Attending Provider: Lauri Haynes Other Providers: Brianna Rm MD ; Viral Stratton ; Nallely Rodriguez MD ; [facility]
--- NOTE | 2018-06-08 11:32 | P.PNNP ---
Subjective Interval history: Sitting up in bed. No events overnight. Mild chronic shortness breath, pain is well controlled. Creatinine is improving 3.03. <Cat Donahue - Last Filed: 06/08/18 16:30> Physical Exam Vital signs: Vital Signs 06/07/18 14:00 06/07/18 15:00 06/07/18 19:01 Temperature 98.7 F Pulse Rate 80 77 92 H Respiratory Rate 16 Blood Pressure 145/68 H Pulse Oximetry 96 06/07/18 19:24 06/07/18 23:02 06/08/18 00:10 Temperature 98.5 F 98.1 F Pulse Rate 84 84 91 H Respiratory Rate 17 16 Blood Pressure 145/72 H 145/78 H Pulse Oximetry 96 95 06/08/18 03:15 06/08/18 04:00 06/08/18 04:20 Temperature 98.1 F Pulse Rate 86 82 Respiratory Rate 18 18 Blood Pressure 147/72 H Pulse Oximetry 93 L Intake & Output 06/07/18 06/08/18 06/08/18 18:59 06:59 18:59 Intake Total 1495 / 1495 Output Total 1500 / 1500 1400 / 1400 Balance -5 / -5 -1400 / -1400 Weight 72.3 kg Intake: IV 775 / 775 Sodium Bicarbonate 8.4% Inj 75 775 / 775 MEQ In 1/2 Normal Saline Inj 1, 000 ML @ 75 mls/hr IV.CONT . [id number] [facility] Rx#:[id number] Oral 720 / 720 Output: Urine 1500 / 1500 1400 / 1400 Other: # Voids 2 Date of Last Bowel Movement 06/07/18 06/07/18 # Bowel Movements 1 Narrative: GENERAL: No distress. SKIN: Warm and dry. NECK: Supple, trachea midline. No JVD. CARDIOVASCULAR: Regular rate and rhythm with systolic murmur noted. RESPIRATORY: Breath sounds diminished bilaterally. No accessory muscle use. GASTROINTESTINAL: Abdomen soft, non-tender, nondistended. MUSCULOSKELETAL: No cyanosis, mild lower extremity edema. NEURO: No gross deficits. <Cat Donahue - Last Filed: 06/08/18 16:30> Vital signs: Vital Signs 06/08/18 12:00 06/08/18 15:00 06/08/18 16:00 Temperature 98.1 F 97.7 F Pulse Rate 85 71 95 H Respiratory Rate 16 16 Blood Pressure 142/77 H 147/80 H Pulse Oximetry 95 95 06/08/18 19:00 06/08/18 20:00 06/08/18 23:00 Temperature 98.3 F Pulse Rate 87 88 103 H Respiratory Rate 16 Blood Pressure 146/73 H Pulse Oximetry 97 06/09/18 00:00 06/09/18 00:35 06/09/18 03:00 Temperature 98.5 F Pulse Rate 101 H 79 84 Respiratory Rate 14 Blood Pressure 150/76 H Pulse Oximetry 97 06/09/18 04:00 06/09/18 07:00 06/09/18 09:08 Temperature 98.2 F 98.4 F Pulse Rate 91 H 85 81 Respiratory Rate 16 16 Blood Pressure 143/64 H 164/77 H Pulse Oximetry 97 97 Intake & Output 06/08/18 06/09/18 06/09/18 18:59 06:59 18:59 Intake Total 720 / 720 Output Total 500 / 500 700 / 700 Balance 220 / 220 -700 / -700 Weight 72 kg Intake: Oral 720 / 720 Output: Urine 500 / 500 700 / 700 Other: # Voids 2 Date of Last Bowel Movement 06/07/18 <Cory Rodriguez Q - Last Filed: 06/09/18 11:45> Assessment and Plan - Assessment (1) Acute renal failure (ARF) Code(s): N17.9 - Acute kidney failure, unspecified Status: Acute Qualifiers: Acute renal failure type: unspecified Qualified Code(s): N17.9 - Acute kidney failure, unspecified Plan: Creatinine continues to improve 3.8 -> 3.6 ->3.2 ->3.1 -> 3.0 2.9 L UOP/24 hours Creatinine continues to improve and calcium level normal. Oral fluids encouraged. Per nephrology patient is cleared for discharge will need close follow up with nephrology outpatient. Plans for discharge to [facility]. (2) Hypertension Code(s): I10 - Essential (primary) hypertension Status: Acute Qualifiers: Hypertension type: unspecified Qualified Code(s): I10 - Essential (primary ) hypertension Plan: Improved. Continue to monitor (3) Hypercalcemia Code(s): E83.52 - Hypercalcemia Status: Acute Plan: Resolved stable (4) Anemia Code(s): D64.9 - Anemia, unspecified Status: Acute Plan: HGB stable On iron replacement. (5) Multiple myeloma and immunoproliferative neoplasms Code(s): C90.00 - Multiple myeloma not having achieved remission; C88.9 - Malignant immunoproliferative disease, unspecified Status: Acute Plan: Multiple myeloma, on dexamethasone. CT PET scan outpatient <Cat Donahue - Last Filed: 06/08/18 16:30> - Assessment (1) Acute renal failure (ARF) Code(s): N17.9 - Acute kidney failure, unspecified Status: Acute Qualifiers: Acute renal failure type: unspecified Qualified Code(s): N17.9 - Acute kidney failure, unspecified Plan: Patient seen and examined, agree with above. Creatinine slightly better, encourage oral intake. (2) Hypertension Code(s): I10 - Essential (primary) hypertension Status: Acute Qualifiers: Hypertension type: unspecified Qualified Code(s): I10 - Essential (primary ) hypertension (3) Hypercalcemia Code(s): E83.52 - Hypercalcemia Status: Acute (4) Anemia Code(s): D64.9 - Anemia, unspecified Status: Acute (5) Multiple myeloma and immunoproliferative neoplasms Code(s): C90.00 - Multiple myeloma not having achieved remission; C88.9 - Malignant immunoproliferative disease, unspecified Status: Acute <Nallely Rodriguez - Last Filed: 06/09/18 11:45>
--- NOTE | 2018-06-08 15:45 | P.PNONC ---
Subjective Interval history: Patient lying in bed, sleeping on approach. Awakens easily to voice. In no acute distress. Awaiting SNF placement Objective Vital Signs/Intake & Output: Vital Signs 06/07/18 19:01 06/07/18 19:24 06/07/18 23:02 Temperature 98.5 F Pulse Rate 92 H 84 84 Respiratory Rate 17 Blood Pressure 145/72 H Pulse Oximetry 96 06/08/18 00:10 06/08/18 03:15 06/08/18 04:00 Temperature 98.1 F Pulse Rate 91 H 86 Respiratory Rate 16 18 Blood Pressure 145/78 H Pulse Oximetry 95 06/08/18 04:20 06/08/18 07:00 06/08/18 11:00 Temperature 98.1 F Pulse Rate 82 76 75 Respiratory Rate 18 Blood Pressure 147/72 H Pulse Oximetry 93 L Intake & Output 06/07/18 06/08/18 06/08/18 18:59 06:59 18:59 Intake Total 1495 / 1495 Output Total 1500 / 1500 1400 / 1400 Balance -5 / -5 -1400 / -1400 Weight 72.3 kg Intake: IV 775 / 775 Sodium Bicarbonate 8.4% Inj 75 775 / 775 MEQ In 1/2 Normal Saline Inj 1, 000 ML @ 75 mls/hr IV.CONT . [id number] [facility] Rx#:[id number] Oral 720 / 720 Output: Urine 1500 / 1500 1400 / 1400 Other: # Voids 2 Date of Last Bowel Movement 06/07/18 06/07/18 06/07/18 # Bowel Movements 1 Result Diagrams: 06/08/18 06:12 06/08/18 06:12 Laboratory Results: Laboratory Results - last 24 hr 06/07/18 06/07/18 06/08/18 17:25 21:01 04:25 WBC RBC Hgb Hct MCV MCH MCHC RDW Plt Count MPV Sodium Potassium Chloride Carbon Dioxide Anion Gap BUN Creatinine Estimated GFR POC Glucose 123 H 114 H 113 H Random Glucose Calcium Phosphorus Magnesium Total Bilirubin AST ALT Alkaline Phosphatase Total Protein Albumin 06/08/18 06/08/18 06/08/18 06:12 06:12 08:06 WBC 5.1 RBC 2.64 L Hgb 8.3 L Hct 24.3 L MCV 92.1 MCH 31.5 MCHC 34.2 RDW 17.3 H Plt Count 261 MPV 6.6 L Sodium 145 Potassium 3.8 Chloride 112 H Carbon Dioxide 22.8 Anion Gap 10 BUN 45 H Creatinine 3.03 H Estimated GFR 18 L POC Glucose 96 Random Glucose 94 Calcium 8.2 L Phosphorus 2.3 L Magnesium 1.8 Total Bilirubin 0.2 AST 27 ALT 28 Alkaline Phosphatase 87 Total Protein 5.9 L Albumin 2.4 L 06/08/18 12:37 WBC RBC Hgb Hct MCV MCH MCHC RDW Plt Count MPV Sodium Potassium Chloride Carbon Dioxide Anion Gap BUN Creatinine Estimated GFR POC Glucose 110 Random Glucose Calcium Phosphorus Magnesium Total Bilirubin AST ALT Alkaline Phosphatase Total Protein Albumin Medications: Active Medications Generic Name Dose Route Start Last Admin Trade Name Freq PRN Reason Stop Dose Admin Acetaminophen 650 mg 05/28/18 08:15 05/29/18 22:42 Tylenol PO 650 mg Q4H PRN Administration Temp > 100.4 Al Hydroxide/Mg Hydroxide 30 ml 05/28/18 08:14 05/29/18 19:47 Milk Of Magnesia Liq PO 30 ml Q12H PRN Administration Mild Constipation Amlodipine Besylate 10 mg 05/28/18 10:00 06/08/18 08:08 Norvasc PO 10 mg DAILY [facility] Administration Clonidine HCl 0.1 mg 05/28/18 10:00 06/08/18 08:07 Catapres PO 0.1 mg BID [facility] Administration Dextrose 50 ml 05/30/18 10:00 05/30/18 10:59 D50w Vial IV.PUSH 50 ml UNSCH PRN Administration PER HYPOGLYCEMIA PROTOCOL Ferrous Sulfate 325 mg 05/28/18 10:00 06/08/18 08:07 Ferosul PO 325 mg DAILY [facility] Administration Heparin Sodium (Porcine) 5,000 units 05/29/18 21:00 06/08/18 08:07 Heparin Inj SQ 5,000 units Q12HR [facility] Administration Hydralazine HCl 100 mg 06/06/18 13:00 06/08/18 12:38 Apresoline PO 100 mg TID [facility] Administration Insulin Aspart 0 unit 05/28/18 12:00 06/08/18 12:37 Novolog Insulin Correctional Sugar Inj SQ Not Given 08,,17,, [facility] Protocol Lactulose 30 ml 05/28/18 08:14 05/30/18 22:39 Lactulose Liq PO 30 ml DAILY PRN Administration SEVERE [employer]SITIPATION Levothyroxine Sodium 150 mcg 05/28/18 09:00 06/08/18 06:33 Synthroid PO 150 mcg DAILY@0600 [facility] Administration Methadone HCl 2.5 mg 06/06/18 18:00 06/08/18 08:07 Dolophine PO 2.5 mg DAILY [facility] Administration Oxycodone/Acetaminophen 1 tab 05/28/18 11:00 05/29/18 19:47 Percocet 5/325 Mg PO 1 tab Q4H PRN Administration PAIN SCALE 1 TO 10 Pantoprazole Sodium 40 mg 06/01/18 09:00 06/08/18 08:07 Protonix Inj IV.PUSH 40 mg Q24H [facility] Administration Potassium Chloride 20 meq 05/28/18 10:00 06/08/18 08:09 K-Dur PO Not Given DAILY [facility] Objective Remarks: GENERAL: Elderly female patient, sleeping on approach, awakens easily. In no acute distress. SKIN: Warm and dry. No rash. HEAD: Normocephalic. EYES: No scleral icterus. No injection or drainage. NECK: Supple, trachea midline. CARDIOVASCULAR: +S1/S2 without murmurs. RESPIRATORY: Clear anteriorly, equal bilaterally. Nonlabored at rest. GASTROINTESTINAL: Abdomen soft, non-tender, nondistended. EXTREMITIES: No cyanosis or edema. MUSCULOSKELETAL: Decreased muscle tone. Assessment/Plan - Plan 87-year-old female with a remote history of breast cancer diagnosed in the . She had definitive surgery, adjuvant systemic chemotherapy. She has had no evidence of recurrence since that time. She presented to the emergency room with complaints of severe back pain that she has had for [address] shows permeative lytic changes involving multiple bony elements, primarily of the spine consistent with metastatic disease or myeloma. She also has other indicators of possible myeloma including hypercalcemia, renal dysfunction and anemia. Recommendations: 1. Multiple myeloma, s/p dexamethasone pulse 20mg IV x's 4, she is currently on her 4 days off. Next cycle of 4 days to start on 06/09/18. She should continue Decadron 20 mg p.o. daily for four days on-followed by 4 days off, until her follow-up appointment in clinic. Cytogenetics still pending. Staging CT PET scan to be scheduled on an outpatient basis. 2. Back pain, improved. Continue to monitor pain, treat accordingly . 3. Hypercalcemia, improved. 4. Patient awaiting discharge to intermediate facility. She should follow- up in the hematology/oncology clinic in 1-2 weeks. Continue pulse Decadron at the intermediate facility. Decadron 20 mg p.o. times 4 days on followed by 4 days off. GI prophylaxis with PPI on the days of Decadron. - Attending Statement The exam, history, and the medical decision-making described in the above note were completed with the assistance of the mid-level provider. I reviewed and agree with the findings presented. I attest that I had a [id number] encounter with the patient on the same day, and personally performed and documented my assessment and findings in the medical record. Patient seen and examined with daughter at bedside. We discussed her response to Decadron 4 days on 4 days off. I recommend continuing the current regimen. She is pending discharge to a intermediate facility/rehab with follow-up with hematology. Plan to optimize her dose of methadone. Slowly increasing it. She still has a significant amount of pain with activity.
--- NOTE | 2018-06-08 17:45 | P.PNIM ---
Subjective Interval history: The patient was resting comfortably in bed. She had no acute complaints. She was anticipating [facility] a [facility] facility. Discussed with family and nursing. Physical Exam Vital signs: Vital Signs 06/07/18 19:01 06/07/18 19:24 06/07/18 23:02 Temperature 98.5 F Pulse Rate 92 H 84 84 Respiratory Rate 17 Blood Pressure 145/72 H Pulse Oximetry 96 06/08/18 00:10 06/08/18 03:15 06/08/18 04:00 Temperature 98.1 F Pulse Rate 91 H 86 Respiratory Rate 16 18 Blood Pressure 145/78 H Pulse Oximetry 95 06/08/18 04:20 06/08/18 07:00 06/08/18 11:00 Temperature 98.1 F Pulse Rate 82 76 75 Respiratory Rate 18 Blood Pressure 147/72 H Pulse Oximetry 93 L Intake & Output 06/07/18 06/08/18 06/08/18 18:59 06:59 18:59 Intake Total 1495 / 1495 Output Total 1500 / 1500 1400 / 1400 Balance -5 / -5 -1400 / -1400 Weight 72.3 kg Intake: IV 775 / 775 Sodium Bicarbonate 8.4% Inj 75 775 / 775 MEQ In 1/2 Normal Saline Inj 1, 000 ML @ 75 mls/hr IV.CONT . [id number] [facility] Rx#:[id number] Oral 720 / 720 Output: Urine 1500 / 1500 1400 / 1400 Other: # Voids 2 Date of Last Bowel Movement 06/07/18 06/07/18 06/07/18 # Bowel Movements 1 Narrative: GENERAL: No distress. SKIN: Warm and dry. NECK: Supple, trachea midline. No JVD. CARDIOVASCULAR: Regular rate and rhythm with systolic murmur noted. RESPIRATORY: Breath sounds diminished bilaterally. No accessory muscle use. GASTROINTESTINAL: Abdomen soft, non-tender, nondistended. MUSCULOSKELETAL: No cyanosis, mild lower extremity edema. NEURO: No gross deficits. Results - Labs CBC & Chem 7: 06/08/18 06:12 06/08/18 06:12 Laboratory Results - last 24 hr 06/07/18 06/08/18 06/08/18 21:01 04:25 06:12 WBC 5.1 RBC 2.64 L Hgb 8.3 L Hct 24.3 L MCV 92.1 MCH 31.5 MCHC 34.2 RDW 17.3 H Plt Count 261 MPV 6.6 L Sodium Potassium Chloride Carbon Dioxide Anion Gap BUN Creatinine Estimated GFR POC Glucose 114 H 113 H Random Glucose Calcium Phosphorus Magnesium Total Bilirubin AST ALT Alkaline Phosphatase Total Protein Albumin 06/08/18 06/08/18 06/08/18 06:12 08:06 12:37 WBC RBC Hgb Hct MCV MCH MCHC RDW Plt Count MPV Sodium 145 Potassium 3.8 Chloride 112 H Carbon Dioxide 22.8 Anion Gap 10 BUN 45 H Creatinine 3.03 H Estimated GFR 18 L POC Glucose 96 110 Random Glucose 94 Calcium 8.2 L Phosphorus 2.3 L Magnesium 1.8 Total Bilirubin 0.2 AST 27 ALT 28 Alkaline Phosphatase 87 Total Protein 5.9 L Albumin 2.4 L 06/08/18 06/08/18 17:17 17:19 WBC RBC Hgb Hct MCV MCH MCHC RDW Plt Count MPV Sodium Potassium Chloride Carbon Dioxide Anion Gap BUN Creatinine Estimated GFR POC Glucose 257 H 159 H Random Glucose Calcium Phosphorus Magnesium Total Bilirubin AST ALT Alkaline Phosphatase Total Protein Albumin - Procedures See hospital course Assessment and Plan - Assessment (1) Acute renal failure (ARF) Code(s): N17.9 - Acute kidney failure, unspecified Status: Acute (2) Hypertension Code(s): I10 - Essential (primary) hypertension Status: Acute (3) Anemia Code(s): D64.9 - Anemia, unspecified Status: Acute (4) Metastatic cancer to spine Code(s): C79.51 - Secondary malignant neoplasm of bone Status: Acute (5) Multiple myeloma and immunoproliferative neoplasms Code(s): C90.00 - Multiple myeloma not having achieved remission; C88.9 - Malignant immunoproliferative disease, unspecified Status: Acute - Plan This patient is an 87-year-old female with a diagnosis of hypertension, hypothyroidism, peripheral vascular disease, stage IV chronic kidney disease, history of right-sided breast cancer, diabetes mellitus type 2, dyslipidemia. The patient presented to our emergency department with complaints of severe back pain. Plasma cell neoplasm likely multiple myeloma hypercalcemia -Bone marrow biopsy confirmed multiple myeloma. Continue dexamethasone per oncology, responding in terms of pain level. Will need to continue pulse Decadron 20 mg daily 4 days on, 4 days off starting . Continue IV hydration with bisphosphonate. -physical therapy. -pain control as needed with low dose methadone and Flexeril as needed. -cleared for discharge by oncology. -PET scan as outpt. TIFFANY on CKD stage IV. -Likely secondary to hypercalcemia + multiple myeloma, -Showing improving, trend renal function -Nephrology following, appreciate assistance. Cleared for discharge. Hypertension Still elevated. -Continue amlodipine, hydralazine, clonidine. Adjust as needed. Diabetes mellitus type 2 Well controlled. -Accu-Cheks sliding scale insulin. Hypothyroidism -Continue Synthroid. Heparin Discharge Planning: SNF when bed available (1) Acute renal failure (ARF) Qualifiers: Acute renal failure type: unspecified Qualified Code(s): N17.9 - Acute kidney failure, unspecified (2) Hypertension Qualifiers: Hypertension type: unspecified Qualified Code(s): I10 - Essential (primary) hypertension
[2018-06-08] MEDS ORDERED: Methadone 10 MG Tablet PO SCH (17:52)
[2018-06-08 22:14] VITALS: O2SAT 97
[2018-06-09] MEDS: Insulin NovoLOG Aspart Correctional Sugar Inj SQ SCH ×3 (00:14→08:56)
[2018-06-09 04:22] VITALS: RESP 16
[2018-06-09] MEDS: Levothyroxine 150 MCG Tablet PO SCH (06:02)
[2018-06-09 08:56] LABS: Hematocrit 22.8 % (35.0-46.0); Hemoglobin 7.9 gm/dL (11.6-15.3); Mean Corpuscular HGB Conc 34.7 % (32.0-36.0); Mean Corpuscular Hemoglobin 31.9 pg (27.0-34.0); Mean Corpuscular Volume 91.8 fL (80.0-100.0); Platelet Count 261 th/mm3 (150-450); Red Blood Count 2.48 mil/mm3 (4.00-5.30); Red Cell Distribution Width 17.3 % (11.6-17.2); White Blood Count 6.1 th/mm3 (4.0-11.0)
--- NOTE | 2018-06-09 09:10 | P.PNNP ---
Subjective Interval history: Resting comfortably. Plans for discharge to SNF. No acute events overnight. <Cat Donahue - Last Filed: 06/09/18 09:04> Physical Exam Vital signs: Vital Signs 06/08/18 11:00 06/08/18 12:00 06/08/18 15:00 Temperature 98.1 F Pulse Rate 75 85 71 Respiratory Rate 16 Blood Pressure 142/77 H Pulse Oximetry 95 06/08/18 16:00 06/08/18 19:00 06/08/18 20:00 Temperature 97.7 F 98.3 F Pulse Rate 95 H 87 88 Respiratory Rate 16 16 Blood Pressure 147/80 H 146/73 H Pulse Oximetry 95 97 06/08/18 23:00 06/09/18 00:00 06/09/18 00:35 Temperature 98.5 F Pulse Rate 103 H 101 H 79 Respiratory Rate 14 Blood Pressure 150/76 H Pulse Oximetry 97 06/09/18 03:00 06/09/18 04:00 06/09/18 07:00 Temperature 98.2 F Pulse Rate 84 91 H 85 Respiratory Rate 16 Blood Pressure 143/64 H Pulse Oximetry 97 Intake & Output 06/08/18 06/09/18 06/09/18 18:59 06:59 18:59 Intake Total 720 / 720 Output Total 500 / 500 700 / 700 Balance 220 / 220 -700 / -700 Weight 72 kg Intake: Oral 720 / 720 Output: Urine 500 / 500 700 / 700 Other: # Voids 2 Date of Last Bowel Movement 06/07/18 Narrative: GENERAL: Alert and oriented. No distress. SKIN: Warm and dry. NECK: Supple, trachea midline. No JVD. CARDIOVASCULAR: Regular rate and rhythm with systolic murmur noted. RESPIRATORY: Breath sounds diminished bilaterally. No accessory muscle use. GASTROINTESTINAL: Abdomen soft, non-tender, nondistended. MUSCULOSKELETAL: No cyanosis, mild lower extremity edema. NEURO: No gross deficits. <Cat Donahue - Last Filed: 06/09/18 09:04> Assessment and Plan - Assessment (1) Acute renal failure (ARF) Code(s): N17.9 - Acute kidney failure, unspecified Status: Acute Qualifiers: Acute renal failure type: unspecified Qualified Code(s): N17.9 - Acute kidney failure, unspecified Plan: Creatinine continues to improve 3.8 -> 3.6 ->3.2 ->3.1 -> 3.0 yesterday. 1.2 L UOP/24 hours Oral fluids encouraged Per nephrology patient is cleared for discharge will need close follow up with nephrology outpatient. Plans for discharge to SNF. Labs pending for today. (2) Hypertension Code(s): I10 - Essential (primary) hypertension Status: Acute Qualifiers: Hypertension type: unspecified Qualified Code(s): I10 - Essential (primary ) hypertension Plan: Improved. Continue to monitor (3) Hypercalcemia Code(s): E83.52 - Hypercalcemia Status: Acute Plan: Resolved stable (4) Anemia Code(s): D64.9 - Anemia, unspecified Status: Acute Plan: HGB stable On iron replacement. (5) Multiple myeloma and immunoproliferative neoplasms Code(s): C90.00 - Multiple myeloma not having achieved remission; C88.9 - Malignant immunoproliferative disease, unspecified Status: Acute Plan: Multiple myeloma, on dexamethasone. CT PET scan outpatient <Cat Donahue - Last Filed: 06/09/18 09:04> - Assessment (1) Acute renal failure (ARF) Code(s): N17.9 - Acute kidney failure, unspecified Status: Acute Qualifiers: Acute renal failure type: unspecified Qualified Code(s): N17.9 - Acute kidney failure, unspecified Plan: Patient seen and examined, agree with above. Creatinine is stable, possible discharge, will follow as out patient. (2) Hypertension Code(s): I10 - Essential (primary) hypertension Status: Acute Qualifiers: Hypertension type: unspecified Qualified Code(s): I10 - Essential (primary ) hypertension (3) Hypercalcemia Code(s): E83.52 - Hypercalcemia Status: Acute (4) Anemia Code(s): D64.9 - Anemia, unspecified Status: Acute (5) Multiple myeloma and immunoproliferative neoplasms Code(s): C90.00 - Multiple myeloma not having achieved remission; C88.9 - Malignant immunoproliferative disease, unspecified Status: Acute <Nallely Rodriguez - Last Filed: 06/13/18 20:49>
[2018-06-09 09:23] VITALS: BP 164/77; TEMP 98.4
[2018-06-09 09:24] LABS: Albumin 2.5 g/dL (3.4-5.0); Anion Gap 9 meq/L (5-15); Aspartate Aminotransferase 25 U/L (15-37); Blood Urea Nitrogen 43 mg/dL (7-18); Calcium 8.6 mg/dL (8.5-10.1); Carbon Dioxide 23.7 meq/L (21.0-32.0); Chloride 112 meq/L (98-107); Glomerular Filtration Rate 17 mL/min (>89); Glucose,Random 85 mg/dL (74-106); Magnesium 1.9 mg/dL (1.5-2.5); Potassium 3.9 meq/L (3.5-5.1); Sodium 145 meq/L (136-145)
[2018-06-09 09:31] LABS: Alanine Aminotransferase 25 U/L (10-53); Alkaline Phosphatase 87 U/L (45-117); Phosphorus 2.3 mg/dL (2.5-4.9); Total Protein 6.1 g/dL (6.4-8.2)
[2018-06-09] MEDS: Heparin - SQ 10,000 UNITS/ML Vial SQ SCH (09:31)
[2018-06-09] MEDS: amLODIPine 10 MG Tablet PO SCH (09:31)
[2018-06-09] MEDS: Ferrous Sulfate 325 MG Tablet PO SCH (09:31)
[2018-06-09] MEDS: Pantoprazole Inj 40 MG Vial IV.PUSH SCH (09:32)
[2018-06-09 15:26] VITALS: PULSE 95
== END 2018-06-09 11:57 ==
LOC: NEPC 03:28 → NEDA 07:49 → INTOOBSV 08:14 → N06 09:41 → HCIN 16:01
PROVIDERS: ADMIT Hospitalist; ATTEND Hospitalist

== ENCOUNTER 2018-06-13 04:02 | Observation (INO) ==
--- NOTE | 2018-06-13 04:25 | ED ---
HPI General Chief complaint: Fall Stated complaint: poss low blood sugar Time Seen by Provider: 06/13/18 04:06 Source: patient Mode of arrival: EMS Limitations: no limitations History of Present Illness HPI narrative: The patient is an 87 year old female who presents to the [facility] emergency department with a history of being found on the ground by the longterm staff prior to arrival. This was an unwitnessed fall. The patient had slurred speech and her blood sugar was checked and noted to be 53. The patient was given orange juice prior to arrival by her longterm staff, however the blood sugar was not improving, therefore ambulance services were called. The patient was given 25 g of D10 after IV access was obtained and the patient's blood sugar came up to 173. The patient's slurred speech resolved. The patient then had a GCS of 15. She cannot recall the fall. She denies having any pain associated with this. The patient according to ambulance services was recently discharged from this hospital to the rehabilitation facility after an admission. On review of systems otherwise, the patient denies having any recent fevers, cough, congestion, neck pain, chest pain, shortness of breath, abdominal pain, vomiting, diarrhea, urinary symptoms, numbness or tingling to her extremities, weakness of her extremities, difficulty with word finding ability, vision changes, or facial droop. The patient reports that she recently has had a diminished appetite. According to the patient's medication record at the longterm, the patient has recently been on Glimepiride for her diabetes. Related Data Home Medications Medication Instructions Recorded Confirmed amlodipine 10 mg PO DAILY 02/24/18 06/13/18 clonidine HCl 0.1 mg PO BID 02/24/18 06/13/18 glimepiride 1 mg PO QAM 02/24/18 06/13/18 levothyroxine 150 mcg PO DAILY 02/24/18 06/13/18 potassium chloride 20 meq PO DAILY 02/24/18 06/13/18 Previous Rx's Medication Instructions Recorded ferrous sulfate [FeroSul] 325 mg PO DAILY #30 tab 02/25/18 cyclobenzaprine 5 mg PO Q8HR PRN #12 tab 06/08/18 dexamethasone 20 mg PO DAILY #20 tab 06/08/18 hydralazine 100 mg PO TID tab 06/08/18 methadone 2.5 mg PO DAILY #3 tab 06/08/18 pantoprazole [Protonix] 40 mg PO DAILY #30 tab 06/08/18 Allergies Allergy/AdvReac Type Severity Reaction Status Date / Time hydrochlorothiazide Allergy Anxiety Verified 05/28/18 09:57 naproxen [From Naprosyn] Allergy Anemia Verified 05/28/18 09:57 rivaroxaban [From Xarelto] Allergy Anxiety Verified 05/28/18 09:57 Review of Systems ROS: all other systems reviewed are negative [facility] Medical History Medical History Anemia (Acute) Breast cancer, right breast (Acute) Diabetes (Acute) H/O: hysterectomy (Acute) Hypercalcemia (Acute) Hyperlipemia (Acute) Hypertension (Acute) Hypokalemia (Acute) Hypothyroidism (Acute) PVD (peripheral vascular disease) (Acute) Stage 4 chronic kidney disease (Acute) Family History Family History Other Hypertension Social History Social History Substance History: No History of Abuse Second Hand Smoke Exposure: No Smoking Status: Never smoker Tobacco Type: Smokeless Tobacco How Often Do You Have a Drink Containing Alcohol: Never Hx Recent Travel: No Recent Travel in [facility] within the Last 8 Weeks: No Recent Out of Country Travel within the Last 8 Weeks: No Exam Const General: cooperative, no acute distress and well developed Nutritional Appearance: well nourished Orientation: alert, awake and oriented x3 HENMT Head: normocephalic and atraumatic Nose: no nasal discharge and no epistaxis Mouth: moist mucous membranes Throat: posterior oropharynx normal and uvula midline Eyes Sclera: normal sclerae Pupils: PERRL Neck Neck: no meningeal signs, trachea midline, no JVD and other Resp Effort & Inspection: no use of accessory muscles Auscultation: clear to auscultation bilaterally Cardio Rate: regular rate Rhythm: regular rhythm Heart Sounds: no gallops, murmur (1/6 systolic murmur.) systolic and no rubs GI Inspection: non-distended Palpation: soft, no hepatosplenomegaly, no guarding, not rigid and nontender Auscultation: normal bowel sounds Back/Spine/Pelvis Back: no CVA tenderness Cervical Spine: No cervical spinal tenderness Thoracic/Lumbar Spine: No thoracic spinal tenderness and No lumbar spinal tenderness Skin General: dry skin (warm) Neuro General: alert, awake and oriented x3 Cranial Nerves: CN's II-XI intact bilaterally Speech: speech normal Motor: strength 5/5 throughout and no movement abnormalities noted Sensory Exam: no sensory deficits noted Extrem General: normal to inspection (2+ pulses in all 4 extremities.), no calf tenderness, no clubbing, no cyanosis and edema (Trace to 1+ pitting edema.) Laterality: bilaterally Psych Mood: congruent mood Affect: normal affect Judgment: judgment good Course Initial Documented Vital Signs Temperature 97.5 F L 06/13/18 04:06 Pulse Rate 99 H 06/13/18 04:06 Respiratory Rate 14 06/13/18 04:06 Blood Pressure 125/95 H 06/13/18 04:06 Last Documented Vital Signs Temperature 97.5 F L 06/13/18 04:06 Pulse Rate 99 H 06/13/18 04:06 Respiratory Rate 14 06/13/18 04:06 Blood Pressure 125/95 H 06/13/18 04:06 Medical Decision Making MDM Narrative Medical decision making narrative: During the course of the patient's emergency department visit, the patient's history, examination, and differential diagnosis were reviewed with the patient. The patient was placed on a monitor tech with oximetry and frequent blood pressure monitoring. The patient had IV access obtained and blood work sent for analysis. A diagnostic evaluation was started regarding the patient's fall with hypoglycemia. Patient's blood sugar on arrival is 106. The patient was initially provided a meal to further support her blood sugar. Diagnostic studies are remarkable for a white count of 10.4, hemoglobin 8.4 which is stable compared to prior levels that appear to be in the eights, platelets are 300, neutrophil percent 90.4, PT 10.3, PTT 24.3, chemistry is remarkable for a BUN of 44, creatinine of 3.15 which is also stable compared to her prior level of renal insufficiency, GFR 17, glucose 114, troponin I less than 0.02, albumin 3.2, lipase within normal limits. Urinalysis shows 30 protein otherwise unremarkable. Culture not indicated. CHEST X-RAY: Shows no acute cardiopulmonary disease, pelvis x-ray shows no acute fracture. CT scan of the brain shows no acute abnormality, CT scan of the C-spine shows no evidence of fracture, multilevel degenerative changes, severe diffuse bony demineralization. In spite of eating, the patient's blood sugar again dropped down to 48. An amp of D50 was administered. The patient will be admitted to the hospital for persistent hypoglycemia on oral diabetic medication. The patient's case including history, pertinent physical examination findings, and laboratory studies were discussed with Dr. Wellington. It was agreed that the patient would be admitted to the [facility] service. The patient's results were discussed with the patient, including the plan of care. I explained that further testing and/ or monitoring is indicated based on the patient's history, examination, and/ or laboratory findings. Therefore, I recommended admission for additional evaluation. The patient expressed understanding and was agreeable with this plan. The patient was admitted to the hospital in guarded condition and sent to a bed under the care of the [facility] service. Medical Screen Exam Complete: Yes Emergency Medical Condition: Yes Medical Records Medical records reviewed: Yes I reviewed the patient's medical records. Lab Data Lab results reviewed: Yes I reviewed the patient's lab results. Result diagrams: 06/13/18 04:30 06/13/18 04:30 Lab Results 06/13/18 06/13/18 06/13/18 Range/Units 04:08 04:30 04:30 WBC 10.4 (4.0-11.0) th/mm3 RBC 2.70 L (4.00-5.30) mil/mm3 Hgb 8.4 L (11.6-15.3) gm/dL Hct 25.1 L (35.0-46.0) % MCV 93.2 (80.0-100.0) fL MCH 31.2 (27.0-34.0) pg MCHC 33.4 (32.0-36.0) % RDW 18.0 H (11.6-17.2) % Plt Count 300 (150-450) th/mm3 MPV 7.1 (7.0-11.0) fL Prelim Diff (Auto) Slide review pending Neut % (Auto) 90.4 H (16.0-70.0) % Lymph % (Auto) 6.0 L (9.0-44.0) % [place] % (Auto) 3.0 (0.0-8.0) % Eos % (Auto) 0.2 (0.0-4.0) % Baso % (Auto) 0.4 (0.0-2.0) % Neut # (Auto) 9.4 H (1.8-7.7) th/mm3 Lymph # (Auto) 0.6 L (1.0-4.8) th/mm3 [place] # (Auto) 0.3 (0.0-0.9) th/mm3 Eos # (Auto) 0.0 (0.0-0.4) th/mm3 Baso # (Auto) 0.0 (0.0-0.2) th/mm3 WBC Differential . Diff Scan Auto diff confirmed Differential Comment . Platelet Estimate Normal (Normal) Platelet Morphology Normal (Normal) Keratocytes Occ H (None) PT 10.3 (9.8-11.6) sec INR 1.0 Ratio APTT 24.3 (23.4-31.7) sec Sodium (136-145) meq/L Potassium (3.5-5.1) meq/L Chloride (98-107) meq/L Carbon Dioxide (21.0-32.0) meq/L Anion Gap (5-15) meq/L BUN (7-18) mg/dL Creatinine (0.50-1.00) mg/dL Estimated GFR (>89) mL/min POC Glucose 108 (68-110) mg/dl Random Glucose (74-106) mg/dL Calcium (8.5-10.1) mg/dL Magnesium (1.5-2.5) mg/dL Total Bilirubin (0.2-1.0) mg/dL AST (15-37) U/L ALT (10-53) U/L Alkaline Phosphatase (45-117) U/L Troponin I (0.02-0.05) ng/mL Total Protein (6.4-8.2) g/dL Albumin (3.4-5.0) g/dL Lipase (73-393) U/L Urine Color (Yellw/Straw) Urine Clarity (Clear) Urine pH (5.0-8.5) Ur Specific [place] (1.002-1.035) Urine Protein (Neg-Trace) mg/dL Urine Glucose (UA) (Negative) mg/dL Urine Ketones (Negative) mg/dL Urine Occult Blood (Negative) Urine Nitrate (Negative) Urine Bilirubin (Negative) Urine Urobilinogen (Less than 2) mg/dL Ur Leukocyte Esterase (Negative) Urine RBC (0-3) /hpf Urine WBC (0-5) /hpf Ur Squamous Epith Cells (0-5) /hpf Hyaline Casts (0-3) /lpf Micro UA Comment Ur Microscopic Review Urine Culture Comments 06/13/18 06/13/18 06/13/18 Range/Units 04:30 04:30 04:49 WBC (4.0-11.0) th/mm3 RBC (4.00-5.30) mil/mm3 Hgb (11.6-15.3) gm/dL Hct (35.0-46.0) % MCV (80.0-100.0) fL MCH (27.0-34.0) pg MCHC (32.0-36.0) % RDW (11.6-17.2) % Plt Count (150-450) th/mm3 MPV (7.0-11.0) fL Prelim Diff (Auto) Neut % (Auto) (16.0-70.0) % Lymph % (Auto) (9.0-44.0) % [place] % (Auto) (0.0-8.0) % Eos % (Auto) (0.0-4.0) % Baso % (Auto) (0.0-2.0) % Neut # (Auto) (1.8-7.7) th/mm3 Lymph # (Auto) (1.0-4.8) th/mm3 [place] # (Auto) (0.0-0.9) th/mm3 Eos # (Auto) (0.0-0.4) th/mm3 Baso # (Auto) (0.0-0.2) th/mm3 WBC Differential Diff Scan Differential Comment Platelet Estimate (Normal) Platelet Morphology (Normal) Keratocytes (None) PT (9.8-11.6) sec INR Ratio APTT (23.4-31.7) sec Sodium 140 (136-145) meq/L Potassium 4.1 (3.5-5.1) meq/L Chloride 107 (98-107) meq/L Carbon Dioxide 23.0 (21.0-32.0) meq/L Anion Gap 10 (5-15) meq/L BUN 44 H (7-18) mg/dL Creatinine 3.15 H (0.50-1.00) mg/dL Estimated GFR 17 L (>89) mL/min POC Glucose 75 (68-110) mg/dl Random Glucose 114 H (74-106) mg/dL Calcium 9.3 (8.5-10.1) mg/dL Magnesium 1.7 (1.5-2.5) mg/dL Total Bilirubin 0.2 (0.2-1.0) mg/dL AST 24 (15-37) U/L ALT 23 (10-53) U/L Alkaline Phosphatase 84 (45-117) U/L Troponin I Less than 0.02 L (0.02-0.05) ng/mL Total Protein 7.0 D (6.4-8.2) g/dL Albumin 3.2 L (3.4-5.0) g/dL Lipase 123 (73-393) U/L Urine Color Straw (Yellw/Straw) Urine Clarity Clear (Clear) Urine pH 6.0 (5.0-8.5) Ur Specific [place] 1.010 (1.002-1.035) Urine Protein 30 H (Neg-Trace) mg/dL Urine Glucose (UA) Negative (Negative) mg/dL Urine Ketones Negative (Negative) mg/dL Urine Occult Blood Negative (Negative) Urine Nitrate Negative (Negative) Urine Bilirubin Negative (Negative) Urine Urobilinogen Less than 2 (Less than 2) mg/dL Ur Leukocyte Esterase Negative (Negative) Urine RBC Less than 1 (0-3) /hpf Urine WBC 1 (0-5) /hpf Ur Squamous Epith Cells 1 (0-5) /hpf Hyaline Casts 1 (0-3) /lpf Micro UA Comment Culture not ind Ur Microscopic Review Not Reportable Urine Culture Comments Culture not ind 06/13/18 06/13/18 Range/Units 05:13 06:03 WBC (4.0-11.0) th/mm3 RBC (4.00-5.30) mil/mm3 Hgb (11.6-15.3) gm/dL Hct (35.0-46.0) % MCV (80.0-100.0) fL MCH (27.0-34.0) pg MCHC (32.0-36.0) % RDW (11.6-17.2) % Plt Count (150-450) th/mm3 MPV (7.0-11.0) fL Prelim Diff (Auto) Neut % (Auto) (16.0-70.0) % Lymph % (Auto) (9.0-44.0) % [place] % (Auto) (0.0-8.0) % Eos % (Auto) (0.0-4.0) % Baso % (Auto) (0.0-2.0) % Neut # (Auto) (1.8-7.7) th/mm3 Lymph # (Auto) (1.0-4.8) th/mm3 [place] # (Auto) (0.0-0.9) th/mm3 Eos # (Auto) (0.0-0.4) th/mm3 Baso # (Auto) (0.0-0.2) th/mm3 WBC Differential Diff Scan Differential Comment Platelet Estimate (Normal) Platelet Morphology (Normal) Keratocytes (None) PT (9.8-11.6) sec INR Ratio APTT (23.4-31.7) sec Sodium (136-145) meq/L Potassium (3.5-5.1) meq/L Chloride (98-107) meq/L Carbon Dioxide (21.0-32.0) meq/L Anion Gap (5-15) meq/L BUN (7-18) mg/dL Creatinine (0.50-1.00) mg/dL Estimated GFR (>89) mL/min POC Glucose 59 L 48 L* (68-110) mg/dl Random Glucose (74-106) mg/dL Calcium (8.5-10.1) mg/dL Magnesium (1.5-2.5) mg/dL Total Bilirubin (0.2-1.0) mg/dL AST (15-37) U/L ALT (10-53) U/L Alkaline Phosphatase (45-117) U/L Troponin I (0.02-0.05) ng/mL Total Protein (6.4-8.2) g/dL Albumin (3.4-5.0) g/dL Lipase (73-393) U/L Urine Color (Yellw/Straw) Urine Clarity (Clear) Urine pH (5.0-8.5) Ur Specific [place] (1.002-1.035) Urine Protein (Neg-Trace) mg/dL Urine Glucose (UA) (Negative) mg/dL Urine Ketones (Negative) mg/dL Urine Occult Blood (Negative) Urine Nitrate (Negative) Urine Bilirubin (Negative) Urine Urobilinogen (Less than 2) mg/dL Ur Leukocyte Esterase (Negative) Urine RBC (0-3) /hpf Urine WBC (0-5) /hpf Ur Squamous Epith Cells (0-5) /hpf Hyaline Casts (0-3) /lpf Micro UA Comment Ur Microscopic Review Urine Culture Comments Imaging Data Radiologist's impression: Cervical Spine CT 06/13/18 04:13 CONCLUSION: 1. No evidence fracture. 2. Multilevel degenerative. 3. Severe diffuse bone demineralization. Chest X-Ray 06/13/18 04:13 CONCLUSION: No acute cardiopulmonary disease identified. Head CT 06/13/18 04:13 CONCLUSION: Negative CT Head non contrast. . Pelvis X-Ray 06/13/18 04:13 CONCLUSION: No fracture identified. ECG Data Attestation: I personally reviewed and interpreted this ECG as follows: Interpretation: The patient had a EKG done on arrival. The patient's EKG reveals a sinus rhythm heart rate is 67, is 98 ms, QTC is [address] segment elevation. T waves are inverted in aVL. Discharge Plan Discharge Disposition Patient Disposition: 30 Still Patient Discharge Details Diagnosis: Hypoglycemia Physicians Team ED Provider: Siena Dickson Primary Care Provider: Primary Care Blanche Olmos Rxs /Orders / Referrals /Forms Prescriptions: No Action clonidine HCl 0.1 mg Tablet 0.1 mg PO BID RF: 0 glimepiride 1 mg Tablet 1 mg PO QAM RF: 0 amlodipine 10 mg Tablet 10 mg PO DAILY RF: 0 levothyroxine 150 mcg Tablet 150 mcg PO DAILY RF: 0 potassium chloride 20 mEq Tablet Extended Release 20 meq PO DAILY RF: 0 ferrous sulfate [FeroSul] 325 mg (65 mg iron) Tablet 325 mg PO DAILY Qty: 30 RF: 0 hydralazine 100 mg Tablet 100 mg PO TID RF: 0 methadone 10 mg Tablet 2.5 mg PO DAILY Qty: 3 RF: 0 pantoprazole [Protonix] 20 mg Tablet,Delayed Release (Dr/Ec) 40 mg PO DAILY Qty: 30 RF: 0 dexamethasone 4 mg Tablet 20 mg PO DAILY Qty: 20 RF: 0 cyclobenzaprine 10 mg Tablet 5 mg PO Q8HR PRN (Reason: Back Pain) Qty: 12 RF: 0 Status ED Status: With Doctor
[2018-06-13 04:52] LABS: Baso % (Auto) 0.4 % (0.0-2.0); Eos % (Auto) 0.2 % (0.0-4.0); Hematocrit 25.1 % (35.0-46.0); Hemoglobin 8.4 gm/dL (11.6-15.3); Lymph # (Auto) 0.6 th/mm3 (1.0-4.8); Mean Corpuscular HGB Conc 33.4 % (32.0-36.0); Mean Corpuscular Hemoglobin 31.2 pg (27.0-34.0); Mean Corpuscular Volume 93.2 fL (80.0-100.0); Mean Platelet Volume 7.1 fL (7.0-11.0); Mono # (Auto) 0.3 th/mm3 (0.0-0.9); Neut # (Auto) 9.4 th/mm3 (1.8-7.7); Neut % (Auto) 90.4 % (16.0-70.0); Platelet Count 300 th/mm3 (150-450); White Blood Count 10.4 th/mm3 (4.0-11.0)
[2018-06-13 04:54] LABS: Bilirubin,Urine Negative (Negative); Clarity,Urine Clear (Clear); Color,Urine Straw (Yellw/Straw); Glucose,Urine (UA) Negative (Negative); Hyaline Casts,Urine 1 /lpf (0-3); Leukocyte Esterase,Urine Negative (Negative); Nitrite,Urine Negative (Negative); Squamous Epithelial Cell,Urine 1 /hpf (0-5)
[2018-06-13 05:10] LABS: Activated Partial Thrombo Time 24.3 sec (23.4-31.7); Prothrombin Time 10.3 sec (9.8-11.6)
--- NOTE | 2018-06-13 05:11 | CT ---
EXAM DATE: 06/13/2018 5:03 AM EST AGE/SEX: 87 years / Female INDICATIONS: Patient found on floor. CLINICAL DATA: This is the patient's initial encounter. Patient reports that signs and symptoms have been present for 1 day and indicates a pain score of 0/10. MEDICAL/SURGICAL HISTORY: Carcinoma, breast. Renal disease, end stage. Hypertension. Hypothyroid , Anemia None. RADIATION DOSE: 56.35 CTDI (mGy) COMPARISON: No prior exams available for comparison. TECHNIQUE: CT of the head without contrast. Using automated exposure control and adjustment of the mA and/or kV according to patient size, radiation dose was kept as low as reasonably achievable to ob tain optimal diagnostic quality images. DICOM format image data is available electronically for revi ew and comparison. FINDINGS: Cerebrum: The ventricles are normal for age. No evidence of midline shift, mass lesion, hemorrhage or acute infarction. No extraaxial fluid collections are seen. Posterior Fossa: The cerebellum and brainstem are intact. The 4th ventricle is midline. The cerebe llopontine angle is unremarkable. Extracranial: The visualized portion of the orbits is intact. Skull: The calvaria is intact. No evidence of skull fracture. CONCLUSION: Negative CT Head non contrast. . Electronically signed by: Ray Broderick MD 06/13/2018 5:10 AM EST
[2018-06-13 05:16] LABS: Albumin 3.2 g/dL (3.4-5.0); Anion Gap 10 meq/L (5-15); Aspartate Aminotransferase 24 U/L (15-37); Blood Urea Nitrogen 44 mg/dL (7-18); Calcium 9.3 mg/dL (8.5-10.1); Chloride 107 meq/L (98-107); Glomerular Filtration Rate 17 mL/min (>89); Glucose,Random 114 mg/dL (74-106); Lipase 123 U/L (73-393); Magnesium 1.7 mg/dL (1.5-2.5); Potassium 4.1 meq/L (3.5-5.1); Sodium 140 meq/L (136-145)
--- NOTE | 2018-06-13 05:16 | CT ---
EXAM DATE: 06/13/2018 5:08 AM EST AGE/SEX: 87 years / Female INDICATIONS: Patient found on the floor. CLINICAL DATA: This is the patient's initial encounter. Patient reports that signs and symptoms have been present for 1 day and indicates a pain score of 0/10. MEDICAL/SURGICAL HISTORY: Carcinoma, breast. Renal disease, end stage. Hypertension. Hypothy roid, Anemia None. RADIATION DOSE: 18.79 CTDI (mGy) COMPARISON: No prior exams available for comparison. TECHNIQUE: Contiguous axial images were obtained using helical multirow detector technique. The vol umetric data was post-processed with multiplanar reconstruction in oblique axial, sagittal, and coron al planes. Using automated exposure control and adjustment of the mA and/or kV according to patient s ize, radiation dose was kept as low as reasonably achievable to obtain optimal diagnostic quality phillip ges. DICOM format image data is available electronically for review and comparison. FINDINGS: Vertebrae: Diffuse severe bone demineralization. No evidence of fracture. Alignment: 5 mm anterolisthesis C7 on T1. C2-3: Bilateral facet arthrosis. Mild left neural foraminal narrowing. Central canal diameter within normal limits. C3-4: Broad-based disc osteophyte complex and bilateral facet arthrosis. Moderate left neural forami nal narrowing. Central canal diameter within normal limits. C4-5: Broad-based disc osteophyte complex and bilateral facet arthrosis. Mild bilateral neural corky inal narrowing. Minimal central canal narrowing. C5-6: Broad-based disc osteophyte complex and bilateral facet arthrosis. Mild right neural foraminal narrowing. Central canal diameter within normal limits. C6-7: Broad-based disc osteophyte complex and bilateral facet arthrosis. Central canal diameter with in normal limits. Neural foraminal diameters within normal limits. C7-T1: Broad-based disc osteophyte complex and bilateral facet arthrosis. Central canal diameter wit hin normal limits. Neural foraminal diameters within normal limits. CONCLUSION: 1. No evidence fracture. 2. Multilevel degenerative. 3. Severe diffuse bone demineralization. Electronically signed by: Ray Broderick MD 06/13/2018 5:14 AM EST
[2018-06-13 05:17] LABS: Alanine Aminotransferase 23 U/L (10-53)
[2018-06-13] MEDS: Dextrose 50% in Water 50 ML Vial IV.PUSH PRN ×2 (05:17→06:05)
--- NOTE | 2018-06-13 05:18 | XR ---
EXAM DATE: 06/13/2018 4:58 AM EST AGE/SEX: 87 years / Female INDICATIONS: Syncopal episode. CLINICAL DATA: This is the patient's initial encounter. Patient reports that signs and symptoms have been present for 1 day and indicates a pain score of 0/10. MEDICAL/SURGICAL HISTORY: Hypertension. Diabetes mellitus type II. Carcinoma, breast. Anemi a. Stage IV kidney disease. Hysterectomy. COMPARISON: [facility] [place] 1V SINGLE AP, 05/29/2018. . FINDINGS: Single AP view the chest. The lungs are clear. Cardiomediastinal silhouette within normal limits. No evidence of pleural effusion or pneumothorax. CONCLUSION: No acute cardiopulmonary disease identified. Electronically signed by: Ray Broderick MD 06/13/2018 5:16 AM EST
--- NOTE | 2018-06-13 05:19 | XR ---
EXAM DATE: 06/13/2018 4:59 AM EST AGE/SEX: 87 years / Female INDICATIONS: Syncopal episode. CLINICAL DATA: This is the patient's initial encounter. Patient reports that signs and symptoms have been present for 1 day and indicates a pain score of 0/10. MEDICAL/SURGICAL HISTORY: Hypertension. Diabetes mellitus type II. Carcinoma, breast. Anemi a. Stage IV kidney disease. Hysterectomy. COMPARISON: No prior exams available for comparison. FINDINGS: 2 AP views of the pelvis. Bone alignment within normal limits. No evidence of fracture.. Diffuse bone demineralization. Sacrum is somewhat obscured by bowel gas. CONCLUSION: No fracture identified. Electronically signed by: Ray Broderick MD 06/13/2018 5:18 AM EST
[2018-06-13 05:21] LABS: Alkaline Phosphatase 84 U/L (45-117)
[2018-06-13 06:08] LABS: Platelet Estimate Normal (Normal); Platelet Morphology Normal (Normal)
[2018-06-13] MEDS ORDERED: Bisacodyl 10 MG Supp RECTAL PRN (06:31)
[2018-06-13] MEDS ORDERED: Acetaminophen 325 MG Tablet PO PRN (06:31)
[2018-06-13] MEDS: Dextrose 5%/NaCl 0.9% Inj 1,000 ML IV.CONT SCH (10:29)
[2018-06-13] MEDS: amLODIPine 10 MG Tablet PO SCH (10:31)
[2018-06-13] MEDS: Sodium Chloride 0.9% 2 ML Flush BID IV.FLUSH SCH ×2 (10:35→20:08)
[2018-06-13] MEDS: Senna/Docusate Sodium 8.6/50 MG Tablet PO SCH ×2 (13:08→20:08)
[2018-06-13] MEDS: Methadone 10 MG Tablet PO SCH (13:08)
[2018-06-13 15:13] LABS: Hemoglobin A1c 5.6 % (4.3-6.0)
--- NOTE | 2018-06-13 15:37 | P.HP ---
History of Present Illness Service: Hospitalist Primary Care Physician: No Primary Care Physician Chief Complaint: Low blood sugar History of Present Illness: Patient is an 87-year-old -Swiss female who was brought to the emergency department after being found on the ground by SNF staff where she was doing rehabilitation. No fall was witnessed. Patient was found to have slurred speech and blood sugar of 53. Her blood sugar failed to improve after being given orange juice so EMS was called. Past medical history includes hypertension, hypothyroidism, peripheral vascular disease, stage IV chronic kidney disease, history of right-sided breast cancer, diabetes mellitus type 2, dyslipidemia. She was recently hospitalized on 05/28/18 with complaints of severe back pain and found to have multiple myeloma. Patient is seen lying quietly in bed. Her daughter is at bedside. Patient tells me that she took glimepiride as was ordered for her but did not eat very much dinner last night. She has not had much of an appetite. She tells me that she was only taking her "sugar medicine" once or twice a week at home prior to going to the SNF. Patient's daughter expresses a concerned that she has not been eating because she is possibly not swallowing well. She was previously on thickened liquids during her most recent hospitalization. Denies chest pain or shortness of breath. No dizziness or syncope. She does not remember falling or being weak. No nausea vomiting or diarrhea. No fever or chills. Patient is noted to be a somewhat poor historian. - Diagnosis (1) Hypoglycemia (2) Back pain (3) Metastatic cancer to spine (4) Multiple myeloma and immunoproliferative neoplasms Review of Systems All other systems reviewed negative except as stated in HPI PMFSH - History History Provided By: Patient, Family Member, Medical Record - Medical History Medical History: Medical History (Last Reviewed 06/13/18 @ 15:31 by JAY Reina) Anemia Breast cancer, right breast Diabetes H/O: hysterectomy Hypercalcemia Hyperlipemia Hypertension Hypokalemia Hypothyroidism PVD (peripheral vascular disease) Stage 4 chronic kidney disease - Family History Family History: Family History (Last Reviewed 06/13/18 @ 15:31 by JAY Reina) Other Hypertension - Social History I have reviewed the patient's Social History: Yes - Tobacco History Second Hand Smoke Exposure: No Tobacco Use In Past 30 Days: No Smoking Status: Never smoker - Alcohol History How Often Do You Have a Drink Containing Alcohol: Never - Substance Use History Substance History: No History of Abuse - Travel History History of Recent Travel: No Recent Travel in the [place] Within the Last 8 Weeks: No Recent Travel Out of the Country Within the Last 8 Weeks: No - Immunization History Tetanus Immunization: Unsure Medications and Allergies Active Medications: Active Medications Acetaminophen (Tylenol) 650 mg PO Q4H PRN PRN Reason: Temp > 100.4 Al Hydroxide/Mg Hydroxide (Milk Of Magnesia Liq) 30 ml PO Q12H PRN PRN Reason: Mild Constipation Amlodipine Besylate (Norvasc) 10 mg PO DAILY [facility] Last Admin: 06/13/18 10:31 Dose: 10 mg Bisacodyl (Dulcolax Supp) 10 mg RECTAL DAILY PRN PRN Reason: SEVERE CONSITIPATION Clonidine HCl (Catapres) 0.1 mg PO BID [facility] Cyclobenzaprine HCl (Flexeril) 5 mg PO Q8HR PRN PRN Reason: Back Pain Dextrose (D50w Vial) 50 ml IV.PUSH UNSCH PRN PRN Reason: PER HYPOGLYCEMIA PROTOCOL Ferrous Sulfate (Ferosul) 325 mg PO DAILY [facility] Glucagon (Glucagon Inj) 1 mg OTHER PRN PRN PRN Reason: for Hypoglycemia Protocol Hydralazine HCl (Apresoline) 100 mg PO TID [facility] Last Admin: 06/13/18 13:08 Dose: 100 mg Dextrose/Sodium Chloride (D5w/Normal Saline Inj) 1,000 mls @ 84 mls/hr IV.CONT .[id number] [facility] Last Admin: 06/13/18 10:29 Dose: 84 mls/hr Lactulose (Lactulose Liq) 30 ml PO DAILY PRN PRN Reason: SEVERE CONSITIPATION Levothyroxine Sodium (Synthroid) 150 mcg PO DAILY@0600 [facility] Methadone HCl (Dolophine) 2.5 mg PO DAILY [facility] Last Admin: 06/13/18 13:08 Dose: 2.5 mg Ondansetron HCl (Zofran Inj) 4 mg IV.PUSH Q6H PRN PRN Reason: NAUSEA OR VOMITING Pantoprazole Sodium (Protonix) 40 mg PO DAILY [facility] Potassium Chloride (K-Dur) 20 meq PO DAILY [facility] Senna/Docusate Sodium (Anne-Colace) 1 tab PO BID [facility] Last Admin: 06/13/18 13:08 Dose: 1 tab Sennosides (Senokot) 17.2 mg PO Q12H PRN PRN Reason: Moderate Constipation Sodium Chloride (Ns Flush) 2 ml IV.FLUSH BID [facility] Last Admin: 06/13/18 10:35 Dose: 2 ml Sodium Chloride (Ns Flush) 2 ml IV.FLUSH PRN PRN PRN Reason: FLUSH AFTER USING IV ACCESS Allergies Allergy/AdvReac Type Severity Reaction Status Date / Time hydrochlorothiazide Allergy Anxiety Verified 05/28/18 09:57 naproxen [From Naprosyn] Allergy Anemia Verified 05/28/18 09:57 rivaroxaban [From Xarelto] Allergy Anxiety Verified 05/28/18 09:57 Home Medications Medication Instructions Recorded Confirmed Type amlodipine 10 mg PO DAILY 02/24/18 06/13/18 History clonidine HCl 0.1 mg PO BID 02/24/18 06/13/18 History glimepiride 1 mg PO QAM 02/24/18 06/13/18 History levothyroxine 150 mcg PO DAILY 02/24/18 06/13/18 History potassium chloride 20 meq PO DAILY 02/24/18 06/13/18 History Exam Vital signs: Vital Signs 06/13/18 04:06 06/13/18 07:28 Temperature 97.5 F L Pulse Rate 99 H 99 H Respiratory Rate 14 17 Blood Pressure 125/95 H 181/85 H Pulse Oximetry 95 Intake & Output 06/12/18 06/13/18 06/13/18 18:59 06:59 18:59 Intake Total 120 / 120 Balance 120 / 120 Weight 81.647 kg Intake: Oral 120 / 120 Narrative: GENERAL: Well-nourished, well-developed adult female in no obvious distress. SKIN: Warm and dry. HEAD: Atraumatic. Normocephalic. CARDIOVASCULAR: Regular rate and rhythm. RESPIRATORY: No accessory muscle use. Clear to auscultation. Breath sounds equal bilaterally. GASTROINTESTINAL: Abdomen soft, non-tender, non-distended. Positive bowel sounds. MUSCULOSKELETAL: Bilateral lower leg edema +1 pitting. No obvious deformities. NEUROLOGICAL: Awake and alert. No obvious cranial nerve deficits. Motor grossly within normal limits. Normal speech. Results - Labs CBC & Chem 7: 06/13/18 04:30 06/13/18 04:30 Labs: Laboratory Results - last 24 hr 06/13/18 06/13/18 06/13/18 04:08 04:30 04:30 WBC 10.4 RBC 2.70 L Hgb 8.4 L Hct 25.1 L MCV 93.2 MCH 31.2 MCHC 33.4 RDW 18.0 H Plt Count 300 MPV 7.1 Prelim Diff (Auto) Slide review pending Neut % (Auto) 90.4 H Lymph % (Auto) 6.0 L [place] % (Auto) 3.0 Eos % (Auto) 0.2 Baso % (Auto) 0.4 Neut # (Auto) 9.4 H Lymph # (Auto) 0.6 L [place] # (Auto) 0.3 Eos # (Auto) 0.0 Baso # (Auto) 0.0 WBC Differential . Diff Scan Auto diff confirmed Differential Comment . Platelet Estimate Normal Platelet Morphology Normal Keratocytes Occ H PT 10.3 INR 1.0 APTT 24.3 Sodium Potassium Chloride Carbon Dioxide Anion Gap BUN Creatinine Estimated GFR POC Glucose 108 Random Glucose Calcium Magnesium Total Bilirubin AST ALT Alkaline Phosphatase Troponin I Total Protein Albumin Lipase Urine Color Urine Clarity Urine pH Ur Specific [place] Urine Protein Urine Glucose (UA) Urine Ketones Urine Occult Blood Urine Nitrate Urine Bilirubin Urine Urobilinogen Ur Leukocyte Esterase Urine RBC Urine WBC Ur Squamous Epith Cells Hyaline Casts Micro UA Comment Ur Microscopic Review Urine Culture Comments 06/13/18 06/13/18 06/13/18 04:30 04:30 04:49 WBC RBC Hgb Hct MCV MCH MCHC RDW Plt Count MPV Prelim Diff (Auto) Neut % (Auto) Lymph % (Auto) [place] % (Auto) Eos % (Auto) Baso % (Auto) Neut # (Auto) Lymph # (Auto) [place] # (Auto) Eos # (Auto) Baso # (Auto) WBC Differential Diff Scan Differential Comment Platelet Estimate Platelet Morphology Keratocytes PT INR APTT Sodium 140 Potassium 4.1 Chloride 107 Carbon Dioxide 23.0 Anion Gap 10 BUN 44 H Creatinine 3.15 H Estimated GFR 17 L POC Glucose 75 Random Glucose 114 H Calcium 9.3 Magnesium 1.7 Total Bilirubin 0.2 AST 24 ALT 23 Alkaline Phosphatase 84 Troponin I Less than 0.02 L Total Protein 7.0 D Albumin 3.2 L Lipase 123 Urine Color Straw Urine Clarity Clear Urine pH 6.0 Ur Specific [place] 1.010 Urine Protein 30 H Urine Glucose (UA) Negative Urine Ketones Negative Urine Occult Blood Negative Urine Nitrate Negative Urine Bilirubin Negative Urine Urobilinogen Less than 2 Ur Leukocyte Esterase Negative Urine RBC Less than 1 Urine WBC 1 Ur Squamous Epith Cells 1 Hyaline Casts 1 Micro UA Comment Culture not ind Ur Microscopic Review Not Reportable Urine Culture Comments Culture not ind 06/13/18 06/13/18 06/13/18 05:13 06:03 06:28 WBC RBC Hgb Hct MCV MCH MCHC RDW Plt Count MPV Prelim Diff (Auto) Neut % (Auto) Lymph % (Auto) [place] % (Auto) Eos % (Auto) Baso % (Auto) Neut # (Auto) Lymph # (Auto) [place] # (Auto) Eos # (Auto) Baso # (Auto) WBC Differential Diff Scan Differential Comment Platelet Estimate Platelet Morphology Keratocytes PT INR APTT Sodium Potassium Chloride Carbon Dioxide Anion Gap BUN Creatinine Estimated GFR POC Glucose 59 L 48 L* 137 H Random Glucose Calcium Magnesium Total Bilirubin AST ALT Alkaline Phosphatase Troponin I Total Protein Albumin Lipase Urine Color Urine Clarity Urine pH Ur Specific [place] Urine Protein Urine Glucose (UA) Urine Ketones Urine Occult Blood Urine Nitrate Urine Bilirubin Urine Urobilinogen Ur Leukocyte Esterase Urine RBC Urine WBC Ur Squamous Epith Cells Hyaline Casts Micro UA Comment Ur Microscopic Review Urine Culture Comments 06/13/18 06/13/18 06/13/18 07:25 08:40 10:35 WBC RBC Hgb Hct MCV MCH MCHC RDW Plt Count MPV Prelim Diff (Auto) Neut % (Auto) Lymph % (Auto) [place] % (Auto) Eos % (Auto) Baso % (Auto) Neut # (Auto) Lymph # (Auto) [place] # (Auto) Eos # (Auto) Baso # (Auto) WBC Differential Diff Scan Differential Comment Platelet Estimate Platelet Morphology Keratocytes PT INR APTT Sodium Potassium Chloride Carbon Dioxide Anion Gap BUN Creatinine Estimated GFR POC Glucose 69 59 L 92 Random Glucose Calcium Magnesium Total Bilirubin AST ALT Alkaline Phosphatase Troponin I Total Protein Albumin Lipase Urine Color Urine Clarity Urine pH Ur Specific [place] Urine Protein Urine Glucose (UA) Urine Ketones Urine Occult Blood Urine Nitrate Urine Bilirubin Urine Urobilinogen Ur Leukocyte Esterase Urine RBC Urine WBC Ur Squamous Epith Cells Hyaline Casts Micro UA Comment Ur Microscopic Review Urine Culture Comments 06/13/18 06/13/18 06/13/18 11:40 12:40 13:51 WBC RBC Hgb Hct MCV MCH MCHC RDW Plt Count MPV Prelim Diff (Auto) Neut % (Auto) Lymph % (Auto) [place] % (Auto) Eos % (Auto) Baso % (Auto) Neut # (Auto) Lymph # (Auto) [place] # (Auto) Eos # (Auto) Baso # (Auto) WBC Differential Diff Scan Differential Comment Platelet Estimate Platelet Morphology Keratocytes PT INR APTT Sodium Potassium Chloride Carbon Dioxide Anion Gap BUN Creatinine Estimated GFR POC Glucose 88 76 59 L Random Glucose Calcium Magnesium Total Bilirubin AST ALT Alkaline Phosphatase Troponin I Total Protein Albumin Lipase Urine Color Urine Clarity Urine pH Ur Specific [place] Urine Protein Urine Glucose (UA) Urine Ketones Urine Occult Blood Urine Nitrate Urine Bilirubin Urine Urobilinogen Ur Leukocyte Esterase Urine RBC Urine WBC Ur Squamous Epith Cells Hyaline Casts Micro UA Comment Ur Microscopic Review Urine Culture Comments - Imaging Impressions Cervical Spine CT 06/13/18 04:13 CONCLUSION: 1. No evidence fracture. 2. Multilevel degenerative. 3. Severe diffuse bone demineralization. Chest X-Ray 06/13/18 04:13 CONCLUSION: No acute cardiopulmonary disease identified. Head CT 06/13/18 04:13 CONCLUSION: Negative CT Head non contrast. . Pelvis X-Ray 06/13/18 04:13 CONCLUSION: No fracture identified. Caprini VTE Risk Assessment Caprini VTE Risk Assessment: No/Low Risk (score <= 1) Caprini Risk Assessment Model: Point Value = 1 Point Value = 2 Point Value = 3 Point Value = 5 Age 41-60 Minor surgery BMI > 25 kg/m2 Swollen legs Varicose veins or History of unexplained or recurrent spontaneous Oral contraceptives or hormone replacement Sepsis (< 1 month) Serious lung disease, including pneumonia (< 1 month) Abnormal pulmonary function Acute myocardial infarction Congestive heart failure (< 1 month) History of inflammatory bowel disease Medical patient at bed rest Age 61-74 Arthroscopic surgery Major open surgery (> 45 min) Laparoscopic surgery (> 45 min) Malignancy Confined to bed (> 72 hours) Immobilizing plaster cast Central venous access Age >= 75 History of VTE Family history of VTE Factor V Leiden Prothrombin [id number] Lupus anticoagulant Anticardiolipin antibodies Elevated serum homocysteine Heparin-induced thrombocytopenia Other congenital or acquired thrombophilia Stroke (< 1 month) Elective arthroplasty Hip, pelvis, or leg fracture Acute spinal cord injury (< 1 month) Prophylaxis Regimen: Total Risk Factor Score Risk Level Prophylaxis Regimen 0-1 Low Early ambulation 2 Moderate Order ONE of the following: *Sequential Compression Device (SCD) *Heparin 5000 units SQ BID 3-4 Higher Order ONE of the following medications: *Heparin 5000 units SQ TID *Enoxaparin/Lovenox 40 mg SQ daily (WT < 150 kg, CrCl > 30 mL/min) *Enoxaparin/Lovenox 30 mg SQ daily (WT < 150 kg, CrCl > 10-29 mL/min) *Enoxaparin/Lovenox 30 mg SQ BID (WT < 150 kg, CrCl > 30 mL/min) AND/OR *Sequential Compression Device (SCD) 5 or more Highest Order ONE of the following medications: *Heparin 5000 units SQ TID (Preferred with Epidurals) *Enoxaparin/Lovenox 40 mg SQ daily (WT < 150 kg, CrCl > 30 mL/min) *Enoxaparin/Lovenox 30 mg SQ daily (WT < 150 kg, CrCl > 10-29 mL/min) *Enoxaparin/Lovenox 30 mg SQ BID (WT < 150 kg, CrCl > 30 mL/min) AND *Sequential Compression Device (SCD) Assessment and Plan - Assessment (1) Hypoglycemia Code(s): E16.2 - Hypoglycemia, unspecified Status: Acute (2) Back pain Code(s): M54.9 - Dorsalgia, unspecified Status: Acute (3) Metastatic cancer to spine Code(s): C79.51 - Secondary malignant neoplasm of bone Status: Acute (4) Multiple myeloma and immunoproliferative neoplasms Code(s): C90.00 - Multiple myeloma not having achieved remission; C88.9 - Malignant immunoproliferative disease, unspecified Status: Acute - Plan This patient is an 87-year-old female with a diagnosis of hypertension, hypothyroidism, peripheral vascular disease, stage IV chronic kidney disease, history of right-sided breast cancer, diabetes mellitus type 2, dyslipidemia. The patient presented to ED on 05/28/18 with complaints of severe back pain and was found to have multiple myeloma. Was eventually discharged to rehab however she returns 06/13/18 due to hypoglycemia. Hypoglycemia with reported history of diabetes mellitus type 2 -Possibly related to restarting on sulfonylurea which she had not been taking at home -A1c ordered to evaluate need for treatment -IVF -D5 NS until sugar stabilized 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 Continue pulse Decadron 20 mg daily 4 days on, 4 days off. Last taken 06/09-. Restart 06/17 for 4 days. -physical therapy. -pain control as needed with low dose methadone and Flexeril as needed. -oncology previously planned PET scan as outpt. CKD stage IV. -Baseline creatinine appears to be 34. Monitor. Hypertension -Continue amlodipine, hydralazine, clonidine. Adjust as needed. Hypothyroidism -Continue Synthroid. DVT prophylaxis: SCDs Discharge Planning: Return to SNF/Rehab likely
--- NOTE | 2018-06-13 17:19 | ECG ---
Date Performed: 06/13/2018 Time Performed: 04:14:02 PTAGE: 87 years EKG: Sinus rhythm LEFT AXIS SEPTAL MYOCARDIAL INFARCTION ABNORMAL ECG PREVIOUS TRACING : 02/24/2018 15.58 Since the previous tracing, no significant change noted DOCTOR: Vu Conrad Interpretating Date/Time 06/13/2018 17:19:14
[2018-06-13] MEDS ORDERED: Dextrose 50% in Water Syringe 50 ML ONE (18:52)
[2018-06-14] MEDS: Dextrose 5%/NaCl 0.9% Inj 1,000 ML IV.CONT SCH (00:08)
[2018-06-14] MEDS: Dextrose 50% in Water 50 ML Vial IV.PUSH PRN ×2 (01:10→05:47)
[2018-06-14] MEDS: Sodium Chloride 0.9% 2 ML Flush PRN IV.FLUSH ×2 (01:17→05:56)
[2018-06-14] MEDS: Levothyroxine 150 MCG Tablet PO SCH (05:46)
[2018-06-14 07:39] LABS: Baso % (Auto) 0.3 % (0.0-2.0); Eos # (Auto) 0.1 th/mm3 (0.0-0.4); Eos % (Auto) 1.5 % (0.0-4.0); Hematocrit 23.8 % (35.0-46.0); Hemoglobin 8.3 gm/dL (11.6-15.3); Lymph # (Auto) 0.6 th/mm3 (1.0-4.8); Lymph % (Auto) 8.1 % (9.0-44.0); Mean Corpuscular HGB Conc 34.7 % (32.0-36.0); Mean Corpuscular Hemoglobin 31.9 pg (27.0-34.0); Mean Corpuscular Volume 91.8 fL (80.0-100.0); Mean Platelet Volume 7.1 fL (7.0-11.0); Mono # (Auto) 0.4 th/mm3 (0.0-0.9); Neut # (Auto) 6.7 th/mm3 (1.8-7.7); Neut % (Auto) 85.1 % (16.0-70.0); Platelet Count 270 th/mm3 (150-450); Red Blood Count 2.59 mil/mm3 (4.00-5.30); Red Cell Distribution Width 17.8 % (11.6-17.2); White Blood Count 7.9 th/mm3 (4.0-11.0)
[2018-06-14 08:07] LABS: Alanine Aminotransferase 22 U/L (10-53); Albumin 2.7 g/dL (3.4-5.0); Anion Gap 9 meq/L (5-15); Aspartate Aminotransferase 22 U/L (15-37); Blood Urea Nitrogen 40 mg/dL (7-18); Calcium 9.1 mg/dL (8.5-10.1); Carbon Dioxide 23.7 meq/L (21.0-32.0); Chloride 106 meq/L (98-107); Glomerular Filtration Rate 18 mL/min (>89); Glucose,Random 102 mg/dL (74-106); Potassium 4.6 meq/L (3.5-5.1); Sodium 139 meq/L (136-145)
[2018-06-14 08:09] LABS: Alkaline Phosphatase 102 U/L (45-117); Total Protein 6.5 g/dL (6.4-8.2)
[2018-06-14 08:52] LABS: Eosinophils 1 % (0-4); Lymphocytes 11 % (9-44); Monocytes 6 % (0-8); Myelocytes 1 % (0-0); Platelet Estimate Normal (Normal); Platelet Morphology Normal (Normal)
[2018-06-14] MEDS: Ferrous Sulfate 325 MG Tablet PO SCH (09:38)
[2018-06-14] MEDS: Methadone 10 MG Tablet PO SCH (09:38)
[2018-06-14] MEDS: amLODIPine 10 MG Tablet PO SCH (09:39)
[2018-06-14] MEDS: Senna/Docusate Sodium 8.6/50 MG Tablet PO SCH (09:40)
[2018-06-14] MEDS: Pantoprazole Sodium 20 MG DR Tablet PO SCH (09:40)
[2018-06-14] MEDS: Sodium Chloride 0.9% 2 ML Flush BID IV.FLUSH SCH ×2 (09:40→20:36)
--- NOTE | 2018-06-14 13:53 | P.PN ---
Subjective Interval history: Follow up symptomatic Hypoglycemia June 14 2018-patient seen and examined; low blood glucose; looks tired, denies any shortness of breath. Daughter by the bedside Physical Exam Vital signs: Vital Signs 06/13/18 15:19 06/13/18 16:00 06/13/18 19:54 Temperature 98 F 99.1 F Pulse Rate 87 88 89 Respiratory Rate 17 18 16 Blood Pressure 176/77 H 158/99 H 165/81 H Pulse Oximetry 98 95 06/13/18 20:03 06/14/18 00:07 06/14/18 00:10 Temperature 98.9 F Pulse Rate 88 88 78 Respiratory Rate 18 Blood Pressure 151/78 H Pulse Oximetry 96 06/14/18 04:08 06/14/18 04:25 06/14/18 08:00 Temperature 99.3 F 98.4 F Pulse Rate 96 H 92 H 94 H Respiratory Rate 20 20 Blood Pressure 161/84 H 157/90 H Pulse Oximetry 97 98 06/14/18 12:00 Temperature 98.4 F Pulse Rate 86 Respiratory Rate 18 Blood Pressure 161/84 H Pulse Oximetry 97 Intake & Output 06/13/18 06/14/18 06/14/18 18:59 06:59 18:59 Intake Total 120 / 120 1050 / 1050 Output Total 450 / 450 Balance 120 / 120 600 / 600 Weight 87 kg Intake: IV 1050 / 1050 D50W Syringe 50 ML @ 0 mls/hr . 50 / 50 [address] .[facility] Rx#:[id number] D5W/Normal Saline Inj 1,000 ML 1000 / 1000 @ 84 mls/hr IV.CONT .[id number] [facility] Rx#:[id number] Oral 120 / 120 Output: Urine 450 / 450 Other: # Voids 1 Date of Last Bowel Movement 06/13/18 Weight On Admission 87.3 kg Narrative: GENERAL: Well-nourished,NAD. SKIN: Warm and dry. HEAD: Atraumatic. Normocephalic. CARDIOVASCULAR: Regular rate and rhythm. RESPIRATORY: No accessory muscle use. Clear to auscultation. Breath sounds equal bilaterally. GASTROINTESTINAL: Abdomen soft, non-tender, non-distended. Positive bowel sounds. MUSCULOSKELETAL: Bilateral lower leg edema +1 pitting. No obvious deformities. NEUROLOGICAL: Awake and alert. No obvious cranial nerve deficits. Motor grossly within normal limits. Normal speech. Results - Labs CBC & Chem 7: 06/14/18 06:52 06/14/18 06:52 Laboratory Results - last 24 hr 06/13/18 06/13/18 06/13/18 04:30 13:51 15:17 WBC RBC Hgb Hct MCV MCH MCHC RDW Plt Count MPV Prelim Diff (Auto) Neut % (Auto) Lymph % (Auto) [place] % (Auto) Eos % (Auto) Baso % (Auto) Neut # (Auto) Lymph # (Auto) [place] # (Auto) Eos # (Auto) Baso # (Auto) WBC Differential Seg Neuts % (Manual) Lymphocytes % (Manual) Monocytes % (Manual) Eosinophils % (Manual) Myelocytes % (Man) Abs Neuts (Manual) Differential Comment Platelet Estimate Platelet Morphology Sodium Potassium Chloride Carbon Dioxide Anion Gap BUN Creatinine Estimated GFR POC Glucose 59 L 58 L Random Glucose Hemoglobin A1c 5.6 Calcium Total Bilirubin AST ALT Alkaline Phosphatase Total Protein Albumin 06/13/18 06/13/18 06/13/18 16:28 17:01 17:58 WBC RBC Hgb Hct MCV MCH MCHC RDW Plt Count MPV Prelim Diff (Auto) Neut % (Auto) Lymph % (Auto) [place] % (Auto) Eos % (Auto) Baso % (Auto) Neut # (Auto) Lymph # (Auto) [place] # (Auto) Eos # (Auto) Baso # (Auto) WBC Differential Seg Neuts % (Manual) Lymphocytes % (Manual) Monocytes % (Manual) Eosinophils % (Manual) Myelocytes % (Man) Abs Neuts (Manual) Differential Comment Platelet Estimate Platelet Morphology Sodium Potassium Chloride Carbon Dioxide Anion Gap BUN Creatinine Estimated GFR POC Glucose 57 L 67 L 76 Random Glucose Hemoglobin A1c Calcium Total Bilirubin AST ALT Alkaline Phosphatase Total Protein Albumin 06/13/18 06/13/18 06/13/18 18:50 20:02 21:29 WBC RBC Hgb Hct MCV MCH MCHC RDW Plt Count MPV Prelim Diff (Auto) Neut % (Auto) Lymph % (Auto) [place] % (Auto) Eos % (Auto) Baso % (Auto) Neut # (Auto) Lymph # (Auto) [place] # (Auto) Eos # (Auto) Baso # (Auto) WBC Differential Seg Neuts % (Manual) Lymphocytes % (Manual) Monocytes % (Manual) Eosinophils % (Manual) Myelocytes % (Man) Abs Neuts (Manual) Differential Comment Platelet Estimate Platelet Morphology Sodium Potassium Chloride Carbon Dioxide Anion Gap BUN Creatinine Estimated GFR POC Glucose 72 95 74 Random Glucose Hemoglobin A1c Calcium Total Bilirubin AST ALT Alkaline Phosphatase Total Protein Albumin 06/13/18 06/13/18 06/14/18 22:12 23:13 00:05 WBC RBC Hgb Hct MCV MCH MCHC RDW Plt Count MPV Prelim Diff (Auto) Neut % (Auto) Lymph % (Auto) [place] % (Auto) Eos % (Auto) Baso % (Auto) Neut # (Auto) Lymph # (Auto) [place] # (Auto) Eos # (Auto) Baso # (Auto) WBC Differential Seg Neuts % (Manual) Lymphocytes % (Manual) Monocytes % (Manual) Eosinophils % (Manual) Myelocytes % (Man) Abs Neuts (Manual) Differential Comment Platelet Estimate Platelet Morphology Sodium Potassium Chloride Carbon Dioxide Anion Gap BUN Creatinine Estimated GFR POC Glucose 97 86 72 Random Glucose Hemoglobin A1c Calcium Total Bilirubin AST ALT Alkaline Phosphatase Total Protein Albumin 06/14/18 06/14/18 06/14/18 01:03 01:31 02:40 WBC RBC Hgb Hct MCV MCH MCHC RDW Plt Count MPV Prelim Diff (Auto) Neut % (Auto) Lymph % (Auto) [place] % (Auto) Eos % (Auto) Baso % (Auto) Neut # (Auto) Lymph # (Auto) [place] # (Auto) Eos # (Auto) Baso # (Auto) WBC Differential Seg Neuts % (Manual) Lymphocytes % (Manual) Monocytes % (Manual) Eosinophils % (Manual) Myelocytes % (Man) Abs Neuts (Manual) Differential Comment Platelet Estimate Platelet Morphology Sodium Potassium Chloride Carbon Dioxide Anion Gap BUN Creatinine Estimated GFR POC Glucose 69 115 H 84 Random Glucose Hemoglobin A1c Calcium Total Bilirubin AST ALT Alkaline Phosphatase Total Protein Albumin 06/14/18 06/14/18 06/14/18 03:16 04:12 05:39 WBC RBC Hgb Hct MCV MCH MCHC RDW Plt Count MPV Prelim Diff (Auto) Neut % (Auto) Lymph % (Auto) [place] % (Auto) Eos % (Auto) Baso % (Auto) Neut # (Auto) Lymph # (Auto) [place] # (Auto) Eos # (Auto) Baso # (Auto) WBC Differential Seg Neuts % (Manual) Lymphocytes % (Manual) Monocytes % (Manual) Eosinophils % (Manual) Myelocytes % (Man) Abs Neuts (Manual) Differential Comment Platelet Estimate Platelet Morphology Sodium Potassium Chloride Carbon Dioxide Anion Gap BUN Creatinine Estimated GFR POC Glucose 85 71 66 L Random Glucose Hemoglobin A1c Calcium Total Bilirubin AST ALT Alkaline Phosphatase Total Protein Albumin 06/14/18 06/14/18 06/14/18 06:35 06:52 06:52 WBC 7.9 RBC 2.59 L Hgb 8.3 L Hct 23.8 L MCV 91.8 MCH 31.9 MCHC 34.7 RDW 17.8 H Plt Count 270 MPV 7.1 Prelim Diff (Auto) Slide review pending Neut % (Auto) 85.1 H Lymph % (Auto) 8.1 L [place] % (Auto) 5.0 Eos % (Auto) 1.5 Baso % (Auto) 0.3 Neut # (Auto) 6.7 Lymph # (Auto) 0.6 L [place] # (Auto) 0.4 Eos # (Auto) 0.1 Baso # (Auto) 0.0 WBC Differential Manual diff final Seg Neuts % (Manual) 81 H Lymphocytes % (Manual) 11 Monocytes % (Manual) 6 Eosinophils % (Manual) 1 Myelocytes % (Man) 1 H Abs Neuts (Manual) 6.5 Differential Comment . Platelet Estimate Normal Platelet Morphology Normal Sodium 139 Potassium 4.6 Chloride 106 Carbon Dioxide 23.7 Anion Gap 9 BUN 40 H Creatinine 2.97 H Estimated GFR 18 L POC Glucose 122 H Random Glucose 102 Hemoglobin A1c Calcium 9.1 Total Bilirubin 0.3 AST 22 ALT 22 Alkaline Phosphatase 102 Total Protein 6.5 Albumin 2.7 L 06/14/18 06/14/18 06/14/18 07:35 08:30 09:36 WBC RBC Hgb Hct MCV MCH MCHC RDW Plt Count MPV Prelim Diff (Auto) Neut % (Auto) Lymph % (Auto) [place] % (Auto) Eos % (Auto) Baso % (Auto) Neut # (Auto) Lymph # (Auto) [place] # (Auto) Eos # (Auto) Baso # (Auto) WBC Differential Seg Neuts % (Manual) Lymphocytes % (Manual) Monocytes % (Manual) Eosinophils % (Manual) Myelocytes % (Man) Abs Neuts (Manual) Differential Comment Platelet Estimate Platelet Morphology Sodium Potassium Chloride Carbon Dioxide Anion Gap BUN Creatinine Estimated GFR POC Glucose 95 75 105 Random Glucose Hemoglobin A1c Calcium Total Bilirubin AST ALT Alkaline Phosphatase Total Protein Albumin 06/14/18 06/14/18 06/14/18 10:36 11:58 12:41 WBC RBC Hgb Hct MCV MCH MCHC RDW Plt Count MPV Prelim Diff (Auto) Neut % (Auto) Lymph % (Auto) [place] % (Auto) Eos % (Auto) Baso % (Auto) Neut # (Auto) Lymph # (Auto) [place] # (Auto) Eos # (Auto) Baso # (Auto) WBC Differential Seg Neuts % (Manual) Lymphocytes % (Manual) Monocytes % (Manual) Eosinophils % (Manual) Myelocytes % (Man) Abs Neuts (Manual) Differential Comment Platelet Estimate Platelet Morphology Sodium Potassium Chloride Carbon Dioxide Anion Gap BUN Creatinine Estimated GFR POC Glucose 97 113 H 109 Random Glucose Hemoglobin A1c Calcium Total Bilirubin AST ALT Alkaline Phosphatase Total Protein Albumin 06/14/18 13:29 WBC RBC Hgb Hct MCV MCH MCHC RDW Plt Count MPV Prelim Diff (Auto) Neut % (Auto) Lymph % (Auto) [place] % (Auto) Eos % (Auto) Baso % (Auto) Neut # (Auto) Lymph # (Auto) [place] # (Auto) Eos # (Auto) Baso # (Auto) WBC Differential Seg Neuts % (Manual) Lymphocytes % (Manual) Monocytes % (Manual) Eosinophils % (Manual) Myelocytes % (Man) Abs Neuts (Manual) Differential Comment Platelet Estimate Platelet Morphology Sodium Potassium Chloride Carbon Dioxide Anion Gap BUN Creatinine Estimated GFR POC Glucose 98 Random Glucose Hemoglobin A1c Calcium Total Bilirubin AST ALT Alkaline Phosphatase Total Protein Albumin Assessment and Plan - Assessment (1) Hypoglycemia Code(s): E16.2 - Hypoglycemia, unspecified Status: Acute (2) Back pain Code(s): M54.9 - Dorsalgia, unspecified Status: Acute (3) Metastatic cancer to spine Code(s): C79.51 - Secondary malignant neoplasm of bone Status: Acute (4) Multiple myeloma and immunoproliferative neoplasms Code(s): C90.00 - Multiple myeloma not having achieved remission; C88.9 - Malignant immunoproliferative disease, unspecified Status: Acute - Plan 87-year-old female with Hypoglycemia with reported history of diabetes mellitus type 2 -Possibly related to restarting on sulfonylurea which she had not been taking at home -A1c pending -change to D10 NS and change to monitor ACHS monitoring 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 Continue pulse Decadron 20 mg daily 4 days on, 4 days off. Last taken 06/09-. Restart 06/17 for 4 days. -physical therapy. -pain control as needed with low dose methadone and Flexeril as needed. -oncology previously planned PET scan as outpt. CKD stage IV. -Baseline creatinine appears to be 3. Monitor. Hypertension -Continue amlodipine, hydralazine, clonidine. Adjust as needed. Hypothyroidism -Continue Synthroid. DVT prophylaxis: SCDs
[2018-06-14] MEDS: Dextrose 10% in Water Inj 1,000 ML IV.CONT SCH (16:25)
[2018-06-15] MEDS: Dextrose 10% in Water Inj 1,000 ML IV.CONT SCH (04:45)
[2018-06-15] MEDS: Levothyroxine 150 MCG Tablet PO SCH (05:53)
[2018-06-15 06:48] LABS: Albumin 2.7 g/dL (3.4-5.0); Anion Gap 10 meq/L (5-15); Aspartate Aminotransferase 25 U/L (15-37); Blood Urea Nitrogen 33 mg/dL (7-18); Calcium 9.3 mg/dL (8.5-10.1); Carbon Dioxide 22.8 meq/L (21.0-32.0); Chloride 101 meq/L (98-107); Glomerular Filtration Rate 17 mL/min (>89); Glucose,Random 97 mg/dL (74-106); Potassium 4.6 meq/L (3.5-5.1); Sodium 134 meq/L (136-145)
[2018-06-15 06:49] LABS: Alanine Aminotransferase 21 U/L (10-53)
[2018-06-15 06:52] LABS: Alkaline Phosphatase 87 U/L (45-117); Total Protein 6.4 g/dL (6.4-8.2)
[2018-06-15] MEDS: Pantoprazole Sodium 20 MG DR Tablet PO SCH (08:50)
[2018-06-15] MEDS: Methadone 10 MG Tablet PO SCH (08:51)
[2018-06-15] MEDS: amLODIPine 10 MG Tablet PO SCH (08:52)
[2018-06-15] MEDS: Ferrous Sulfate 325 MG Tablet PO SCH (08:52)
[2018-06-15] MEDS: Sodium Chloride 0.9% 2 ML Flush BID IV.FLUSH SCH (08:55)
--- NOTE | 2018-06-15 10:49 | P.PN ---
Subjective Interval history: Follow up symptomatic Hypoglycemia June 14 2018-patient seen and examined; low blood glucose; looks tired, denies any shortness of breath. Daughter by the bedside June 14, 2018-patient seen and examined, blood glucose improved. No acute event overnight. Denies any chest pain. Daughter by the bedside. Physical Exam Vital signs: Vital Signs 06/14/18 11:00 06/14/18 12:00 06/14/18 15:00 Temperature 98.4 F Pulse Rate 105 H 86 112 H Respiratory Rate 18 Blood Pressure 161/84 H Pulse Oximetry 97 06/14/18 16:00 06/14/18 19:00 06/14/18 20:26 Temperature 98.3 F 98.8 F Pulse Rate 94 H 70 98 H Respiratory Rate 18 18 Blood Pressure 159/78 H 151/82 H Pulse Oximetry 97 100 06/15/18 00:00 06/15/18 00:09 06/15/18 03:00 Temperature 98.9 F Pulse Rate 74 98 H 82 Respiratory Rate 18 Blood Pressure 147/75 H Pulse Oximetry 99 06/15/18 03:06 Temperature 98.3 F Pulse Rate 97 H Respiratory Rate 18 Blood Pressure 154/85 H Pulse Oximetry 100 Intake & Output 06/14/18 06/15/18 06/15/18 18:59 06:59 18:59 Intake Total 1240 / 1240 Output Total 1550 / 1550 Balance -310 / -310 Intake: IV 1000 / 1000 D10W Inj 1,000 ML @ 84 mls/hr 1000 / 1000 IV.CONT .[id number] [facility] Rx#: [id number] Oral 240 / 240 Output: Urine 1550 / 1550 Other: Date of Last Bowel Movement 06/13/18 Narrative: GENERAL: Well-nourished,NAD. SKIN: Warm and dry. HEAD: Atraumatic. Normocephalic. CARDIOVASCULAR: Regular rate and rhythm. RESPIRATORY: No accessory muscle use. Clear to auscultation. Breath sounds equal bilaterally. GASTROINTESTINAL: Abdomen soft, non-tender, non-distended. Positive bowel sounds. MUSCULOSKELETAL: Bilateral lower leg edema +1 pitting. No obvious deformities. NEUROLOGICAL: Awake and alert. No obvious cranial nerve deficits. Motor grossly within normal limits. Normal speech. Results - Labs CBC & Chem 7: 06/14/18 06:52 06/15/18 05:52 Laboratory Results - last 24 hr 06/14/18 06/14/18 06/14/18 11:58 12:41 13:29 Sodium Potassium Chloride Carbon Dioxide Anion Gap BUN Creatinine Estimated GFR POC Glucose 113 H 109 98 Random Glucose Calcium Total Bilirubin AST ALT Alkaline Phosphatase Total Protein Albumin 06/14/18 06/14/18 06/14/18 14:35 16:34 20:31 Sodium Potassium Chloride Carbon Dioxide Anion Gap BUN Creatinine Estimated GFR POC Glucose 101 111 H 111 H Random Glucose Calcium Total Bilirubin AST ALT Alkaline Phosphatase Total Protein Albumin 06/15/18 05:52 Sodium 134 L Potassium 4.6 Chloride 101 Carbon Dioxide 22.8 Anion Gap 10 BUN 33 H Creatinine 3.08 H Estimated GFR 17 L POC Glucose Random Glucose 97 Calcium 9.3 Total Bilirubin 0.3 AST 25 ALT 21 Alkaline Phosphatase 87 Total Protein 6.4 Albumin 2.7 L - Procedures none Assessment and Plan - Assessment (1) Hypoglycemia Code(s): E16.2 - Hypoglycemia, unspecified Status: Acute (2) Back pain Code(s): M54.9 - Dorsalgia, unspecified Status: Acute (3) Metastatic cancer to spine Code(s): C79.51 - Secondary malignant neoplasm of bone Status: Acute (4) Multiple myeloma and immunoproliferative neoplasms Code(s): C90.00 - Multiple myeloma not having achieved remission; C88.9 - Malignant immunoproliferative disease, unspecified Status: Acute - Plan 87-year-old female with Hypoglycemia with reported history of diabetes mellitus type 2-now resolved -Possibly related to restarting on sulfonylurea which she had not been taking at home. 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 Continue pulse Decadron 20 mg daily 4 days on, 4 days off. Last taken 06/09-. Restart 06/17 for 4 days. -physical therapy. -pain control as needed with low dose methadone and Flexeril as needed. -oncology previously planned PET scan as outpt. CKD stage IV. -Baseline creatinine appears to be 3. Monitor. Hypertension -Continue amlodipine, hydralazine, clonidine. Adjust as needed. Hypothyroidism -Continue Synthroid. DVT prophylaxis: SCDs
--- NOTE | 2018-06-15 10:52 | P.DS ---
Date of admission: 06/13/18 06:24 Primary care physician: No Primary Care Physician Brief History from admission: Patient is an 87-year-old -[place] female who was brought to the emergency department after being found on the ground by SNF staff where she was doing rehabilitation. No fall was witnessed. Patient was found to have slurred speech and blood sugar of 53. Her blood sugar failed to improve after being given orange juice so EMS was called. Past medical history includes hypertension, hypothyroidism, peripheral vascular disease, stage IV chronic kidney disease, history of right-sided breast cancer, diabetes mellitus type 2, dyslipidemia. She was recently hospitalized on 05/28/18 with complaints of severe back pain and found to have multiple myeloma. Patient is seen lying quietly in bed. Her daughter is at bedside. Patient tells me that she took glimepiride as was ordered for her but did not eat very much dinner last night. She has not had much of an appetite. She tells me that she was only taking her "sugar medicine" once or twice a week at home prior to going to the SNF. Patient's daughter expresses a concerned that she has not been eating because she is possibly not swallowing well. She was previously on thickened liquids during her most recent hospitalization. Denies chest pain or shortness of breath. No dizziness or syncope. She does not remember falling or being weak. No nausea vomiting or diarrhea. No fever or chills. Patient is noted to be a somewhat poor historian. DS: Diagnosis - Discharge Diagnosis (1) Hypoglycemia Status: Acute (2) Back pain Status: Acute (3) Metastatic cancer to spine Status: Acute (4) Multiple myeloma and immunoproliferative neoplasms Status: Acute DS: Summary Hospital Course: While in hospital, patient was treated for: Hypoglycemia with reported history of diabetes mellitus type 2-now resolved after treatment with D10 water and blood glucose monitoring -Hemoglobin A1c of 5.6, we will discontinue Sulfonylurea 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 Continue pulse Decadron 20 mg daily 4 days on, 4 days off. Last taken 06/09-. Restart 06/17 for 4 days. -physical therapy. -pain control as needed with low dose methadone and Flexeril as needed. -oncology previously planned PET scan as outpt. CKD stage IV. -Baseline creatinine appears to be 3. Monitor. Hypertension -Treated with amlodipine, hydralazine, clonidine. Adjust as needed. Hypothyroidism -Treated with Synthroid. DVT prophylaxis: SCDs - Time Spent with Patient Total time spent providing and/or coordinating discharge services: Greater than 30 minutes - Quality: VTE Deep Vein Thrombosis/Pulmonary Embolism Present on Admission: No Exam Vital signs: Vital Signs 06/14/18 11:00 06/14/18 12:00 06/14/18 15:00 Temperature 98.4 F Pulse Rate 105 H 86 112 H Respiratory Rate 18 Blood Pressure 161/84 H Pulse Oximetry 97 06/14/18 16:00 06/14/18 19:00 06/14/18 20:26 Temperature 98.3 F 98.8 F Pulse Rate 94 H 70 98 H Respiratory Rate 18 18 Blood Pressure 159/78 H 151/82 H Pulse Oximetry 97 100 06/15/18 00:00 06/15/18 00:09 06/15/18 03:00 Temperature 98.9 F Pulse Rate 74 98 H 82 Respiratory Rate 18 Blood Pressure 147/75 H Pulse Oximetry 99 06/15/18 03:06 Temperature 98.3 F Pulse Rate 97 H Respiratory Rate 18 Blood Pressure 154/85 H Pulse Oximetry 100 Intake & Output 06/14/18 06/15/18 06/15/18 18:59 06:59 18:59 Intake Total 1240 / 1240 Output Total 1550 / 1550 Balance -310 / -310 Intake: IV 1000 / 1000 D10W Inj 1,000 ML @ 84 mls/hr 1000 / 1000 IV.CONT .[id number] [facility] Rx#: [id number] Oral 240 / 240 Output: Urine 1550 / 1550 Other: Date of Last Bowel Movement 06/13/18 Narrative: GENERAL: Well-nourished,NAD. SKIN: Warm and dry. HEAD: Atraumatic. Normocephalic. CARDIOVASCULAR: Regular rate and rhythm. RESPIRATORY: No accessory muscle use. Clear to auscultation. Breath sounds equal bilaterally. GASTROINTESTINAL: Abdomen soft, non-tender, non-distended. Positive bowel sounds. MUSCULOSKELETAL: Bilateral lower leg edema +1 pitting. No obvious deformities. NEUROLOGICAL: Awake and alert. No obvious cranial nerve deficits. Motor grossly within normal limits. Normal speech. Results Procedures completed during hospitalization: none Labs on day of discharge: Labs from last 24 hours 06/15/18 06/14/1806/14/18 05:52 20:31 16:34 Sodium 134 L Potassium 4.6 Chloride 101 Carbon Dioxide 22.8 Anion Gap 10 BUN 33 H Creatinine 3.08 H Estimated GFR 17 L POC Glucose 111 H 111 H Random Glucose 97 Calcium 9.3 Total Bilirubin 0.3 AST 25 ALT 21 Alkaline Phosphatase 87 Total Protein 6.4 Albumin 2.7 L 06/14/18 06/14/18 06/14/18 14:35 13:29 12:41 Sodium Potassium Chloride Carbon Dioxide Anion Gap BUN Creatinine Estimated GFR POC Glucose 101 98 109 Random Glucose Calcium Total Bilirubin AST ALT Alkaline Phosphatase Total Protein Albumin 06/14/18 11:58 Sodium Potassium Chloride Carbon Dioxide Anion Gap BUN Creatinine Estimated GFR POC Glucose 113 H Random Glucose Calcium Total Bilirubin AST ALT Alkaline Phosphatase Total Protein Albumin - Impressions ITS Impressions Cervical Spine CT 06/13/18 04:13 CONCLUSION: 1. No evidence fracture. 2. Multilevel degenerative. 3. Severe diffuse bone demineralization. Chest X-Ray 06/13/18 04:13 CONCLUSION: No acute cardiopulmonary disease identified. Head CT 06/13/18 04:13 CONCLUSION: Negative CT Head non contrast. . Pelvis X-Ray 06/13/18 04:13 CONCLUSION: No fracture identified. Discharge Plan - Discharge Disposition Patient Disposition: Discharge to SNF - Discharge Condition Condition: Good - Discharge Order Discharge Orders: Discharge Order (Routine); Ordered 06/15/18 Ordered By: Guevara Salinas - Physicians Team Primary Care Provider: Primary Care Physici,No Attending Provider: Guevara Salinas Other Providers: [employer] ; [facility],[place]
[2018-06-15 12:12] VITALS: RESP 16
[2018-06-15 17:27] VITALS: BP 135/74; PULSE 80; TEMP 98.7; O2SAT 100
== END 2018-06-15 18:47 ==
LOC: NEDA 04:02 → NEPE 04:02 → HCIS 15:58
PROVIDERS: ADMIT Hospitalist; ATTEND Hospitalist

== ENCOUNTER 2018-07-22 20:36 | Inpatient (IN) ==
[2018-07-22 21:11] LABS: Baso % (Auto) 0.2 % (0.0-2.0); Lymph # (Auto) 0.1 th/mm3 (1.0-4.8); Lymph % (Auto) 2.2 % (9.0-44.0); Mean Corpuscular Hemoglobin 32.4 pg (27.0-34.0); Mean Corpuscular Volume 92.5 fL (80.0-100.0); Mean Platelet Volume 7.5 fL (7.0-11.0); Mono # (Auto) 0.1 th/mm3 (0.0-0.9); Mono % (Auto) 1.5 % (0.0-8.0); Neut # (Auto) 5.8 th/mm3 (1.8-7.7); Neut % (Auto) 96.1 % (16.0-70.0); Platelet Count 132 th/mm3 (150-450); Red Blood Count 1.69 mil/mm3 (4.00-5.30); Red Cell Distribution Width 19.2 % (11.6-17.2)
[2018-07-22 21:29] LABS: Hematocrit 15.6 % (35.0-46.0); Hemoglobin 5.5 gm/dL (11.6-15.3)
[2018-07-22 21:39] LABS: Albumin 2.5 g/dL (3.4-5.0); Anion Gap 11 meq/L (5-15); Aspartate Aminotransferase 14 U/L (15-37); Blood Urea Nitrogen 54 mg/dL (7-18); Calcium 7.7 mg/dL (8.5-10.1); Carbon Dioxide 20.1 meq/L (21.0-32.0); Chloride 100 meq/L (98-107); Glomerular Filtration Rate 18 mL/min (>89); Glucose,Random 146 mg/dL (74-106); Magnesium 1.6 mg/dL (1.5-2.5); Potassium 4.6 meq/L (3.5-5.1); Sodium 131 meq/L (136-145)
[2018-07-22 21:43] LABS: Ovalocytes 1+; Platelet Morphology Normal (Normal)
[2018-07-22 21:44] LABS: Alanine Aminotransferase 15 U/L (10-53); Alkaline Phosphatase 92 U/L (45-117); Total Protein 5.3 g/dL (6.4-8.2); Troponin I 0.03 ng/mL (0.02-0.05)
[2018-07-22] MEDS ORDERED: Sodium Chlor 0.9% Inj 250 ML IV.SIG SCH (22:00)
--- NOTE | 2018-07-22 23:52 | XR ---
EXAM DATE: 07/22/2018 11:47 PM EST AGE/SEX: 87 years / Female INDICATIONS: Syncopal episode. CLINICAL DATA: This is the patient's initial encounter. Patient reports that signs and symptoms have been present for 1 day and indicates a pain score of 0/10. MEDICAL/SURGICAL HISTORY: Hypertension. Diabetes mellitus type II. Carcinoma, breast. Hystere ctomy. [place] [facility] [place]. . FINDINGS: No acute infiltrate demonstrated. Chronic mild interstitial opacities are again noted. No pleural eff usion seen. No pneumothorax. Heart size stable, upper limits of normal. Thoracic aorta is tortuous. Surgical changes of the right breast are again noted. CONCLUSION: Chronic changes as above. No acute cardiopulmonary disease demonstrated. Electronically signed by: Binu Bales MD Board Certified Radiologist 07/22/2018 11:51 PM EST
[2018-07-23] MEDS ORDERED: Acetaminophen 325 MG Tablet PO PRN (02:56)
[2018-07-23] MEDS ORDERED: Bisacodyl 10 MG Supp RECTAL PRN (02:56)
[2018-07-23] MEDS: Methadone 10 MG Tablet PO SCH ×2 (03:18→08:12)
--- NOTE | 2018-07-23 03:24 | ED ---
HPI General Chief complaint: Nausea/Vomiting/Diarrhea Stated complaint: syncopy Time Seen by Provider: 07/22/18 21:31 History of Present Illness HPI Narrative: pt is weakness dizziness and listless , . pt missed her chemo theray today at Dr Rm office today, pt has recently started chemo for multiple myeloma and recently was transfused PRBC for anemia, Now today initial labs show that she is very anemic 5/15 pale weak dizziness all related to decrease O2 carrying capacity Related Data Home Medications Medication Instructions Recorded Confirmed amlodipine [Norvasc] 10 mg PO DAILY 02/24/18 06/13/18 clonidine HCl 0.1 mg PO BID 02/24/18 07/22/18 levothyroxine 150 mcg PO DAILY 02/24/18 07/22/18 potassium chloride 20 meq PO DAILY 02/24/18 07/22/18 methadone 5 mg PO Q6H 07/23/18 07/23/18 Previous Rx's Medication Instructions Recorded ferrous sulfate [FeroSul] 325 mg PO DAILY #30 tab 02/25/18 cyclobenzaprine 5 mg PO Q8HR PRN #12 tab 06/08/18 dexamethasone 20 mg PO DAILY #20 tab 06/08/18 hydralazine 100 mg PO TID tab 06/08/18 pantoprazole [Protonix] 40 mg PO DAILY #30 tab 06/08/18 Allergies Allergy/AdvReac Type Severity Reaction Status Date / Time hydrochlorothiazide Allergy Anxiety Verified 07/22/18 20:38 naproxen [From Naprosyn] Allergy Anemia Verified 07/22/18 20:38 rivaroxaban [From Xarelto] Allergy Anxiety Verified 07/22/18 20:38 [facility] Social History Social History Substance History: No History of Abuse Second Hand Smoke Exposure: No Smoking Status: Never smoker How Often Do You Have a Drink Containing Alcohol: Never Hx Recent Travel: No Recent Travel in [facility] within the Last 8 Weeks: No Recent Out of Country Travel within the Last 8 Weeks: No Immunization History Tetanus Immunization: Unsure Course Initial Documented Vital Signs Temperature 97 F L 07/22/18 20:39 Pulse Rate 86 07/22/18 20:39 Respiratory Rate 18 07/22/18 20:39 Blood Pressure 113/55 L 07/22/18 20:39 Pulse Oximetry 100 07/22/18 20:39 Last Documented Vital Signs Temperature 98.6 F 07/23/18 01:40 Pulse Rate 68 07/23/18 01:40 Respiratory Rate 16 07/23/18 01:40 Blood Pressure 168/76 H 07/23/18 01:40 Pulse Oximetry 100 07/23/18 01:40 Medical Decision Making Lab Data Result diagrams: 07/22/18 20:59 07/22/18 20:59 Lab Results 07/22/18 07/22/18 07/22/18 Range/Units 20:59 20:59 21:45 WBC 6.0 (4.0-11.0) th/mm3 RBC 1.69 L (4.00-5.30) mil/mm3 Hgb 5.5 L* (11.6-15.3) gm/dL Hct 15.6 L* (35.0-46.0) % MCV 92.5 (80.0-100.0) fL MCH 32.4 (27.0-34.0) pg MCHC 35.0 (32.0-36.0) % RDW 19.2 H (11.6-17.2) % Plt Count 132 L (150-450) th/mm3 MPV 7.5 (7.0-11.0) fL Prelim Diff (Auto) Slide review pending Neut % (Auto) 96.1 H (16.0-70.0) % Lymph % (Auto) 2.2 L (9.0-44.0) % [place] % (Auto) 1.5 (0.0-8.0) % Eos % (Auto) 0.0 (0.0-4.0) % Baso % (Auto) 0.2 (0.0-2.0) % Neut # (Auto) 5.8 (1.8-7.7) th/mm3 Lymph # (Auto) 0.1 L (1.0-4.8) th/mm3 [place] # (Auto) 0.1 (0.0-0.9) th/mm3 Eos # (Auto) 0.0 (0.0-0.4) th/mm3 Baso # (Auto) 0.0 (0.0-0.2) th/mm3 WBC Differential . Diff Scan Auto diff confirmed Differential Comment . Platelet Estimate Low L (Normal) Platelet Morphology Normal (Normal) Ovalocytes 1+ H (None) Keratocytes Occ H (None) Sodium 131 L (136-145) meq/L Potassium 4.6 (3.5-5.1) meq/L Chloride 100 (98-107) meq/L Carbon Dioxide 20.1 L (21.0-32.0) meq/L Anion Gap 11 (5-15) meq/L BUN 54 H (7-18) mg/dL Creatinine 2.99 H (0.50-1.00) mg/dL Estimated GFR 18 L (>89) mL/min Random Glucose 146 H (74-106) mg/dL Calcium 7.7 L (8.5-10.1) mg/dL Magnesium 1.6 (1.5-2.5) mg/dL Total Bilirubin 0.3 (0.2-1.0) mg/dL AST 14 L (15-37) U/L ALT 15 (10-53) U/L Alkaline Phosphatase 92 (45-117) U/L Troponin I 0.03 (0.02-0.05) ng/mL Total Protein 5.3 L (6.4-8.2) g/dL Albumin 2.5 L (3.4-5.0) g/dL Blood Type O Positive Antibody Screen Negative MTS Gel Crossmatch 07/22/18 Range/Units 21:45 WBC (4.0-11.0) th/mm3 RBC (4.00-5.30) mil/mm3 Hgb (11.6-15.3) gm/dL Hct (35.0-46.0) % MCV (80.0-100.0) fL MCH (27.0-34.0) pg MCHC (32.0-36.0) % RDW (11.6-17.2) % Plt Count (150-450) th/mm3 MPV (7.0-11.0) fL Prelim Diff (Auto) Neut % (Auto) (16.0-70.0) % Lymph % (Auto) (9.0-44.0) % [place] % (Auto) (0.0-8.0) % Eos % (Auto) (0.0-4.0) % Baso % (Auto) (0.0-2.0) % Neut # (Auto) (1.8-7.7) th/mm3 Lymph # (Auto) (1.0-4.8) th/mm3 [place] # (Auto) (0.0-0.9) th/mm3 Eos # (Auto) (0.0-0.4) th/mm3 Baso # (Auto) (0.0-0.2) th/mm3 WBC Differential Diff Scan Differential Comment Platelet Estimate (Normal) Platelet Morphology (Normal) Ovalocytes (None) Keratocytes (None) Sodium (136-145) meq/L Potassium (3.5-5.1) meq/L Chloride (98-107) meq/L Carbon Dioxide (21.0-32.0) meq/L Anion Gap (5-15) meq/L BUN (7-18) mg/dL Creatinine (0.50-1.00) mg/dL Estimated GFR (>89) mL/min Random Glucose (74-106) mg/dL Calcium (8.5-10.1) mg/dL Magnesium (1.5-2.5) mg/dL Total Bilirubin (0.2-1.0) mg/dL AST (15-37) U/L ALT (10-53) U/L Alkaline Phosphatase (45-117) U/L Troponin I (0.02-0.05) ng/mL Total Protein (6.4-8.2) g/dL Albumin (3.4-5.0) g/dL Blood Type Antibody Screen MTS Gel Crossmatch See Detail Imaging Data Radiologist's impression: Chest X-Ray 07/22/18 23:23 CONCLUSION: Chronic changes as above. No acute cardiopulmonary disease demonstrated. Discharge Plan Discharge Order Discharge Orders: ED Use Only Admit Order (Routine); Ordered 07/23/18 Ordered By: Dorian Lofton Physicians Team ED Provider: Dorian Lofton Primary Care Provider: Viral Stratton Attending Provider: Nadya Au Other Providers: Viral Stratton Status ED Status: Admitted Observation Patient
--- NOTE | 2018-07-23 04:19 | P.HP ---
History of Present Illness Service: [facility] Primary Care Physician: Viral Palmer History of Present Illness: 87-year-old female with a past medical history significant for recent diagnosis of multiple myeloma, stage IV chronic kidney disease, hypertension, hyperlipidemia, hyperparathyroidism and diabetes mellitus presents to the emergency department for the evaluation of "feeling out of it." Patient reports she has been dizzy and short of breath. She has had a history of anemia in the past requiring blood transfusions. Last chemotherapy was 1 week ago. The patient denies any chest pain. No cough. No fever/chills. No abdominal pain. No nausea/vomiting/diarrhea. No focal neurologic deficits. Inpatient Certification: I certify that the inpatient services were ordered in accordance with Medicare regulations governing the order. 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 - Medical History Medical History: Medical History (Last Reviewed 07/23/18 @ 04:15 by Nadya Au MD) Anemia Breast cancer, right breast Diabetes H/O: hysterectomy Hypercalcemia Hyperlipemia Hypertension Hypokalemia Hypothyroidism PVD (peripheral vascular disease) Stage 4 chronic kidney disease - Surgical History Surgical History: Surgical History (Last Updated 07/23/18 @ 04:16 by Nadya Au MD) H/O mastectomy History of bone marrow biopsy History of breast biopsy - Family History Family History: Family History (Last Reviewed 07/23/18 @ 04:16 by Nadya Au MD) Other Hypertension - Social History I have reviewed the patient's Social History: Yes - Tobacco History Second Hand Smoke Exposure: No Smoking Status: Never smoker - Alcohol History How Often Do You Have a Drink Containing Alcohol: Never - Substance Use History Substance History: No History of Abuse - Travel History History of Recent Travel: No Recent Travel in the [place] Within the Last 8 Weeks: No Recent Travel Out of the Country Within the Last 8 Weeks: No - Immunization History Tetanus Immunization: Unsure Medications and Allergies Active Medications: Active Medications Acetaminophen (Tylenol) 650 mg PO Q4H PRN PRN Reason: Temp > 100.4 Al Hydroxide/Mg Hydroxide (Milk Of Magnesia Liq) 30 ml PO Q12H PRN PRN Reason: Mild Constipation Amlodipine Besylate (Norvasc) 10 mg PO DAILY [facility] Bisacodyl (Dulcolax Supp) 10 mg RECTAL DAILY PRN PRN Reason: SEVERE CONSITIPATION Clonidine HCl (Catapres) 0.1 mg PO BID [facility] Cyclobenzaprine HCl (Flexeril) 5 mg PO Q8HR PRN PRN Reason: Back Pain Dexamethasone (Decadron) 20 mg PO DAILY [facility] Ferrous Sulfate (Ferosul) 325 mg PO DAILY [facility] Hydralazine HCl (Apresoline) 100 mg PO DAILY@0900,1400,2100 [facility] Sodium Chloride (Ns Inj) 250 mls @ 15 mls/hr IV.SIG ONCE [place] Stop: 07/23/18 14:39 Last Admin: 07/22/18 23:23 Dose: 15 mls/hr Lactulose (Lactulose Liq) 30 ml PO DAILY PRN PRN Reason: SEVERE CONSITIPATION Levothyroxine Sodium (Synthroid) 150 mcg PO DAILY@0700 [facility] Methadone HCl (Dolophine) 5 mg PO Q6H [facility] Last Admin: 07/23/18 03:18 Dose: Not Given Ondansetron HCl (Zofran Inj) 4 mg IV.PUSH Q6H PRN PRN Reason: NAUSEA OR VOMITING Pantoprazole Sodium (Protonix) 40 mg PO DAILY [facility] Senna/Docusate Sodium (Anne-Colace) 1 tab PO BID [facility] Sennosides (Senokot) 17.2 mg PO Q12H PRN PRN Reason: Moderate Constipation Sodium Chloride (Ns Flush) 2 ml IV.FLUSH BID [facility] Sodium Chloride (Ns Flush) 2 ml IV.FLUSH PRN PRN PRN Reason: FLUSH AFTER USING IV ACCESS Allergies Allergy/AdvReac Type Severity Reaction Status Date / Time hydrochlorothiazide Allergy Anxiety Verified 07/22/18 20:38 naproxen [From Naprosyn] Allergy Anemia Verified 07/22/18 20:38 rivaroxaban [From Xarelto] Allergy Anxiety Verified 07/22/18 20:38 Home Medications Medication Instructions Recorded Confirmed Type amlodipine [Norvasc] 10 mg PO DAILY 02/24/18 06/13/18 History clonidine HCl 0.1 mg PO BID 02/24/18 07/22/18 History levothyroxine 150 mcg PO DAILY 02/24/18 07/22/18 History potassium chloride 20 meq PO DAILY 02/24/18 07/22/18 History methadone 5 mg PO Q6H 07/23/18 07/23/18 History Exam Vital signs: Vital Signs 07/22/18 20:39 07/22/18 20:44 07/22/18 23:08 Temperature 97 F L 98.2 F Pulse Rate 86 68 68 Respiratory Rate 18 16 16 Blood Pressure 113/55 L 169/84 H 168/84 H Pulse Oximetry 100 98 100 07/22/18 23:20 07/23/18 01:24 07/23/18 01:40 Temperature 98.5 F 98.2 F 98.6 F Pulse Rate 65 68 68 Respiratory Rate 16 16 16 Blood Pressure 167/85 H 181/86 H 168/76 H Pulse Oximetry 100 100 100 07/23/18 03:28 Temperature Pulse Rate 69 Respiratory Rate 16 Blood Pressure 131/68 Pulse Oximetry 100 Intake & Output 07/22/18 07/22/18 07/23/18 06:59 18:59 06:59 Intake Total 1200 / 1200 Balance 1200 / 1200 Weight 70.76 kg Intake: Intake (Blood Product) Amt 1200 / 1200 Rbc As-3 Leukoreduced Unit 800 / 800 [id number] Rbc As-3 Leukoreduced Unit 400 / 400 [id number] Narrative: Gen.: No acute distress Head: Normocephalic. Atraumatic. EENT: Pupils equal round and reactive to light. Nose without drainage. Airway intact. Throat without injection. Cardiovascular: Regular rate and rhythm. No murmurs, rubs or gallops. Respiratory: Lungs clear to auscultation bilaterally. No wheezes or rhonchi. Abdomen: Soft, nontender, nondistended. No peritoneal signs. Musculoskeletal: No gross deformities. No edema. Skin: No obvious rashes or erythema. Neuro: Sensory and motor grossly intact. Cranial nerves II through XII grossly intact. Results - Labs CBC & Chem 7: 07/22/18 20:59 07/22/18 20:59 Labs: Laboratory Results - last 24 hr 07/22/18 07/22/18 07/22/18 20:59 20:59 21:45 WBC 6.0 RBC 1.69 L Hgb 5.5 L* Hct 15.6 L* MCV 92.5 MCH 32.4 MCHC 35.0 RDW 19.2 H Plt Count 132 L MPV 7.5 Prelim Diff (Auto) Slide review pending Neut % (Auto) 96.1 H Lymph % (Auto) 2.2 L [place] % (Auto) 1.5 Eos % (Auto) 0.0 Baso % (Auto) 0.2 Neut # (Auto) 5.8 Lymph # (Auto) 0.1 L [place] # (Auto) 0.1 Eos # (Auto) 0.0 Baso # (Auto) 0.0 WBC Differential . Diff Scan Auto diff confirmed Differential Comment . Platelet Estimate Low L Platelet Morphology Normal Ovalocytes 1+ H Keratocytes Occ H Sodium 131 L Potassium 4.6 Chloride 100 Carbon Dioxide 20.1 L Anion Gap 11 BUN 54 H Creatinine 2.99 H Estimated GFR 18 L Random Glucose 146 H Calcium 7.7 L Magnesium 1.6 Total Bilirubin 0.3 AST 14 L ALT 15 Alkaline Phosphatase 92 Troponin I 0.03 Total Protein 5.3 L Albumin 2.5 L Blood Type O Positive Antibody Screen Negative MTS Gel Crossmatch 07/22/18 21:45 WBC RBC Hgb Hct MCV MCH MCHC RDW Plt Count MPV Prelim Diff (Auto) Neut % (Auto) Lymph % (Auto) [place] % (Auto) Eos % (Auto) Baso % (Auto) Neut # (Auto) Lymph # (Auto) [place] # (Auto) Eos # (Auto) Baso # (Auto) WBC Differential Diff Scan Differential Comment Platelet Estimate Platelet Morphology Ovalocytes Keratocytes Sodium Potassium Chloride Carbon Dioxide Anion Gap BUN Creatinine Estimated GFR Random Glucose Calcium Magnesium Total Bilirubin AST ALT Alkaline Phosphatase Troponin I Total Protein Albumin Blood Type Antibody Screen MTS Gel Crossmatch See Detail - Imaging Impressions Chest X-Ray 07/22/18 23:23 CONCLUSION: Chronic changes as above. No acute cardiopulmonary disease demonstrated. Caprini VTE Risk Assessment Caprini VTE Risk Assessment: Moderate/High Risk (score >= 2) Caprini Risk Assessment Model: Point Value = 1 Point Value = 2 Point Value = 3 Point Value = 5 Age 41-60 Minor surgery BMI > 25 kg/m2 Swollen legs Varicose veins or History of unexplained or recurrent spontaneous Oral contraceptives or hormone replacement Sepsis (< 1 month) Serious lung disease, including pneumonia (< 1 month) Abnormal pulmonary function Acute myocardial infarction Congestive heart failure (< 1 month) History of inflammatory bowel disease Medical patient at bed rest Age 61-74 Arthroscopic surgery Major open surgery (> 45 min) Laparoscopic surgery (> 45 min) Malignancy Confined to bed (> 72 hours) Immobilizing plaster cast Central venous access Age >= 75 History of VTE Family history of VTE Factor V Leiden Prothrombin [id number] Lupus anticoagulant Anticardiolipin antibodies Elevated serum homocysteine Heparin-induced thrombocytopenia Other congenital or acquired thrombophilia Stroke (< 1 month) Elective arthroplasty Hip, pelvis, or leg fracture Acute spinal cord injury (< 1 month) Prophylaxis Regimen: Total Risk Factor Score Risk Level Prophylaxis Regimen 0-1 Low Early ambulation 2 Moderate Order ONE of the following: *Sequential Compression Device (SCD) *Heparin 5000 units SQ BID 3-4 Higher Order ONE of the following medications: *Heparin 5000 units SQ TID *Enoxaparin/Lovenox 40 mg SQ daily (WT < 150 kg, CrCl > 30 mL/min) *Enoxaparin/Lovenox 30 mg SQ daily (WT < 150 kg, CrCl > 10-29 mL/min) *Enoxaparin/Lovenox 30 mg SQ BID (WT < 150 kg, CrCl > 30 mL/min) AND/OR *Sequential Compression Device (SCD) 5 or more Highest Order ONE of the following medications: *Heparin 5000 units SQ TID (Preferred with Epidurals) *Enoxaparin/Lovenox 40 mg SQ daily (WT < 150 kg, CrCl > 30 mL/min) *Enoxaparin/Lovenox 30 mg SQ daily (WT < 150 kg, CrCl > 10-29 mL/min) *Enoxaparin/Lovenox 30 mg SQ BID (WT < 150 kg, CrCl > 30 mL/min) AND *Sequential Compression Device (SCD) Assessment and Plan - Plan Assessment/plan: 1. Symptomatic anemia H&H 5.5/15.6 Transfuse 2 units packed red blood cells May be secondary to chronic kidney disease versus chemotherapy Oncology consulted, appreciate assistance 2. Multiple myeloma Oncology consulted as above Last chemotherapy 1 week ago Continue methadone for pain 3. Chronic kidney disease BUN/creatinine 54/2.99, baseline Monitor renal function 4. Hypertension Continue amlodipine, clonidine, hydralazine FEN Heart healthy diet Electrolytes: Monitor and replete as needed Holding pharmacologic anticoagulation for symptomatic anemia
[2018-07-23] MEDS ORDERED: Levothyroxine 150 MCG Tablet PO SCH (07:00)
[2018-07-23] MEDS ORDERED: Ferrous Sulfate 325 MG Tablet PO SCH (09:00)
[2018-07-23] MEDS ORDERED: Senna/Docusate Sodium 8.6/50 MG Tablet PO SCH (09:00)
[2018-07-23] MEDS ORDERED: amLODIPine 10 MG Tablet PO SCH (09:00)
--- NOTE | 2018-07-23 10:30 | P.PN ---
Subjective Interval history: Follow-up symptomatic anemia/intractable nausea and vomiting/multiple myeloma, July 23, 2018-patient seen and examined, she was transfused packed red blood cell 2 unit yesterday, reported improvement of shortness of breath. Denies any current nausea and vomiting. Daughter by the bedside. Physical Exam Vital signs: Vital Signs 07/22/18 20:39 07/22/18 20:44 07/22/18 23:08 Temperature 97 F L 98.2 F Pulse Rate 86 68 68 Respiratory Rate 18 16 16 Blood Pressure 113/55 L 169/84 H 168/84 H Pulse Oximetry 100 98 100 07/22/18 23:20 07/23/18 01:24 07/23/18 01:40 Temperature 98.5 F 98.2 F 98.6 F Pulse Rate 65 68 68 Respiratory Rate 16 16 16 Blood Pressure 167/85 H 181/86 H 168/76 H Pulse Oximetry 100 100 100 07/23/18 03:28 07/23/18 05:00 07/23/18 05:23 Temperature 99.1 F Pulse Rate 69 81 Respiratory Rate 16 20 16 Blood Pressure 131/68 189/85 H Pulse Oximetry 100 98 07/23/18 08:00 Temperature 98.2 F Pulse Rate 75 Respiratory Rate 17 Blood Pressure 204/89 H Pulse Oximetry 100 Intake & Output 07/22/18 07/23/18 07/23/18 18:59 06:59 18:59 Intake Total 1200 / 1200 Balance 1200 / 1200 Weight 65.5 kg Intake: Intake (Blood Product) Amt 1200 / 1200 Rbc As-3 Leukoreduced Unit 800 / 800 [id number] Rbc As-3 Leukoreduced Unit 400 / 400 [id number] Other: # Voids 1 Date of Last Bowel Movement 07/22/18 Weight On Admission 65.5 kg Narrative: GENERAL: NAD SKIN: Warm and dry. HEAD: Atraumatic. Normocephalic. EYES: Pupils equal and round. No scleral icterus. No injection or drainage. ENT: No nasal bleeding or discharge. Mucous membranes pink and moist. NECK: Trachea midline. No JVD. CARDIOVASCULAR: Regular rate and rhythm. RESPIRATORY: No accessory muscle use. Clear to auscultation. Breath sounds equal bilaterally. GASTROINTESTINAL: Abdomen soft, non-tender, nondistended. Hepatic and splenic margins not palpable. MUSCULOSKELETAL: Extremities without clubbing, cyanosis, or edema. No obvious deformities. NEUROLOGICAL: Awake and alert. No obvious cranial nerve deficits. Motor grossly within normal limits. Five out of 5 muscle strength in the arms and legs. Normal speech. PSYCHIATRIC: Appropriate mood and affect; insight and judgment normal. Results - Labs CBC & Chem 7: 07/22/18 20:59 07/22/18 20:59 Laboratory Results - last 24 hr 07/22/18 07/22/18 07/22/18 20:59 20:59 21:45 WBC 6.0 RBC 1.69 L Hgb 5.5 L* Hct 15.6 L* MCV 92.5 MCH 32.4 MCHC 35.0 RDW 19.2 H Plt Count 132 L MPV 7.5 Prelim Diff (Auto) Slide review pending Neut % (Auto) 96.1 H Lymph % (Auto) 2.2 L [place] % (Auto) 1.5 Eos % (Auto) 0.0 Baso % (Auto) 0.2 Neut # (Auto) 5.8 Lymph # (Auto) 0.1 L [place] # (Auto) 0.1 Eos # (Auto) 0.0 Baso # (Auto) 0.0 WBC Differential . Diff Scan Auto diff confirmed Differential Comment . Platelet Estimate Low L Platelet Morphology Normal Ovalocytes 1+ H Keratocytes Occ H Sodium 131 L Potassium 4.6 Chloride 100 Carbon Dioxide 20.1 L Anion Gap 11 BUN 54 H Creatinine 2.99 H Estimated GFR 18 L Random Glucose 146 H Calcium 7.7 L Magnesium 1.6 Total Bilirubin 0.3 AST 14 L ALT 15 Alkaline Phosphatase 92 Troponin I 0.03 Total Protein 5.3 L Albumin 2.5 L Blood Type O Positive Antibody Screen Negative MTS Gel Crossmatch 07/22/18 21:45 WBC RBC Hgb Hct MCV MCH MCHC RDW Plt Count MPV Prelim Diff (Auto) Neut % (Auto) Lymph % (Auto) [place] % (Auto) Eos % (Auto) Baso % (Auto) Neut # (Auto) Lymph # (Auto) [place] # (Auto) Eos # (Auto) Baso # (Auto) WBC Differential Diff Scan Differential Comment Platelet Estimate Platelet Morphology Ovalocytes Keratocytes Sodium Potassium Chloride Carbon Dioxide Anion Gap BUN Creatinine Estimated GFR Random Glucose Calcium Magnesium Total Bilirubin AST ALT Alkaline Phosphatase Troponin I Total Protein Albumin Blood Type Antibody Screen MTS Gel Crossmatch See Detail - Imaging Impressions Chest X-Ray 07/22/18 23:23 CONCLUSION: Chronic changes as above. No acute cardiopulmonary disease demonstrated. - Procedures None Assessment and Plan - Plan 87-year-old female with Symptomatic anemia Transfused 2 unit packed red blood cell Check H&H posttransfusion, likely discharge home today Appreciate input from hematology History of multiple myeloma Management per oncology Continue outpatient medications Chronic kidney disease stage IV Renal indices at baseline Hypertension Currently on Norvasc, clonidine, hydralazine DVT prophylaxis Bilateral SCDs Discharge patient to home Condition on discharge: Improved Regular Diet as tolerated Ad Chio activity Rx written: None Follow-up with primary care physician
--- NOTE | 2018-07-23 12:20 | MB ---
cc: Jaret Pompa MD, Ruby Anne E MD DATE: 07/23/2018 REASON FOR CONSULTATION: Evaluation of anemia. REQUESTING PHYSICIAN: Hospitalist. HISTORY OF PRESENT ILLNESS: An 87-year-old lady with a history of multiple myeloma, chronic kidney disease, hypertension, hyperlipidemia, diabetes and hyperparathyroidism admitted to the emergency room with not feeling well, weak and tired. The patient had dizziness and was unable to walk. She did not black out and did not fall. She was found to have severe anemia and was admitted and given 2 units of RBC overnight. Hematology consulted for further management. Currently, she is asymptomatic and claims that blood transfusion has helped her a lot, although she has not walked out of bed and hence she is unsure if she is going to be stable on gait, but she does not have any dizziness, chest pains, palpitations, shortness of breath, orthopnea or PND. REVIEW OF SYSTEMS: No headaches, motor or sensory symptoms. No cough or chest pain, shortness of breath or hemoptysis. No abdominal pain, distention, bloody stool or black stools. No frequency, urgency or hematuria. She takes iron tablets and hence stool is dark, but she did not notice any black tarry stools. PAST MEDICAL HISTORY: Multiple myeloma on chemo by Dr. Rm, last treatment a week ago. History of right breast cancer, status post mastectomy and history of peripheral vascular disease and stage IV chronic kidney disease. PAST SURGICAL HISTORY: As above. FAMILY HISTORY: Noncontributory. MEDICATIONS: She is on Dulcolax, Catapres, Flexeril, Decadron, ferrous sulfate, hydralazine, Synthroid, Dolophine, Zofran, Protonix, Senokot. PHYSICAL EXAMINATION: GENERAL: Elderly lady, chronically ill-appearing, in no acute distress, hemodynamically stable. VITAL SIGNS: Afebrile at 98.2 and blood pressure was elevated at 204/89 and subsequently 189/85. GENERAL: Alert, oriented x 4. LYMPH: No palpable adenopathy in the neck, axilla or groins. HEENT: Pallor present. No icterus. Without oropharyngeal lesions, no gum bleeding or hypertrophy. NECK: No thyromegaly. HEART: S1, S2 with occasional irregularity and grade 2 systolic murmur, no rubs or distant heart sounds. LUNGS: Clear breath sounds without crackles or wheezes. ABDOMEN: Soft and nontender without palpable organomegaly. EXTREMITIES: 2+ bipedal edema with no calf tenderness. LABORATORY DATA: Reviewed. Hemoglobin was 5.5 prior to transfusion last night with white count of 6 and platelet of 132. Granulocytes 96%. GFR is 18, creatinine 2.9. Liver enzymes normal. Calcium 7.7, albumin 2.5. IMPRESSION: Elderly lady with multiple medical problems, specifically multiple myeloma, on chemotherapy, currently with severe anemia, rule out gastrointestinal bleed. The patient's clinical status improved significantly after blood transfusion. This probably is acute on chronic anemia as she has underlying multiple myeloma. Since she is taking iron and has dark stool, I will order stool occult blood to rule out GI bleed and if it is negative, she will benefit from Procrit for anemia of chronic kidney disease as well. All these issues were discussed with the patient and her daughter, who was at the bedside. I will see her in followup in the hospital. MD TERENCE Godinez/christen/susan , 09:09 AM , 09:20 AM
[2018-07-23 12:27] VITALS: BP 157/71; PULSE 75; RESP 18; TEMP 98.1; O2SAT 95
[2018-07-23 13:02] LABS: Baso % (Auto) 0.3 % (0.0-2.0); Hematocrit 25.6 % (35.0-46.0); Hemoglobin 9.2 gm/dL (11.6-15.3); Lymph # (Auto) 0.2 th/mm3 (1.0-4.8); Lymph % (Auto) 2.3 % (9.0-44.0); Mean Corpuscular Hemoglobin 33.3 pg (27.0-34.0); Mean Corpuscular Volume 92.6 fL (80.0-100.0); Mean Platelet Volume 7.6 fL (7.0-11.0); Mono # (Auto) 0.2 th/mm3 (0.0-0.9); Mono % (Auto) 2.2 % (0.0-8.0); Neut # (Auto) 9.2 th/mm3 (1.8-7.7); Neut % (Auto) 95.2 % (16.0-70.0); Platelet Count 148 th/mm3 (150-450); Red Blood Count 2.77 mil/mm3 (4.00-5.30); White Blood Count 9.6 th/mm3 (4.0-11.0)
[2018-07-23 13:36] LABS: Lymphocytes 1 % (9-44); Monocytes 2 % (0-8); Platelet Morphology Normal (Normal)
[2018-07-23 13:37] LABS: Ovalocytes 1+
--- NOTE | 2018-07-23 18:01 | ECG ---
Date Performed: 07/22/2018 Time Performed: 21:41:10 PTAGE: 87 years EKG: Sinus rhythm WITH OCCASIONAL SUPRAVENTRICULAR PREMATURE COMPLEXES POSSIBLE RIGHT VENTRICULAR CONDUCTION DELAY MIN IMAL VOLTAGE CRITERIA FOR LVH, CONSIDER NORMAL VARIANT NO PREVIOUS TRACING DOCTOR: Edil Freedman Interpretating Date/Time 07/23/2018 17:59:57
== END 2018-07-23 16:20 | disposition home or self-care (01) | DRG 841 ==
LOC: NEDA 20:36 → NEPE 20:36 → HCIN 07-23 04:56
PROVIDERS: ADMIT Hospitalist; ATTEND Hospitalist
CPT/HCPCS: 36430; 71010; 71045; 80053; 83735; 84484; 85025; 86850; 86900; 86901; 86923; 90774; 90784; 92610; 93005; 96374; 97162; 99285; C8952; G0195; J2405; J7050; J8540; P9016